=== PATIENT | female | born 1965 | race Caucasian/White ===

== ENCOUNTER 2021-06-22 09:13 | Inpatient (IN) ==
[2021-06-22] MEDS ORDERED: ADENOSINE IV SOLN 3 MG/ML 2 ML VIAL IV ONE (09:30)
[2021-06-22] MEDS ORDERED: AMIODARONE / D5W 150 MG/100 ML BAG IV ONE ×2 (09:33→09:43)
[2021-06-22] MEDS ORDERED: AMIODARONE 360MG / 200ML D5W IV ONE (09:33)
[2021-06-22] MEDS ORDERED: AMIODARONE 150MG / 100ML D5W IV ONE ×2 (09:33→09:43)
[2021-06-22] MEDS ORDERED: 0.2 MICRON FILTER SET 1 EA IV ONE (09:33)
[2021-06-22] MEDS ORDERED: LORazepam 2 MG/4 ML VIAL ONE (09:34)
[2021-06-22] MEDS ORDERED: PROPOFOL IV EMULSION 10 MG/ML 20 ML VIAL IV ONE ×2 (09:46→10:17)
[2021-06-22 09:51] LABS: Basophils # (auto) 0.04 K/uL (0-0.2); Basophils % (auto) 0.8 %; Eosinophils # (auto) 0.19 K/uL (0-0.5); Eosinophils % (auto) 3.7 %; Hematocrit (blood only) 47.1 % (37-47); Hemoglobin 15.6 g/dL (12.0-16.0); Immature Granulocytes # (auto) 0.01 K/uL (0.00-0.02); Immature Granulocytes % (auto) 0.2 %; Lymphocytes # (auto) 1.16 K/uL (1.2-3.4); Lymphocytes % (auto) 22.5 %; Mean Corpuscular Hemoglobin 32.9 pg (25-34); Mean Corpuscular Hgb Conc 33.1 g/dL (32-36); Mean Corpuscular Volume 99.4 fL (80-100); Mean Platelet Volume 10.2 fL (7.4-10.4); Monocytes # (auto) 0.49 K/uL (0.11-0.59); Monocytes % (auto) 9.5 %; Neutrophils # (auto) 3.26 K/uL (1.4-6.5); Neutrophils % (auto) 63.3 %; Platelet Count 210 K/uL (130-400); RDW Coefficient of Variation 13.3 % (11.5-14.5); RDW Standard Deviation 48.1 fL (36.4-46.3); Red Blood Count 4.74 M/uL (4.2-5.4); White Blood Count 5.15 K/uL (4.8-10.8)
[2021-06-22 10:04] LABS: iSTAT Creatinine 0.9 mg/dl (0.6-1.3); iSTAT Hemoglobin 15.3 g/dl (12.0-16.0); iSTAT Ionized Calcium 1.13 mmol/l (1.12-1.32); iSTAT Potassium 4.2 mmol/L (3.3-5.0)
[2021-06-22 10:04] LABS: Partial Thromboplastin Time 27.3 Seconds (21.0-31.0); Prothrombin Time 10.1 Seconds (9.0-12.0)
[2021-06-22 10:10] LABS: BUN Creatinine Ratio 14.5 (10-20); Calcium 8.7 mg/dl (8.5-10.1); Creatinine Clr Calc Pharmacy 61.8 ml/min; Est GFR (Non-African American) 53.5 ml/min; Magnesium 2.1 mg/dl (1.8-2.4); Potassium 3.6 mmol/L (3.5-5.1)
[2021-06-22 10:15] LABS: Troponin I 0.049 ng/ml (0-0.045)
[2021-06-22] MEDS ORDERED: AMIODARONE / D5W 360 MG/200 ML BAG IV SCH ×2 (10:30→16:30)
--- NOTE | 2021-06-22 10:31 | Emergency Department Note ---
History of Present Illness General Chief complaint: Tachycardia Stated complaint: TACHYCARDIA, SOB Time Seen by Provider: 06/22/21 09:36 Home Medications Medication Instructions Recorded Confirmed Type acetaminophen 500 mg tablet 1,000 mg PO Q6H PRN 09/05/18 06/22/21 History (Tylenol Extra Strength) Allergies Allergy/AdvReac Type Severity Reaction Status Date / Time latex Allergy Unknown RASH Verified 06/22/21 11:04 morphine Allergy Unknown Chest Verified 06/22/21 11:04 tightness and pressure. azithromycin AdvReac stomach Verified 06/22/21 11:04 pain metoprolol AdvReac Verified 06/22/21 11:04 Past Med/Surg History Medical History Abdominal distention Anemia HX Anxiety CHF (congestive heart failure) GERD (gastroesophageal reflux disease) HX History of palpitations NO MEDS Kidney stones Nausea and vomiting after administration of anesthetic agent FATIGUE FOR DAYS AFTERWARDS Prediabetes NO MEDS DIET MANAGED Surgical History Hx of thumb surgery LEFT TENDON SURG Family History Family/Other Family history of diabetes mellitus Grandmother Family history of diabetes mellitus Father Family hx of colon cancer Social History Smoking Status: Former smoker Second Hand Exposure: No; Hx Alcohol Use: No Hx Substance Use: No Preferred Language: Nicaraguan Communication Ability: Effective 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 Hand Required: No Beliefs That Will Affect Care: None Current Living Situation: Spouse Feels Safe at Home: Yes Assistive Devices: Denture - Upper and Denture - Lower Physical Exam Vital Signs Vital Signs - 24 hr 06/22/21 09:19 06/22/21 09:32 06/22/21 09:35 Temperature 36.7 C Temperature Source Temporal Artery Scan Pulse Rate 148 H 147 H 147 H Pulse Rate from SpO2 Sensor 148 H 147 H Pulse Rhythm Respiratory Rate 20 27 H 18 Blood Pressure 146/97 H 182/122 H 149/118 H Blood Pressure Mean 113 142 128 Pulse Oximetry 93 99 99 Oxygen Delivery Method Room Air Oxymask Oxymask Oxygen Flow Rate 4 4 Sepsis Recent Fever Within 48 Hours No Sepsis New/Unexplained Change in Mental Status N/A Sepsis Action Taken by Nursing No Action Required End-Tidal CO2 06/22/21 09:40 06/22/21 09:45 06/22/21 09:50 Temperature Temperature Source Pulse Rate 144 H 140 H 139 H Pulse Rate from SpO2 Sensor 144 H 133 H 139 H Pulse Rhythm Respiratory Rate 20 22 Blood Pressure 135/97 125/92 119/86 Blood Pressure Mean 109 103 97 Pulse Oximetry 96 93 93 Oxygen Delivery Method Oxymask Nasal Cannula Nasal Cannula Oxygen Flow Rate 4 2 2 Sepsis Recent Fever Within 48 Hours Sepsis New/Unexplained Change in Mental Status Sepsis Action Taken by Nursing End-Tidal CO2 35 06/22/21 09:54 06/22/21 09:55 06/22/21 10:00 Temperature Temperature Source Pulse Rate 133 H 133 H Pulse Rate from SpO2 Sensor 133 H 133 H Pulse Rhythm Respiratory Rate Blood Pressure 113/82 107/86 Blood Pressure Mean 92 93 Pulse Oximetry 93 92 92 Oxygen Delivery Method Nasal Cannula Nasal Cannula Nasal Cannula Oxygen Flow Rate 2 2 2 Sepsis Recent Fever Within 48 Hours Sepsis New/Unexplained Change in Mental Status Sepsis Action Taken by Nursing End-Tidal CO2 32 34 06/22/21 10:05 06/22/21 10:10 06/22/21 10:15 Temperature Temperature Source Pulse Rate 134 H 71 70 Pulse Rate from SpO2 Sensor 135 H 71 69 Pulse Rhythm Respiratory Rate Blood Pressure 126/91 100/76 118/73 Blood Pressure Mean 102 84 88 Pulse Oximetry 91 93 96 Oxygen Delivery Method Nasal Cannula Nasal Cannula Non-rebreather Oxygen Flow Rate 6 6 15 Sepsis Recent Fever Within 48 Hours Sepsis New/Unexplained Change in Mental Status Sepsis Action Taken by Nursing End-Tidal CO2 24 16 20 06/22/21 10:20 06/22/21 10:25 06/22/21 10:30 Temperature Temperature Source Pulse Rate 67 69 68 Pulse Rate from SpO2 Sensor 67 71 68 Pulse Rhythm Respiratory Rate Blood Pressure 81/64 L 103/64 120/70 Blood Pressure Mean 69 77 86 Pulse Oximetry 95 95 95 Oxygen Delivery Method Nasal Cannula Nasal Cannula Nasal Cannula Oxygen Flow Rate 4 4 4 Sepsis Recent Fever Within 48 Hours Sepsis New/Unexplained Change in Mental Status Sepsis Action Taken by Nursing End-Tidal CO2 33 19 31 06/22/21 10:35 06/22/21 10:39 06/22/21 10:41 Temperature Temperature Source Pulse Rate 67 68 68 Pulse Rate from SpO2 Sensor 67 68 Pulse Rhythm Regular Respiratory Rate 16 20 18 Blood Pressure 114/70 98/70 L Blood Pressure Mean 84 79 Pulse Oximetry 95 95 96 Oxygen Delivery Method Nasal Cannula Nasal Cannula Nasal Cannula Oxygen Flow Rate 2 4 2 Sepsis Recent Fever Within 48 Hours Sepsis New/Unexplained Change in Mental Status Sepsis Action Taken by Nursing End-Tidal CO2 33 32 06/22/21 10:45 06/22/21 10:50 06/22/21 10:55 Temperature Temperature Source Pulse Rate 70 67 67 Pulse Rate from SpO2 Sensor 67 66 Pulse Rhythm Respiratory Rate 20 18 18 Blood Pressure 111/77 116/80 114/67 Blood Pressure Mean 88 92 82 Pulse Oximetry 96 95 96 Oxygen Delivery Method Nasal Cannula Nasal Cannula Nasal Cannula Oxygen Flow Rate 2 2 2 Sepsis Recent Fever Within 48 Hours Sepsis New/Unexplained Change in Mental Status Sepsis Action Taken by Nursing End-Tidal CO2 19 06/22/21 11:00 06/22/21 11:15 06/22/21 11:30 Temperature Temperature Source Pulse Rate 68 66 63 Pulse Rate from SpO2 Sensor 68 66 64 Pulse Rhythm Respiratory Rate 18 18 Blood Pressure 122/69 114/70 125/71 Blood Pressure Mean 86 84 89 Pulse Oximetry 96 94 95 Oxygen Delivery Method Nasal Cannula Oxygen Flow Rate 2 4 4 Sepsis Recent Fever Within 48 Hours Sepsis New/Unexplained Change in Mental Status Sepsis Action Taken by Nursing End-Tidal CO2 06/22/21 11:45 06/22/21 12:00 06/22/21 12:15 Temperature Temperature Source Pulse Rate 65 65 66 Pulse Rate from SpO2 Sensor 65 65 66 Pulse Rhythm Respiratory Rate Blood Pressure 119/75 120/73 122/81 Blood Pressure Mean 89 88 94 Pulse Oximetry 96 96 96 Oxygen Delivery Method Oxygen Flow Rate 4 4 4 Sepsis Recent Fever Within 48 Hours Sepsis New/Unexplained Change in Mental Status Sepsis Action Taken by Nursing End-Tidal CO2 06/22/21 12:30 Temperature Temperature Source Pulse Rate 61 Pulse Rate from SpO2 Sensor 61 Pulse Rhythm Respiratory Rate Blood Pressure 115/76 Blood Pressure Mean 89 Pulse Oximetry 96 Oxygen Delivery Method Oxygen Flow Rate 4 Sepsis Recent Fever Within 48 Hours Sepsis New/Unexplained Change in Mental Status Sepsis Action Taken by Nursing End-Tidal CO2 Course Course 1030: szy amio ndsrip Administered Medications Amiodarone HCl/Dextrose (Nexterone / D5w) 360 mg in 200 mls @ 33.333 mls/hr IV .Q6H KAILEE Stop: 06/22/21 16:29 Last Admin: 06/22/21 10:37 Dose: 1 mg/min, 33.3 mls/hr Documented by: [id number] Cosigned by: [id number] Discontinued Medications Adenosine (Adenosine Iv Soln 3 Mg/Ml 2 Ml Vial) Confirm Administered Dose 6 mg IV .STK-MED ONE Stop: 06/22/21 09:31 Last Admin: 06/22/21 10:49 Dose: Not Given Documented by: [id number] Amiodarone HCl/Dextrose (Amiodarone 360mg / 200ml D5w) Confirm Administered Dose 360 mg IV .STK-MED ONE Stop: 06/22/21 09:34 Last Admin: 06/22/21 10:56 Dose: Not Given Documented by: [id number] Amiodarone HCl/Dextrose (Amiodarone 150mg / 100ml D5w) Confirm Administered Dose 150 mg IV .STK-MED ONE Stop: 06/22/21 09:34 Last Admin: 06/22/21 09:38 Dose: 150 mg Documented by: [id number] Cosigned by: [id number] Amiodarone HCl/Dextrose (Amiodarone 150mg / 100ml D5w) Confirm Administered Dose 150 mg IV .STK-MED ONE Stop: 06/22/21 09:44 Last Admin: 06/22/21 09:50 Dose: 150 mg Documented by: [id number] Cosigned by: [id number] Amiodarone HCl/Dextrose (Nexterone / D5w) 150 mg in 100 mls @ 600 mls/hr IV ONE ONE Stop: 06/22/21 09:42 Last Admin: 06/22/21 10:56 Dose: Not Given Documented by: [id number] Amiodarone HCl/Dextrose (Nexterone / D5w) 150 mg in 100 mls @ 600 mls/hr IV ONE ONE Stop: 06/22/21 09:52 Last Admin: 06/22/21 10:56 Dose: Not Given Documented by: [id number] Lorazepam (Lorazepam 2 Mg/4 Ml Vial) Confirm Administered Dose 2 mg .ROUTE .STK- MED ONE Stop: 06/22/21 09:35 Last Admin: 06/22/21 09:39 Dose: 0.5 mg Documented by: [id number] Propofol (Propofol Iv Emulsion 10 Mg/Ml 20 Ml Vial) Confirm Administered Dose 200 mg IV .STK-MED ONE Stop: 06/22/21 09:47 Last Admin: 06/22/21 10:17 Dose: 50 mg Documented by: [id number] Cosigned by: [id number] Propofol (Propofol Iv Emulsion 10 Mg/Ml 20 Ml Vial) 50 mg IV 1017 ONE Stop: 06/22/21 10:18 Last Admin: 06/22/21 10:52 Dose: Not Given Documented by: [id number] Medical Decision Making Laboratory Data Result diagrams: 06/22/21 09:36 06/22/21 09:36 Lab Results 06/22/21 06/22/21 06/22/21 Range/Units 09:36 09:36 09:36 WBC 5.15 (4.8-10.8) K/uL RBC 4.74 (4.2-5.4) M/uL Hgb 15.6 (12.0-16.0) g/dL POC Hgb (12.0-16.0) g/dl Hct 47.1 H (37-47) % POC Hct (37-47) % MCV 99.4 (80-100) fL MCH 32.9 (25-34) pg MCHC 33.1 (32-36) g/dL RDW Std Deviation 48.1 H (36.4-46.3) fL RDW Coeff of Kaden 13.3 (11.5-14.5) % Plt Count 210 (130-400) K/uL MPV 10.2 (7.4-10.4) fL Immature Gran % (Auto) 0.2 % Neut % (Auto) 63.3 % Lymph % (Auto) 22.5 % [place] % (Auto) 9.5 % Eos % (Auto) 3.7 % Baso % (Auto) 0.8 % Neut # (Auto) 3.26 (1.4-6.5) K/uL Lymph # (Auto) 1.16 L (1.2-3.4) K/uL [place] # (Auto) 0.49 (0.11-0.59) K/uL Eos # (Auto) 0.19 (0-0.5) K/uL Baso # (Auto) 0.04 (0-0.2) K/uL Immature Gran # (Auto) 0.01 (0.00-0.02) K/uL PT 10.1 (9.0-12.0) Seconds INR 1.0 (0.9-1.1) APTT 27.3 (21.0-31.0) Seconds PTT Ratio 1.0 POC Sodium (135-144) mmol/L Sodium 133 L (136-145) mmol/L POC Potassium (3.3-5.0) mmol/L Potassium 3.6 (3.5-5.1) mmol/L POC Chloride (101-112) mmol/L Chloride 100 (98-107) mmol/L Carbon Dioxide 28 (21-32) mmol/L POC Total CO2 (24-31) mmol/L Anion Gap 5.0 (3-11) POC Anion Gap (16-25) mmol/L POC BUN (7-18) mg/dl BUN 17 (7-18) mg/dl Creatinine 1.15 (0.6-1.2) mg/dl POC Creatinine (0.6-1.3) mg/dl Est Cr Clr Drug Dosing 61.8 ml/min Est GFR ( Amer) 62.0 ml/min Est GFR (Non-Af Amer) 53.5 ml/min BUN/Creatinine Ratio 14.5 (10-20) Glucose 298 H (70-99) mg/dl POC Glucose (other) (70-99) mg/dl Calcium 8.7 (8.5-10.1) mg/dl POC Ioniz Calcium Regino (1.12-1.32) mmol/l Magnesium 2.1 (1.8-2.4) mg/dl Troponin I 0.049 H* (0-0.045) ng/ml NT-Pro-B Natriuret Pep 4251 H (0-900) pg/ml Lipase 92 (73-393) U/L COVID-19 Eval Order SARS-CoV-2 (PCR) (Negative) 06/22/21 06/22/21 06/22/21 Range/Units 09:52 10:41 10:41 WBC (4.8-10.8) K/uL RBC (4.2-5.4) M/uL Hgb (12.0-16.0) g/dL POC Hgb 15.3 (12.0-16.0) g/dl Hct (37-47) % POC Hct 45 (37-47) % MCV (80-100) fL MCH (25-34) pg MCHC (32-36) g/dL RDW Std Deviation (36.4-46.3) fL RDW Coeff of Kaden (11.5-14.5) % Plt Count (130-400) K/uL MPV (7.4-10.4) fL Immature Gran % (Auto) % Neut % (Auto) % Lymph % (Auto) % [place] % (Auto) % Eos % (Auto) % Baso % (Auto) % Neut # (Auto) (1.4-6.5) K/uL Lymph # (Auto) (1.2-3.4) K/uL [place] # (Auto) (0.11-0.59) K/uL Eos # (Auto) (0-0.5) K/uL Baso # (Auto) (0-0.2) K/uL Immature Gran # (Auto) (0.00-0.02) K/uL PT (9.0-12.0) Seconds INR (0.9-1.1) APTT (21.0-31.0) Seconds PTT Ratio POC Sodium 135 (135-144) mmol/L Sodium (136-145) mmol/L POC Potassium 4.2 (3.3-5.0) mmol/L Potassium (3.5-5.1) mmol/L POC Chloride 97 L (101-112) mmol/L Chloride (98-107) mmol/L Carbon Dioxide (21-32) mmol/L POC Total CO2 26 (24-31) mmol/L Anion Gap (3-11) POC Anion Gap 17.0 (16-25) mmol/L POC BUN 22 H (7-18) mg/dl BUN (7-18) mg/dl Creatinine (0.6-1.2) mg/dl POC Creatinine 0.9 (0.6-1.3) mg/dl Est Cr Clr Drug Dosing ml/min Est GFR ( Amer) ml/min Est GFR (Non-Af Amer) ml/min BUN/Creatinine Ratio (10-20) Glucose (70-99) mg/dl POC Glucose (other) 355 H* (70-99) mg/dl Calcium (8.5-10.1) mg/dl POC Ioniz Calcium Regino 1.13 (1.12-1.32) mmol/l Magnesium (1.8-2.4) mg/dl Troponin I (0-0.045) ng/ml NT-Pro-B Natriuret Pep (0-900) pg/ml Lipase (73-393) U/L COVID-19 Eval Order Covid19 at [facility] SARS-CoV-2 (PCR) NEGATIVE (Negative) Imaging Data Radiologist's Impression: Chest X-Ray 06/22/21 09:37 XR chest 1V portable CLINICAL HISTORY: Chest Pain COMPARISON STUDY: Chest radiograph November 04, 2015. FINDINGS: There is no pneumothorax. Right lower lung interstitial thickening and apparent hazy left basilar opacity is noted. Possible small left and trace right pleural effusions are noted. Cardiomediastinal silhouette is stable. There is pulmonary vascular congestion without overt pulmonary edema. IMPRESSION: 1. Lower lung interstitial thickening and apparent hazy left basilar opacity. This could be due to overlying soft tissues. However, an infectious process would be difficult to exclude. 2. Pulmonary vascular congestion. ACT 112: Negative or not required by law. Electronically signed by: Mg Nugent M.D. 06/22/2021 10:36 AM Discharge Plan Visit Data Chief Complaint: Tachycardia Stated Complaint: TACHYCARDIA, SOB ED Provider: Eric Awad Forms Stand Alone Forms: [employer] Prescriptions Prescriptions: No Action acetaminophen [Tylenol Extra Strength] 500 mg Tablet 1,000 mg PO Q6H PRN (Reason: Pain) RF: 0 Referrals Referrals: Jesu Landon III, MD [Primary Care Provider] -
--- NOTE | 2021-06-22 10:37 | XRay Report ---
XR chest 1V portable CLINICAL HISTORY: Chest Pain COMPARISON STUDY: Chest radiograph November 04, 2015. FINDINGS: There is no pneumothorax. Right lower lung interstitial thickening and apparent hazy left b asilar opacity is noted. Possible small left and trace right pleural effusions are noted. Cardiomedia stinal silhouette is stable. There is pulmonary vascular congestion without overt pulmonary edema. IMPRESSION: 1. Lower lung interstitial thickening and apparent hazy left basilar opacity. This could be due to ov erlying soft tissues. However, an infectious process would be difficult to exclude. 2. Pulmonary vascular congestion. ACT 112: Negative or not required by law. Electronically signed by: Mg Nugent M.D. 06/22/2021 10:36 AM
--- NOTE | 2021-06-22 11:54 | History & Physical Report ---
Date of Service June 22, 2021 Assessment & Plan (1) Ventricular tachycardia: Plan: Patient presented with stable of ventricular tachycardia, resistant to chemical cardioversion. Required DC CV by ER physician, now stable Will admit to PCU Continue amiodarone drip as ordered Check 2D echo Trend troponins IV hydration Consult cardiology, question if candidate for implantable defibrillator (2) CHF (congestive heart failure): Plan: As per documentation, I do not see any further characterization of this Patient is not on any diuretics or other cardiac meds 2D echo as noted above (3) Hyperglycemia: Plan: Patient has a history of prediabetes, will check hemoglobin A1c (4) GERD (gastroesophageal reflux disease): Plan: Again, no medications listed. Continue to monitor History of Present Illness Chief Complaint: Tachycardia Primary Care Provider: Jesu Landon MD This is a 55-year-old female with past medical history of allergic rhinitis, CHF, GERD, and previous pneumonia with VDRF that presents today complaining of tachycardia. Patient is accompanied by her [id number], both are good historians. Patient tells me that she works nights at [employer]. 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 She took her blood pressure with her cuff at home and found that her rate was being measured in the 140s. The patient did not think much of this as she is having no chest pain or palpitations. She went to sleep but when she woke up she once again measured her blood pressure and heart rate and found that the rate was again in the 140s. Patient continued along her day yesterday but woke up this morning with similar rate. She did feel somewhat tired with a lack of energy but is specifically denied palpitations, chest pain, shortness of breath, dyspnea on exertion, edema, or any other symptoms. Today she started to feel little dizzy and lightheaded which is what prompted her to come to the emergency room. In the ER, she was found to be in V. tach. She was administered 2 doses of amiodarone emergently without results. The ER physician performed a DC cardioversion and the patient is now in a normal sinus rhythm. At the time my evaluation, the patient was feeling well with no issues. She was requiring 4 L nasal cannula but her heart rate and blood pressure were stable and she remained in normal sinus rhythm. She was placed on an amiodarone drip. At this time the patient is being mated to the PCU for further cardiac evaluation. Allergies Allergy/AdvReac Type Severity Reaction Status Date / Time latex Allergy Unknown RASH Verified 06/22/21 11:04 morphine Allergy Unknown Chest Verified 06/22/21 11:04 tightness and pressure. azithromycin AdvReac stomach Verified 06/22/21 11:04 pain metoprolol AdvReac Verified 06/22/21 11:04 Home Medications Medication Instructions Recorded Confirmed Type acetaminophen 500 mg tablet 1,000 mg PO Q6H PRN 09/05/18 06/22/21 History (Tylenol Extra Strength) Past Med/Surg History Medical History Abdominal distention Anemia HX Anxiety CHF (congestive heart failure) GERD (gastroesophageal reflux disease) HX History of palpitations NO MEDS Kidney stones Nausea and vomiting after administration of anesthetic agent FATIGUE FOR DAYS AFTERWARDS Prediabetes NO MEDS DIET MANAGED Surgical History Hx of thumb surgery LEFT TENDON SURG Family History Family/Other Family history of diabetes mellitus Grandmother Family history of diabetes mellitus Father Family hx of colon cancer Social History Smoking Status: Former smoker Second Hand Exposure: No; Hx Alcohol Use: No Hx Substance Use: No Preferred Language: [place] Islander Communication Ability: Effective Can Tender Required: No Beliefs That Will Affect Care: None Current Living Situation: Spouse Feels Safe at Home: Yes Assistive Devices: Denture - Upper and Denture - Lower Review of Systems Constitutional: no fever, no chills, no weakness, no weight loss and no weight gain Eyes: as per Subjective / HPI Respiratory: no cough, no chest congestion, no dyspnea and no dyspnea on exertion Cardiovascular: + lightheadedness; no chest pain, no orthopnea, no palpitations and no edema Gastrointestinal: no abdominal pain, no nausea, no vomiting, no constipation and no diarrhea/loose stools Genitourinary: no dysuria, no difficulty urinating, no urinary frequency, no urinary hesitancy, no urinary urgency and no flank pain Musculoskeletal: no back pain, no neck pain, no joint pain, no stiffness and no myalgia Integumentary: no rash Neurologic: no gait abnormality, no unsteadiness, no falls and no generalized weakness Physical Exam Constitutional: cooperative; no acute distress Neck: trachea midline, no thyromegaly Respiratory: normal respiratory effort Auscultation: lungs clear to auscultation bilaterally; no crackles, no rales, no rhonchi and no wheezes Cardiovascular: Rate/Rhythm: regular rate and regular rhythm Heart Sounds: normal S1 and normal S2 Gastrointestinal (Abdomen): Inspection/Auscultation: abdomen normal to inspection Percussion/Palpation: abdomen soft; abdomen nontender, no guarding, abdomen not rigid and no hepatosplenomegaly Skin: no rashes, warm and dry Results & Data Results & Data ([facility]) Vital Signs (Past 12 Hours) Vital Signs Temp Pulse Resp BP Pulse Ox 06/22/21 11:15 66 18 114/70 94 06/22/21 11:00 68 18 122/69 96 06/22/21 10:55 67 18 114/67 96 06/22/21 10:50 67 18 116/80 95 06/22/21 10:45 70 20 111/77 96 06/22/21 10:41 68 18 98/70 L 96 06/22/21 10:39 68 20 95 06/22/21 10:35 67 16 114/70 95 06/22/21 10:30 68 120/70 95 06/22/21 10:25 69 103/64 95 06/22/21 10:20 67 81/64 L 95 06/22/21 10:15 70 118/73 96 06/22/21 10:10 71 100/76 93 06/22/21 10:05 134 H 126/91 91 06/22/21 10:00 133 H 107/86 92 06/22/21 09:55 133 H 113/82 92 06/22/21 09:54 93 06/22/21 09:50 139 H 119/86 93 06/22/21 09:45 140 H 22 125/92 93 06/22/21 09:40 144 H 20 135/97 96 06/22/21 09:35 147 H 18 149/118 H 99 06/22/21 09:32 147 H 27 H 182/122 H 99 06/22/21 09:19 36.7 C 148 H 20 146/97 H 93 Laboratory Results Laboratory Results WBC 5.15 K/uL (4.8-10.8) 06/22/21 09:36 RBC 4.74 M/uL (4.2-5.4) 06/22/21 09:36 Hgb 15.6 g/dL (12.0-16.0) 06/22/21 09:36 POC Hgb 15.3 g/dl (12.0-16.0) 06/22/21 09:52 Hct 47.1 % (37-47) H 06/22/21 09:36 POC Hct 45 % (37-47) 06/22/21 09:52 MCV 99.4 fL (80-100) 06/22/21 09:36 MCH 32.9 pg (25-34) 06/22/21 09:36 MCHC 33.1 g/dL (32-36) 06/22/21 09:36 RDW Std Deviation 48.1 fL (36.4-46.3) H 06/22/21 09:36 RDW Coeff of Kaden 13.3 % (11.5-14.5) 06/22/21 09:36 Plt Count 210 K/uL (130-400) 06/22/21 09:36 MPV 10.2 fL (7.4-10.4) 06/22/21 09:36 Immature Gran % (Auto) 0.2 % 06/22/21 09:36 Neut % (Auto) 63.3 % 06/22/21 09:36 Lymph % (Auto) 22.5 % 06/22/21 09:36 [place] % (Auto) 9.5 % 06/22/21 09:36 Eos % (Auto) 3.7 % 06/22/21 09:36 Baso % (Auto) 0.8 % 06/22/21 09:36 Neut # (Auto) 3.26 K/uL (1.4-6.5) 06/22/21 09:36 Lymph # (Auto) 1.16 K/uL (1.2-3.4) L 06/22/21 09:36 [place] # (Auto) 0.49 K/uL (0.11-0.59) 06/22/21 09:36 Eos # (Auto) 0.19 K/uL (0-0.5) 06/22/21 09:36 Baso # (Auto) 0.04 K/uL (0-0.2) 06/22/21 09:36 Immature Gran # (Auto) 0.01 K/uL (0.00-0.02) 06/22/21 09:36 PT 10.1 Seconds (9.0-12.0) 06/22/21 09:36 INR 1.0 (0.9-1.1) 06/22/21 09:36 APTT 27.3 Seconds (21.0-31.0) 06/22/21 09:36 PTT Ratio 1.0 06/22/21 09:36 POC Sodium 135 mmol/L (135-144) 06/22/21 09:52 Sodium 133 mmol/L (136-145) L 06/22/21 09:36 POC Potassium 4.2 mmol/L (3.3-5.0) 06/22/21 09:52 Potassium 3.6 mmol/L (3.5-5.1) 06/22/21 09:36 POC Chloride 97 mmol/L (101-112) L 06/22/21 09:52 Chloride 100 mmol/L (98-107) 06/22/21 09:36 Carbon Dioxide 28 mmol/L (21-32) 06/22/21 09:36 POC Total CO2 26 mmol/L (24-31) 06/22/21 09:52 Anion Gap 5.0 (3-11) 06/22/21 09:36 POC Anion Gap 17.0 mmol/L (16-25) 06/22/21 09:52 POC BUN 22 mg/dl (7-18) H 06/22/21 09:52 BUN 17 mg/dl (7-18) 06/22/21 09:36 Creatinine 1.15 mg/dl (0.6-1.2) 06/22/21 09:36 POC Creatinine 0.9 mg/dl (0.6-1.3) 06/22/21 09:52 Est Cr Clr Drug Dosing 61.8 ml/min 06/22/21 09:36 Est GFR ( Amer) 62.0 ml/min 06/22/21 09:36 Est GFR (Non-Af Amer) 53.5 ml/min 06/22/21 09:36 BUN/Creatinine Ratio 14.5 (10-20) 06/22/21 09:36 Glucose 298 mg/dl (70-99) H 06/22/21 09:36 POC Glucose (other) 355 mg/dl (70-99) H* 06/22/21 09:52 Calcium 8.7 mg/dl (8.5-10.1) 06/22/21 09:36 POC Ioniz Calcium Regino 1.13 mmol/l (1.12-1.32) 06/22/21 09:52 Magnesium 2.1 mg/dl (1.8-2.4) 06/22/21 09:36 Troponin I 0.049 ng/ml (0-0.045) H* 06/22/21 09:36 NT-Pro-B Natriuret Pep 4251 pg/ml (0-900) H 06/22/21 09:36 Lipase 92 U/L (73-393) 06/22/21 09:36 COVID-19 Eval Order Covid19 at [facility] 06/22/21 10:41 Impressions Chest X-Ray 06/22/21 09:37 XR chest 1V portable CLINICAL HISTORY: Chest Pain COMPARISON STUDY: Chest radiograph November 04, 2015. FINDINGS: There is no pneumothorax. Right lower lung interstitial thickening and apparent hazy left basilar opacity is noted. Possible small left and trace right pleural effusions are noted. Cardiomediastinal silhouette is stable. There is pulmonary vascular congestion without overt pulmonary edema. IMPRESSION: 1. Lower lung interstitial thickening and apparent hazy left basilar opacity. This could be due to overlying soft tissues. However, an infectious process would be difficult to exclude. 2. Pulmonary vascular congestion. ACT 112: Negative or not required by law. Electronically signed by: Mg Nugent M.D. 06/22/2021 10:36 AM PG Care Time/CCT Total # of Minutes Spent Total Time Spent with Patient: Total time spent is greater than 50% in coordination of care (as documented) at patient's floor/unit and/or counseling patient: Coding Level of Care Code 33879 Initial Inpt Care Lvl 3 Diagnoses Ventricular tachycardia I47.2 CHF (congestive heart failure) I50.9 Hyperglycemia R73.9 GERD (gastroesophageal reflux disease) K21.9
[2021-06-22] MEDS ORDERED: PHARMACY GLYCEMIC MGMT CONSULT STA (12:08)
--- NOTE | 2021-06-22 13:34 | Emergency Department Note ---
History of Present Illness General Chief Complaint: Tachycardia Stated Complaint: TACHYCARDIA, SOB Time Seen by Provider: 06/22/21 09:36 History of Present Illness Provider Complaint: + rapid heart beat and + palpitations Onset (ago): 2 day(s) Duration: + Constant Current Pain Intensity: 0 Context: + occurred during rest Arrhythmia history: no on anti-coagulants, no history of ablation or no history of electrical cardioversion Associated symptoms: no chest pain, no shortness of breath, no syncope, no near- syncope, no nausea, no anxiety, no diaphoresis, no cough, no paresthesias or no muscle cramps HPI narrative: Patient denies any drugs or alcohol. No cocaine. Home Medications Medication Instructions Recorded Confirmed Type acetaminophen 500 mg tablet 1,000 mg PO Q6H PRN 09/05/18 06/22/21 History (Tylenol Extra Strength) Allergies Allergy/AdvReac Type Severity Reaction Status Date / Time latex Allergy Unknown RASH Verified 06/22/21 11:04 morphine Allergy Unknown Chest Verified 06/22/21 11:04 tightness and pressure. azithromycin AdvReac stomach Verified 06/22/21 11:04 pain metoprolol AdvReac Verified 06/22/21 11:04 Past Med/Surg History Medical History Abdominal distention Anemia HX Anxiety CHF (congestive heart failure) GERD (gastroesophageal reflux disease) HX History of palpitations NO MEDS Kidney stones Nausea and vomiting after administration of anesthetic agent FATIGUE FOR DAYS AFTERWARDS Prediabetes NO MEDS DIET MANAGED Surgical History Hx of thumb surgery LEFT TENDON SURG Family History Family/Other Family history of diabetes mellitus Grandmother Family history of diabetes mellitus Father Family hx of colon cancer Social History Smoking Status: Former smoker Second Hand Exposure: No; Hx Alcohol Use: No Hx Substance Use: No Preferred Language: Korean Communication Ability: Effective 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: No Beliefs That Will Affect Care: None Current Living Situation: Spouse Feels Safe at Home: Yes Assistive Devices: Denture - Upper and Denture - Lower Review of Systems A total of 10 systems reviewed and were otherwise negative Physical Exam Vital Signs: Vital Signs - 24 hr 06/22/21 09:19 06/22/21 09:32 06/22/21 09:35 Temperature 36.7 C Temperature Source Temporal Artery Sc an Pulse Rate 148 H 147 H 147 H Pulse Rate from Sp O2 Sensor 148 H 147 H Pulse Rhythm Respiratory Rate 20 27 H 18 Blood Pressure 146/97 H 182/122 H 149/118 H Blood Pressure Angela n 113 142 128 Pulse Oximetry 93 99 99 Oxygen Delivery Me thod Room Air Oxymask Oxymask Oxygen Flow Rate 4 4 Sepsis Recent Feve r Within 48 Hours No Sepsis New/Unexpla ined Change in Men hannah Status N/A Sepsis Action Take n by Nursing No Action Required End-Tidal CO2 06/22/21 09:40 06/22/21 09:45 06/22/21 09:50 Temperature Temperature Source Pulse Rate 144 H 140 H 139 H Pulse Rate from Sp O2 Sensor 144 H 133 H 139 H Pulse Rhythm Respiratory Rate 20 22 Blood Pressure 135/97 125/92 119/86 Blood Pressure Angela n 109 103 97 Pulse Oximetry 96 93 93 Oxygen Delivery Me thod Oxymask Nasal Cannula Nasal Cannula Oxygen Flow Rate 4 2 2 Sepsis Recent Feve r Within 48 Hours Sepsis New/Unexpla ined Change in Men hannah Status Sepsis Action Take n by Nursing End-Tidal CO2 35 06/22/21 09:54 06/22/21 09:55 06/22/21 10:00 Temperature Temperature Source Pulse Rate 133 H 133 H Pulse Rate from Sp O2 Sensor 133 H 133 H Pulse Rhythm Respiratory Rate Blood Pressure 113/82 107/86 Blood Pressure Angela n 92 93 Pulse Oximetry 93 92 92 Oxygen Delivery Me thod Nasal Cannula Nasal Cannula Nasal Cannula Oxygen Flow Rate 2 2 2 Sepsis Recent Feve r Within 48 Hours Sepsis New/Unexpla ined Change in Men hannah Status Sepsis Action Take n by Nursing End-Tidal CO2 32 34 06/22/21 10:05 06/22/21 10:10 06/22/21 10:15 Temperature Temperature Source Pulse Rate 134 H 71 70 Pulse Rate from Sp O2 Sensor 135 H 71 69 Pulse Rhythm Respiratory Rate Blood Pressure 126/91 100/76 118/73 Blood Pressure Angela n 102 84 88 Pulse Oximetry 91 93 96 Oxygen Delivery Me thod Nasal Cannula Nasal Cannula Non-rebreather Oxygen Flow Rate 6 6 15 Sepsis Recent Feve r Within 48 Hours Sepsis New/Unexpla ined Change in Men hannah Status Sepsis Action Take n by Nursing End-Tidal CO2 24 16 20 06/22/21 10:20 06/22/21 10:25 06/22/21 10:30 Temperature Temperature Source Pulse Rate 67 69 68 Pulse Rate from Sp O2 Sensor 67 71 68 Pulse Rhythm Respiratory Rate Blood Pressure 81/64 L 103/64 120/70 Blood Pressure Angela n 69 77 86 Pulse Oximetry 95 95 95 Oxygen Delivery Me thod Nasal Cannula Nasal Cannula Nasal Cannula Oxygen Flow Rate 4 4 4 Sepsis Recent Feve r Within 48 Hours Sepsis New/Unexpla ined Change in Men hannah Status Sepsis Action Take n by Nursing End-Tidal CO2 33 19 31 06/22/21 10:35 06/22/21 10:39 06/22/21 10:41 Temperature Temperature Source Pulse Rate 67 68 68 Pulse Rate from Sp O2 Sensor 67 68 Pulse Rhythm Regular Respiratory Rate 16 20 18 Blood Pressure 114/70 98/70 L Blood Pressure Angela n 84 79 Pulse Oximetry 95 95 96 Oxygen Delivery Me thod Nasal Cannula Nasal Cannula Nasal Cannula Oxygen Flow Rate 2 4 2 Sepsis Recent Feve r Within 48 Hours Sepsis New/Unexpla ined Change in Men hannah Status Sepsis Action Take n by Nursing End-Tidal CO2 33 32 06/22/21 10:45 06/22/21 10:50 06/22/21 10:55 Temperature Temperature Source Pulse Rate 70 67 67 Pulse Rate from Sp O2 Sensor 67 66 Pulse Rhythm Respiratory Rate 20 18 18 Blood Pressure 111/77 116/80 114/67 Blood Pressure Angela n 88 92 82 Pulse Oximetry 96 95 96 Oxygen Delivery Me thod Nasal Cannula Nasal Cannula Nasal Cannula Oxygen Flow Rate 2 2 2 Sepsis Recent Feve r Within 48 Hours Sepsis New/Unexpla ined Change in Men hannah Status Sepsis Action Take n by Nursing End-Tidal CO2 19 06/22/21 11:00 06/22/21 11:15 06/22/21 11:30 Temperature Temperature Source Pulse Rate 68 66 63 Pulse Rate from Sp O2 Sensor 68 66 64 Pulse Rhythm Respiratory Rate 18 18 Blood Pressure 122/69 114/70 125/71 Blood Pressure Angela n 86 84 89 Pulse Oximetry 96 94 95 Oxygen Delivery Me thod Nasal Cannula Oxygen Flow Rate 2 4 4 Sepsis Recent Feve r Within 48 Hours Sepsis New/Unexpla ined Change in Men hannah Status Sepsis Action Take n by Nursing End-Tidal CO2 06/22/21 11:45 06/22/21 12:00 06/22/21 12:15 Temperature Temperature Source Pulse Rate 65 65 66 Pulse Rate from Sp O2 Sensor 65 65 66 Pulse Rhythm Respiratory Rate Blood Pressure 119/75 120/73 122/81 Blood Pressure Angela n 89 88 94 Pulse Oximetry 96 96 96 Oxygen Delivery Me thod Oxygen Flow Rate 4 4 4 Sepsis Recent Feve r Within 48 Hours Sepsis New/Unexpla ined Change in Men hannah Status Sepsis Action Take n by Nursing End-Tidal CO2 06/22/21 12:30 Temperature Temperature Source Pulse Rate 61 Pulse Rate from Sp O2 Sensor 61 Pulse Rhythm Respiratory Rate Blood Pressure 115/76 Blood Pressure Angela n 89 Pulse Oximetry 96 Oxygen Delivery Me thod Oxygen Flow Rate 4 Sepsis Recent Feve r Within 48 Hours Sepsis New/Unexpla ined Change in Men hannah Status Sepsis Action Take n by Nursing End-Tidal CO2 Physical Exam: Physical Exam HENT: Exam performed. -Head: Normocephalic and atraumatic. -Right Ear: External ear normal. No mastoid tenderness. -Left Ear: External ear normal. No mastoid tenderness. -Mouth/Throat: The oropharynx is clear and moist. No trismus in the jaw. No dental abscesses or uvula swelling. No oropharyngeal exudate or tonsillar abscesses. EYES: Conjunctivae and EOM are normal. Pupils are equal, round, and reactive to light. Right eye exhibits no discharge. Left eye exhibits no discharge. No scleral icterus. NECK: Normal range of motion. Neck supple. No JVD present. No spinous process tenderness present. No carotid bruit present. No rigidity. No tracheal deviation and normal range of motion present. No Brudzinski's sign and no Kernig's sign noted. CV: Tachycardic rate, regular rhythm, normal heart sounds and intact distal pulses. There is no peripheral edema. Palpable radial pulses bue. PULM/CHEST: Effort normal and breath sounds normal. No respiratory distress. No stridor. She has no wheezes. She has no rales. -Chest Wall: She exhibits no tenderness. ABD: The abdomen is soft. Bowel sounds are normal. She has no distension. No mass is present. There is no tenderness. There is no rebound, no guarding, no Leslie's sign and no tenderness at McBurney's point. Rovsig negative MUSC/SKEL: Normal range of motion. There is no peripheral edema, tenderness or deformity. LYMPH: No cervical adenopathy. NEURO: She is alert and oriented to person, place, and time. She has normal strength. No cranial nerve deficit or sensory deficit. Coordination and gait normal. GCS eye subscore is 4. GCS verbal subscore is 5. GCS motor subscore is 6. Cerebellar tests wnl. SKIN: Skin is warm and dry. She is not diaphoretic. Procedures Free Text Procedures Cardioversion Indication: V tach refractory to medications Written consent was obtained after the risks and benefits were explained, including but not limited to pain, thermal burn, allergic reaction, aspiration, airway obstruction, laryngospasm, infection, hypotension, and cardiorespiratory arrest. At this time, the risks of the procedure are less than the risks of NOT performing the procedure. A time out was taken and the correct patient and procedure identified. The patient was on 100% via NRB and end tidal CO2 monitoring prior to the procedure. Suction, airway equipment, medications, respiratory equipment, ACLS cart, and appropriate personnel were prepared prior to the initiation of the procedure. Sedation was achieved utilizing Propofol 50 mg. The biphasic defibrillator was set to 100 joules of energy and synched. After confirmation of sedation and "all clear" safety check the synchronized shock was delivered. This resulted in successful conversion of the dysrhythmia back into sinus rhythm. See nursing notes for dosages and times. There were no complications and the patient recovered uneventfully from the procedure. Procedural Sedation Indication: cardioversion. Total time: 19 minutes. Written consent was obtained after the risks and benefits were explained to the patient and family at bedside, including, but not limited to aspiration, allergic reaction, breathing difficulties, cardiac complications, vomiting, pain, event recall, bleeding, and/or infection. Pre-sedation examination and paperwork completed. The patient was on 100% oxygen via NRB prior to the procedure. Continous end tidal CO2 monitoring, pulse oximetry, and cardiac monitoring were utilized. Suction, airway equipment, medications, respiratory equipment, and appropriate personnel were prepared prior to the initiation of the procedure. A time out was taken. Sedation was achieved utilizing 50 mg of propofol. After I observed the patient had reached the appropriate level of sedation the main procedure was performed without complication. Sedation was discontinued and the monitoring continued. The patient recovered quickly from the effects of the medication without complication or adverse event. Course Course 0934: The patient was evaluated in room B1. A complete history and physical exam was performed Cardiac monitoring: An order was placed for continuous cardiac monitoring. The monitor shows a rate of 140 with ventricular tachycardia rhythm IV access is immediately obtained. IV fluids, Ativan 0.5 mg, and amiodarone 150 mg over 10 minutes ordered for the patient's ventricular tachycardia. Patient denies any drug use. She denies any history of arrhythmias. Patient reports no chest pain or difficulty breathing. EMR reviewed. EKGs from 2014 show sinus rhythm with no arrhythmias. There is a scanned EKG from February 2021 which does show that the patient has a left bundle branch block but the patient was in a sinus rhythm. After first bolus of amiodarone 150 mg over 10 minutes was completed the patient remained in ventricular tachycardia with no significant change in her ventricula r rate. I-STAT was completed and the patient had a normal potassium and kidney function. A repeat dose of amiodarone 150 mg over 10 minutes was ordered for the patient. Unfortunately after 10 minutes, the patient was still in ventricular tachycardia with no significant improvement. Patient continued to report no chest pain or difficulty breathing. At that time was decided that we should proceed with cardioversion to have the patient be taken out of her ventricular tachycardia. Patient was cardioverted. See procedure note. Patient tolerated cardioversion well and was cardioverted back into sinus rhythm. 1030: Vital signs stable. Patient remains in a sinus rhythm. Spoke with cardio logy Dr. Whitehead. I explained to him the patient's presenting symptoms and history. I also explained to them the course up to this point including the 2 failed attempts at cardioversion with amiodarone and the successful electrocardioversion with 100 J. He does recommend amiodarone drip at this time. No heparin. [facility] Administered Medications Amiodarone HCl/Dextrose (Nexterone / D5w) 360 mg in 200 mls @ 33.333 mls/hr IV .Q6H KAILEE Stop: 06/22/21 16:29 Last Admin: 06/22/21 10:37 Dose: 1 mg/min, 33.3 mls/hr Documented by: [id number] Cosigned by: [id number] Discontinued Medications Adenosine (Adenosine Iv Soln 3 Mg/Ml 2 Ml Vial) Confirm Administered Dose 6 mg IV [email or web address] ONE Stop: 06/22/21 09:31 Last Admin: 06/22/21 10:49 Dose: Not Given Documented by: [id number] Amiodarone HCl/Dextrose (Amiodarone 360mg / 200ml D5w) Confirm Administered Dose 360 mg IV [email or web address] Stop: 06/22/21 09:34 Last Admin: 06/22/21 10:56 Dose: Not Given Documented by: [id number] Amiodarone HCl/Dextrose (Amiodarone 150mg / 100ml D5w) Confirm Administered Dose 150 mg IV [email or web address] [facility] Stop: 06/22/21 09:34 Last Admin: 06/22/21 09:38 Dose: 150 mg Documented by: [id number] Cosigned by: [id number] Amiodarone HCl/Dextrose (Amiodarone 150mg / 100ml D5w) Confirm Administered Dose 150 mg IV .[employer] ONE Stop: 06/22/21 09:44 Last Admin: 06/22/21 09:50 Dose: 150 mg Documented by: [id number] Cosigned by: [id number] Amiodarone HCl/Dextrose (Nexterone / D5w) 150 mg in 100 mls @ 600 mls/hr IV ONE ONE Stop: 06/22/21 09:42 Last Admin: 06/22/21 10:56 Dose: Not Given Documented by: [id number] Amiodarone HCl/Dextrose (Nexterone / D5w) 150 mg in 100 mls @ 600 mls/hr IV ONE ONE Stop: 06/22/21 09:52 Last Admin: 06/22/21 10:56 Dose: Not Given Documented by: [id number] Lorazepam (Lorazepam 2 Mg/4 Ml Vial) Confirm Administered Dose 2 mg .ROUTE [email or web address] ONE Stop: 06/22/21 09:35 Last Admin: 06/22/21 09:39 Dose: 0.5 mg Documented by: [id number] Propofol (Propofol Iv Emulsion 10 Mg/Ml 20 Ml Vial) Confirm Administered Dose 200 mg IV .[employer] [facility] Stop: 06/22/21 09:47 Last Admin: 06/22/21 10:17 Dose: 50 mg Documented by: [id number] Cosigned by: [id number] Propofol (Propofol Iv Emulsion 10 Mg/Ml 20 Ml Vial) 50 mg IV 1017 ONE Stop: 06/22/21 10:18 Last Admin: 06/22/21 10:52 Dose: Not Given Documented by: [id number] Medical Decision Making Laboratory Data Result diagrams: 06/22/21 09:36 06/22/21 09:36 Lab Results 06/22/21 06/22/21 06/22/21 Range/Units 09:36 09:36 09:36 WBC 5.15 (4.8-10.8) K/uL RBC 4.74 (4.2-5.4) M/uL Hgb 15.6 (12.0-16.0) g/dL POC Hgb (12.0-16.0) g/dl Hct 47.1 H (37-47) % POC Hct (37-47) % MCV 99.4 (80-100) fL MCH 32.9 (25-34) pg MCHC 33.1 (32-36) g/dL RDW Std Deviation 48.1 H (36.4-46.3) fL RDW Coeff of Kaden 13.3 (11.5-14.5) % Plt Count 210 (130-400) K/uL MPV 10.2 (7.4-10.4) fL Immature Gran % (Auto) 0.2 % Neut % (Auto) 63.3 % Lymph % (Auto) 22.5 % [place] % (Auto) 9.5 % Eos % (Auto) 3.7 % Baso % (Auto) 0.8 % Neut # (Auto) 3.26 (1.4-6.5) K/uL Lymph # (Auto) 1.16 L (1.2-3.4) K/uL [place] # (Auto) 0.49 (0.11-0.59) K/uL Eos # (Auto) 0.19 (0-0.5) K/uL Baso # (Auto) 0.04 (0-0.2) K/uL Immature Gran # (Auto) 0.01 (0.00-0.02) K/uL PT 10.1 (9.0-12.0) Seconds INR 1.0 (0.9-1.1) APTT 27.3 (21.0-31.0) Seconds PTT Ratio 1.0 POC Sodium (135-144) mmol/L Sodium 133 L (136-145) mmol/L POC Potassium (3.3-5.0) mmol/L Potassium 3.6 (3.5-5.1) mmol/L POC Chloride (101-112) mmol/L Chloride 100 (98-107) mmol/L Carbon Dioxide 28 (21-32) mmol/L POC Total CO2 (24-31) mmol/L Anion Gap 5.0 (3-11) POC Anion Gap (16-25) mmol/L POC BUN (7-18) mg/dl BUN 17 (7-18) mg/dl Creatinine 1.15 (0.6-1.2) mg/dl POC Creatinine (0.6-1.3) mg/dl Est Cr Clr Drug Dosing 61.8 ml/min Est GFR ( Amer) 62.0 ml/min Est GFR (Non-Af Amer) 53.5 ml/min BUN/Creatinine Ratio 14.5 (10-20) Glucose 298 H (70-99) mg/dl POC Glucose (other) (70-99) mg/dl Calcium 8.7 (8.5-10.1) mg/dl POC Ioniz Calcium Regino (1.12-1.32) mmol/l Magnesium 2.1 (1.8-2.4) mg/dl Troponin I 0.049 H* (0-0.045) ng/ml NT-Pro-B Natriuret Pep 4251 H (0-900) pg/ml Lipase 92 (73-393) U/L COVID-19 Eval Order SARS-CoV-2 (PCR) (Negative) 06/22/21 06/22/21 06/22/21 Range/Units 09:52 10:41 10:41 WBC (4.8-10.8) K/uL RBC (4.2-5.4) M/uL Hgb (12.0-16.0) g/dL POC Hgb 15.3 (12.0-16.0) g/dl Hct (37-47) % POC Hct 45 (37-47) % MCV (80-100) fL MCH (25-34) pg MCHC (32-36) g/dL RDW Std Deviation (36.4-46.3) fL RDW Coeff of Kaden (11.5-14.5) % Plt Count (130-400) K/uL MPV (7.4-10.4) fL Immature Gran % (Auto) % Neut % (Auto) % Lymph % (Auto) % [place] % (Auto) % Eos % (Auto) % Baso % (Auto) % Neut # (Auto) (1.4-6.5) K/uL Lymph # (Auto) (1.2-3.4) K/uL [place] # (Auto) (0.11-0.59) K/uL Eos # (Auto) (0-0.5) K/uL Baso # (Auto) (0-0.2) K/uL Immature Gran # (Auto) (0.00-0.02) K/uL PT (9.0-12.0) Seconds INR (0.9-1.1) APTT (21.0-31.0) Seconds PTT Ratio POC Sodium 135 (135-144) mmol/L Sodium (136-145) mmol/L POC Potassium 4.2 (3.3-5.0) mmol/L Potassium (3.5-5.1) mmol/L POC Chloride 97 L (101-112) mmol/L Chloride (98-107) mmol/L Carbon Dioxide (21-32) mmol/L POC Total CO2 26 (24-31) mmol/L Anion Gap (3-11) POC Anion Gap 17.0 (16-25) mmol/L POC BUN 22 H (7-18) mg/dl BUN (7-18) mg/dl Creatinine (0.6-1.2) mg/dl POC Creatinine 0.9 (0.6-1.3) mg/dl Est Cr Clr Drug Dosing ml/min Est GFR ( Amer) ml/min Est GFR (Non-Af Amer) ml/min BUN/Creatinine Ratio (10-20) Glucose (70-99) mg/dl POC Glucose (other) 355 H* (70-99) mg/dl Calcium (8.5-10.1) mg/dl POC Ioniz Calcium Regino 1.13 (1.12-1.32) mmol/l Magnesium (1.8-2.4) mg/dl Troponin I (0-0.045) ng/ml NT-Pro-B Natriuret Pep (0-900) pg/ml Lipase (73-393) U/L COVID-19 Eval Order Covid19 at [facility] SARS-CoV-2 (PCR) NEGATIVE (Negative) Imaging Data Radiologist's Impression: Chest X-Ray 06/22/21 09:37 XR chest 1V portable CLINICAL HISTORY: Chest Pain COMPARISON STUDY: Chest radiograph November 04, 2015. FINDINGS: There is no pneumothorax. Right lower lung interstitial thickening and apparent hazy left basilar opacity is noted. Possible small left and trace right pleural effusions are noted. Cardiomediastinal silhouette is stable. There is pulmonary vascular congestion without overt pulmonary edema. IMPRESSION: 1. Lower lung interstitial thickening and apparent hazy left basilar opacity. This could be due to overlying soft tissues. However, an infectious process would be difficult to exclude. 2. Pulmonary vascular congestion. ACT 112: Negative or not required by law. Electronically signed by: Mg Nugent M.D. 06/22/2021 10:36 AM ECG Data Additional Comments: EKG #1 at 0924: Ventricular tachycardia with a rate of 146. QRS 136 QTC 545. EKG #2 at 1001 status post amiodarone 150 mg bolus: Ventricular tachycardia with a rate of 132. QRS 150 QTc 595. EKG #3 at 1011 status post cardioversion with 100 J: Sinus rhythm with rate of 78. NH 178 QRS 148 QTC 517. Left bundle branch block present. Sgarbosa negative. MDM Narrative 0934: The patient was evaluated in room B1. A complete history and physical exam was performed Cardiac monitoring: An order was placed for continuous cardiac monitoring. The monitor shows a rate of 140 with ventricular tachycardia rhythm IV access is immediately obtained. IV fluids, Ativan 0.5 mg, and amiodarone 150 mg over 10 minutes ordered for the patient's ventricular tachycardia. Patient denies any drug use. She denies any history of arrhythmias. Patient reports no chest pain or difficulty breathing. EMR reviewed. EKGs from 2014 show sinus rhythm with no arrhythmias. There is a scanned EKG from February 2021 which does show that the patient has a left bundle branch block but the patient was in a sinus rhythm. After first bolus of amiodarone 150 mg over 10 minutes was completed the patient remained in ventricular tachycardia with no significant change in her ventricular rate. I-STAT was completed and the patient had a normal potassium and kidney function. A repeat dose of amiodarone 150 mg over 10 minutes was ordered for the patient. Unfortunately after 10 minutes, the patient was still in ventricular tachycardia with no significant improvement. Patient continued to report no chest pain or difficulty breathing. At that time was decided that we should proceed with cardioversion to have the patient be taken out of her ventricular tachycardia. Patient was cardioverted. See procedure note. Patient tolerated cardioversion well and was cardioverted back into sinus rhythm. 1030: Vital signs stable. Patient remains in a sinus rhythm. Spoke with cardiology Dr. Whitehead. I explained to him the patient's presenting symptoms and history. I also explained to them the course up to this point including the 2 failed attempts at cardioversion with amiodarone and the successful electrocardioversion with 100 J. He does recommend amiodarone drip at this time. No heparin. [facility] Vinson Impression & Plan V tach Critical Care Time Critical Care Time: Yes Total Critical Care Time: 55 I have personally spent greater than 55 minutes of critical care time in the direct management of this patient. This includes bedside care, interpretation of diagnostic studies, and testing, discussion with consultants, patient, and family members, and other required patient management activities. This 55 minutes is in excess of all separately billable procedures. Discharge Plan Visit Data Chief Complaint: Tachycardia Stated Complaint: TACHYCARDIA, SOB Discharge Problem: V tach Patient Disposition: Admitted As Inpatient Forms Stand Alone Forms: My [facility] Prescriptions Prescriptions: No Action acetaminophen [Tylenol Extra Strength] 500 mg Tablet 1,000 mg PO Q6H PRN (Reason: Pain) RF: 0 Referrals Referrals: Jesu Landon III, MD [Primary Care Provider] -
--- NOTE | 2021-06-22 13:35 | Emergency Department Note ---
Pre Sedation Assessment Vital Signs Temp Pulse Resp BP Pulse Ox 06/22/21 12:30 61 115/76 96 06/22/21 12:15 66 122/81 96 06/22/21 12:00 65 120/73 96 06/22/21 11:45 65 119/75 96 06/22/21 11:30 63 125/71 95 06/22/21 11:15 66 18 114/70 94 06/22/21 11:00 68 18 122/69 96 06/22/21 10:55 67 18 114/67 96 06/22/21 10:50 67 18 116/80 95 06/22/21 10:45 70 20 111/77 96 06/22/21 10:41 68 18 98/70 L 96 06/22/21 10:39 68 20 95 06/22/21 10:35 67 16 114/70 95 06/22/21 10:30 68 120/70 95 06/22/21 10:25 69 103/64 95 06/22/21 10:20 67 81/64 L 95 06/22/21 10:15 70 118/73 96 06/22/21 10:10 71 100/76 93 06/22/21 10:05 134 H 126/91 91 06/22/21 10:00 133 H 107/86 92 06/22/21 09:55 133 H 113/82 92 06/22/21 09:54 93 06/22/21 09:50 139 H 119/86 93 06/22/21 09:45 140 H 22 125/92 93 06/22/21 09:40 144 H 20 135/97 96 06/22/21 09:35 147 H 18 149/118 H 99 06/22/21 09:32 147 H 27 H 182/122 H 99 06/22/21 09:19 36.7 C 148 H 20 146/97 H 93 Cardiovascular + tachycardic Respiratory normal respiratory effort, lungs clear to auscultation Pre-Sedation Airway Assessment Smoking Status: Former smoker Oral Cavity: + Dentures Mallampati Class: IV ASA: ASA2 Notes The planned sedation has been discussed with the patient. Informed Consent was obtained. I have identified the patient, determined the appropriateness of sedation and have assessed the patient immediately prior to the procedure. All medicine(s) and interventions are by my order.
--- NOTE | 2021-06-22 13:38 | Emergency Department Note ---
Post Sedation Assessment Vital Signs Temp Pulse Resp BP Pulse Ox 06/22/21 12:30 61 115/76 96 06/22/21 12:15 66 122/81 96 06/22/21 12:00 65 120/73 96 06/22/21 11:45 65 119/75 96 06/22/21 11:30 63 125/71 95 06/22/21 11:15 66 18 114/70 94 06/22/21 11:00 68 18 122/69 96 06/22/21 10:55 67 18 114/67 96 06/22/21 10:50 67 18 116/80 95 06/22/21 10:45 70 20 111/77 96 06/22/21 10:41 68 18 98/70 L 96 06/22/21 10:39 68 20 95 06/22/21 10:35 67 16 114/70 95 06/22/21 10:30 68 120/70 95 06/22/21 10:25 69 103/64 95 06/22/21 10:20 67 81/64 L 95 06/22/21 10:15 70 118/73 96 06/22/21 10:10 71 100/76 93 06/22/21 10:05 134 H 126/91 91 06/22/21 10:00 133 H 107/86 92 06/22/21 09:55 133 H 113/82 92 06/22/21 09:54 93 06/22/21 09:50 139 H 119/86 93 06/22/21 09:45 140 H 22 125/92 93 06/22/21 09:40 144 H 20 135/97 96 06/22/21 09:35 147 H 18 149/118 H 99 06/22/21 09:32 147 H 27 H 182/122 H 99 06/22/21 09:19 36.7 C 148 H 20 146/97 H 93 Recovery Score Activity: Moves 4 extremities Post Sedation Plan On clinical assessment, the patient appears to have tolerated the sedation without complications. Patient is recovering as anticipated. Patient will continue to be monitored by nursing and may be discharged when s edation discharge criteria are met per below protocol. Upon Completions of procedure up to 15 minutes continue every 5 minute vital signs and the P.A.R. score; then discharge to a Phase I or Fast Track to Phase II per the following guidelines: * Discharge Patient to appropriate Phase II area if PAR is 8 or greater or return to pre- procedure baseline. The post - procedure orders will be as directed. * If PAR score is less than 8 or not return to pre-procedure baseline then patient will follow Phase I monitoring till PAR is reached for Phase II. The Phase I may be done in procedure room or may call to secure a Phase I area. * If naloxone or flumazenil are used for reversal, hold in Phase I for continued monitoring from when last reversal dose was given for a minimum of 60 minutes or longer pending the nurse and/or physician discretion of patient condition before discharge to Phase II. Please call the Sedation Physician to re-evaluate and complete post-note for discharge to Phase II area. Do NOT discharge from procedure sedation or Phase 1 until post- sedation evaluation note is complete by procedure /sedation MD Sedation Discharge Instructions to be given to the patient at discharge to home.
[2021-06-22] MEDS ORDERED: ONDANSETRON INJ 2 MG/ML 2 ML VIAL IV PRN (15:51)
[2021-06-22] MEDS ORDERED: DEXTROSE 50% 50 ML SYRINGE IV PRN (15:51)
[2021-06-22] MEDS ORDERED: CARBOHYDRATES FOR HYPOGLYCEMIA PO PRN (15:51)
[2021-06-22] MEDS ORDERED: GLUCAGON FOR INJ 1 MG VIAL SQ PRN (15:51)
[2021-06-22] MEDS ORDERED: GLUCOSE 10 TABS/TUBE PO PRN (15:51)
[2021-06-22] MEDS ORDERED: GLUCOSE 40% GEL 15 GM TUBE PO PRN (15:51)
[2021-06-22] MEDS ORDERED: PHARMACY GLYCEMIC MGMT CONSULT PRN (16:06)
[2021-06-22] MEDS: SODIUM CHLORIDE 0.9% 1000ML 1,000 ML IV SCH (16:18)
[2021-06-22] MEDS: INSULIN ASPART 100 UNITS/ML 3 ML PEN SC SCH ×2 (17:44→21:09)
--- NOTE | 2021-06-22 19:45 | Cardiology Consultation ---
Date of Consultation June 22, 2021 Assessment & Plan (1) Atrial tachycardia: (2) Atrial flutter: (3) Cardiomyopathy: (4) LBBB (left bundle branch block): (5) Elevated troponin: ASSESSMENT/PLAN: 1. Tachyarrhythmia concerning for atrial flutter versus atrial tachycardia: Based on ECG, there is concern that the rhythm was atrial flutter with a left bundle-branch block pattern as the morphology of the QRS did not change following cardioversion. For the possibility of atrial flutter, would recommend heparin drip given cardioversion as her rhythm was present for likely at least 48 hours. Amiodarone can be discontinued. Start carvedilol given reduced LV systolic function. She did not tolerate metoprolol in the past. Will discuss ECG tracings with electrophysiology, not urgently, as consideration for ablation may be appropriate for her atrial arrhythmia. Can also not exclude SVT. 2. Cardiomyopathy: Likely tachycardia induced. Start carvedilol. Would also consider CARA-inhibitor. Will repeat echo in the near future as would expect LV systolic function to improve with improved heart rate. She does not appear to be significantly hypervolemic on exam. Also, echo was poor quality but she continues to decline IV echo contrast. 3. Elevated troponin: Likely due to prolonged tachycardia. Troponin did not rule in for myocardial infarction. No angina. No urgent indication for cardiac catheterization and had no significant CAD in 2014. 4. Left bundle-branch block: Was present in the outpatient setting in February of 2021 based on ECG available for review. If LV systolic function worsens rather than improves in the future, could consider biventricular pacing, however she does not have an urgent need for this at this time. 5. Disposition: Cardiology will continue to follow. Highly complex medical issues for which the possibility of ablation is being considered. Thank you for allowing me to participate in the care of your patient. Please call for any other questions or concerns. Sincerely, Ramana Whitehead M.D. History of Present Illness Reason for Consultation: V-tach Requesting Physician: Davide Aquino DO Attending Physician: Davide Aquino DO History of Present Illness Mrs. Verde is a very pleasant 55-year-old female with a history significant for prediabetes. She also has a history of possible cirrhosis based on CT scan imaging on 02/22/2015. She was admitted through the emergency department for concern of ventricular tachycardia and underwent amiodarone intravenous administration without improvement of tachycardia with left bundle-branch block pattern. She then underwent cardioversion by emergency department physician. Cardiology was notified after cardioversion and amiodarone drip was initiated while in the emergency department following reported history of ventricular tachycardia. She has a history of palpitations for the past 7 years intermittently. She underwent Holter monitor in the past on 10/30/2018 which demonstrated sinus rhythm with frequent PVCs. When she feels palpitations, she sometimes checks her pulse and has noted that at times the palpitations correlate with tachycardia. When the tachycardia occurs, she notices a bubble in her left chest. She has also had palpitations in the past described as skipped beats. On 06/20/2021, she developed this bubble sensation with palpitations and noted that her heart rate was 143 bpm when checking her pulse. She admits that she had not been sleeping well and had consume large amounts of caffeine. The following day on 06/21/2021, her heart rate remained elevated. She relaxed and felt better but continued to feel fatigue. The bubble sensation had resolved. Her pulse remained elevated throughout the day. She checked her blood pressure that evening and her blood pressure was reported as 124/87 with a heart rate of 149. Her last normal pulse check was approximately 2 weeks ago and she admits that she does not check it daily. She came to the emergency department today because her symptoms persisted and sh e felt fatigued. She denies shortness of breath at rest but has been experiencing dyspnea with exertion during these elevated heart rates. She denies orthopnea, chest pain, syncope, near-syncope worsening edema, or bleeding such as melena, hematochezia, or hematuria. At baseline she does have lower extremity edema which is worse on the left. She has had issues with cellulitis as well. After she underwent cardioversion in the emergency department, she has maintained sinus rhythm with a left bundle-branch block pattern. An ECG done on 03/03/2021 in the outpatient setting also demonstrated a left bundle branch block pattern while in sinus rhythm. Now that she has maintained sinus rhythm, she feels much better overall but does have some fatigue. She reports being septic requiring mechanical ventilation for pneumonia in 2014. She underwent cardiac catheterization which demonstrated no CAD but she did have elevated filling pressures and pulmonary hypertension. She states that she was diagnosed with CHF. She was transferred to [facility] and has not required diuretic since then. She reports having a syncopal event in the past following IV echo contrast administration and therefore has declined echo contrast during this hospitalization. She has had the following studies/procedures: 1. Cardiac catheterization 02/24/2015: No CAD. PCWP 24; PA 56/26 with a mean of 38; cardiac index 3.7. 2. Echo 06/22/2021: Poor quality study. Estimated EF 40-45% with global hypokinesis. Mild MR. RVSP 27. Review of systems: As above. Review of systems otherwise ne gative/unremarkable. Family history: Maternal brothers with heart disease passing away in 50s to 60s. She does not know further details. Social history: She quit smoking in 2013. No alcohol. No drugs. Lives at home with her . She has 1 son and 5 grandchildren. 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 She was unaccompanied in her hospital room. Allergies Allergy/AdvReac Type Severity Reaction Status Date / Time morphine Allergy Intermediate Chest Verified 06/22/21 15:53 tightness and pressure. latex Allergy Mild RASH Verified 06/22/21 15:53 azithromycin AdvReac Mild stomach Verified 06/22/21 15:53 pain metoprolol AdvReac Unknown Unknown Verified 06/22/21 15:53 Home Medications Medication Instructions Recorded Confirmed Type acetaminophen 500 mg tablet 1,000 mg PO Q6H PRN 09/05/18 06/22/21 History (Tylenol Extra Strength) Patient History Medical History Abdominal distention Anemia HX Anxiety CHF (congestive heart failure) GERD (gastroesophageal reflux disease) HX History of palpitations NO MEDS Kidney stones Nausea and vomiting after administration of anesthetic agent FATIGUE FOR DAYS AFTERWARDS Prediabetes NO MEDS DIET MANAGED Surgical History Hx of thumb surgery LEFT TENDON SURG Family History Family/Other Family history of diabetes mellitus Grandmother Family history of diabetes mellitus Father Family hx of colon cancer Social History Smoking Status: Former smoker Second Hand Exposure: No; Hx Alcohol Use: No Hx Substance Use: No Preferred Language: Maori Communication Ability: Effective Edge Trimmer Required: No Beliefs That Will Affect Care: None Current Living Situation: Spouse Other Information That Helps Us Care for You: No Feels Safe at Home: Yes Safety Concerns: Feels Safe At This Time Assistive Devices: Oxygen - Continuous Physical Exam Physical Exam: Gen.: No acute distress. Alert and oriented. HEENT: Anicteric sclera. Neck: Thick neck. No bruits. Normal carotid upstrokes bilaterally. Cardiac: PMI was nonpalpable. No ventricular heave. Regular. Normal S1-S2. No murmurs, rubs, or gallops. Pulmonary: Initial bibasilar crackles that cleared with coughing. Abdomen: Soft, nontender, nondistended, with normoactive bowel sounds. No bruits noted. Extremities: 2+ radial pulses bilaterally. 2+ posterior tibialis pulses bilaterally. Trace right lower extremity edema. 1+ left lower extremity edema with chronic venous stasis changes. No cyanosis. Psychiatric: Affect appears appropriate. Results & Data ([facility]) Vital Signs (Past 12 Hours) Vital Signs Temp Pulse Pulse Resp BP BP Pulse Ox 06/22/21 15:55 36.3 C L 66 18 152/80 H 94 06/22/21 15:51 36.3 C L 66 18 152/80 H 94 06/22/21 15:40 65 06/22/21 14:30 58 L 115/80 95 06/22/21 14:00 58 L 101/69 97 06/22/21 13:30 58 L 112/72 97 06/22/21 13:00 69 115/82 96 06/22/21 12:30 61 115/76 96 06/22/21 12:15 66 122/81 96 06/22/21 12:00 65 120/73 96 06/22/21 11:45 65 119/75 96 06/22/21 11:30 63 125/71 95 06/22/21 11:15 66 18 114/70 94 06/22/21 11:00 68 18 122/69 96 06/22/21 10:55 67 18 114/67 96 06/22/21 10:50 67 18 116/80 95 06/22/21 10:45 70 20 111/77 96 06/22/21 10:41 68 18 98/70 L 96 06/22/21 10:39 68 20 95 06/22/21 10:35 67 16 114/70 95 06/22/21 10:30 68 120/70 95 06/22/21 10:25 69 103/64 95 06/22/21 10:20 67 81/64 L 95 06/22/21 10:15 70 118/73 96 06/22/21 10:10 71 100/76 93 06/22/21 10:05 134 H 126/91 91 06/22/21 10:00 133 H 107/86 92 06/22/21 09:55 133 H 113/82 92 06/22/21 09:54 93 06/22/21 09:50 139 H 119/86 93 06/22/21 09:45 140 H 22 125/92 93 06/22/21 09:40 144 H 20 135/97 96 06/22/21 09:35 147 H 18 149/118 H 99 06/22/21 09:32 147 H 27 H 182/122 H 99 06/22/21 09:19 36.7 C 148 H 20 146/97 H 93 Pulse Ox 06/22/21 15:55 06/22/21 15:51 94 06/22/21 15:40 06/22/21 14:30 06/22/21 14:00 06/22/21 13:30 06/22/21 13:00 06/22/21 12:30 06/22/21 12:15 06/22/21 12:00 06/22/21 11:45 06/22/21 11:30 06/22/21 11:15 06/22/21 11:00 06/22/21 10:55 06/22/21 10:50 06/22/21 10:45 06/22/21 10:41 06/22/21 10:39 06/22/21 10:35 06/22/21 10:30 06/22/21 10:25 06/22/21 10:20 06/22/21 10:15 06/22/21 10:10 06/22/21 10:05 06/22/21 10:00 06/22/21 09:55 06/22/21 09:54 06/22/21 09:50 06/22/21 09:45 06/22/21 09:40 06/22/21 09:35 06/22/21 09:32 06/22/21 09:19 Laboratory Results Laboratory Results - last 24 hr 06/22/21 06/22/21 06/22/21 09:36 09:36 09:36 WBC 5.15 RBC 4.74 Hgb 15.6 POC Hgb Hct 47.1 H POC Hct MCV 99.4 MCH 32.9 MCHC 33.1 RDW Std Deviation 48.1 H RDW Coeff of Kaden 13.3 Plt Count 210 MPV 10.2 Immature Gran % (Auto) 0.2 Neut % (Auto) 63.3 Lymph % (Auto) 22.5 [place] % (Auto) 9.5 Eos % (Auto) 3.7 Baso % (Auto) 0.8 Neut # (Auto) 3.26 Lymph # (Auto) 1.16 L [place] # (Auto) 0.49 Eos # (Auto) 0.19 Baso # (Auto) 0.04 Immature Gran # (Auto) 0.01 PT 10.1 INR 1.0 APTT 27.3 PTT Ratio 1.0 POC Sodium Sodium 133 L POC Potassium Potassium 3.6 POC Chloride Chloride 100 Carbon Dioxide 28 POC Total CO2 Anion Gap 5.0 POC Anion Gap POC BUN BUN 17 Creatinine 1.15 POC Creatinine Est Cr Clr Drug Dosing 61.8 Est GFR ( Amer) 62.0 Est GFR (Non-Af Amer) 53.5 BUN/Creatinine Ratio 14.5 Glucose 298 H POC Glucose POC Glucose (other) Calcium 8.7 POC Ioniz Calcium Regino Magnesium 2.1 Troponin I 0.049 H* NT-Pro-B Natriuret Pep 4251 H Lipase 92 COVID-19 Eval Order SARS-CoV-2 (PCR) Hepatitis C Ab Screen 06/22/21 06/22/21 06/22/21 09:52 10:41 10:41 WBC RBC Hgb POC Hgb 15.3 Hct POC Hct 45 MCV MCH MCHC RDW Std Deviation RDW Coeff of Kaden Plt Count MPV Immature Gran % (Auto) Neut % (Auto) Lymph % (Auto) [place] % (Auto) Eos % (Auto) Baso % (Auto) Neut # (Auto) Lymph # (Auto) [place] # (Auto) Eos # (Auto) Baso # (Auto) Immature Gran # (Auto) PT INR APTT PTT Ratio POC Sodium 135 Sodium POC Potassium 4.2 Potassium POC Chloride 97 L Chloride Carbon Dioxide POC Total CO2 26 Anion Gap POC Anion Gap 17.0 POC BUN 22 H BUN Creatinine POC Creatinine 0.9 Est Cr Clr Drug Dosing Est GFR ( Amer) Est GFR (Non-Af Amer) BUN/Creatinine Ratio Glucose POC Glucose POC Glucose (other) 355 H* Calcium POC Ioniz Calcium Regino 1.13 Magnesium Troponin I NT-Pro-B Natriuret Pep Lipase COVID-19 Eval Order Covid19 at [facility] SARS-CoV-2 (PCR) NEGATIVE Hepatitis C Ab Screen 06/22/21 06/22/21 06/22/21 16:04 16:09 16:36 WBC RBC Hgb POC Hgb Hct POC Hct MCV MCH MCHC RDW Std Deviation RDW Coeff of Kaden Plt Count MPV Immature Gran % (Auto) Neut % (Auto) Lymph % (Auto) [place] % (Auto) Eos % (Auto) Baso % (Auto) Neut # (Auto) Lymph # (Auto) [place] # (Auto) Eos # (Auto) Baso # (Auto) Immature Gran # (Auto) PT INR APTT PTT Ratio POC Sodium Sodium POC Potassium Potassium POC Chloride Chloride Carbon Dioxide POC Total CO2 Anion Gap POC Anion Gap POC BUN BUN Creatinine POC Creatinine Est Cr Clr Drug Dosing Est GFR ( Amer) Est GFR (Non-Af Amer) BUN/Creatinine Ratio Glucose POC Glucose 207 H POC Glucose (other) Calcium POC Ioniz Calcium Regino Magnesium Troponin I 0.190 H* NT-Pro-B Natriuret Pep Lipase COVID-19 Eval Order SARS-CoV-2 (PCR) Hepatitis C Ab Screen Neg Diagnostic Findings Chest x-ray report reviewed 06/22/2021: Lower lung interstitial thickening and apparent hazy left basilar opacity. Pulmonary vascular congestion. Telemetry personally reviewed: Initially tachycardic with left bundle branch block pattern and then sinus rhythm after cardioversion. ECGs personally reviewed: ECG 06/22/2021 at 10:01 a.m.: Possible atrial flutter with 2-1 AV conduction versus atrial tachycardia. Left bundle-branch block pattern. ECG 06/22/2021 at 10:11 a.m.: Sinus rhythm with PACs. LBBB. ECG 06/22/2021 at 9:24 a.m.: Atrial flutter versus atrial tachycardia at 146 beats per minute. LBBB. CT scan report from 02/22/2015 reviewed as noted above in HPI, suggesting possible cirrhotic liver morphology. Medications Administered Current Inpatient Medications Acetaminophen (Acetaminophen 500 Mg Tab) 1,000 mg PO Q6H PRN PRN Reason: Pain Stop: 07/22/21 15:56 Carvedilol (Carvedilol 3.125 Mg Tab) 3.125 mg PO BID KAILEE Stop: 07/22/21 20:59 Dextrose (Dextrose 50% 50 Ml Syringe) 25 - 50 ml IV UD PRN; Protocol PRN Reason: Hypoglycemia Protocol Stop: 07/22/21 15:50 Enoxaparin Sodium (Enoxaparin Inj 40 Mg/0.4 Ml Syr) 40 mg SQ Q24H KAILEE Stop: 07/22/21 20:59 Glucagon (Glucagon For Inj 1 Mg Vial) 1 mg SQ UD PRN; Protocol PRN Reason: Hypoglycemia Protocol Stop: 07/22/21 15:50 Glucose (Glucose 10 Tabs/Tube) 4 - 8 tabs PO UD PRN; Protocol PRN Reason: Hypoglycemia Protocol Stop: 07/22/21 15:50 Glucose (Glucose 40% Gel 15 Gm Tube) 15 - 30 gm PO UD PRN; Protocol PRN Reason: Hypoglycemia Protocol Stop: 07/22/21 15:50 Sodium Chloride (Nss 1000ml) 1,000 mls @ 100 mls/hr IV .Q10H KAILEE Stop: 07/22/21 15:50 Last Admin: 06/22/21 16:18 Dose: 100 mls/hr Documented by: Insulin Aspart (Insulin Aspart 100 Units/Ml 3 Ml Pen) 0 units SC ACHS KAILEE; Protocol Stop: 07/22/21 16:29 Last Admin: 06/22/21 17:44 Dose: 9 units Documented by: Miscellaneous (Carbohydrates For Hypoglycemia ) 15 - 30 gm PO UD PRN PRN Reason: Hypoglycemia Protocol Stop: 07/22/21 15:50 Miscellaneous Information (Pharmacy Glycemic Mgmt Consult) 1 ea N/A UD PRN; Protocol PRN Reason: Consult Stop: 07/22/21 16:05 Ondansetron HCl (Ondansetron Inj 2 Mg/Ml 2 Ml Vial) 4 mg IV Q6H PRN PRN Reason: Nausea Stop: 07/22/21 15:50 PG Care Time/CCT Total # of Minutes Spent Total Time Spent with Patient: Total time spent is greater than 50% in coordination of care (as documented) at patient's floor/unit and/or counseling patient: Coding Level of Care Code 17066 Inpt Consult Level 5 Diagnoses Atrial tachycardia I47.1 Cardiomyopathy I42.9 LBBB (left bundle branch block) I44.7 Elevated troponin R77.8 Atrial flutter I48.92
[2021-06-22] MEDS ORDERED: INSULIN GLARGINE SOLOSTAR 100 UNITS/ML 3 ML PEN SC SCH (21:00)
[2021-06-22] MEDS ORDERED: ENOXAPARIN INJ 40 MG/0.4 ML SYR SQ SCH (21:00)
[2021-06-22] MEDS: carvediloL 3.125 MG TAB PO SCH (21:08)
--- NOTE | 2021-06-22 22:46 | XCELERA ---
[id number]
[2021-06-22] MEDS ORDERED: Heparin IV Adult Wt-Based Standard WITH Bolus Protocol IV PRN (23:02)
[2021-06-22] MEDS ORDERED: HEPARIN SOD (PORCINE) 1000 UNIT/ML IV ONE (23:15)
[2021-06-22] MEDS: HEPARIN SODIUM/DEXTROSE 25,000 UNITS/500 ML BAG IV SCH (23:45)
[2021-06-23] MEDS ORDERED: INSULIN ASPART 100 UNITS/ML 3 ML PEN SC SCH (02:00)
[2021-06-23] MEDS: SODIUM CHLORIDE 0.9% 1000ML 1,000 ML IV SCH (02:25)
[2021-06-23 04:22] LABS: Basophils # (auto) 0.04 K/uL (0-0.2); Basophils % (auto) 0.6 %; Eosinophils # (auto) 0.21 K/uL (0-0.5); Eosinophils % (auto) 3.3 %; Hemoglobin 13.4 g/dL (12.0-16.0); Immature Granulocytes # (auto) 0.01 K/uL (0.00-0.02); Immature Granulocytes % (auto) 0.2 %; Lymphocytes # (auto) 0.82 K/uL (1.2-3.4); Lymphocytes % (auto) 13.1 %; Mean Corpuscular Hemoglobin 32.7 pg (25-34); Mean Corpuscular Hgb Conc 32.7 g/dL (32-36); Monocytes # (auto) 0.55 K/uL (0.11-0.59); Monocytes % (auto) 8.8 %; Neutrophils # (auto) 4.64 K/uL (1.4-6.5); Platelet Count 173 K/uL (130-400); RDW Coefficient of Variation 13.7 % (11.5-14.5); RDW Standard Deviation 49.8 fL (36.4-46.3); White Blood Count 6.27 K/uL (4.8-10.8)
[2021-06-23 05:04] LABS: Creatinine Clr Calc Pharmacy 79.9 ml/min; Est GFR (African American) 84.6 ml/min; Magnesium 2.2 mg/dl (1.8-2.4); Potassium 4.3 mmol/L (3.5-5.1)
[2021-06-23 06:31] LABS: Partial Thromboplastin Ratio 2.1
[2021-06-23 06:39] LABS: Partial Thromboplastin Time 54.2 Seconds (21.0-31.0)
[2021-06-23 07:17] LABS: Estimated Average Glucose 212 mg/dl
[2021-06-23] MEDS: carvediloL 3.125 MG TAB PO SCH ×2 (09:05→20:41)
[2021-06-23] MEDS: INSULIN GLARGINE SOLOSTAR 100 UNITS/ML 3 ML PEN SC SCH (09:05)
[2021-06-23] MEDS: INSULIN ASPART 100 UNITS/ML 3 ML PEN SC SCH ×4 (09:06→21:11)
--- NOTE | 2021-06-23 09:49 | Pharmacy Report ---
Pharmacy Glycemic Short Note 2 - Date of Service June 23, 2021 - Glycemic Short BSG Results (Last 24 hours): 06/22/21 06/22/21 06/22/21 09:36 09:52 16:36 Glucose 298 H POC Glucose 207 H POC Glucose (other) 355 H* 06/22/21 06/23/21 06/23/21 21:05 02:26 04:08 Glucose 159 H POC Glucose 189 H 147 H POC Glucose (other) 06/23/21 07:11 Glucose POC Glucose 145 H POC Glucose (other) OUTPATIENT ANTIDIABETIC REGIMEN: * N/A * A1c = 9% on 06/23/21 ASSESSMENT: * 55yo T2DM female - new diagnosis of diabetes per A1c >6.5%. Per H&P pt with known history of "pre-diabetes" * Significant hyperglycemia on admission - resolved with addition of basal insulin + Novolog scale * Will continue weight based insulin dosing and titrate based on BSG trends. Will try to keep basal insulin once daily in case this is chosen to continue at SD * Goal BSGs 110-140 mg/d; based on age/co-morbidities and A1c target goal PLAN FOR INPATIENT GLYCEMIC CONTROL: * Hold outpatient oral diabetes medications * Basal insulin * Lantus 25 units SQ daily in AM * Will add a small PRN dose of Lantus this evening if BSG > 180 * Bolus insulin * NovoLog per scale ACHS or Q6hrs while NPO * Goal Range: Low 110 mg/dL - High 140 mg/dL * Correction Factor: 25 mg/dL/unit * Nutritional / Prandial insulin per carb ratio of 1 unit per 8 grams CHO consumed PLAN FOR DISCHARGE: * A1c = 9 % on 06/23/21 * Goal A1c = <7 % based on age and comorbidities * A reasonable A1C goal for many non- adults is A1c less than 7% * A1c is between 8% and 10% --> consider dual combination therapy * Metformin + additional agent listed below. (B12 supplementation may be necessary with nursing home metformin) * Metformin should be started at the time type 2 diabetes is diagnosed unless there are contraindications. Metformin is effective and safe, is inexpensive, and may reduce risk of cardiovascular events and . * Recommend starting: Metformin XR 500mg PO daily with evening meal. Typically the XR formulation of metformin is better tolerated than the immediate release formulation. Continue to titrate metformin dosing upwards as recommended. Dosage increases should be made in increments of 500 mg weekly, up to 2,000 mg/day PO, given in divided doses. Doses above 2000 mg/day may be better tolerated if divided and given 3 times per day with meals. 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 * FDA has revised the label for metformin to reflect its safety in patients with eGFR 30 mL/min or above * Additional agent: recommend an agent to help minimize weight gain or promote weight loss: * GLP-1 receptor agonist: Decreases major adverse cardiovascular events, high efficacy, low hypo risk, weight loss, significant GI side effects (titrate low and slow) and risk of thyroid tumors, high cost VS * SGLT2 inhibitor: Decreases major adverse cardiovascular events, intermediate efficacy, low hypo risk, weight loss, /dehydration and risk of amputation (canagliflozin) side effects, high cost * Support Patient Self-Management * Healthy Lifestyle (diet, exercise, and smoking cessation) * Disease self-management (SMBG) * Prevention of complications (BP, Lipid goals, Immunizations) * Consider outpatient Diabetes Self-Management Education & Support
--- NOTE | 2021-06-23 15:04 | Cardiology Progress Note ---
Date of Service June 23, 2021 Assessment & Plan (1) Atrial flutter: (2) Cardiomyopathy: (3) LBBB (left bundle branch block): (4) Elevated troponin: (5) Paroxysmal ventricular tachycardia: Plan: ASSESSMENT/PLAN: 1. Atrial flutter: Presenting ECG likely represents atrial flutter. Given significant symptoms in intermittent symptoms in the past, recommend evaluation by electrophysiology. Consider EP study and ablation if agreeable by electrophysiology. Continue anticoagulation for stroke risk reduction for at least 4 weeks without interruption following cardioversion. Discussed with Dr. Brizuela of electrophysiology and he is agreeable to see her in consultation, which can be done as an outpatient if discharged soon. 2. Cardiomyopathy: Likely tachycardia induced. Carvedilol has been initiated. Will initiate low-dose CARA-inhibitor. Can repeat echo as an outpatient. Has shortness of breath and with lower extremity edema and recent prolonged atrial flutter with tachycardia, may be a bit hypervolemic. Agree with diuretic. Monitor I&Os. Echo was poor quality but she has declined IV echo contrast. 3. Elevated troponin: Likely due to prolonged tachycardia. Troponin did not rule in for myocardial infarction. No angina. No urgent indication for cardiac catheterization and had no significant CAD in 2014. 4. Left bundle-branch block: Was present in the outpatient setting in February of 2021 based on ECG available for review. If LV systolic function worsens rather than improves in the future, could consider biventricular pacing, however she does not have an urgent need for this at this time. 5. Paroxysmal ventricular tachycardia: Nonsustained 6 beat episode. Continue beta-ras. 6. Disposition: Follow-up with Dr. Brizuela as an outpatient for electrophysiology consultation. Plan of care discussed with Dr. Macias of the primary hospitalist service. Admission and Anticipated Discharge Date Admission Date: June 22, 2021 Subjective Patient was seen earlier this afternoon. Still has mild dyspnea with exertion as well as fatigue, but overall improved. No further palpitations or bubble sensation. She denies chest pain, syncope, near-syncope. Her presented to the bedside. Review of systems: As above. Physical Exam Physical Exam: Gen.: No acute distress. Alert and oriented. HEENT: Anicteric sclera. Neck: Thick neck. Cardiac: Regular. Normal S1-S2. No murmurs, rubs, or gallops. Pulmonary: Initial bibasilar crackles that cleared with coughing. Abdomen: Soft, nontender, nondistended, with normoactive bowel sounds. No bruits noted. Extremities: 2+ radial pulses bilaterally. 2+ posterior tibialis pulses bilaterally. 1+ bilateral lower extremity edema. No cyanosis. Psychiatric: Affect appears appropriate. Results & Data ([facility]) Vital Signs (Past 12 Hours) Vital Signs Temp Pulse Pulse Resp BP Pulse Ox 06/23/21 11:18 36.6 C 70 19 131/75 93 06/23/21 10:12 70 06/23/21 07:02 36.8 C 65 20 117/78 97 06/23/21 06:18 65 06/23/21 04:12 36.7 C 63 18 117/72 94 Intake & Output 06/21/21 06/22/21 06/23/21 06/24/21 06:59 06:59 06:59 06:59 Intake Total 1935.446 / 6340.285 9525.917 / 2102.917 Balance 1935.446 / 9276.207 4266.917 / 2102.917 Weight 225 lb 8.526 oz Laboratory Results Laboratory Results - last 24 hr 06/22/21 06/22/21 06/22/21 16:04 16:09 16:36 WBC RBC Hgb Hct MCV MCH MCHC RDW Std Deviation RDW Coeff of Kaden Plt Count MPV Immature Gran % (Auto) Neut % (Auto) Lymph % (Auto) Amador % (Auto) Eos % (Auto) Baso % (Auto) Neut # (Auto) Lymph # (Auto) Amador # (Auto) Eos # (Auto) Baso # (Auto) Immature Gran # (Auto) APTT PTT Ratio Sodium Potassium Chloride Carbon Dioxide Anion Gap BUN Creatinine Est Cr Clr Drug Dosing Est GFR ( Amer) Est GFR (Non-Af Amer) BUN/Creatinine Ratio Glucose POC Glucose 207 H Estimat Average Glucose Hemoglobin A1c Calcium Magnesium Troponin I 0.190 H* Triglycerides Cholesterol LDL Cholesterol, Calc VLDL Cholesterol, Calc HDL Cholesterol Cholesterol/HDL Ratio Hepatitis C Ab Screen Neg 06/22/21 06/22/21 06/23/21 21:05 21:40 02:26 WBC RBC Hgb Hct MCV MCH MCHC RDW Std Deviation RDW Coeff of Kaden Plt Count MPV Immature Gran % (Auto) Neut % (Auto) Lymph % (Auto) Amador % (Auto) Eos % (Auto) Baso % (Auto) Neut # (Auto) Lymph # (Auto) [place]ador # (Auto) Eos # (Auto) Baso # (Auto) Immature Gran # (Auto) APTT PTT Ratio Sodium Potassium Chloride Carbon Dioxide Anion Gap BUN Creatinine Est Cr Clr Drug Dosing Est GFR ( Amer) Est GFR (Non-Af Amer) BUN/Creatinine Ratio Glucose POC Glucose 189 H 147 H Estimat Average Glucose Hemoglobin A1c Calcium Magnesium Troponin I 0.203 H* Triglycerides Cholesterol LDL Cholesterol, Calc VLDL Cholesterol, Calc HDL Cholesterol Cholesterol/HDL Ratio Hepatitis C Ab Screen 06/23/21 06/23/21 06/23/21 04:08 04:08 04:08 WBC 6.27 RBC 4.10 L Hgb 13.4 Hct 41.0 MCV 100.0 MCH 32.7 MCHC 32.7 RDW Std Deviation 49.8 H RDW Coeff of Kaden 13.7 Plt Count 173 MPV 10.0 Immature Gran % (Auto) 0.2 Neut % (Auto) 74.0 Lymph % (Auto) 13.1 Amador % (Auto) 8.8 Eos % (Auto) 3.3 Baso % (Auto) 0.6 Neut # (Auto) 4.64 Lymph # (Auto) 0.82 L Amador # (Auto) 0.55 Eos # (Auto) 0.21 Baso # (Auto) 0.04 Immature Gran # (Auto) 0.01 APTT PTT Ratio Sodium 135 L Potassium 4.3 D Chloride 105 Carbon Dioxide 27 Anion Gap 2.0 L BUN 14 Creatinine 0.89 Est Cr Clr Drug Dosing 79.9 Est GFR ( Amer) 84.6 Est GFR (Non-Af Amer) 73.0 BUN/Creatinine Ratio 16.0 Glucose 159 H POC Glucose Estimat Average Glucose Hemoglobin A1c Calcium 8.0 L Magnesium 2.2 Troponin I 0.174 H* Triglycerides 110 Cholesterol 167 LDL Cholesterol, Calc 111 VLDL Cholesterol, Calc 22 HDL Cholesterol 34 Cholesterol/HDL Ratio 5 Hepatitis C Ab Screen 06/23/21 06/23/21 06/23/21 04:08 05:50 07:11 WBC RBC Hgb Hct MCV MCH MCHC RDW Std Deviation RDW Coeff of Kaden Plt Count MPV Immature Gran % (Auto) Neut % (Auto) Lymph % (Auto) Amador % (Auto) Eos % (Auto) Baso % (Auto) Neut # (Auto) Lymph # (Auto) Amador # (Auto) Eos # (Auto) Baso # (Auto) Immature Gran # (Auto) APTT 54.2 H* PTT Ratio 2.1 Sodium Potassium Chloride Carbon Dioxide Anion Gap BUN Creatinine Est Cr Clr Drug Dosing Est GFR ( Amer) Est GFR (Non-Af Amer) BUN/Creatinine Ratio Glucose POC Glucose 145 H Estimat Average Glucose 212 Hemoglobin A1c 9.0 H Calcium Magnesium Troponin I Triglycerides Cholesterol LDL Cholesterol, Calc VLDL Cholesterol, Calc HDL Cholesterol Cholesterol/HDL Ratio Hepatitis C Ab Screen 06/23/21 11:17 WBC RBC Hgb Hct MCV MCH MCHC RDW Std Deviation RDW Coeff of Kaden Plt Count MPV Immature Gran % (Auto) Neut % (Auto) Lymph % (Auto) Amador % (Auto) Eos % (Auto) Baso % (Auto) Neut # (Auto) Lymph # (Auto) Amador # (Auto) Eos # (Auto) Baso # (Auto) Immature Gran # (Auto) APTT PTT Ratio Sodium Potassium Chloride Carbon Dioxide Anion Gap BUN Creatinine Est Cr Clr Drug Dosing Est GFR ( Amer) Est GFR (Non-Af Amer) BUN/Creatinine Ratio Glucose POC Glucose 184 H Estimat Average Glucose Hemoglobin A1c Calcium Magnesium Troponin I Triglycerides Cholesterol LDL Cholesterol, Calc VLDL Cholesterol, Calc HDL Cholesterol Cholesterol/HDL Ratio Hepatitis C Ab Screen Diagnostic Findings Telemetry personally reviewed: 6 beat run of ventricular tachycardia at 3:00 a.m. on 06/23/2021. Otherwise, sinus rhythm. Medications Administered Current Inpatient Medications Acetaminophen (Acetaminophen 500 Mg Tab) 1,000 mg PO Q6H PRN PRN Reason: Pain Stop: 07/22/21 15:56 Carvedilol (Carvedilol 3.125 Mg Tab) 3.125 mg PO BID KAILEE Stop: 07/22/21 20:59 Last Admin: 06/23/21 09:05 Dose: 3.125 mg Documented by: Dextrose (Dextrose 50% 50 Ml Syringe) 25 - 50 ml IV UD PRN; Protocol PRN Reason: Hypoglycemia Protocol Stop: 07/22/21 15:50 Enoxaparin Sodium (Enoxaparin Inj 40 Mg/0.4 Ml Syr) 40 mg SQ Q24H KAILEE Stop: 07/22/21 20:59 Last Admin: 06/22/21 21:08 Dose: 40 mg Documented by: Glucagon (Glucagon For Inj 1 Mg Vial) 1 mg SQ UD PRN; Protocol PRN Reason: Hypoglycemia Protocol Stop: 07/22/21 15:50 Glucose (Glucose 10 Tabs/Tube) 4 - 8 tabs PO UD PRN; Protocol PRN Reason: Hypoglycemia Protocol Stop: 07/22/21 15:50 Glucose (Glucose 40% Gel 15 Gm Tube) 15 - 30 gm PO UD PRN; Protocol PRN Reason: Hypoglycemia Protocol Stop: 07/22/21 15:50 Heparin Sodium/Dextrose (Heparin Sodium/Dextrose) 25,000 units in 500 mls @ 25 mls/hr IV .Q20H KAILEE; Protocol Stop: 07/22/21 23:14 Last Titration: 06/23/21 06:47 Dose: 1,250 units/hr, 25 mls/hr Documented by: Insulin Aspart (Insulin Aspart 100 Units/Ml 3 Ml Pen) 0 units SC ACHS KAILEE; Protocol Stop: 07/22/21 16:29 Last Admin: 06/23/21 12:22 Dose: 7 units Documented by: Insulin Glargine (Insulin Glargine Solostar 100 Units/Ml 3 Ml Pen) 25 units SC DAILY KIALEE Stop: 07/23/21 08:59 Last Admin: 06/23/21 09:05 Dose: 25 units Documented by: Insulin Glargine (Insulin Glargine Solostar 100 Units/Ml 3 Ml Pen) 0 units SC HS KAILEE; Protocol Stop: 07/23/21 20:59 Miscellaneous (Carbohydrates For Hypoglycemia ) 15 - 30 gm PO UD PRN PRN Reason: Hypoglycemia Protocol Stop: 07/22/21 15:50 Miscellaneous Information (Pharmacy Glycemic Mgmt Consult) 1 ea N/A UD PRN; Protocol PRN Reason: Consult Stop: 07/22/21 16:05 Ondansetron HCl (Ondansetron Inj 2 Mg/Ml 2 Ml Vial) 4 mg IV Q6H PRN PRN Reason: Nausea Stop: 07/22/21 15:50 PG Care Time/CCT Total # of Minutes Spent Total Time Spent with Patient: Total time spent is greater than 50% in coordination of care (as documented) at patient's floor/unit and/or counseling patient: Coding Level of Care Code 21125 Subseq Hosp Care Lvl 3 Diagnoses Atrial flutter I48.92 Cardiomyopathy I42.9 LBBB (left bundle branch block) I44.7 Elevated troponin R77.8 Paroxysmal ventricular tachycardia I47.2
[2021-06-23] MEDS ORDERED: FUROSEMIDE 20 MG in SYRINGE 0 ML IV ONE (17:45)
--- NOTE | 2021-06-23 17:47 | Hospitalist Progress Note ---
Date of Service June 23, 2021 Assessment & Plan (1) Abnormal cardiac conduction: Plan: Initially thought to be ventricular tachycardia, but instead it is atrial flutter with aberrancy. - Cardiology following -> Agree with transition to apixaban. - Continue carvedilol - Monitor on telemetry (2) CHF (congestive heart failure): Plan: As per documentation. Patient is not on any diuretics or other cardiac meds at baseline. Echo on 06/22 showed EF 40 - 45% with global hypokinesis. Thought to be tachycardia-induced. - BNP elevated on 06/23 - Lasix 20 mg IV x 1 given - Monitor response. (3) Hyperglycemia: Plan: A1c of 9.0% meaning she has diabetes. - Glycemic pharmacy consulted - Will get chemical educator to see her - Likely discharge on oral and/or insulin (4) GERD (gastroesophageal reflux disease): Plan: Again, no medications listed. - Continue to monitor Admission and Anticipated Discharge Date Admission Date: June 22, 2021 Subjective Feeling shortness of breath today. Especially with walking. Reports no fevers/chills, chest pain, abdominal pain, nausea, or vomiting. Physical Exam Constitutional: WD/WN, vitals as above Eyes: EOM intact bilaterally; no conjunctival abnormality ENMT: external ear and nose normal, oropharynx normal Neck: trachea midline, no thyromegaly normal visual inspection Respiratory: normal respiratory effort, lungs clear to auscultation no respiratory distress Cardiovascular: RRR, no murmur, no edema Gastrointestinal (Abdomen): Inspection/Auscultation: abdomen normal to inspection; abdomen not distended Musculoskeletal: no cyanosis or clubbing, extremities motor strength 5/5 Skin: no rashes, warm and dry Neurologic: moves all extremities and awake Psychiatric: Orientation: alert, oriented to person and cooperative Results & Data Results & Data ([place]) Vital Signs (Past 12 Hours) Vital Signs Temp Pulse Pulse Resp BP Pulse Ox 06/23/21 16:00 69 06/23/21 15:20 36.9 C 71 20 125/74 91 06/23/21 11:18 36.6 C 70 19 131/75 93 06/23/21 10:12 70 06/23/21 07:02 36.8 C 65 20 117/78 97 06/23/21 06:18 65 PG Care Time/CCT Total # of Minutes Spent Total Time Spent with Patient: Total time spent is greater than 50% in coordination of care (as documented) at patient's floor/unit and/or counseling p atient: Coding Level of Care Code 96452 Subseq Hosp Care Lvl 3 Diagnoses CHF (congestive heart failure) I50.9 Hyperglycemia R73.9 GERD (gastroesophageal reflux disease) K21.9 Abnormal cardiac conduction I45.9
--- NOTE | 2021-06-23 18:54 | XRay Report ---
XR chest 2V PA/lateral CLINICAL HISTORY: Shortness of breath; hypoxemia COMPARISON STUDY: Chest radiograph June 22, 2021. FINDINGS: There is no pneumothorax. There are small bilateral pleural effusions which have developed since prior exam. Lower lung opacities have increased. Interstitial thickening has progressed. Cardio megaly is noted. IMPRESSION: 1. Interval development of interstitial thickening consistent with pulmonary edema. 2. Small bilateral pleural effusions with associated bibasilar opacities which could reflect superimp osed consolidation or atelectasis. ACT 112: Negative or not required by law. Electronically signed by: Mg Nugent M.D. 06/23/2021 6:53 PM
[2021-06-23] MEDS: APIXABAN 5 MG TABLET PO SCH (20:42)
[2021-06-23] MEDS ORDERED: [UNRECOGNIZED DRUG - REMARK] ONE (21:00)
[2021-06-23] MEDS ORDERED: INSULIN GLARGINE SOLOSTAR 100 UNITS/ML 3 ML PEN SC SCH (21:00)
[2021-06-23] MEDS: HEPARIN SODIUM/DEXTROSE 25,000 UNITS/500 ML BAG IV SCH (21:07)
[2021-06-24 07:20] LABS: Hematocrit (blood only) 40.7 % (37-47); Mean Corpuscular Hgb Conc 31.9 g/dL (32-36); Mean Corpuscular Volume 100.2 fL (80-100); Mean Platelet Volume 9.5 fL (7.4-10.4); Platelet Count 165 K/uL (130-400); RDW Coefficient of Variation 13.5 % (11.5-14.5); RDW Standard Deviation 49.4 fL (36.4-46.3); Red Blood Count 4.06 M/uL (4.2-5.4); White Blood Count 4.49 K/uL (4.8-10.8)
[2021-06-24 07:48] LABS: BUN Creatinine Ratio 13.9 (10-20); Calcium 8.3 mg/dl (8.5-10.1); Creatinine Clr Calc Pharmacy 67.8 ml/min; Est GFR (African American) 69.2 ml/min; Est GFR (Non-African American) 59.7 ml/min; Magnesium 2.5 mg/dl (1.8-2.4); Potassium 4.2 mmol/L (3.5-5.1)
[2021-06-24] MEDS: carvediloL 3.125 MG TAB PO SCH ×2 (08:32→21:10)
[2021-06-24] MEDS: ACETAMINOPHEN 500 MG TAB PO PRN ×2 (08:32→17:40)
[2021-06-24] MEDS: APIXABAN 5 MG TABLET PO SCH ×2 (08:32→21:10)
[2021-06-24] MEDS: INSULIN ASPART 100 UNITS/ML 3 ML PEN SC SCH ×4 (09:16→21:11)
[2021-06-24] MEDS: INSULIN GLARGINE SOLOSTAR 100 UNITS/ML 3 ML PEN SC SCH (09:17)
[2021-06-24] MEDS ORDERED: FUROSEMIDE 20 MG in SYRINGE 0 ML IV ONE (10:30)
--- NOTE | 2021-06-24 16:24 | Hospitalist Progress Note ---
Date of Service June 24, 2021 Assessment & Plan (1) Abnormal cardiac conduction: Plan: Initially thought to be ventricular tachycardia, but instead it is atrial flutter with aberrancy. - Cardiology following -> Agree with transition to apixaban. - Continue carvedilol - Monitor on telemetry (2) CHF (congestive heart failure): Plan: As per documentation. Patient is not on any diuretics or other cardiac meds at baseline. Echo on 06/22 showed EF 40 - 45% with global hypokinesis. Thought to be tachycardia-induced. Acute systolic CHF. - BNP elevated on 06/23 - Lasix 20 mg IV x 1 given 06/24. - Monitor response. (3) Hyperglycemia: Plan: A1c of 9.0% meaning she has diabetes. - Glycemic pharmacy consulted - Will get tile burner to see her - Consult put in on 06/23. - Likely discharge on oral agent and/or insulin (4) GERD (gastroesophageal reflux disease): Plan: Again, no medications listed. - Continue to monitor Admission and Anticipated Discharge Date Admission Date: June 22, 2021 Subjective Breathing better today. No other major issues. Reports no fevers/chills, chest pain, abdominal pain, nausea, or vomiting. Physical Exam Constitutional: WD/WN, vitals as above Eyes: EOM intact bilaterally; no conjunctival abnormality ENMT: external ear and nose normal, oropharynx normal Neck: trachea midline, no thyromegaly normal visual inspection Respiratory: normal respiratory effort, lungs clear to auscultation no respiratory distress Cardiovascular: RRR, no murmur, no edema Gastrointestinal (Abdomen): Inspection/Auscultation: abdomen normal to inspection; abdomen not distended Musculoskeletal: no cyanosis or clubbing, extremities motor strength 5/5 Skin: no rashes, warm and dry Neurologic: moves all extremities and awake Psychiatric: Orientation: alert, oriented to person and cooperative Results & Data Results & Data ([facility]) Vital Signs (Past 12 Hours) Vital Signs Temp Pulse Pulse Pulse Pulse Pulse Pulse 06/24/21 16:01 36.8 C 62 06/24/21 15:23 60 06/24/21 12:18 82 76 72 82 06/24/21 11:41 36.6 C 61 06/24/21 10:17 67 06/24/21 08:13 36.8 C 73 06/24/21 04:28 36.7 C 121 H Pulse Resp Resp Resp Resp Resp Resp 06/24/21 16:01 18 06/24/21 15:23 06/24/21 12:18 63 19 20 20 20 18 06/24/21 11:41 18 06/24/21 10:17 06/24/21 08:13 18 06/24/21 04:28 20 BP BP Pulse Ox Pulse Ox Pulse Ox Pulse Ox Pulse Ox 06/24/21 16:01 115/64 90 06/24/21 15:23 06/24/21 12:18 86 L 93 83 L 91 06/24/21 11:41 102/53 L 95 06/24/21 10:17 06/24/21 08:13 162/74 H 94 06/24/21 04:28 121/66 94 Pulse Ox 06/24/21 16:01 06/24/21 15:23 06/24/21 12:18 90 06/24/21 11:41 06/24/21 10:17 06/24/21 08:13 06/24/21 04:28 PG Care Time/CCT Total # of Minutes Spent Total Time Spent with Patient: Total time spent is greater than 50% in coordination of care (as documented) at patient's floor/unit and/or counseling patient: Coding Level of Care Code 48902 Subseq Hosp Care Lvl 2 Diagnoses Abnormal cardiac conduction I45.9 CHF (congestive heart failure) I50.9 Hyperglycemia R73.9 GERD (gastroesophageal reflux disease) K21.9
--- NOTE | 2021-06-24 17:55 | Cardiology Progress Note ---
Date of Service June 24, 2021 Assessment & Plan (1) Atrial flutter: (2) Cardiomyopathy: (3) LBBB (left bundle branch block): (4) Elevated troponin: (5) Paroxysmal ventricular tachycardia: Plan: ASSESSMENT/PLAN: 1. Atrial flutter: Presenting ECG likely represents atrial flutter. Given significant symptoms in intermittent symptoms in the past, recommend evaluation by electrophysiology. Consider EP study and ablation if agreeable by electrophysiology. She has requested to be evaluated by electrophysiology at [facility] with Dr. Chen. Continue anticoagulation for stroke risk reduction for at least 4 weeks without interruption following cardioversion. Continue beta- ras. 2. Cardiomyopathy: Likely tachycardia induced. Carvedilol has been initiated. Will initiate low-dose CARA-inhibitor. Can repeat echo as an outpatient. Exam difficult to estimate volume status but she no longer has shortness of breath and has had less urine output per her viewpoint with today's diuretic. Monitor I&Os. Echo was poor quality but she has declined IV echo contrast. 3. Elevated troponin: Likely due to prolonged tachycardia. Troponin did not rule in for myocardial infarction. No angina. No urgent indication for cardiac catheterization and had no significant CAD in 2014. 4. Left bundle-branch block: Was present in the outpatient setting in February of 2021 based on ECG available for review. If LV systolic function worsens rather than improves in the future, could consider biventricular pacing, however she does not have an urgent need for this at this time. 5. Paroxysmal ventricular tachycardia: Nonsustained 6 beat episode during this hospitalization but no recurrence noted. Continue beta-ras. 6. Disposition: Today she stated that she would like to follow-up with [facility] electrophysiology, Dr. Chen, as there is a comfort level with him given that he has treated several family members. This was discussed with Dr. Macias of the primary hospitalist service. She would like to have repeat echo done through Dr. Chen's care as well. Plan of care (and her left kidney concern) discussed with Dr. Macias of the primary hospitalist service. Cardiology will sign off at this time as she plans to be discharged in the morning. Please call with any other questions or concerns. Admission and Anticipated Discharge Date Admission Date: June 22, 2021 Subjective She denies shortness of breath. She denies chest pain, syncope, near-syncope, palpitations, or worsening bleeding. Her 2 major concerns during our visit today was that she is experiencing some discomfort from her left kidney and that she would like to follow-up with electrophysiology through [facility]. She has had several family members undergo treatment by Dr. Meza, specifically ablations. Her was present at the bedside. Review of systems: As above. Physical Exam Physical Exam: Gen.: No acute distress. Alert and oriented. HEENT: Anicteric sclera. Neck: Thick neck. Cardiac: Regular. Normal S1-S2. No murmurs, rubs, or gallops. Pulmonary: Faint crackles at the left base but otherwise clear to auscultation bilaterally. Abdomen: Soft, nontender, nondistended, with normoactive bowel sounds. No bruits noted. Extremities: 2+ radial pulses bilaterally. 2+ posterior tibialis pulses bilaterally. Trace bilateral lower extremity edema. No cyanosis. Psychiatric: Affect appears appropriate. Results & Data ([facility]) Vital Signs (Past 12 Hours) Vital Signs Temp Pulse Pulse Pulse Pulse Pulse Pulse 06/24/21 16:01 36.8 C 62 06/24/21 15:23 60 06/24/21 12:18 82 76 72 82 06/24/21 11:41 36.6 C 61 06/24/21 10:17 67 06/24/21 08:13 36.8 C 73 Pulse Resp Resp Resp Resp Resp Resp 06/24/21 16:01 18 06/24/21 15:23 06/24/21 12:18 63 19 20 20 20 18 06/24/21 11:41 18 06/24/21 10:17 06/24/21 08:13 18 BP BP Pulse Ox Pulse Ox Pulse Ox Pulse Ox Pulse Ox 06/24/21 16:01 115/64 90 06/24/21 15:23 06/24/21 12:18 86 L 93 83 L 91 06/24/21 11:41 102/53 L 95 06/24/21 10:17 06/24/21 08:13 162/74 H 94 Pulse Ox 06/24/21 16:01 06/24/21 15:23 06/24/21 12:18 90 06/24/21 11:41 06/24/21 10:17 06/24/21 08:13 Intake & Output 06/22/21 06/23/21 06/24/21 06/25/21 06:59 06:59 06:59 06:59 Intake Total 1935.446 / 0230.013 4826.834 / 2270.834 1062 / 1062 Output Total 1050 / 1050 Balance 1935.446 / 7875.187 0549.834 / 2270.834 Weight 225 lb 8.526 oz 223 lb 15.834 oz Laboratory Results Laboratory Results - last 24 hr 06/23/21 06/24/21 06/24/21 20:46 06:49 06:49 WBC 4.49 L RBC 4.06 L Hgb 13.0 Hct 40.7 MCV 100.2 H MCH 32.0 MCHC 31.9 L RDW Std Deviation 49.4 H RDW Coeff of Kaden 13.5 Plt Count 165 MPV 9.5 Sodium 135 L Potassium 4.2 Chloride 103 Carbon Dioxide 30 Anion Gap 2.0 L BUN 15 Creatinine 1.05 Est Cr Clr Drug Dosing 67.8 Est GFR ( Amer) 69.2 Est GFR (Non-Af Amer) 59.7 BUN/Creatinine Ratio 13.9 Glucose 110 H POC Glucose 133 H Calcium 8.3 L Magnesium 2.5 H 06/24/21 06/24/21 06/24/21 07:45 11:32 16:29 WBC RBC Hgb Hct MCV MCH MCHC RDW Std Deviation RDW Coeff of Kaden Plt Count MPV Sodium Potassium Chloride Carbon Dioxide Anion Gap BUN Creatinine Est Cr Clr Drug Dosing Est GFR ( Amer) Est GFR (Non-Af Amer) BUN/Creatinine Ratio Glucose POC Glucose 111 H 146 H 132 H Calcium Magnesium Diagnostic Findings Telemetry personally reviewed: Sinus rhythm. No arrhythmia. ECG personally reviewed 06/24/2021 at 5:14 a.m.: Sinus rhythm with sinus arrhythmia 65 beats per minute. LBBB. Medications Administered Current Inpatient Medications Acetaminophen (Acetaminophen 500 Mg Tab) 1,000 mg PO Q6H PRN PRN Reason: Pain Stop: 07/22/21 15:56 Last Admin: 06/24/21 17:40 Dose: 1,000 mg Documented by: Apixaban (Apixaban 5 Mg Tablet) 5 mg PO BID KAILEE Stop: 07/23/21 20:59 Last Admin: 06/24/21 08:32 Dose: 5 mg Documented by: Carvedilol (Carvedilol 3.125 Mg Tab) 3.125 mg PO BID [facility] Stop: 07/22/21 20:59 Last Admin: 06/24/21 08:32 Dose: 3.125 mg Documented by: Dextrose (Dextrose 50% 50 Ml Syringe) 25 - 50 ml IV UD PRN; Protocol PRN Reason: Hypoglycemia Protocol Stop: 07/22/21 15:50 Glucagon (Glucagon For Inj 1 Mg Vial) 1 mg SQ UD PRN; Protocol PRN Reason: Hypoglycemia Protocol Stop: 07/22/21 15:50 Glucose (Glucose 10 Tabs/Tube) 4 - 8 tabs PO UD PRN; Protocol PRN Reason: Hypoglycemia Protocol Stop: 07/22/21 15:50 Glucose (Glucose 40% Gel 15 Gm Tube) 15 - 30 gm PO UD PRN; Protocol PRN Reason: Hypoglycemia Protocol Stop: 07/22/21 15:50 Insulin Aspart (Insulin Aspart 100 Units/Ml 3 Ml Pen) 0 units SC ACHS KAILEE; Protocol Stop: 07/22/21 16:29 Last Admin: 06/24/21 12:47 Dose: 12 units Documented by: Insulin Glargine (Insulin Glargine Solostar 100 Units/Ml 3 Ml Pen) 25 units SC DAILY KAILEE Stop: 07/23/21 08:59 Last Admin: 06/24/21 09:17 Dose: 25 units Documented by: Miscellaneous (Carbohydrates For Hypoglycemia ) 15 - 30 gm PO UD PRN PRN Reason: Hypoglycemia Protocol Stop: 07/22/21 15:50 Miscellaneous Information (Pharmacy Glycemic Mgmt Consult) 1 ea N/A UD PRN; Protocol PRN Reason: Consult Stop: 07/22/21 16:05 Ondansetron HCl (Ondansetron Inj 2 Mg/Ml 2 Ml Vial) 4 mg IV Q6H PRN PRN Reason: Nausea Stop: 07/22/21 15:50 PG Care Time/CCT Total # of Minutes Spent Total Time Spent with Patient: Total time spent is greater than 50% in coordination of care (as documented) at patient's floor/unit and/or counseling p atient: Coding Level of Care Code 87181 Subseq Hosp Care Lvl 3 Diagnoses Atrial flutter I48.92 Cardiomyopathy I42.9 LBBB (left bundle branch block) I44.7 Elevated troponin R77.8 Paroxysmal ventricular tachycardia I47.2
--- NOTE | 2021-06-25 05:24 | Electrocardiogram Report ---
Test Reason : Blood Pressure : / mmHG Vent. Rate : 146 BPM Atrial Rate : 153 BPM P-R Int : 000 ms QRS Dur : 136 ms QT Int : 350 ms P-R-T Axes : 000 -42 131 degrees QTc Int : 545 ms Probable Atrial flutter with 2 to 1 block Left axis deviation Left bundle branch block Abnormal ECG When compared with ECG of 04-NOV-2015 01:06, Probable Atrial flutter has replaced Sinus rhythm Vent. rate has increased BY 74 BPM Premature ventricular complexes are no longer Present Confirmed by Raffi Whitehead ([id number]) on 06/25/2021 5:24:18 AM Referred By: REFERRED SELF Confirmed By:Raffi Whitehead
--- NOTE | 2021-06-25 05:26 | Electrocardiogram Report ---
Test Reason : Blood Pressure : / mmHG Vent. Rate : 132 BPM Atrial Rate : 032 BPM P-R Int : 000 ms QRS Dur : 150 ms QT Int : 402 ms P-R-T Axes : 000 -31 115 degrees QTc Int : 595 ms Poor data quality, interpretation may be adversely affected Probable Atrial flutter with 2 to 1 block Left axis deviation Left bundle branch block Abnormal ECG When compared with ECG of 22-Jun-2021 09:24, No significant change Confirmed by Raffi Whitehead ([id number]) on 06/25/2021 5:25:32 AM Referred By: REFERRED SELF Confirmed By:Raffi Whitehead
--- NOTE | 2021-06-25 05:26 | Electrocardiogram Report ---
Test Reason : Blood Pressure : / mmHG Vent. Rate : 078 BPM Atrial Rate : 078 BPM P-R Int : 178 ms QRS Dur : 148 ms QT Int : 454 ms P-R-T Axes : 092 -35 107 degrees QTc Int : 517 ms Poor data quality, interpretation may be adversely affected Sinus rhythm with Premature supraventricular complexes Left axis deviation Left bundle branch block Abnormal ECG When compared with ECG of 22-JUN-2021 10:01, Sinus rhythm has replaced Atrial flutter Vent. rate has decreased BY 54 BPM Confirmed by Raffi Whitehead ([id number]) on 06/25/2021 5:26:20 AM Referred By: SELF Confirmed By:Raffi Whitehead
[2021-06-25 06:06] LABS: Hematocrit (blood only) 39.5 % (37-47); Hemoglobin 12.7 g/dL (12.0-16.0); Mean Corpuscular Hemoglobin 32.2 pg (25-34); Mean Corpuscular Hgb Conc 32.2 g/dL (32-36); Mean Corpuscular Volume 100.3 fL (80-100); Mean Platelet Volume 9.8 fL (7.4-10.4); Platelet Count 167 K/uL (130-400); RDW Coefficient of Variation 13.4 % (11.5-14.5); RDW Standard Deviation 49.1 fL (36.4-46.3); Red Blood Count 3.94 M/uL (4.2-5.4); White Blood Count 3.24 K/uL (4.8-10.8)
[2021-06-25 06:40] LABS: BUN Creatinine Ratio 19.8 (10-20); Calcium 8.4 mg/dl (8.5-10.1); Creatinine Clr Calc Pharmacy 81.5 ml/min; Est GFR (African American) 86.9 ml/min; Magnesium 2.7 mg/dl (1.8-2.4); Potassium 4.1 mmol/L (3.5-5.1)
[2021-06-25] MEDS: carvediloL 3.125 MG TAB PO SCH (08:46)
[2021-06-25] MEDS: APIXABAN 5 MG TABLET PO SCH (08:46)
[2021-06-25] MEDS: INSULIN ASPART 100 UNITS/ML 3 ML PEN SC SCH ×2 (08:46→13:33)
[2021-06-25] MEDS: INSULIN GLARGINE SOLOSTAR 100 UNITS/ML 3 ML PEN SC SCH (08:47)
[2021-06-25] MEDS ORDERED: lisinopril 2.5 MG TAB PO SCH (09:00)
[2021-06-25] MEDS ORDERED: FUROSEMIDE 40 MG in SYRINGE 0 ML IV ONE (09:15)
--- NOTE | 2021-06-25 09:42 | Pharmacy Report ---
Pharmacy Glycemic Short Note 2 - Date of Service June 25, 2021 - Glycemic Short BSG Results (Last 24 hours): 06/24/21 06/24/21 06/24/21 11:32 16:29 20:47 Glucose POC Glucose 146 H 132 H 157 H 06/25/21 06/25/21 05:40 07:48 Glucose 112 H POC Glucose 123 H OUTPATIENT ANTIDIABETIC REGIMEN: * N/A * A1c = 9% on 06/23/21 ASSESSMENT: 06/25: * Patient received 51 units of insulin yesterday with adequate glycemic control * 25 units basal + 26 units bolus * BSGs ranged from 110 - 157 mg/dL * Fasting BSG of 123 mg/dL is at goal. Continue current dose of Lantus * Post prandial BSGs are appropriate. No changes to Novolog. Background: * 55yo T2DM female - new diagnosis of diabetes per A1c >6.5%. Per H&P pt with known history of "pre-diabetes" * Significant hyperglycemia on admission - resolved with addition of basal insulin + Novolog scale * Will continue weight based insulin dosing and titrate based on BSG trends. Will try to keep basal insulin once daily in case this is chosen to continue at DC * Goal BSGs 110-140 mg/d; based on age/co-morbidities and A1c target goal PLAN FOR INPATIENT GLYCEMIC CONTROL: * Hold outpatient oral diabetes medications * Basal insulin * Lantus 25 units SQ daily in AM * Bolus insulin * NovoLog per scale ACHS or Q6hrs while NPO * Goal Range: Low 110 mg/dL - High 140 mg/dL * Correction Factor: 25 mg/dL/unit * Nutritional / Prandial insulin per carb ratio of 1 unit per 6 grams CHO consumed PLAN FOR DISCHARGE: * A1c = 9 % on 06/23/21 * Goal A1c = <7 % based on age and comorbidities * A1c is between 8% and 10% --> consider dual combination therapy * Metformin + additional agent listed below. (B12 supplementation may be necessary with [facility] metformin) * Metformin should be started at the time type 2 diabetes is diagnosed unless there are contraindications. Metformin is effective and safe, is inexpensive, and may reduce risk of cardiovascular events and . * Recommend starting: Metformin XR 500mg PO daily with evening meal. Typically the XR formulation of metformin is better tolerated than the immediate release formulation. Continue to titrate metformin dosing upwards as recommended. Dosage increases should be made in increments of 500 mg weekly, up to 2,000 mg/day PO, given in divided doses. Doses above 2000 mg/day may be better tolerated if divided and given 3 times per day with meals. Max: 2,550 mg/day PO, in divided doses * B12 supplementation may be necessary with manager terminal metformin use * FDA has revised the label for metformin to reflect its safety in patients with eGFR 30 mL/min or above * Additional agent: recommend an agent to help minimize weight gain or promote weight loss: * GLP-1 receptor agonist: Decreases major adverse cardiovascular events, high efficacy, low hypo risk, weight loss, significant GI side effects (titrate low and slow) and risk of thyroid tumors, high cost VS * SGLT2 inhibitor: Decreases major adverse cardiovascular events, intermediate efficacy, low hypo risk, weight loss, /dehydration and risk of amputation (canagliflozin) side effects, high cost * Support Patient Self-Management * Healthy Lifestyle (diet, exercise, and smoking cessation) * Disease self-management (SMBG) * Prevention of complications (BP, Lipid goals, Immunizations) * Consider outpatient Diabetes Self-Management Education & Support
--- NOTE | 2021-06-25 16:22 | Discharge Summary ---
Date of Service June 25, 2021 Admission HPI Per Admitting Provider This is a 55-year-old female with past medical history of allergic rhinitis, CHF, GERD, and previous pneumonia with VDRF that presents today complaining of tachycardia. Patient is accompanied by her [id number], both are good historians. Patient tells me that she works nights at [employer]. She returned home Tuesday morning after a awake overnight counselor on Tuesday and found that she had a rapid heart rate. She took her blood pressure with her cuff at home and found that her rate was being measured in the 140s. The patient did not think much of this as she is having no chest pain or palpitations. She went to sleep but when she woke up she once again measured her blood pressure and heart rate and found that the rate was again in the 140s. Patient continued along her day yesterday but woke up this morning with similar rate. She did feel somewhat tired with a lack of energy but is specifically denied palpitations, chest pain, shortness of breath, dyspnea on exertion, edema, or any other symptoms. Today she started to feel little dizzy and lightheaded which is what prompted her to come to the emergency room. In the ER, she was found to be in V. tach. She was administered 2 doses of amiodarone emergently without results. The ER physician performed a DC cardioversion and the patient is now in a normal sinus rhythm. At the time my evaluation, the patient was feeling well with no issues. She was requiring 4 L nasal cannula but her heart rate and blood pressure were stable and she remained in normal sinus rhythm. She was placed on an amiodarone drip. At this time the patient is being mated to the PCU for further cardiac evaluation. Principal Diagnosis Atrial flutter with LBBB Acute systolic CHF Newly diagnosed diabetes Discharge Exam Constitutional WD/WN, vitals as above Eyes EOM intact bilaterally; no conjunctival abnormality ENMT external ear and nose normal, oropharynx normal Neck trachea midline, no thyromegaly normal visual inspection Respiratory normal respiratory effort, lungs clear to auscultation no respiratory distress Cardiovascular RRR, no murmur, no edema Gastrointestinal (Abdomen) Inspection/Auscultation: abdomen normal to inspection; abdomen not distended Musculoskeletal no cyanosis or clubbing, extremities motor strength 5/5 Skin no rashes, warm and dry Neurologic moves all extremities and awake Psychiatric Orientation: alert, oriented to person and cooperative Discharge Data Allergies Allergy/AdvReac Type Severity Reaction Status Date / Time morphine Allergy Intermediate Chest Verified 06/22/21 15:53 tightness and pressure. latex Allergy Mild RASH Verified 06/22/21 15:53 azithromycin AdvReac Mild stomach Verified 06/22/21 15:53 pain metoprolol AdvReac Unknown Unknown Verified 06/22/21 15:53 Consultations 06/22/21 10:18 ED Decision to Admit Stat 06/22/21 15:51 Consult Cardiology Routine Hospital Course (1) Abnormal cardiac conduction: Initially thought to be ventricular tachycardia, but instead it is atrial flutter with aberrancy. She was actually cardioverted in the ED with no recurrence. - Cardiology following -> Agree with transition to apixaban. - Continue carvedilol - Monitor on telemetry - Discharged on carvedilol and Eliquis. Coupon for Eliquis given. - She will follow up with [facility] cardiology as she knows a food checker there from family members' care. Referral put on discharge paperwork. (2) CHF (congestive heart failure): As per documentation. Patient is not on any diuretics or other cardiac meds at baseline. Echo on 06/22 showed EF 40 - 45% with global hypokinesis. Thought to be tachycardia-induced. Acute systolic CHF. - BNP elevated on 06/23 - Lasix 20 mg IV x 1 given 06/24. Final dose of Lasix 40 mg IV x 1 given on 06/25 with good response. - Discharged on Lasix 40 mg PO daily PRN for weight gain or swelling. - Also discharged on goal-directed care with beta-ras and ACEi. => Discharged on 2L NC. She felt quite well without it, so may be able to wean eventually as heart hopefully improves back to baseline function. (3) Hyperglycemia: A1c of 9.0% meaning she has diabetes. - Glycemic pharmacy consulted - Will get clinical staff educator to see her - Consult put in on 06/23, but not available while inpatient. - Discharged on metformin. She felt that much of this was diet-related as prior A1cs were ~6.5 - 7.0%. She was amenable to oral medication though. (4) GERD (gastroesophageal reflux disease): Again, no medications listed. - Continue to monitor Total Time Total Time Spent Total Time Spent (In Minutes): 35 Discharge Plan Discharge Items Patient Disposition: Home - Home Health Services Reason For Visit: STABLE VT, S/P DCCV Discharge Diagnosis: Atrial flutter with left bundle branch block Mild systolic CHF Newly diagnosed diabetes Activity: Per Instructions section Activity Comment: Gradually increase as tolerated Non-emergency contact: Primary Care Provider and Fire Prevention Inspector Call non-emergency contact if: your symptoms worsen and your temperature is above 101 Follow-up/Referrals: Jesu Landon III, MD [Primary Care Provider] - Roberto Palomo DO [Physician] - (Please see Dr. Roberto Palomo or Luba Lacy in [place] to discuss heart health and get referral to Dr. Theron Chen in [place].) Diet: Carb Consistent or DM2, Heart Healthy and Low Sodium (2gm) Addtl Attending Provider Instructions: You were admitted with a rapid heart rate that we believe was atrial flutter. Your heart was shocked out of this rhythm, and it has not gone back in it. This is great! Unfortunately, your heart was not squeezing as strongly due to this heart rhythm. We would like you to follow up with the [facility] heart doctors to discuss ablation and getting this permanently fixed. Please see Dr. Roberto Palomo or Luba Lacy in [place] to discuss heart health and get referral to Dr. Theron Chen in [place]. We also unfortunately found that your blood sugars have been rising, and you officially have diabetes. After discussion, we'll start you on a medication meant to help regulate your blood sugars. You can also work on your diet as we discussed and see your PCP in a few weeks to see how your sugars are doing. I have sent a prescription for diabetic supplies to your pharmacy to help you keep tabs on your sugars. We are sending you out with "as needed" or "PRN" Lasix. Take it for swelling of the legs or ankles OR weight gain of 2 - 3 lbs over baseline weight. Weigh yourself tonight after you get home to check your baseline weight on your personal, home scale. Then keep track of that weight on a piece of paper hung on the wall by the scale. Finally, due to the heart issues, for now, you need to wear oxygen to help you breath comfortably. Hopefully this isn't a permanent thing, but for now, it is the best thing to keep your lungs healthy. Pending Studies at Discharge: No Stand-Alone Forms: My [facility], Smoking Cessation Medications and DC Order Prescriptions: New carvedilol 3.125 mg Tablet 3.125 mg PO BID Qty: 60 RF: 0 Eliquis 5 mg Tablet 5 mg PO BID Qty: 60 RF: 0 lisinopril 5 mg tablet 5 mg PO HS Qty: 30 RF: 0 metformin 500 mg tablet extended release 24 hr 500 mg PO BID Qty: 120 RF: 0 furosemide 40 mg tablet 40 mg PO DAILY PRN (Reason: weight gain) Qty: 30 RF: 0 (DME) diabetic supplies, miscellan. Misc See Rx Instructions .Route Qty: 1 RF: 0 Continued acetaminophen [Tylenol Extra Strength] 500 mg Tablet 1,000 mg PO Q6H PRN (Reason: Pain) RF: 0 Discharge Orders: Discharge Order (Routine); Ordered 06/25/21 Ordered By: Bran Valdovinos/Other Patient Handouts: Understanding Supraventricular ..., Treatment for Supraventricular ... Admission Data Admit Date/Time: 06/22/21 12:03 Attending Provider: Bran Macias Admit Provider: Davide Aquino Primary Care Provider: Jesu Landon III Other Providers: Raffi Whitehead ; Bran Macias Other Interventions: Discharge Summary Assessment (RN) Last Done: 06/25/21 14:08 Coding Level of Care Code D/C DAY MANAGEMENT >30 MINS Diagnoses Abnormal cardiac conduction I45.9 CHF (congestive heart failure) I50.9 Hyperglycemia R73.9 GERD (gastroesophageal reflux disease) K21.9
--- NOTE | 2021-06-26 05:52 | Electrocardiogram Report ---
Test Reason : Blood Pressure : / mmHG Vent. Rate : 068 BPM Atrial Rate : 068 BPM P-R Int : 172 ms QRS Dur : 148 ms QT Int : 464 ms P-R-T Axes : 073 -22 113 degrees QTc Int : 493 ms Normal sinus rhythm Left bundle branch block Abnormal ECG When compared with ECG of 22-JUN-2021 10:11, Premature supraventricular complexes are no longer Present Confirmed by Raffi Whitehead ([id number]) on 06/26/2021 5:51:55 AM Referred By: REFERRED SELF Confirmed By:Raffi Whitehead
--- NOTE | 2021-06-26 06:39 | Electrocardiogram Report ---
Test Reason : Blood Pressure : / mmHG Vent. Rate : 065 BPM Atrial Rate : 065 BPM P-R Int : 192 ms QRS Dur : 148 ms QT Int : 458 ms P-R-T Axes : -17 -13 151 degrees QTc Int : 476 ms Normal sinus rhythm with sinus arrhythmia Left bundle branch block Abnormal ECG When compared with ECG of 23-JUN-2021 10:21, No significant change was found Confirmed by Raffi Whitehead ([id number]) on 06/26/2021 6:39:00 AM Referred By: REFERRED SELF Confirmed By:Raffi Whitehead
== END 2021-06-25 15:26 | disposition home or self-care (01) | DRG 308 ==
LOC: ED 09:13 → 2S 12:03 → SUATTDRO 12:03 → 2S 14:59

== ENCOUNTER 2022-04-21 14:25 | Observation (INO) ==
[2022-04-21] MEDS ORDERED: SODIUM CHLORIDE 0.9% 1000ML 1,000 ML IV STA (14:36)
[2022-04-21] MEDS ORDERED: CEFEPIME 2,000 MG/20 ML VIAL IV STA (14:39)
[2022-04-21] MEDS ORDERED: APIXABAN 5 MG TABLET PO STA (14:55)
[2022-04-21] MEDS ORDERED: carvediloL 6.25 MG TAB PO STA (14:55)
[2022-04-21] MEDS ORDERED: LOSARTAN POTASSIUM 25 MG TAB PO STA (14:55)
[2022-04-21 15:57] LABS: Hematocrit (blood only) 35.8 % (37-47); Hemoglobin 11.7 g/dL (12.0-16.0); Mean Corpuscular Hemoglobin 32.2 pg (25-34); Mean Corpuscular Hgb Conc 32.7 g/dL (32-36); Mean Corpuscular Volume 98.6 fL (80-100); Mean Platelet Volume 9.6 fL (7.4-10.4); Platelet Count 169 K/uL (130-400); RDW Coefficient of Variation 13.2 % (11.5-14.5); RDW Standard Deviation 47.5 fL (36.4-46.3); Red Blood Count 3.63 M/uL (4.2-5.4); White Blood Count 9.22 K/uL (4.8-10.8)
--- NOTE | 2022-04-21 16:11 | Emergency Department Note ---
Impression & Plan Bacteremia ED Provider Note INFORMANT: Patient ED PROVIDER(S): Feliciano Quarles MD CHIEF COMPLAINT: Positive blood culture PLAN: Disposition: Admitted Condition: Good Outpatient prescription management: none Referral: None MEDICAL DECISION MAKING: Patient presented to the emergency department because of positive blood culture. Patient had a urinary source identified last night. Already received IV Rocephin. Discussed with pharmacist recommended IV cefepime as speciation is not complete. CBC and chemistry panel were unremarkable. New blood cultures were performed. Lactate negative. Consultation placed with the [facility] admitting hospitalist service. Patient was evaluated in the ER admitted for further management. Triage Nursing notes reviewed and agree them. Vital Signs: reviewed and remarkable for no significant abnormalities Differential diagnosis: bacteremia, UTI, pneumonia, sepsis, as well as other pathologies. Diagnostics interpreted by me: ECG: none Cardiac Monitoring: Cardiac monitoring ordered by me: The patient was placed on continuous cardiac monitoring and observed. It revealed a normal sinus rhythm at 73 beats per minute without ectopy or evidence of dysrhythmia. Imaging studies: Deferred HPI: The patient is a 56 year old female who presents to the Emergency Room with complaints of positive blood cultures. Patient was seen in the ER last night because of abdominal pain. Work-up did raise concern for possible early pyelonephritis. Patient did note urinary frequency. She was given a dose of Rocephin and sent home. Cultures resulted with a gram-negative bacilli from the blood. She was called back to the ER for further evaluation and management. Current pain is rated as 5/10 in the left flank. Pt denies LOC, headache, fevers, chills, diaphoresis, visual changes, neck pain, chest pain, breathing difficulties, nausea, vomiting, melena, hematochezia, numbness, weakness, lymphadenopathy, rash, or other complaints. ROS: See above HPI for pertinent positives & negatives. A total of 10 systems reviewed and were otherwise negative. PAST MEDICAL HISTORY:See Below , kidney stone PAST SURGICAL HISTORY:See Below, FAMILY HISTORY:See Below SOCIAL HISTORY:See Below, former smoker HOME MEDICATIONS:See Below ALLERGIES:See Below VITALS:See Below PHYSICAL EXAMINATION: GENERAL: Awake, alert, well-appearing, in no distress HENT: Normocephalic, atraumatic. Oropharynx unremarkable. EYES: Normal conjunctiva. Sclera non-icteric. NECK: Inspection normal. Non-tender. Supple. No nuchal rigidity. FROM. No masses. RESPIRATORY: Clear to auscultation. No wheezes. No rales. Normal respiratory e ffort. CARDIAC: Normal rate. Normal rhythm. No murmurs. No rubs. Extremities warm and well perfused. Pulses equal. No JVD. GI: Soft, non-distended. Flank suprapubic tenderness to palpation. No rebound or guarding. No masses. RECTAL: Deferred. MUSCULOSKELETAL: Atraumatic. Chest examination reveals no tenderness. The back is symmetrical on inspection without obvious abnormality. There is no CVA tenderness to palpation. No joint edema. LOWER EXTREMITIES: Calves are equal size bilaterally and non-tender. No edema. No discoloration. NEURO: Normal sensorium. No sensory or motor deficits noted. SKIN: No rash or jaundice noted. Feliciano Quarles MD Past Med/Surg History Medical History Abdominal distention Anemia HX Anxiety CHF (congestive heart failure) GERD (gastroesophageal reflux disease) HX History of palpitations NO MEDS Kidney stones Nausea and vomiting after administration of anesthetic agent FATIGUE FOR DAYS AFTERWARDS Prediabetes NO MEDS DIET MANAGED Surgical History Hx of thumb surgery LEFT TENDON SURG Family History Family/Other Family history of diabetes mellitus Grandmother Family history of diabetes mellitus Father Family hx of colon cancer Social History Smoking Status: Former smoker Tobacco Type: E-cigarettes / Vaping Second Hand Exposure: No; Hx Alcohol Use: No Hx Substance Use: No Preferred Language: Faroese Communication Ability: Effective 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 latex Allergy Intermediate RASH Verified 04/21/22 15:27 azithromycin AdvReac Intermediate stomach Verified 04/21/22 15:27 pain lisinopril AdvReac Intermediate Cough Verified 04/21/22 15:27 metoprolol AdvReac Intermediate FELT WIPED Verified 04/21/22 15:27 OUT fentaNYL Citrate SOLN AdvReac Intermediate Vomiting Uncoded 04/21/22 15:27 Home Meds Home Medications Medication Instructions Recorded Confirmed losartan 25 mg tablet 25 mg PO DAILY 10/28/21 04/21/22 Previous Rx's Medication Instructions Recorded furosemide 40 mg tablet 40 mg PO DAILY PRN #30 tab 06/25/21 Miscellaneous Pulmonary Supply #1 ea 06/26/21 blood sugar diagnostic (OneTouch #100 ea 06/26/21 Verio test strips) blood-glucose meter #1 ea 06/26/21 blood-glucose meter (OneTouch #1 ea 06/26/21 Verio Reflect Start) lancets 33 gauge (OneTouch Delica #100 ea 06/26/21 Plus Lancet) apixaban 5 mg tablet (Eliquis) 5 mg PO BID #180 tab 07/21/21 CPAP Machine #1 ea 02/16/22 CPAP Machine #1 ea 02/16/22 carvedilol 6.25 mg tablet 6.25 mg PO BID #60 tab 04/05/22 cephalexin 500 mg capsule 500 mg PO TID 10 Days #30 cap 04/21/22 ondansetron 4 mg disintegrating 4 mg PO DAILY PRN 5 Days #12 tab 04/21/22 tablet Results & Data (ED) Vital Signs Vital Signs - 24 hr 04/21/22 14:30 04/21/22 15:56 04/21/22 17:41 Temperature 36.4 C L Temperature Source Temporal Artery Scan Pulse Rate 83 Pulse Rate [Apical] 73 60 Respiratory Rate 20 16 18 Respiratory Effort / Characteristics Non-Labored Spontaneous Respiratory Depth Normal Normal Respiratory Pattern Regular Blood Pressure 148/68 H Blood Pressure Mean 94 Pulse Oximetry 92 98 95 Oxygen Delivery Method Room Air Room Air Nasal Cannula Oxygen Flow Rate 2 Sepsis Recent Fever Within 48 Hours No Sepsis New/Unexplained Change in Mental Status No Sepsis Action Taken by Nursing No Action Required Laboratory Data Result diagrams: 04/21/22 15:39 04/21/22 15:39 Lab Results 04/21/22 04/21/22 04/21/22 Range/Units 15:39 15:39 15:39 WBC 9.22 (4.8-10.8) K/uL RBC 3.63 L (4.2-5.4) M/uL Hgb 11.7 L (12.0-16.0) g/dL Hct 35.8 L (37-47) % MCV 98.6 (80-100) fL MCH 32.2 (25-34) pg MCHC 32.7 (32-36) g/dL RDW Std Deviation 47.5 H (36.4-46.3) fL RDW Coeff of Kaden 13.2 (11.5-14.5) % Plt Count 169 (130-400) K/uL MPV 9.6 (7.4-10.4) fL Immature Gran % (Auto) 0.3 % Neut % (Auto) 77.9 % Lymph % (Auto) 8.4 % [place] % (Auto) 12.0 % Eos % (Auto) 1.3 % Baso % (Auto) 0.1 % Neut # (Auto) 7.18 H (1.4-6.5) K/uL Lymph # (Auto) 0.77 L (1.2-3.4) K/uL [place] # (Auto) 1.11 H (0.11-0.59) K/uL Eos # (Auto) 0.12 (0-0.5) K/uL Baso # (Auto) 0.01 (0-0.2) K/uL Immature Gran # (Auto) 0.03 H (0.00-0.02) K/uL Sodium 133 L (136-145) mmol/L Potassium 3.7 (3.5-5.1) mmol/L Chloride 100 (98-107) mmol/L Carbon Dioxide 29 (21-32) mmol/L Anion Gap 4 (3-11) BUN 16 (6-23) mg/dl Creatinine 1.03 (0.6-1.2) mg/dl Est Cr Clr Drug Dosing 65.8 ml/min Est GFR ( Amer) 70.4 ml/min Est GFR (Non-Af Amer) 60.7 ml/min BUN/Creatinine Ratio 15.5 (10-20) Glucose 141 H (70-99(Fasting)) mg/dl Lactate 1.4 (0.4-2.0) mmol/L Calcium 9.2 (8.5-10.1) mg/dl Total Bilirubin 0.6 (0.2-1.0) mg/dl AST 15 (13-39) U/L ALT 14 (7-52) U/L Alkaline Phosphatase 73 (34-104) U/L Total Protein 7.1 (6.0-8.3) gm/dl Albumin 3.9 (3.4-5.0) gm/dl Globulin 3.2 (2.5-4.0) gm/dl Albumin/Globulin Ratio 1.2 (0.9-2) SARS-CoV-2, RNA, NAAT (NEGATIVE) 04/21/22 04/21/22 Range/Units 16:31 Unknown WBC (4.8-10.8) K/uL RBC (4.2-5.4) M/uL Hgb (12.0-16.0) g/dL Hct (37-47) % MCV (80-100) fL MCH (25-34) pg MCHC (32-36) g/dL RDW Std Deviation (36.4-46.3) fL RDW Coeff of Kaden (11.5-14.5) % Plt Count (130-400) K/uL MPV (7.4-10.4) fL Immature Gran % (Auto) % Neut % (Auto) % Lymph % (Auto) % [place] % (Auto) % Eos % (Auto) % Baso % (Auto) % Neut # (Auto) (1.4-6.5) K/uL Lymph # (Auto) (1.2-3.4) K/uL [place] # (Auto) (0.11-0.59) K/uL Eos # (Auto) (0-0.5) K/uL Baso # (Auto) (0-0.2) K/uL Immature Gran # (Auto) (0.00-0.02) K/uL Sodium (136-145) mmol/L Potassium (3.5-5.1) mmol/L Chloride (98-107) mmol/L Carbon Dioxide (21-32) mmol/L Anion Gap (3-11) BUN (6-23) mg/dl Creatinine (0.6-1.2) mg/dl Est Cr Clr Drug Dosing ml/min Est GFR ( Amer) ml/min Est GFR (Non-Af Amer) ml/min BUN/Creatinine Ratio (10-20) Glucose (70-99(Fasting)) mg/dl Lactate 0.9 (0.4-2.0) mmol/L Calcium (8.5-10.1) mg/dl Total Bilirubin (0.2-1.0) mg/dl AST (13-39) U/L ALT (7-52) U/L Alkaline Phosphatase (34-104) U/L Total Protein (6.0-8.3) gm/dl Albumin (3.4-5.0) gm/dl Globulin (2.5-4.0) gm/dl Albumin/Globulin Ratio (0.9-2) SARS-CoV-2, RNA, NAAT NEGATIVE (NEGATIVE) Administered Medications Sodium Chloride (Nss 1000ml) 1,000 mls @ 125 mls/hr IV .Q8H STA Stop: 04/21/22 22:35 Last Admin: 04/21/22 15:50 Dose: 125 mls/hr Documented by: [id number] Discontinued Medications Apixaban (Apixaban 5 Mg Tablet) 5 mg PO NOW STA Stop: 04/21/22 14:56 Last Admin: 04/21/22 15:50 Dose: 5 mg Documented by: [id number] Carvedilol (Carvedilol 6.25 Mg Tab) 6.25 mg PO NOW STA Stop: 04/21/22 14:56 Last Admin: 04/21/22 15:50 Dose: 6.25 mg Documented by: [id number] Cefepime HCl (Maxipime) 2,000 mg in 20 mls @ 5 mls/min IV NOW STA; Protocol Stop: 04/21/22 14:42 Last Admin: 04/21/22 15:50 Dose: 5 mls/min Documented by: [id number] Losartan Potassium (Losartan Potassium 25 Mg Tab) 25 mg PO NOW STA Stop: 04/21/22 14:56 Last Admin: 04/21/22 15:50 Dose: 25 mg Documented by: [id number] Discharge Plan Visit Data Chief Complaint: Referred by Doctor Stated Complaint: IV ANTIBIOTIC, CALLED BY HOSPITAL TO COME IN ED Provider: Feliciano Quarles Discharge Problem: Bacteremia Forms Stand Alone Forms: My [facility] Prescriptions Prescriptions: No Action (DME) OneTouch Verio test strips Strip See Rx Instructions .Route Qty: 100 RF: 5 (DME) blood-glucose meter [OneTouch Verio Reflect Start] Kit See Rx Instructions .Route Qty: 1 RF: 0 (DME) lancets [OneTouch Delica Plus Lancet] 33 gauge misc See Rx Instructions .Route Qty: 100 RF: 5 Eliquis 5 mg tablet 5 mg PO BID Qty: 180 RF: 3 carvedilol 6.25 mg tablet 6.25 mg PO BID Qty: 60 RF: 2 (DME) Miscellaneous Pulmonary Supply Misc See Rx Instructions .Route Qty: 1 RF: 0 (DME) blood-glucose meter Kit See Rx Instructions .Route Qty: 1 RF: 0 (DME) CPAP Machine Misc See Rx Instructions .MEDSUPPLY Qty: 1 RF: 0 (DME) CPAP Machine Misc See Rx Instructions .MEDSUPPLY Qty: 1 RF: 0 furosemide 40 mg tablet 40 mg PO DAILY PRN (Reason: weight gain) Qty: 30 RF: 0 losartan 25 mg tablet 25 mg PO DAILY RF: 0 cephalexin 500 mg capsule 500 mg PO TID 10 Days Qty: 30 RF: 0 ondansetron 4 mg tablet,disintegrating 4 mg PO DAILY PRN (Reason: nausea and vomiting) 5 Days Qty: 12 RF: 0 Referrals Referrals: Shayy Ramos PA-C [Primary Care Provider] -
[2022-04-21 16:13] LABS: Basophils # (auto) 0.01 K/uL (0-0.2); Basophils % (auto) 0.1 %; Eosinophils # (auto) 0.12 K/uL (0-0.5); Eosinophils % (auto) 1.3 %; Immature Granulocytes # (auto) 0.03 K/uL (0.00-0.02); Immature Granulocytes % (auto) 0.3 %; Lymphocytes # (auto) 0.77 K/uL (1.2-3.4); Lymphocytes % (auto) 8.4 %; Monocytes # (auto) 1.11 K/uL (0.11-0.59); Neutrophils # (auto) 7.18 K/uL (1.4-6.5); Neutrophils % (auto) 77.9 %
[2022-04-21 16:30] LABS: Albumin Globulin Ratio 1.2 (0.9-2); Albumin Level 3.9 gm/dl (3.4-5.0); BUN Creatinine Ratio 15.5 (10-20); Bilirubin,Total 0.6 mg/dl (0.2-1.0); Calcium 9.2 mg/dl (8.5-10.1); Creatinine Clr Calc Pharmacy 65.8 ml/min; Est GFR (African American) 70.4 ml/min; Est GFR (Non-African American) 60.7 ml/min; Globulin 3.2 gm/dl (2.5-4.0); Potassium 3.7 mmol/L (3.5-5.1); Total Protein 7.1 gm/dl (6.0-8.3)
--- NOTE | 2022-04-21 16:46 | History & Physical Report ---
Date of Service April 21, 2022 Assessment & Plan (1) UTI (urinary tract infection): Plan: UTI with ascending inflammation without stone presence associated with positive blood cultures - no evidence of sepsis or organ dysfunction - GNB- await cultures and sensitivities - Cefepime 2GM IV q12 hours - If decompensates or evidence of failing current therapy - ultrasound or CT sca eval for abscess - repeat blood cultures pending - lactate 1.4 (2) Positive blood cultures: Plan: As above- follow closely (3) Severe obstructive sleep apnea: Plan: CPAP 13cm H20 at home with oxygen bled in - she does endorse limited compliance as her home CPAP gives her a headache so she normally just increases her night time oxygen - CPAP here ordered (4) LBBB (left bundle branch block): Plan: Chronic not acute and without chest pain - continue carvedilol - Continue Losartan - Continue Eliquis for history of Aflutter with cardioversion (5) CHF (congestive heart failure): Plan: HFrEF (mild 40-45%) global hypokinesis from ECHO 07/11 secondary to NICM - not acute exacerbation and stable on medicatons as above (6) Diabetes: Plan: DMII- diet controlled per patient she is not currently on glycemic management meds - Continue with ACHS checks- aspart sliding scale CF 20 without carb coverage for now - Carb consistent diet (7) Hyponatremia: Plan: Mild 133- chronic - no acute needs at this time- follow History of Present Illness Primary Care Provider: Shayy Ramos PA-C 56 YOF with medical history of: PAF(Cardioversion in 06/10 on Eliquis),LBB, obesity, DIAMANTE (CPAP 13 with o2 bled in), GERD, HF, DMII. Patient called back to the EMD following discharge last PM after evaluation for Flank Pain with UTI. Blood and Urine CX positive for GNB. Patient will be observed while awaiting culture results. Will initiate Cefepime 2GM IV q12 hours. Patient states that starting Tuesday she had onset of left flank pain that then moved to her left front abdomen and down to her bladder. There was no pain with urination. She had associated nause and vomitting at that time up until this morning. She had fevers/chills and temperature this morning at home of 100.1. She has not noted any blood in her urine and her pain is currently controlled. She had CT of the abdomen and pelvis performed last night that did NOT reveal any renal stones, but noted inflammation likely representing ascending infection or passing of stone. In the EMD the patient is without evidence of SIRS/Sepsis, afebrile. She had repeat blood cultures drawn. Will add on biomarkers and lactate for trending if needed. Will observe on medical surgical floor. COVID test on admission is Allergies Allergy/AdvReac Type Severity Reaction Status Date / Time morphine Allergy Severe Chest Verified 04/21/22 15:27 tightness and pressure. latex Allergy Intermediate RASH Verified 04/21/22 15:27 azithromycin AdvReac Intermediate stomach Verified 04/21/22 15:27 pain lisinopril AdvReac Intermediate Cough Verified 04/21/22 15:27 metoprolol AdvReac Intermediate FELT WIPED Verified 04/21/22 15:27 OUT fentaNYL Citrate SOLN AdvReac Intermediate Vomiting Uncoded 04/21/22 15:27 Home Medications Medication Instructions Recorded Confirmed Type furosemide 40 mg tablet 40 mg PO DAILY PRN #30 tab 06/25/21 04/21/22 Rx Miscellaneous Pulmonary Supply #1 ea 06/26/21 04/21/22 Rx blood sugar diagnostic (OneTouch #100 ea 06/26/21 02/16/22 Rx Verio test strips) blood-glucose meter #1 ea 06/26/21 02/16/22 Rx blood-glucose meter (OneTouch #1 ea 06/26/21 02/16/22 Rx Verio Reflect Start) lancets 33 gauge (OneTouch Delica #100 ea 06/26/21 04/21/22 Rx Plus Lancet) apixaban 5 mg tablet (Eliquis) 5 mg PO BID #180 tab 07/21/21 04/21/22 Rx losartan 25 mg tablet 25 mg PO DAILY 10/28/21 04/21/22 History CPAP Machine #1 ea 02/16/22 04/21/22 Rx CPAP Machine #1 ea 02/16/22 04/21/22 Rx carvedilol 6.25 mg tablet 6.25 mg PO BID #60 tab 04/05/22 04/21/22 Rx cephalexin 500 mg capsule 500 mg PO TID 10 Days #30 cap 04/21/22 04/21/22 Rx ondansetron 4 mg disintegrating 4 mg PO DAILY PRN 5 Days #12 tab 04/21/22 04/21/22 Rx tablet Past Med/Surg History Medical History Abdominal distention Anemia HX Anxiety CHF (congestive heart failure) GERD (gastroesophageal reflux disease) HX History of palpitations NO MEDS Kidney stones Nausea and vomiting after administration of anesthetic agent FATIGUE FOR DAYS AFTERWARDS Prediabetes NO MEDS DIET MANAGED Surgical History Hx of thumb surgery LEFT TENDON SURG Family History Family/Other Family history of diabetes mellitus Grandmother Family history of diabetes mellitus Father Family hx of colon cancer Social History Smoking Status: Former smoker Tobacco Type: E-cigarettes / Vaping Second Hand Exposure: No; Hx Alcohol Use: No Hx Substance Use: No Preferred Language: Iranian Communication Ability: Effective Court Transcriber Required: No Beliefs That Will Affect Care: None marital status: Current Living Situation: Spouse How many Children do You have: 2 Feels Safe at Home: Yes Assistive Devices: Oxygen - Continuous Review of Systems Review of Systems: REVIEW OF SYSTEMS: Constitutional: (+) fever, sweats or chills Eyes: No diplopia, no worsening or blurred vision ENT: normal hearing, no trouble swallowing Respiratory: No cough, sputum, dyspnea at rest or on exertion Cardiovascular: (+) venous stasis ulcerations and lower extremity edema, No chest pain, tightness or palpitations Abdomen: (+) flank and left sided abdominal pain, nausea, vomiting, NO diarrhea or constipation Musculoskeletal: No joint pain, calf, swelling Neurologic: No weakness, numbness/tingling, or balance problems Psychiatric: No anxiety or depression Skin: No rash or itch Physical Exam Physical Exam: PHYSICAL EXAM: General: awake, alert, no apparent distress Head: Normocephalic, atraumatic ENT: PERRL, EOMI, no pharyngeal exudate, mucous membranes moist Neuro: AAO x 3, speech clear and appropriate, strength intact bilaterally 5/5, sensation intact and equal all extremities and dermatomes, no pronator drift Chest: equal rise and fall of the chest, no accessory muscle use, no heaves or thrills, Clear to auscultation, on room air, Cardiac: Regular rate and rhythm, telemetry reviewed- NSR skin warm dry, cap refill <3 seconds, peripheral pulses +2 no JVD, no murmur, (+) 2 lower extremity edema GI: NABS x 4 quadrants, soft, nontender to palpation, no rebound, guarding or tenderness : CVA tenderness to left flank and pain with deep palpation to left renal. Spontaneously voiding, no pain, Psych: Normal mood and affect Skin: chronic venous stasis ulcerations, no rash or erythema Results & Data Results & Data ([facility]) Vital Signs (Past 12 Hours) Vital Signs Temp Pulse Pulse Resp BP Pulse Ox 04/21/22 15:56 73 16 98 04/21/22 14:30 36.4 C L 83 20 148/68 H 92 Laboratory Results Abnormal lab results 04/21/22 04/21/22 Range/Units 15:39 15:39 RBC 3.63 L (4.2-5.4) M/uL Hgb 11.7 L (12.0-16.0) g/dL Hct 35.8 L (37-47) % RDW Std Deviation 47.5 H (36.4-46.3) fL Neut # (Auto) 7.18 H (1.4-6.5) K/uL Lymph # (Auto) 0.77 L (1.2-3.4) K/uL [place] # (Auto) 1.11 H (0.11-0.59) K/uL Immature Gran # (Auto) 0.03 H (0.00-0.02) K/uL Sodium 133 L (136-145) mmol/L Glucose 141 H (70-99(Fasting)) mg/dl Diagnostic Findings 04/20/[address] WITH IV CONTRAST CT DOSE: 1000.31 mGy.cm HISTORY: Acute left lower quadrant abdominal pain with distention, llq pain. TECHNIQUE: Multiaxial CT images of the abdomen and pelvis were performed following the IV administration of 94 cc of Optiray, A dose lowering technique was utilized adhering to the principles of ALARA. COMPARISON STUDY: Chest radiographs 10/27/2021, chest CT 02/25/2015. FINDINGS: Mild cardiomegaly. Subsegmental bibasilar atelectasis. No pneumatosis or pneumoperitoneum. The spleen is enlarged measuring up to 15 cm in length. Unremarkable pancreas, adrenal glands and mildly enlarged liver. There is patency of the hepatic and portal veins. Cholelithiasis without CT evidence of acute cholecystitis. No biliary ductal dilation. Unremarkable right kidney. Mild left-sided hydronephrosis with urothelial thickening and enhancement with perinephric inflammatory stranding. No renal or ureteral calculi are identified. Urinary bladder wall thickening with partial distention. Unremarkable uterus and adnexa. Atherosclerosis of the abdominal aorta. Mildly enlarged lymph nodes of the lower chest measuring up to 1.4 cm adjacent to the descending thoracic aorta. Additional enlarged periaortic, periportal, pericaval and iliac chain lymph nodes include a left iliac chain lymph node on image 334 measuring 1.5 cm. No bowel obstruction or bowel wall thickening. Mild fecal retention. Normal appendix. Diastases recti. Degenerative changes of the spine, pelvis and hips. 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 IMPRESSION: 1. Mild left-sided hydronephrosis with urothelial thickening of the renal collecting system. No obstructing calculus or lesion. Findings may represent sequela of a recently passed calculus versus ascending infection. Correlate with urinalysis. 2. No bowel obstruction or bowel wall thickening. Normal appendix. 3. Nonspecific mild adenopathy of the lower chest, abdomen and pelvis as above. Attention at follow-up recommended. 4. Cholelithiasis. 5. Splenomegaly. 6. Additional findings as above. Medications Administered Home Medications furosemide 40 mg tablet 40 mg PO DAILY PRN #30 tab 06/25/21 [Rx Confirmed 04/21/22] Miscellaneous Pulmonary Supply #1 ea 06/26/21 [Rx Confirmed 04/21/22] blood sugar diagnostic ([employer] BrainstormingTouch Verio test strips) #100 ea 06/26/21 [Rx Confirmed 02/16/22] b Sodium Chloride (Nss 1000ml) 1,000 mls @ 125 mls/hr IV .Q8H STA Stop: 04/21/22 22:35 Last Admin: 04/21/22 15:50 Dose: 125 mls/hr Documented by: [id number] Discontinued Medications Apixaban (Apixaban 5 Mg Tablet) 5 mg PO NOW STA Stop: 04/21/22 14:56 Last Admin: 04/21/22 15:50 Dose: 5 mg Documented by: [id number] Carvedilol (Carvedilol 6.25 Mg Tab) 6.25 mg PO NOW STA Stop: 04/21/22 14:56 Last Admin: 04/21/22 15:50 Dose: 6.25 mg Documented by: [id number] Cefepime HCl (Maxipime) 2,000 mg in 20 mls @ 5 mls/min IV NOW STA; Protocol Stop: 04/21/22 14:42 Last Admin: 04/21/22 15:50 Dose: 5 mls/min Documented by: [id number] Losartan Potassium (Losartan Potassium 25 Mg Tab) 25 mg PO NOW STA Stop: 04/21/22 14:56 Last Admin: 04/21/22 15:50 Dose: 25 mg Documented by: [id number] ood-glucose meter #1 ea 06/26/21 [Rx Confirmed 02/16/22] blood-glucose meter (OneTouch Verio Reflect Start) #1 ea 06/26/21 [Rx Confirmed 02/16/22] lancets 33 gauge (OneTouch Delica Plus Lancet) #100 ea 06/26/21 [Rx Confirmed 04/21/22] apixaban 5 mg tablet (Eliquis) 5 mg PO BID #180 tab 07/21/21 [Rx Confirmed 04/21/22] losartan 25 mg tablet 25 mg PO DAILY 10/28/21 [History Confirmed 04/21/22] CPAP Machine #1 ea 02/16/22 [Rx Confirmed 04/21/22] CPAP Machine #1 ea 02/16/22 [Rx Confirmed 04/21/22] carvedilol 6.25 mg tablet 6.25 mg PO BID #60 tab 04/05/22 [Rx Confirmed 04/21/22] cephalexin 500 mg capsule 500 mg PO TID 10 Days #30 cap 04/21/22 [Rx Confirmed 04/21/22] ondansetron 4 mg disintegrating tablet 4 mg PO DAILY PRN 5 Days #12 tab 04/21/22 [Rx Confirmed 04/21/22] Active Medications Sodium Chloride (Nss 1000ml) 1,000 mls @ 125 mls/hr IV .Q8H STA Stop: 04/21/22 22:35 Last Admin: 04/21/22 15:50 Dose: 125 mls/hr Documented by: [id number] Additional Comments: pending on admission Code Status & VTE Plan Code Status CODE: FULL VTE: SCDs, Elqiuis VTE Prophylaxis Plan VTE Prophylaxis will be ordered: Yes Supervising Physician Co-Signing Physician Notes I personally examined the patient and verified all tong points of history and exam, discussed case, and agree with decision making with N Elidia LOPEZ feeling better than last night vitals noted nad heent nc at mmm breathing unlabored no accessory muscles good effort skin no rashes no pallor or icterus neuro no focal deficits pyelonephritis w gram negative bacteremia -IV abx pending ID&S -otherwise as above PG Care Time/CCT Total # of Minutes Spent Total Time Spent with Patient: Total time spent is greater than 50% in coordination of care (as documented) at patient's floor/unit and/or counseling patient: Coding Level of Care Code INT OBSERVATION CARE 70M LVL 3 Diagnoses UTI (urinary tract infection) N10 Urinary tract infection type: acute pyelonephritis Positive blood cultures R78.81 Severe obstructive sleep apnea G47.33 LBBB (left bundle branch block) I44.7 CHF (congestive heart failure) I50.9 Diabetes E11.9 Hyponatremia E87.1 (1) UTI (urinary tract infection) Urinary tract infection type: acute pyelonephritis Qualified Code(s): N10 - Acute pyelonephritis
[2022-04-21] MEDS ORDERED: GLUCOSE 10 TABS/TUBE PO PRN (18:52)
[2022-04-21] MEDS ORDERED: GLUCOSE 40% GEL 15 GM TUBE PO PRN (18:52)
[2022-04-21] MEDS ORDERED: DEXTROSE 50% 50 ML SYRINGE IV PRN (18:52)
[2022-04-21] MEDS ORDERED: POLYETHYLENE (MIRALAX) 17 GM PACK PO PRN (18:52)
[2022-04-21] MEDS ORDERED: CARBOHYDRATES FOR HYPOGLYCEMIA PO PRN (18:52)
[2022-04-21] MEDS ORDERED: FUROSEMIDE 40 MG TAB PO PRN (18:52)
[2022-04-21] MEDS ORDERED: ONDANSETRON 4 MG OD TAB PO PRN (18:52)
[2022-04-21] MEDS ORDERED: GLUCAGON FOR INJ 1 MG VIAL SQ PRN (18:52)
[2022-04-21] MEDS: INSULIN ASPART PER UNIT SC SCH (23:11)
[2022-04-21] MEDS: carvediloL 6.25 MG TAB PO SCH (23:50)
[2022-04-21] MEDS: APIXABAN 5 MG TABLET PO SCH (23:50)
[2022-04-22] MEDS ORDERED: CEFEPIME 2,000 MG in SYRINGE 0 ML IV SCH (04:00)
[2022-04-22 09:03] LABS: Basophils # (auto) 0.02 K/uL (0-0.2); Basophils % (auto) 0.3 %; Eosinophils # (auto) 0.13 K/uL (0-0.5); Eosinophils % (auto) 1.9 %; Hematocrit (blood only) 34.9 % (37-47); Hemoglobin 11.2 g/dL (12.0-16.0); Immature Granulocytes # (auto) 0.01 K/uL (0.00-0.02); Immature Granulocytes % (auto) 0.1 %; Lymphocytes # (auto) 0.63 K/uL (1.2-3.4); Lymphocytes % (auto) 9.4 %; Mean Corpuscular Hgb Conc 32.1 g/dL (32-36); Mean Corpuscular Volume 102.9 fL (80-100); Mean Platelet Volume 9.5 fL (7.4-10.4); Monocytes # (auto) 0.77 K/uL (0.11-0.59); Monocytes % (auto) 11.5 %; Neutrophils # (auto) 5.16 K/uL (1.4-6.5); Neutrophils % (auto) 76.8 %; Platelet Count 146 K/uL (130-400); RDW Coefficient of Variation 13.4 % (11.5-14.5); RDW Standard Deviation 50.4 fL (36.4-46.3); Red Blood Count 3.39 M/uL (4.2-5.4); White Blood Count 6.72 K/uL (4.8-10.8)
[2022-04-22] MEDS: LOSARTAN POTASSIUM 25 MG TAB PO SCH (09:23)
[2022-04-22] MEDS: APIXABAN 5 MG TABLET PO SCH ×2 (09:23→21:33)
[2022-04-22] MEDS: carvediloL 6.25 MG TAB PO SCH ×2 (09:23→18:00)
[2022-04-22 09:24] LABS: BUN Creatinine Ratio 15.5 (10-20); Calcium 8.8 mg/dl (8.5-10.1); Creatinine Clr Calc Pharmacy 69.8 ml/min; Est GFR (African American) 75.7 ml/min; Est GFR (Non-African American) 65.3 ml/min; Magnesium 2.2 mg/dl (1.7-2.4); Potassium 4.5 mmol/L (3.5-5.1)
[2022-04-22] MEDS: INSULIN ASPART PER UNIT SC SCH ×4 (09:24→21:00)
[2022-04-22] MEDS: cefTRIAXone SODIUM 2,000 MG in DEXTROSE 5% 50 ML IV SCH (10:37)
[2022-04-22] MEDS: ACETAMINOPHEN 325 MG TAB PO PRN ×2 (11:17→23:59)
--- NOTE | 2022-04-22 14:17 | Electrocardiogram Report ---
Test Reason : Blood Pressure : / mmHG Vent. Rate : 079 BPM Atrial Rate : 079 BPM P-R Int : 166 ms QRS Dur : 150 ms QT Int : 412 ms P-R-T Axes : 074 -60 099 degrees QTc Int : 472 ms Normal sinus rhythm Left axis deviation Left bundle branch block Abnormal ECG When compared with ECG of 27-OCT-2021 22:45, Sinus rhythm has replaced Ectopic atrial rhythm Confirmed by Anibal Bhakta ([id number]) on 04/22/2022 2:17:01 PM Referred By: REFERRED SELF Confirmed By:Anibal Bhakta
[2022-04-22] MEDS ORDERED: POLYETHYLENE (MIRALAX) 17 GM PACK PO PRN (14:32)
[2022-04-22] MEDS ORDERED: FUROSEMIDE 40 MG TAB PO ONE (14:36)
--- NOTE | 2022-04-22 14:39 | Hospitalist Progress Note ---
Date of Service April 22, 2022 Assessment & Plan (1) Bacteremia: Plan: Pansensitive E. coli UTI likely the source Blood cultures growing gram-negative bacilli Repeat blood cultures showing no growth to date Initially on cefepime but given bill sensitivity of UTI, will transition to Rocephin Patient is afebrile and hemodynamically stable. No leukocytosis Reassurance given to patient that she will feel "crummy" for days to weeks. Although she is medically and hemodynamically stable, she does not feel quite ready to be discharged today. Hopeful she will feel better tomorrow (2) UTI (urinary tract infection): Plan: Pansensitive E. coli Currently on Rocephin. Plan to transition to Omnicef upon discharge (3) Severe obstructive sleep apnea: Plan: Continue CPAP (4) CHF (congestive heart failure): Plan: Currently euvolemic Takes Lasix as needed. Will give a dose today as patient slightly hypoxic with ambulation but does not appear to be in fulminant CHF Continue losartan and carvedilol as prior to hospitalization Last echocardiogram done 07/11 showing EF of 40 to 45% (5) Diabetes: Plan: Not on any medications for this. Apparently diet controlled We will continue to monitor blood sugars and correct via sliding scale (6) Atrial flutter: Plan: Continue carvedilol and Eliquis as prior to hospitalization Admission and Anticipated Discharge Date Admission Date: April 21, 2022 Subjective Patient seen on daily rounds today. Hospitalized 04/21 for UTI/bacteremia Seen in the ED on 04/20 with flank pain. Was discharged with Keflex Called to come back into the emergency department given positive blood cultures Normal white blood cell count. Afebrile. Hemodynamically stable. Flank pain resolved. Denies dysuria, hematuria, frequency. Reports she just feels "crummy". Complains of fatigue, intermittent rigors and just not feeling well. Has not had a BM for several days and reports feeling bloated but does not want to utilize MiraLAX "just yet" Review of Systems Review of Systems: All systems reviewed and are unremarkable except as noted in HPI and below Denies fevers, chills, headache, nasal congestion, sore throat, cough, chest pain, shortness of breath, palpitations, orthopnea, PND, abdominal pain, nausea, vomiting, diarrhea, dysuria, hematuria, frequency, back pain, joint pain or swelling, easy bruising or bleeding, skin lesions or rashes. Physical Exam Physical Exam: General: Resting comfortably in her hospital bed. Appears mildly ill but not toxic. NAD. HEENT: Head is AT/NC. Buccal mucosa is moist and pink Neck: No JVD. Negative hepatojugular reflex Cardiac: RRR without M/G/R Lungs: CTA without W/R/R Abdomen: Normoactive X4. Soft and nontender in all quadrants. No CVA tenderness Extremities: No peripheral clubbing cyanosis or edema Neuro: A&O X4. Cranial nerves II through XII are grossly intact. No focal neuro deficits Skin: No obvious skin lesions or rashes Psych: Appropriate affect. Pleasant and cooperative Results & Data Results & Data ([facility]) Vital Signs (Past 12 Hours) Vital Signs Temp Pulse Pulse Resp BP Pulse Ox 04/22/22 07:34 37.0 C 66 16 114/63 99 04/22/22 02:50 65 17 91 Laboratory Results 04/22/22 08:32 04/22/22 08:32 PG Care Time/CCT Total # of Minutes Spent Total Time Spent with Patient: Total time spent is greater than 50% in coordination of care (as documented) at patient's floor/unit and/or counseling patient: Coding Level of Care Code 76685 Subseq Obs Care Lvl 2 Diagnoses UTI (urinary tract infection) N10 Urinary tract infection type: acute pyelonephritis Bacteremia R78.81 Severe obstructive sleep apnea G47.33 CHF (congestive heart failure) I50.9 Diabetes E11.9 Atrial flutter I48.92 (1) UTI (urinary tract infection) Urinary tract infection type: acute pyelonephritis Qualified Code(s): N10 - Acute pyelonephritis
[2022-04-23] MEDS: INSULIN ASPART PER UNIT SC SCH ×2 (08:24→12:48)
[2022-04-23] MEDS: cefTRIAXone SODIUM 2,000 MG in DEXTROSE 5% 50 ML IV SCH (08:29)
[2022-04-23] MEDS: APIXABAN 5 MG TABLET PO SCH (08:30)
[2022-04-23] MEDS: carvediloL 6.25 MG TAB PO SCH ×2 (08:30→15:51)
[2022-04-23] MEDS: LOSARTAN POTASSIUM 25 MG TAB PO SCH (08:30)
[2022-04-23 10:10] LABS: Basophils # (auto) 0.02 K/uL (0-0.2); Basophils % (auto) 0.5 %; Eosinophils # (auto) 0.19 K/uL (0-0.5); Eosinophils % (auto) 4.6 %; Hematocrit (blood only) 34.6 % (37-47); Hemoglobin 11.5 g/dL (12.0-16.0); Immature Granulocytes # (auto) 0.01 K/uL (0.00-0.02); Immature Granulocytes % (auto) 0.2 %; Lymphocytes # (auto) 0.66 K/uL (1.2-3.4); Mean Corpuscular Hemoglobin 33.4 pg (25-34); Mean Corpuscular Hgb Conc 33.2 g/dL (32-36); Mean Corpuscular Volume 100.6 fL (80-100); Mean Platelet Volume 9.8 fL (7.4-10.4); Monocytes # (auto) 0.45 K/uL (0.11-0.59); Monocytes % (auto) 10.9 %; Neutrophils # (auto) 2.79 K/uL (1.4-6.5); Neutrophils % (auto) 67.8 %; Platelet Count 149 K/uL (130-400); RDW Coefficient of Variation 13.3 % (11.5-14.5); RDW Standard Deviation 49.1 fL (36.4-46.3); Red Blood Count 3.44 M/uL (4.2-5.4); White Blood Count 4.12 K/uL (4.8-10.8)
[2022-04-23 10:44] LABS: BUN Creatinine Ratio 19.6 (10-20); Creatinine Clr Calc Pharmacy 69.8 ml/min; Est GFR (African American) 75.7 ml/min; Est GFR (Non-African American) 65.3 ml/min; Magnesium 2.3 mg/dl (1.7-2.4); Potassium 3.8 mmol/L (3.5-5.1)
[2022-04-23] MEDS ORDERED: POLYETHYLENE (MIRALAX) 17 GM PACK PO PRN (14:00)
[2022-04-23] MEDS: ACETAMINOPHEN 325 MG TAB PO PRN (15:30)
--- NOTE | 2022-04-23 17:21 | Discharge Summary ---
Date of Service April 23, 2022 Admission HPI Per Admitting Provider 56 YOF with medical history of: PAF(Cardioversion in 06/10 on Eliquis),LBB, obesity, DIAMANTE (CPAP 13 with o2 bled in), GERD, HF, DMII. Patient called back to the EMD following discharge last PM after evaluation for Flank Pain with UTI. Blood and Urine CX positive for GNB. Patient will be observed while awaiting culture results. Will initiate Cefepime 2GM IV q12 hours. Patient states that starting Tuesday she had onset of left flank pain that then moved to her left front abdomen and down to her bladder. There was no pain with urination. She had associated nause and vomitting at that time up until this morning. She had fevers/chills and temperature this morning at home of 100.1. She has not noted any blood in her urine and her pain is currently controlled. She had CT of the abdomen and pelvis performed last night that did NOT reveal any renal stones, but noted inflammation likely representing ascending infection or passing of stone. In the EMD the patient is without evidence of SIRS/Sepsis, afebrile. She had repeat blood cultures drawn. Will add on biomarkers and lactate for trending if needed. Will observe on medical surgical floor. COVID test on admission is Principal Diagnosis 1. Urinary Tract Infection 2. Bacteremia- from UTI 3. Constipation Discharge Exam General: Resting comfortably in her hospital bed. Does not appear ill or toxic NAD. HEENT: Head is AT/NC. Buccal mucosa is moist and pink Neck: No JVD. Negative hepatojugular reflex Cardiac: RRR without M/G/R Lungs: CTA without W/R/R Abdomen: Normoactive X4. Soft and nontender in all quadrants. No CVA tenderness Extremities: No peripheral clubbing cyanosis or edema Neuro: A&O X4. Cranial nerves II through XII are grossly intact. No focal neuro deficits Skin: No obvious skin lesions or rashes Psych: Appropriate affect. Pleasant and cooperative Discharge Data Allergies Allergy/AdvReac Type Severity Reaction Status Date / Time morphine Allergy Severe Chest Verified 04/21/22 15:27 tightness and pressure. latex Allergy Intermediate RASH Verified 04/21/22 15:27 azithromycin AdvReac Intermediate stomach Verified 04/21/22 15:27 pain lisinopril AdvReac Intermediate Cough Verified 04/21/22 15:27 metoprolol AdvReac Intermediate FELT WIPED Verified 04/21/22 15:27 OUT fentaNYL Citrate SOLN AdvReac Intermediate Vomiting Uncoded 04/21/22 15:27 Consultations 04/21/22 16:38 ED Decision to Admit Stat Hospital Course (1) Bacteremia: Blood cultures with pansensitive E. coli (likely from urinary source as urine culture also growing pansensitive E. coli) On IV Rocephin Blood cultures cleared on 04/21 Patient remains afebrile and hemodynamically stable continues to complain that she feels "crummy"- Reassurance given to patient that she will feel "crummy" for days to weeks. She is medically and hemodynamically stable for discharge home. Transition Rocephin to Omnicef to complete on 04/28 for total of 7 days of antibiotic therapy (2) UTI (urinary tract infection): Pansensitive E. coli Currently on Rocephin.Transition to Omnicef upon discharge (3) Severe obstructive sleep apnea: Continue CPAP (4) CHF (congestive heart failure): Currently euvolemic Takes Lasix as needed. Continue losartan and carvedilol as prior to hospitalization Last echocardiogram done 07/11 showing EF of 40 to 45% (5) Diabetes: Not on any medications for this. Apparently diet controlled We will continue to monitor blood sugars and correct via sliding scale (6) Atrial flutter: Continue carvedilol and Eliquis as prior to hospitalization Again, biggest complaint is fatigue and "feeling crummy". Reassurance provided that she may feel fatigued ongoing for days to weeks. Despite this, she is medically and hemodynamically stable for discharge to home with continued antibiotics. She should follow-up with her PCP within 7 to 10 days. She is complaining of no BM X 3 days. Offered MiraLAX yesterday but refused. Will provide 1 dose of MiraLAX today. Can continue this at home twice daily until she has a BM Total Time Total Time Spent Total Time Spent (In Minutes): 45 minutes including time spent with patient, preparation of documentation, coordination of care, and discussion with attending provider Discharge Plan Discharge Items Patient Disposition: Home - Self-Care Reason For Visit: IV ANTIBIOTIC, CALLED BY HOSPITAL TO COME IN Discharge Diagnosis: 1. Urinary Tract Infection 2. Bacteremia- from UTI 3. Constipation Activity: Resume your previous activity Non-emergency contact: Primary Care Provider Call non-emergency contact if: you have any medication questions Follow-up/Referrals: Shayy Ramos PA-C [Primary Care Provider] - 04/29/22 3:00 pm Diet: Carb Consistent or DM2 Addtl Attending Provider Instructions: You were hospitalized due to a urinary tract infection causing bacteremia (bacteria growing in your blood). Fortunately, you are not septic from this. Your white blood cell count was normal, you did not have a fever, and your vital signs remained stable. Although you still feel "crummy", you remained hemodynamically stable and your lab values are good. You do not need to remain in the hospital for continued treatment as your antibiotics can be transitioned to oral to complete a full 7 days of treatment Start cefdinir 1 tablet by mouth twice dailynext dose due tonight (to complete last dose on 04/28) Follow-up with your PCP within 7 to 10 days A work excuse was provided. You may return to work without restrictions when feeling up to it. Return to the ED for any new or worsening symptoms Pending Studies at Discharge: Yes Studies:: final repeat blood culture (currently showing no growth to date at 36 hours) Stand-Alone Forms: My [facility] [employer], Work/School Release, Smoking Cessation Medications and DC Order Prescriptions: New cefdinir 300 mg capsule 300 mg PO BID Qty: 11 RF: 0 Continued (DME) OneTouch Verio test strips Strip See Rx Instructions .Route Qty: 100 RF: 5 (DME) blood-glucose meter [OneTouch Verio Reflect Start] Kit See Rx Instructions .Route Qty: 1 RF: 0 (DME) lancets [OneTouch Delica Plus Lancet] 33 gauge misc See Rx Instructions .Route Qty: 100 RF: 5 Eliquis 5 mg tablet 5 mg PO BID Qty: 180 RF: 3 carvedilol 6.25 mg tablet 6.25 mg PO BID Qty: 60 RF: 2 (DME) Miscellaneous Pulmonary Supply Misc See Rx Instructions .Route Qty: 1 RF: 0 (DME) blood-glucose meter Kit See Rx Instructions .Route Qty: 1 RF: 0 (DME) CPAP Machine Misc See Rx Instructions .MEDSUPPLY Qty: 1 RF: 0 (DME) CPAP Machine Misc See Rx Instructions .MEDSUPPLY Qty: 1 RF: 0 furosemide 40 mg tablet 40 mg PO DAILY PRN (Reason: weight gain) Qty: 30 RF: 0 losartan 25 mg tablet 25 mg PO DAILY RF: 0 ondansetron 4 mg tablet,disintegrating 4 mg PO DAILY PRN (Reason: nausea and vomiting) 5 Days Qty: 12 RF: 0 Discontinued cephalexin 500 mg capsule 500 mg PO TID 10 Days Qty: 30 RF: 0 Discharge Orders: Discharge Order (Routine); Ordered 04/23/22 Ordered By: Noreen Eduardo Admission Data Admit Date/Time: 04/21/22 16:16 Attending Provider: Ajith Carter Admit Provider: Randall Dunbar Primary Care Provider: Shayy Ramos Other Providers: Randall Dunbar Other Interventions: Discharge Summary Assessment (RN) Last Done: 04/23/22 15:04 Coding Level of Care Code 02333 OBS Care - Discharge Diagnoses Bacteremia R78.81 UTI (urinary tract infection) N10 Urinary tract infection type: acute pyelonephritis Severe obstructive sleep apnea G47.33 CHF (congestive heart failure) I50.9 Diabetes E11.9 Atrial flutter I48.92
== END 2022-04-23 17:06 | disposition home or self-care (01) ==
LOC: ED 14:25 → EDINP 14:25 → SUATTDRO 16:16 → 3N 18:53

== ENCOUNTER 2023-01-27 13:18 | Observation (INO) ==
--- NOTE | 2023-01-27 13:42 | XRay Report ---
XR chest 1V portable CLINICAL HISTORY: Chest pain, nonspecific. + covid TECHNIQUE: Single frontal radiograph of the chest was obtained. Comparison: Comparison is made to chest radiograph 10/27/2021 FINDINGS: No lines and tubes are seen. Cardiomegaly is noted. Bilateral lower lung predominant airspace opaciti es are seen. A left pleural effusion cannot be excluded. IMPRESSION: Bilateral lower lung predominant airspace opacities which may represent atelectasis, pneumonia, and/o r aspiration. Left pleural effusion cannot be excluded. ACT 112: Negative or not required by law. Electronically signed by: George Ruiz M.D. 01/27/2023 1:40 PM
[2023-01-27] MEDS ORDERED: HYDROmorphone INJ 0.5 MG/0.5 ML SYR IV STA (13:52)
--- NOTE | 2023-01-27 14:38 | Electrocardiogram Report ---
Test Reason : Blood Pressure : / mmHG Vent. Rate : 079 BPM Atrial Rate : 079 BPM P-R Int : 198 ms QRS Dur : 140 ms QT Int : 376 ms P-R-T Axes : 081 -55 102 degrees QTc Int : 431 ms Normal sinus rhythm Left axis deviation Left bundle branch block Abnormal ECG When compared with ECG of 22-APR-2022 04:31, No significant change was found Confirmed by Anibal Bhakta ([id number]) on 01/27/2023 2:38:05 PM Referred By: Confirmed By:Anibal Bhakta
[2023-01-27 15:06] LABS: Hematocrit (blood only) 30.3 % (37.0-47.0); Hemoglobin 10.1 g/dl (12.0-16.0); Mean Corpuscular Hemoglobin 31.6 pg (25.0-34.0); Mean Corpuscular Hgb Conc 33.3 g/dL (32.0-36.0); Mean Corpuscular Volume 94.7 fL (80.0-100.0); Mean Platelet Volume 9.3 fL (9.4-12.4); Platelet Count 215 K/uL (130-400); RDW Coefficient of Variation 13.9 % (11.5-14.5); RDW Standard Deviation 47.7 fL (36.4-46.3); White Blood Count 4.08 K/ul (4.8-10.8)
[2023-01-27 15:18] LABS: Albumin Globulin Ratio 0.8 (0.9-2); Albumin Level 3.7 gm/dl (3.4-5.0); BUN Creatinine Ratio 18.9 (10-20); Bilirubin,Total 0.5 mg/dl (0.2-1.0); Calcium 9.2 mg/dl (8.5-10.1); Creatinine Clr Calc Pharmacy 75.6 ml/min; Est GFR (African American) 82.3 ml/min; Globulin 4.4 gm/dl (2.5-4.0); Potassium 5.2 mmol/L (3.5-5.1); Total Protein 8.1 gm/dl (6.0-8.3)
[2023-01-27 15:22] LABS: Troponin I High Sensitivity 5.4 pg/ml (0-14)
[2023-01-27 15:55] LABS: ANC (manual) 1.43 K/uL (1.4-6.5); Basophils # (manual) 0.08 K/uL (0-0.2); Basophils % (manual) 2 %; Eosinophils % (manual) 5 %; Large Granular Lymph # (manua 0.78 K/uL; Large Granular Lymph % (manual) 19 %; Lymphocytes # (manual) 1.22 K/uL (1.2-3.4); Lymphocytes % (manual) 30 %; Monocytes # (manual) 0.37 K/uL (0.11-0.59); Monocytes % (manual) 9 %; Neutrophils # (manual) 1.43 K/uL (1.40-6.50); Neutrophils % (manual) 35 %
[2023-01-27] MEDS ORDERED: OPTIRAY 320 500ml IV ONE (15:57)
--- NOTE | 2023-01-27 16:07 | Emergency Department Note ---
Impression & Plan Shortness of breath, LBBB (left bundle branch block), Retrosternal chest pain, Epigastric abdominal pain ED Provider Note INFORMANT: Patient ED PROVIDER(S): Feliciano Quarles MD CHIEF COMPLAINT: Chest pain PLAN: Disposition: Admitted Condition: Good Outpatient prescription management: none Referral: None MEDICAL DECISION MAKING: Patient presented because of chest pain. She also had shortness of breath which has been a progressive problem since her COVID-19 diagnosis. She has noted over the last week it has increased and she has significant shortness of breath with even going up the steps. The last few days have been very difficult. She also has been getting weaker after diagnosis of COVID-19. Patient did note relief of her chest discomfort with nitro in the ambulance. Patient was given a dose of IV Dilaudid for the epigastric pain. CT imaging of the chest and abdomen was ordered. There was some delay getting the patient to CT imaging secondary to lab problems resulting in creatinine. Patient's ECG showed a pre-existing left bundle branch block. No obvious ischemia. Chest x-ray showed some bibasilar infiltrates. Labs showed a mildly low white blood cell count and mild anemia. Her chemistry panel revealed a slight elevation of her potassium. LFTs and lipase were negative. Troponin negative x1. BNP pending. Nitropaste applied. CT imaging of the chest reveals lymphadenopathy. No pulmonary emboli noted. No significant infiltrative change noted. Cardiomegaly seen and radiology suggested pulmonary hypertension. The patient was informed. CT imaging of the abdomen pelvis reveals no acute intra-abdominal process. Lymphadenopathy noted. Given the patient's shortness of breath recent, progressive decline, and now chest pain further management in the hospital was felt to be appropriate. Consultation was made with the [facility] hospitalist service. Patient was evaluated for further management. After review of the information above and other included data, I feel the patient requires further management in the hospital. Triage Nursing notes reviewed and agree them. Vital Signs: reviewed and remarkable for hypertension Prior /Outside records reviewed: EMS run sheet reviewed. Differential diagnosis: Pulmonary embolism, reactive airway disease, pneumonia, pneumothorax, COPD, CHF, infections, cardiac ischemia, musculoskeletal, gastrointestinal, as well as other pathologies. Diagnostics, as interpreted by me: ECG: Twelve-lead ECG reveals normal sinus rhythm 79 bpm. Left axis deviation. Left bundle branch block. Cardiac Monitoring: Cardiac monitoring ordered by me: The patient was placed on continuous cardiac monitoring and observed. It revealed a normal sinus rhythm at 73 beats per minute without ectopy or evidence of dysrhythmia. Medical decision rules: none Imaging studies: Chest x-ray revealed bibasilar infiltrates. HPI: The patient is a 57 year old female who presents to the Emergency Room with complaints of chest pain. This started about 2 hours ago and is retrosternal. The patient also notes the following associated symptoms, shortness of breath for about the last 6 weeks since dealing with COVID-19, increased weakness. The patient has found no relieving factors. Current pain is rated as 8/10. Pt denies LOC, headache, fevers, chills, diaphoresis, visual changes, neck pain, nausea, vomiting, abdominal pain, back pain, melena, hematochezia, urinary symptoms, numbness, lymphadenopathy, rash, or other complaints. PAST MEDICAL HISTORY: See Below, COVID-19, diabetes PAST SURGICAL HISTORY: See Below, SOCIAL HISTORY: See Below, former smoker HOME MEDICATIONS: See Below ALLERGIES: See Below VITALS: See Below PHYSICAL EXAMINATION: GENERAL: Awake, alert, uncomfortable-appearing, in no distress HENT: Normocephalic, atraumatic. Oropharynx unremarkable. EYES: Normal conjunctiva. Sclera non-icteric. NECK: Inspection normal. Non-tender. Supple. No nuchal rigidity. FROM. No masses. RESPIRATORY: Clear to auscultation. No wheezes. No rales. Normal respiratory effort. CARDIAC: Normal rate. Normal rhythm. No murmurs. No rubs. Extremities warm and well perfused. Pulses equal. No JVD. GI: Soft, non-distended. Epigastric tenderness to palpation. No rebound or guarding. No masses. RECTAL: Deferred. MUSCULOSKELETAL: Atraumatic. Chest examination reveals no tenderness. The back is symmetrical on inspection without obvious abnormality. There is no CVA tenderness to palpation. No joint edema. LOWER EXTREMITIES: Calves are equal size bilaterally and non-tender. 1+ edema. No chronic venous discoloration. NEURO: Normal sensorium. No sensory or motor deficits noted. SKIN: No rash or jaundice noted. Past Med/Surg History Medical History (Updated 01/27/23 @ 16:07 by Feliciano Quarles MD) Abdominal distention Anemia HX Anxiety Bacteremia GERD (gastroesophageal reflux disease) HX History of palpitations NO MEDS Kidney stones Nausea and vomiting after administration of anesthetic agent FATIGUE FOR DAYS AFTERWARDS Prediabetes NO MEDS DIET MANAGED Surgical History Hx of thumb surgery LEFT TENDON SURG Family History Family/Other Family history of diabetes mellitus Grandmother Family history of diabetes mellitus Father Family hx of colon cancer Social History Smoking Status: Former smoker Tobacco Type: E-cigarettes / Vaping Second Hand Exposure: No; Hx Alcohol Use: No Hx Substance Use: No Preferred Language: Turkmen Communication Ability: Effective 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 latex Allergy Intermediate RASH Verified 01/27/23 16:46 azithromycin AdvReac Intermediate stomach Verified 01/27/23 16:46 pain lisinopril AdvReac Intermediate Cough Verified 01/27/23 16:46 metoprolol AdvReac Intermediate FELT WIPED Verified 01/27/23 16:46 OUT fentaNYL Citrate SOLN AdvReac Intermediate Vomiting Uncoded 01/27/23 16:46 Home Meds Home Medications Medication Instructions Recorded Confirmed losartan 25 mg tablet 25 mg PO DAILY 10/28/21 01/27/23 Previous Rx's Medication Instructions Recorded furosemide 40 mg tablet 40 mg PO DAILY PRN weight gain #30 06/25/21 tabs Miscellaneous Pulmonary Supply #1 ea 06/26/21 blood sugar diagnostic (OneTouch #100 ea 06/26/21 Verio test strips) blood-glucose meter #1 ea 06/26/21 blood-glucose meter (OneTouch #1 ea 06/26/21 Verio Reflect Start kit) lancets 33 gauge (OneTouch Delica #100 ea 06/26/21 Plus Lancet) CPAP Machine #1 ea 02/16/22 CPAP Machine #1 ea 02/16/22 carvedilol 6.25 mg tablet 6.25 mg PO BID #60 tabs 12/10/22 Results & Data (ED) Vital Signs Vital Signs - 24 hr 01/27/23 13:15 01/27/23 13:41 01/27/23 13:26 Temperature 36.4 C L Temperature Source Temporal Artery Scan Pulse Rate 120 H 67 124 H Pulse Rate from SpO2 Sensor 76 Pulse Rhythm Regular Respiratory Rate 22 22 Respiratory Effort / Characteristics Non-Labored Spontaneous Blood Pressure 173/74 H Blood Pressure Mean 107 Pulse Oximetry 94 95 Oxygen Delivery Method Room Air Sepsis Recent Fever Within 48 Hours No Sepsis New/Unexplained Change in Mental Status No Sepsis Action Taken by Nursing No Action Required 01/27/23 13:30 01/27/23 14:00 01/27/23 14:30 Temperature Temperature Source Pulse Rate 149 H 84 69 Pulse Rate from SpO2 Sensor 74 78 69 Pulse Rhythm Respiratory Rate 21 29 H 17 Respiratory Effort / Characteristics Blood Pressure Blood Pressure Mean Pulse Oximetry 94 94 98 Oxygen Delivery Method Sepsis Recent Fever Within 48 Hours Sepsis New/Unexplained Change in Mental Status Sepsis Action Taken by Nursing 01/27/23 15:00 01/27/23 15:30 01/27/23 16:05 Temperature Temperature Source Pulse Rate 103 H 73 Pulse Rate from SpO2 Sensor 72 73 Pulse Rhythm Respiratory Rate 18 19 14 Respiratory Effort / Characteristics Blood Pressure Blood Pressure Mean Pulse Oximetry 98 98 Oxygen Delivery Method Sepsis Recent Fever Within 48 Hours Sepsis New/Unexplained Change in Mental Status Sepsis Action Taken by Nursing 01/27/23 16:09 01/27/23 16:09 01/27/23 16:30 Temperature Temperature Source Pulse Rate 78 75 Pulse Rate from SpO2 Sensor 78 75 Pulse Rhythm Respiratory Rate 27 H 25 H Respiratory Effort / Characteristics Blood Pressure 160/79 H Blood Pressure Mean 106 Pulse Oximetry 100 97 Oxygen Delivery Method Sepsis Recent Fever Within 48 Hours Sepsis New/Unexplained Change in Mental Status Sepsis Action Taken by Nursing Laboratory Data 01/27/23 14:12 01/27/23 14:12 Lab Results 01/27/23 01/27/23 01/27/23 Range/Units 13:28 14:12 14:12 WBC 4.08 L (4.8-10.8) K/ul RBC 3.20 L (4.20-5.40) M/uL Hgb 10.1 L (12.0-16.0) g/dl Hct 30.3 L (37.0-47.0) % MCV 94.7 (80.0-100.0) fL MCH 31.6 (25.0-34.0) pg MCHC 33.3 (32.0-36.0) g/dL RDW Std Deviation 47.7 H (36.4-46.3) fL RDW Coeff of Kaden 13.9 (11.5-14.5) % Plt Count 215 (130-400) K/uL MPV 9.3 L (9.4-12.4) fL Neutrophils % (Manual) 35 % Lymphocytes % (Manual) 30 % Monocytes % (Manual) 9 % Eosinophils % (Manual) 5 % Basophils % (Manual) 2 % Neutrophils # (Manual) 1.43 (1.40-6.50) K/uL Total Absolute Neuts 1.43 (1.4-6.5) K/uL Lymphocytes # (Manual) 1.22 (1.2-3.4) K/uL Total Abs Lymphocytes 2.00 (1.2-3.4) K/uL Monocytes # (Manual) 0.37 (0.11-0.59) K/uL Eosinophils # (Manual) 0.20 (0-0.50) K/uL Basophils # (Manual) 0.08 (0-0.2) K/uL Large Granular Lymphs 19 % # Lrg Granular Lymphs 0.78 K/uL Sodium 130 L (136-145) mmol/L Potassium 5.2 H (3.5-5.1) mmol/L Chloride 97 L (98-107) mmol/L Carbon Dioxide 30 (21-32) mmol/L Anion Gap 3 (3-11) BUN 17 (6-23) mg/dl Creatinine 0.90 (0.6-1.2) mg/dl Est Cr Clr Drug Dosing 75.6 ml/min Est GFR ( Amer) 82.3 ml/min Est GFR (Non-Af Amer) 71.0 ml/min BUN/Creatinine Ratio 18.9 (10-20) Glucose 106 H (70-99(Fasting)) mg/dl Calcium 9.2 (8.5-10.1) mg/dl Total Bilirubin 0.5 (0.2-1.0) mg/dl AST 29 (13-39) U/L ALT 40 (7-52) U/L Alkaline Phosphatase 102 (34-104) U/L Troponin I High Sens 5.4 (0-14) pg/ml Total Protein 8.1 (6.0-8.3) gm/dl Albumin 3.7 (3.4-5.0) gm/dl Globulin 4.4 H (2.5-4.0) gm/dl Albumin/Globulin Ratio 0.8 L (0.9-2) Lipase 26 (11-82) U/L SARS-CoV-2 (PCR) NEGATIVE (Negative) Administered Medications Discontinued Medications Hydromorphone HCl (Hydromorphone Inj 0.5 Mg/0.5 Ml Syr) 0.25 mg IV NOW STA Stop: 01/27/23 13:53 Last Admin: 01/27/23 13:59 Dose: 0.25 mg Documented By: LEONIDAS Ioversol (Optiray 320 500ml) 110 ml IV ONCE ONE Stop: 01/27/23 15:58 Last Admin: 01/27/23 15:57 Dose: 110 ml Documented By: DANISH Nitroglycerin (Nitroglycerin 2% Ointment 30gm Tube) 0.5 inch EXT NOW STA Stop: 01/27/23 16:35 Last Admin: 01/27/23 16:47 Dose: 0.5 inch Documented By: [id number] Imaging Data Radiologist's Impression: Chest X-Ray 01/27/23 13:19 XR chest 1V portable CLINICAL HISTORY: Chest pain, nonspecific. + covid TECHNIQUE: Single frontal radiograph of the chest was obtained. Comparison: Comparison is made to chest radiograph 10/27/2021 FINDINGS: No lines and tubes are seen. Cardiomegaly is noted. Bilateral lower lung predominant airspace opacities are seen. A left pleural effusion cannot be excluded. IMPRESSION: Bilateral lower lung predominant airspace opacities which may represent atelectasis, pneumonia, and/or aspiration. Left pleural effusion cannot be e xcluded. ACT 112: Negative or not required by law. Electronically signed by: George Ruiz M.D. 01/27/2023 1:40 PM Chest CTA 01/27/23 13:20 CT angio chest PE protocol CT DOSE: 1967.38 mGy.cm HISTORY: 57 years-old Female with Chest Pain, eval for PE, +covid. Acute chest pain TECHNIQUE: Multiple CTA images of the chest were obtained after the intravenous administration of 110 ml Optiray. Coronal and sagittal MIPS were obtained from the axial data set and were submitted for review. All measurements were obtained according to NASCET criteria. A dose lowering technique was utilized adhering to the principles of ALARA. COMPARISON: CT abdomen and pelvis of same day, chest CT 02/25/2015 FINDINGS: CTA: Moderate cardiomegaly. No pericardial effusion. No thoracic aortic aneurysm or dissection. Mild dilation of the main pulmonary artery measuring up to 3.2 cm. Respiratory motion artifact limits evaluation of the basilar segmental and subsegmental branches. No pulmonary emboli are identified. CT CHEST: Unremarkable thyroid. Mediastinal and hilar lymphadenopathy. Index prevascular lymph node measures 2.9 x 1.4 cm on image 211. Subcentimeter axillary chain lymph nodes. Pathologically enlarged lymph nodes of the upper abdomen included periportal lymph nodes measuring up to 1.4 cm. Gastrohepatic, paraesophageal and celiac trunk lymph nodes are also present in addition to splenomegaly measuring up to 15.4 cm. Enlarged lymph nodes are also present on the study from 2014. No pneumothorax, pleural effusion, airspace consolidation or pulmonary edema. Mild subsegmental bibasilar predominant atelectasis. Central airways are patent. Unremarkable soft tissues. No acute fracture. Upper thoracic levoscoliosis. IMPRESSION: 1. No pulmonary identified. 2. Cardiomegaly with suggested pulmonary arterial hypertension. 3. Pathologically enlarged mediastinal, hilar and upper abdominal lymphadenopathy is again noted in conjunction with splenomegaly. Correlate clinically to exclude a lymphoproliferative disorder. ACT 112: Negative or not required by law. The above report was generated using voice recognition software. It may contain grammatical, syntax or spelling errors. Electronically signed by: Immanuel Crum M.D. 01/27/2023 4:14 PM Abdomen/Pelvis CT 01/27/23 14:16 CT abd pelvis IV con only CLINICAL HISTORY: upper abd pain, recent covid TECHNIQUE: Helical axial images of the abdomen and pelvis were obtained and displayed. Automated dose lowering techniques and/or adjustment according to patient size were utilized for this exam. This exam was performed with intravenous contrast. COMPARISON: Comparison is made to CT abdomen pelvis 04/20/2022 FINDINGS: Lower chest: For findings above the diaphragm, please see CT chest performed same day. Liver: Unremarkable. No focal lesions are seen. Gallbladder and biliary tree: Cholelithiasis is seen without evidence of cholecystitis. No intra- or extrahepatic biliary ductal dilation. Pancreas: Unremarkable, no focal lesions. Spleen: Splenomegaly is noted, the spleen measures 14.6 mm. Adrenals: Unremarkable. Kidneys and ureters: Unremarkable. Bladder: Unremarkable. Reproductive organs: Unremarkable. Bowel: Diverticulosis is seen without evidence of diverticulitis. The appendix is normal. Lymph nodes Retroperitoneal: Multiple retroperitoneal lymph nodes are seen measuring up to 30 mm in short axis. A aníbal hepatis nodes measure up to 15 mm in short axis. Pelvic: Unremarkable. Mesenteric: Subcentimeter lymph nodes are noted. Peritoneum: Normal. Vessels: Atherosclerotic calcifications are seen. Abdominal wall: Unremarkable. Bones: Degenerative changes in the visualized spine. IMPRESSION: 1. No acute abnormalities are seen. There are enlarged lymph nodes which may be reactive and related to recent Covid infection. 2. Cholelithiasis without cholecystitis. 3. Splenomegaly. ACT 112: Negative or not required by law. Electronically signed by: George Ruzi M.D. 01/27/2023 4:17 PM Discharge Plan Visit Data Chief Complaint: Chest Pain Stated Complaint: SOB, CHEST PAIN, COVID + ED Provider: Feliciano Quarles Discharge Problem: Shortness of breath, LBBB (left bundle branch block), Retrosternal chest pain, Epigastric abdominal pain Forms Stand Alone Forms: [email or web address] [facility] [email or web address] Prescriptions Prescriptions: No Action (DME) OneTouch Verio test strips Strip See Rx Instructions .Route Qty: 100 5RF Rx Instructions: Use to check sugar 3 times a day. Lifetime need. (DME) blood-glucose meter [OneTouch Verio Reflect Start] Kit See Rx Instructions .Route Qty: 1 0RF Rx Instructions: As directed (DME) lancets [OneTouch Delica Plus Lancet] 33 gauge misc See Rx Instructions .Route Qty: 100 5RF Rx Instructions: Use to test sugar three times daily carvedilol 6.25 mg tablet 6.25 mg PO BID Qty: 60 11RF Rx Instructions: must administer with a meal/food (DME) Miscellaneous Pulmonary Supply Misc See Rx Instructions .Route Qty: 1 0RF Rx Instructions: Pulse oximeter. Use to check oxygen 3 times daily or as directed. Lifetime need. (DME) blood-glucose meter Kit See Rx Instructions .Route Qty: 1 0RF Rx Instructions: Check sugars twice daily or as directed. (DME) CPAP Machine Misc See Rx Instructions .MEDSUPPLY Qty: 1 0RF Rx Instructions: CPAP 13 cm water pressure C flex setting #2 with oxygen 1 liter/min. and heated humidificatin, tubing, and supplies. CU[place]HT[place]: 99+ years. (DME) CPAP Machine Misc See Rx Instructions .MEDSUPPLY Qty: 1 0RF Rx Instructions: CPAP 13 cm water pressure C flex setting #2 with Oxygen 1 liter/min and heated humidification, tubing, and supplies. [place]: 99+ years. furosemide 40 mg tablet 40 mg PO DAILY PRN (Reason: weight gain) Qty: 30 0RF Rx Instructions: Take for swelling of the legs or ankles OR weight gain of 2 - 3 lbs over baseline weight. losartan 25 mg tablet 25 mg PO DAILY Referrals Referrals: Shayy Ramos PA-C [Primary Care Provider] -
--- NOTE | 2023-01-27 16:17 | CT Scan Report ---
CT angio chest PE protocol CT DOSE: 1967.38 mGy.cm HISTORY: 57 years-old Female with Chest Pain, eval for PE, +covid. Acute chest pain TECHNIQUE: Multiple CTA images of the chest were obtained after the intravenous administration of 110 ml Optiray. Coronal and sagittal MIPS were obtained from the axial data set and were submitted for review. All measurements were obtained according to NASCET criteria. A dose lowering technique was u tilized adhering to the principles of ALARA. COMPARISON: CT abdomen and pelvis of same day, chest CT 02/25/2015 FINDINGS: CTA: Moderate cardiomegaly. No pericardial effusion. No thoracic aortic aneurysm or dissection. Mild dilat ion of the main pulmonary artery measuring up to 3.2 cm. Respiratory motion artifact limits evaluatio n of the basilar segmental and subsegmental branches. No pulmonary emboli are identified. CT CHEST: Unremarkable thyroid. Mediastinal and hilar lymphadenopathy. Index prevascular lymph node measures 2. 9 x 1.4 cm on image 211. Subcentimeter axillary chain lymph nodes. Pathologically enlarged lymph node s of the upper abdomen included periportal lymph nodes measuring up to 1.4 cm. Gastrohepatic, paraeso phageal and celiac trunk lymph nodes are also present in addition to splenomegaly measuring up to 15. 4 cm. Enlarged lymph nodes are also present on the study from 2014. No pneumothorax, pleural effusion, airspace consolidation or pulmonary edema. Mild subsegmental bibas ilar predominant atelectasis. Central airways are patent. Unremarkable soft tissues. No acute fractur e. Upper thoracic levoscoliosis. IMPRESSION: 1. No pulmonary identified. 2. Cardiomegaly with suggested pulmonary arterial hypertension. 3. Pathologically enlarged mediastinal, hilar and upper abdominal lymphadenopathy is again noted in c onjunction with splenomegaly. Correlate clinically to exclude a lymphoproliferative disorder. ACT 112: Negative or not required by law. The above report was generated using voice recognition software. It may contain grammatical, syntax o r spelling errors. Electronically signed by: Immanuel Crum M.D. 01/27/2023 4:14 PM
--- NOTE | 2023-01-27 16:18 | CT Scan Report ---
CT abd pelvis IV con only CLINICAL HISTORY: upper abd pain, recent covid TECHNIQUE: Helical axial images of the abdomen and pelvis were obtained and displayed. Automated dose lowering techniques and/or adjustment according to patient size were utilized for this exam. This e xam was performed with intravenous contrast. COMPARISON: Comparison is made to CT abdomen pelvis 04/20/2022 FINDINGS: Lower chest: For findings above the diaphragm, please see CT chest performed same day. Liver: Unremarkable. No focal lesions are seen. Gallbladder and biliary tree: Cholelithiasis is seen without evidence of cholecystitis. No intra- or extrahepatic biliary ductal dilation. Pancreas: Unremarkable, no focal lesions. Spleen: Splenomegaly is noted, the spleen measures 14.6 mm. Adrenals: Unremarkable. Kidneys and ureters: Unremarkable. Bladder: Unremarkable. Reproductive organs: Unremarkable. Bowel: Diverticulosis is seen without evidence of diverticulitis. The appendix is normal. Lymph nodes Retroperitoneal: Multiple retroperitoneal lymph nodes are seen measuring up to 30 mm in short axis. A aníbal hepatis nodes measure up to 15 mm in short axis. Pelvic: Unremarkable. Mesenteric: Subcentimeter lymph nodes are noted. Peritoneum: Normal. Vessels: Atherosclerotic calcifications are seen. Abdominal wall: Unremarkable. Bones: Degenerative changes in the visualized spine. IMPRESSION: 1. No acute abnormalities are seen. There are enlarged lymph nodes which may be reactive and related to recent Covid infection. 2. Cholelithiasis without cholecystitis. 3. Splenomegaly. ACT 112: Negative or not required by law. Electronically signed by: George Ruiz M.D. 01/27/2023 4:17 PM
[2023-01-27] MEDS ORDERED: NITROGLYCERIN 2% OINTMENT 30GM TUBE EXT STA (16:34)
--- NOTE | 2023-01-27 18:17 | History & Physical Report ---
Date of Service January 27, 2023 Assessment & Plan (1) Shortness of breath: (2) Retrosternal chest pain: (3) Epigastric abdominal pain: (4) Congestive heart failure: (5) Exposure to COVID-19 virus: (6) GERD (gastroesophageal reflux disease): (7) Atrial flutter: (8) Severe obstructive sleep apnea: (9) Hyponatremia: (10) LBBB (left bundle branch block): (11) Physical deconditioning: Janet Peoples is a 57F with history of cholelithiasis, phlegmasia cerulea dolens (bi lateral), DM, CHF, PVCs, GERD, LBBB, atrial flutter, and DIAMANTE who presented for evaluation of worsening chest pain and fatigue. Chest Pain - Patient describes as band-like sensation around chest, starting from epigastrium and localizing to inferior-substernal - EKG w/ LBBB, negative for acute ischemia - Negative troponin (x1), BNP 103 H - Admit for Obs to Med/Tele - Echo ordered (possible worsening of pulmonary HTN on CT) Shortness of Breath - Patient endorses worsening dyspnea and fatigue since covid - O2 saturation stable on NC, tachypneic - Evidence of pulmonary hypertension and mediastinal/hilar ABRAN - Suspect association with recent COVID infection - Incentive spirometry ordered Retroperitoneal Lymphademopathy w/ Splenomegaly - Possibly associated with recent COVID-19 infection - Evidenced on CT scan - Hematology consulted Hyponatremia - Patient euvolemic to hypovolemic on exam, no LE edema or JVD, evidence of dry/cracked lips - Suspect hypovolemia a/w dehydration - Ordered NSS 2L @ 100 mls/hr - Continue to follow volume status Hyperkalemia - Acute, stable - No evidence of EKG changes - Continue to monitor DM - Diet controlled at home? - No active home medications - 2020 A1c 9.0, repeat ordered in AM - SSI ordered Atrial Flutter - Continue home Carvedilol CHF - Continue home Carvedilol and Losartan HTN - Continue home Losartan DIAMANTE - Not using CPAP at home - Using 2L O2 at night - CPAP ordered Deconditioning - PT/OT eval FEN: Carb Consistent DM2 Code status: Full Code DVT ppx: Omayra Isolation: None Dispo:Med/Tele History of Present Illness Chief Complaint: Chest Pain Primary Care Provider: Shayy Ramos PA-C Richelle is a 57F with history of cholelithiasis, phlegmasia cerulea dolens (bilateral), DM, CHF, PVCs, GERD, LBBB, atrial flutter, and DIAMANTE who presented for evaluation of worsening chest pain and fatigue. Patient notes that she has been staying with her sister since early December while her house is renovated, she contracted COVID from her sister and has felt ill since. She notes that she has had progressive fatigue and decreased ambulation since having COVID. She states that she has been so fatigued she cannot even walk to the bathroom without significant dyspnea. At baseline, she uses 2L of O2 at night, she is Rx a CPAP for DIAMANTE but does not use it. Patient notes that over the last week she has been experiencing fevers, chills, and episodes of chest tightness. She has had minimal to no appetite and can only consume a few bites of food prior to feeling full and having epigastric discomfort. She notes that she has been moving her bowels and urinating regularly. She has been able to drink at least 40 ounces of water per day. She has been managing her symptoms with Tylenol at home and did not receive any COVID specific medications. She notes that her COVID symptoms primarily felt like a bad head cold, but once this resolved she experienced worsening fatigue and deconditioning. Patient is most concerned about her worsening difficulty breathing, but notes that it was the chest tightness/substernal pain that prompted her ER visit today. She has not experienced any emesis. She denies headaches but endorses lightheadedness. She denies any lower extremity edema (she has LE edema at baseline, but has not required Lasix since October). She notes that she follows with Cardiology (Dr. Palomo) outpatient for her A Flutter and CHF. She is not actively on anticoagulation for A Flutter d/t the cost of the medication. She is also not medically managed for her DM, last A1c was 9 in 2020. Patient notes that she experienced reflux when she was younger, but has not medically managed it in years. EMS: Nitro in the ambulance ED: Hydromorphone 0.25, Nitroglycerin 0.5 Allergies Allergy/AdvReac Type Severity Reaction Status Date / Time morphine Allergy Severe Chest Verified 01/27/23 16:46 tightness and pressure. latex Allergy Intermediate RASH Verified 01/27/23 16:46 azithromycin AdvReac Intermediate stomach Verified 01/27/23 16:46 pain lisinopril AdvReac Intermediate Cough Verified 01/27/23 16:46 metoprolol AdvReac Intermediate FELT WIPED Verified 01/27/23 16:46 OUT fentaNYL Citrate SOLN AdvReac Intermediate Vomiting Uncoded 01/27/23 16:46 Home Medications Medication Instructions Recorded Confirmed Type furosemide 40 mg tablet 40 mg PO DAILY PRN weight gain #30 06/25/21 01/27/23 Rx tabs Miscellaneous Pulmonary Supply #1 ea 06/26/21 04/29/22 Rx blood sugar diagnostic (OneTouch #100 ea 06/26/21 04/29/22 Rx Verio test strips) blood-glucose meter #1 ea 06/26/21 04/29/22 Rx blood-glucose meter (OneTouch #1 ea 06/26/21 04/29/22 Rx Verio Reflect Start kit) lancets 33 gauge (OneTouch Delica #100 ea 06/26/21 04/29/22 Rx Plus Lancet) losartan 25 mg tablet 25 mg PO DAILY 10/28/21 01/27/23 History CPAP Machine #1 ea 02/16/22 04/29/22 Rx CPAP Machine #1 ea 02/16/22 04/29/22 Rx carvedilol 6.25 mg tablet 6.25 mg PO BID #60 tabs 12/10/22 01/27/23 Rx Past Med/Surg History Medical History Abdominal distention Anemia HX Anxiety Bacteremia GERD (gastroesophageal reflux disease) HX History of palpitations NO MEDS Kidney stones Nausea and vomiting after administration of anesthetic agent FATIGUE FOR DAYS AFTERWARDS Prediabetes NO MEDS DIET MANAGED Surgical History Hx of thumb surgery LEFT TENDON SURG Family History Family/Other Family history of diabetes mellitus Grandmother Family history of diabetes mellitus Father Family hx of colon cancer Social History (Updated 01/27/23 @ 21:47 by Yoli Smith RN) Smoking Status: Former smoker Tobacco Type: Cigarettes and E-cigarettes / Vaping Second Hand Exposure: No; Do You Dip or Chew Tobacco: No; Tobacco Cessation Education Requested by Patient: No Hx Alcohol Use: No Hx Substance Use: No Preferred Language: Brazilian Communication Ability: Effective Visual Impairment: No Limitations Hearing Ability: Normal 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 Beliefs That Will Affect Care: None marital status: Current Living Situation: Spouse Current Living Situation Comment: spouse How many Children do You have: 2 Other Information That Helps Us Care for You: No Feels Safe at Home: Yes Safety Concerns: Feels Safe At This Time Assistive Devices: Denture - Upper, Denture - Lower and Oxygen - at Night Review of Systems Review of Systems: As per HPI Physical Exam Physical Exam: Gen: NAD, alert, interactive HEENT: Supple, no LAD, no thyromegaly, no JVD Resp:Non-labored, no wheezing/rhonchi/rales, CTAB CV:RRR, normal S1/S2, no M/R/G Abd: Soft, non-distended, inferior sternal and epigastric TTP, normoactive bowels, no masses Extr: 2+ dp bilaterally, 1+ non-pitting edema Skin: No rashes lesions or erythema Results & Data Results & Data ([facility]) Vital Signs (Past 12 Hours) Vital Signs Temp Pulse Resp BP Pulse Ox O2 Del Method 01/27/23 16:30 75 25 H 97 01/27/23 16:09 160/79 H 01/27/23 16:09 78 27 H 100 01/27/23 16:05 14 01/27/23 15:30 73 19 98 01/27/23 15:00 103 H 18 98 01/27/23 14:30 69 17 98 01/27/23 14:00 84 29 H 94 01/27/23 13:30 149 H 21 94 01/27/23 13:26 124 H 22 95 01/27/23 13:41 67 01/27/23 13:15 36.4 C L 120 H 22 173/74 H 94 Room Air Diagnostic Findings Chest X-Ray 01/27/23 13:19 XR chest 1V portable CLINICAL HISTORY: Chest pain, nonspecific. + covid TECHNIQUE: Single frontal radiograph of the chest was obtained. Comparison: Comparison is made to chest radiograph 10/27/2021 FINDINGS: No lines and tubes are seen. Cardiomegaly is noted. Bilateral lower lung predominant airspace opacities are seen. A left pleural effusion cannot be excluded. IMPRESSION: Bilateral lower lung predominant airspace opacities which may represent atelectasis, pneumonia, and/or aspiration. Left pleural effusion cannot be excluded. ACT 112: Negative or not required by law. Electronically signed by: George Ruiz M.D. 01/27/2023 1:40 PM Chest CTA 01/27/23 13:20 CT angio chest PE protocol CT DOSE: 1967.38 mGy.cm HISTORY: 57 years-old Female with Chest Pain, eval for PE, +covid. Acute chest pain TECHNIQUE: Multiple CTA images of the chest were obtained after the intravenous administration of 110 ml Optiray. Coronal and sagittal MIPS were obtained from the axial data set and were submitted for review. All measurements were obtained according to NASCET criteria. A dose lowering technique was utilized adhering to the principles of ALARA. COMPARISON: CT abdomen and pelvis of same day, chest CT 02/25/2015 FINDINGS: CTA: Moderate cardiomegaly. No pericardial effusion. No thoracic aortic aneurysm or dissection. Mild dilation of the main pulmonary artery measuring up to 3.2 cm. Respiratory motion artifact limits evaluation of the basilar segmental and subsegmental branches. No pulmonary emboli are identified. CT CHEST: Unremarkable thyroid. Mediastinal and hilar lymphadenopathy. Index prevascular lymph node measures 2.9 x 1.4 cm on image 211. Subcentimeter axillary chain lymph nodes. Pathologically enlarged lymph nodes of the upper abdomen included periportal lymph nodes measuring up to 1.4 cm. Gastrohepatic, paraesophageal and celiac trunk lymph nodes are also present in addition to splenomegaly measuring up to 15.4 cm. Enlarged lymph nodes are also present on the study from 2014. No pneumothorax, pleural effusion, airspace consolidation or pulmonary edema. Mild subsegmental bibasilar predominant atelectasis. Central airways are patent. Unremarkable soft tissues. No acute fracture. Upper thoracic levoscoliosis. IMPRESSION: 1. No pulmonary identified. 2. Cardiomegaly with suggested pulmonary arterial hypertension. 3. Pathologically enlarged mediastinal, hilar and upper abdominal lymphadenopathy is again noted in conjunction with splenomegaly. Correlate clinically to exclude a lymphoproliferative disorder. ACT 112: Negative or not required by law. The above report was generated using voice recognition software. It may contain grammatical, syntax or spelling errors. Electronically signed by: Immanuel Crum M.D. 01/27/2023 4:14 PM Abdomen/Pelvis CT 01/27/23 14:16 CT abd pelvis IV con only CLINICAL HISTORY: upper abd pain, recent covid TECHNIQUE: Helical axial images of the abdomen and pelvis were obtained and displayed. Automated dose lowering techniques and/or adjustment according to patient size were utilized for this exam. This exam was performed with int ravenous contrast. COMPARISON: Comparison is made to CT abdomen pelvis 04/20/2022 FINDINGS: Lower chest: For findings above the diaphragm, please see CT chest performed same day. Liver: Unremarkable. No focal lesions are seen. Gallbladder and biliary tree: Cholelithiasis is seen without evidence of cholecystitis. No intra- or extrahepatic biliary ductal dilation. Pancreas: Unremarkable, no focal lesions. Spleen: Splenomegaly is noted, the spleen measures 14.6 mm. Adrenals: Unremarkable. Kidneys and ureters: Unremarkable. Bladder: Unremarkable. Reproductive organs: Unremarkable. Bowel: Diverticulosis is seen without evidence of diverticulitis. The appendix is normal. Lymph nodes Retroperitoneal: Multiple retroperitoneal lymph nodes are seen measuring up to 30 mm in short axis. A aníbal hepatis nodes measure up to 15 mm in short axis. Pelvic: Unremarkable. Mesenteric: Subcentimeter lymph nodes are noted. Peritoneum: Normal. Vessels: Atherosclerotic calcifications are seen. Abdominal wall: Unremarkable. Bones: Degenerative changes in the visualized spine. IMPRESSION: 1. No acute abnormalities are seen. There are enlarged lymph nodes which may be reactive and related to recent Covid infection. 2. Cholelithiasis without cholecystitis. 3. Splenomegaly. ACT 112: Negative or not required by law. Electronically signed by: George Riuz M.D. 01/27/2023 4:17 PM Supervising Physician Co-Signing Physician Notes I personally saw and examined the patient. I verified all tong points and agree with resident physician Dr Joaquim Michele, with the following exceptions and/or additions: 57 year old female with progressive worsening fatigue since shen COVID-19 6 weeks ago. Having constellation of symptoms including shortness of breath, epigastric pain but mainly just very fatigued and symptoms getting slowly progressively worse. O/E HS RRR, no murmurs, Chest CTAB, Abdo epigastric tenderness without guarding or rebound, no pronator drift, mildly reduced left UE co-ordination, no tremors, no sensory or motor deficit of all 4 extremities. CN 2-> 12 intact. A/P Generalized fatigue and weakness - suspect chronic fatigue syndrome or long- COVID causing her symptoms but this is the diagnosis of exclusion. Low suspicion of myasthenia gravis on exam but given her profound weakness and worse at the end of the day will send off antibodies for this with AM labs. CRP/ESR to assess general inflammatory state. TSH to assess for hypothyroidism. Agree with TTE to assess for cardiomyopathy. Low suspicion her possible lymphoproliferative disorder with significant lymphadenopathy contributing given relatively unremarkable CBC however this has never been evaluated therefore will consult oncology for next steps regarding this. Sleep apnea likely contributing but patient does not wish to try CPAP at this time given prior intolerance. Lack of appetite may be somewhat explained by gastritis with epigastric pain on exam but could consider mirtazapine if not improving with PPI and H2 ras. Possible T2DM not controlled as previous HbA1C. Of note cardiology note in November 2021 mentioned profound fatigue, shortness of breath and lack of mental clarity - suspected due to sleep apnea at that time but also noted to be potentially worsened by carvedilol as she felt on profound worse symptoms while on metoprolol. Likely significant deconditioning - PT/OT Paroxysmal atrial flutter - currently in NSR. Reportedly she was taking Eliquis until she lost her job and could no longer afford this. Resident Activity Tracking Resident Involvement: Resident Care Provided Care Provided: Adult Hospital Medicine
[2023-01-27] MEDS ORDERED: CARBOHYDRATES FOR HYPOGLYCEMIA PO PRN (19:16)
[2023-01-27] MEDS ORDERED: GLUCOSE 40% GEL 15 GM TUBE PO PRN (19:16)
[2023-01-27] MEDS ORDERED: GLUCAGON FOR INJ 1 MG VIAL SQ PRN (19:16)
[2023-01-27] MEDS ORDERED: GLUCOSE 10 TAB/TUBE PO PRN (19:16)
[2023-01-27] MEDS ORDERED: DEXTROSE 50% 50 ML SYRINGE IV PRN (19:16)
[2023-01-27] MEDS ORDERED: FAMOTIDINE 20 MG TAB PO STA (19:24)
[2023-01-27] MEDS ORDERED: ACETAMINOPHEN 325 MG TAB PO PRN (21:32)
[2023-01-27 21:45] LABS: Magnesium 2.4 mg/dl (1.7-2.4)
[2023-01-27] MEDS: INSULIN ASPART PER UNIT SC SCH (21:45)
[2023-01-27] MEDS: SODIUM CHLORIDE 0.9% 1000ML 1,000 ML IV SCH (21:46)
[2023-01-27 21:50] LABS: Phosphorus 2.6 mg/dl (2.5-4.9)
[2023-01-27] MEDS: ENOXAPARIN INJ 40 MG/0.4 ML SYR SQ SCH (22:06)
[2023-01-27] MEDS: FAMOTIDINE 20 MG TAB PO SCH (22:06)
[2023-01-27] MEDS: carvediloL 6.25 MG TAB PO SCH (22:06)
--- NOTE | 2023-01-28 00:04 | Billing Data ---
Date of Service January 27, 2023 Coding Level of Care Code 04284 INT INP/OBS CARE
[2023-01-28] MEDS ORDERED: HYDROmorphone INJ 0.5 MG/0.5 ML SYR IV STA (00:59)
[2023-01-28] MEDS ORDERED: ONDANSETRON INJ 2 MG/ML 2 ML VIAL IV PRN (01:12)
[2023-01-28 06:06] LABS: Appearance Urine Clear (Clear); Bacteria Urine Automated Negative (Negative); Bilirubin Urine Negative (Negative); Blood Urine Negative (Negative); Cast Urine Automated 0 /lpf (0-5); Color Urine Yellow; Epithelial Cell Urine Auto >30 /lpf (0-5); Glucose Urine UA Negative (Negative); Ketones Urine Negative (Negative); Leukocyte Esterase Urine Negative (Negative); Nitrite Urine Negative (Negative); Protein Urine Trace (Negative); RBC Urine Automated 0-4 /hpf (0-4); Specific Gravity Urine 1.016 (1.000-1.030); Urobilinogen Urine Negative (Negative)
[2023-01-28] MEDS: SODIUM CHLORIDE 0.9% 1000ML 1,000 ML IV SCH (06:19)
[2023-01-28 07:34] LABS: Hematocrit (blood only) 27.9 % (37.0-47.0); Hemoglobin 9.1 g/dl (12.0-16.0); Mean Corpuscular Hemoglobin 31.4 pg (25.0-34.0); Mean Corpuscular Hgb Conc 32.6 g/dL (32.0-36.0); Mean Corpuscular Volume 96.2 fL (80.0-100.0); Mean Platelet Volume 9.2 fL (9.4-12.4); Platelet Count 203 K/uL (130-400); RDW Coefficient of Variation 14.2 % (11.5-14.5); RDW Standard Deviation 49.8 fL (36.4-46.3); White Blood Count 3.26 K/ul (4.8-10.8)
[2023-01-28 07:38] LABS: Albumin Globulin Ratio 0.9 (0.9-2); Albumin Level 3.4 gm/dl (3.4-5.0); BUN Creatinine Ratio 15.7 (10-20); Bilirubin,Total 0.5 mg/dl (0.2-1.0); C Reactive Protein 5.12 mg/dl (0-0.5); Calcium 8.4 mg/dl (8.5-10.1); Creatinine Clr Calc Pharmacy 74.2 ml/min; Est GFR (African American) 83.4 ml/min; Est GFR (Non-African American) 71.9 ml/min; Potassium 4.6 mmol/L (3.5-5.1); Total Protein 7.4 gm/dl (6.0-8.3)
[2023-01-28] MEDS ORDERED: PERFLUTREN LIPID MICROSPHERE (DEFINITY) IV ONE (07:45)
[2023-01-28 07:48] LABS: Cortisol AM 12.8 mcg/dl (6.2-22.6)
[2023-01-28 07:53] LABS: Reticulocyte % 2.3 % (0.5-2.0); Reticulocytes # 0.07 10^6/uL (0.02-0.10)
[2023-01-28 08:11] LABS: Immunoglobulin A 408.4 mg/dl (70-400); Immunoglobulin G 1525.5 mg/dl (635-1741); Immunoglobulin M 228.7 mg/dl (45-281)
[2023-01-28 08:17] LABS: Iron < 10 mcg/dl (35-150); Unsaturated Iron Binding Cap 217 mcg/dl (155-355)
[2023-01-28] MEDS: FAMOTIDINE 20 MG TAB PO SCH ×2 (08:24→20:07)
[2023-01-28] MEDS: carvediloL 6.25 MG TAB PO SCH ×2 (08:24→20:05)
[2023-01-28] MEDS: INSULIN ASPART PER UNIT SC SCH ×4 (08:25→20:15)
[2023-01-28 08:49] LABS: Ferritin 652.6 ng/ml (8-388)
[2023-01-28] MEDS ORDERED: LOSARTAN POTASSIUM 25 MG TAB PO SCH (09:00)
[2023-01-28] MEDS ORDERED: PANTOprazole 40 MG TAB PO SCH (09:00)
[2023-01-28] MEDS ORDERED: IRON SUCROSE 300 MG in SODIUM CHLORIDE 0.9% 250 ML IV STA (09:39)
[2023-01-28 10:29] LABS: Estimated Average Glucose 154 mg/dl
--- NOTE | 2023-01-28 11:37 | Hospitalist Progress Note ---
Date of Service January 28, 2023 Assessment & Plan (1) Shortness of breath: Plan: Present on admission. Now resolved. No evidence of PE on chest CTA. 99% saturation on 2 L oxygen. Will discontinue oxygen (2) Retrosternal chest pain: Plan: Palpable upper sternal chest discomfort consistent with costochondritis. Negative troponins. No new EKG findings. She has chronic conduction delay. No evidence of acute coronary syndrome (3) Epigastric abdominal pain: Plan: Suspected acute gastritis. We will treat accordingly. Clear liquids for now. Carafate and Protonix ordered. Will consult gastroenterology if GI symptoms persist (4) Congestive heart failure: Plan: Chronic diastolic CHF per history. No acute exacerbation at this time. Will monitor intake and output. (5) Exposure to COVID-19 virus: Plan: No overt COVID pneumonia at this time (6) GERD (gastroesophageal reflux disease): Plan: Protonix and Carafate therapy ordered (7) Atrial flutter: Plan: By history. Currently in normal sinus rhythm. Telemetry (8) Severe obstructive sleep apnea: Plan: CPAP at at bedtime if needed (9) Hyponatremia: Plan: Present on admission. Mild. Asymptomatic. We will follow (10) LBBB (left bundle branch block): Plan: She appears to actually have left bundle branch block and right bundle branch block without first-degree AV block. Troponins are normal and not trending. She states multiple family members have required pacemaker insertion. This pr obably should be followed as an outpatient (11) Physical deconditioning: Plan: Producing obesity. Weight loss recommended (12) Iron deficiency: Plan: Parenteral iron replacement while hospitalized. Oral iron sulfate at discharge going forward. Check fecal occult blood. No prior history of peptic ulcer disease but this needs to be considered. She denies melena or hematochezia Plan Hopefully home tomorrow, January 29. We will treat suspected costochondritis and gastritis while hospitalized. Iron deficiency noted. She is on parenteral iron replacement. She probably should have oral iron replacement going forward at the time of discharge. Admission and Anticipated Discharge Date Admission Date: January 27, 2023 Subjective Alert and oriented. No acute distress. Her chest discomfort is palpable and appears to be due to costochondritis. Troponins are negative and not trending. EKG reveals normal sinus rhythm with combined left bundle branch block and right bundle branch block with associated QRS and ST segment changes. She does not have acute coronary syndrome. She is iron deficient. She also has symptoms of what appears to be acute gastritis. She will be treated with Carafate and Protonix. Clear liquids for now. Enlarged lymph node seen on abdomen CT will need to be followed up as an outpatient. She probably should be on oral iron replacement by mouth at discharge. We will consult gastroenterology if GI symptoms persist. She denies melena or hematochezia. No vomiting Review of Systems Review of Systems: Constitutional-no fever or chills ENT-no blurred vision, no double vision, no epistaxis, no sore throat Respiratory-no cough, no wheezing, no shortness of breath Cardiac-no palpitations, no syncope. Palpable chest discomfort upper sternal area consistent with costochondritis GI-epigastric discomfort with nausea. No hematemesis, melena, hematochezia. -no urinary retention, no urinary incontinence, no dysuria, no hematuria Musculoskeletal-no joint pain, no muscle tenderness Skin-no bruising, no rashes, no pruritus Neuro-no isolated weakness, no paresthesia, no weakness Psych-no depression, no anxiety Physical Exam Physical Exam: General-alert and oriented x3, no fevers, no chills HEENT-head atraumatic and normocephalic, pupils equal and reactive to light, extraocular muscles intact Neck-no lymphadenopathy or thyromegaly, trachea midline Chest-clear to auscultation percussion. No rales wheezing or rhonchi Cardiac-regular rate and rhythm, normal S1 and S2 Abdomen-epigastric tenderness. No rebound or guarding. No ascites. Extremities-no cyanosis, clubbing, or edema Neuro-cranial nerves II through XII intact, motor and sensory function within normal limits, strength symmetrical , no focal deficits Psych-normal affect, normal mood Results & Data Results & Data ([facility]) Vital Signs (Past 12 Hours) Vital Signs Temp Pulse Pulse Pulse Resp BP Pulse Ox 01/28/23 11:02 36.7 C 66 16 121/71 95 01/28/23 10:22 01/28/23 10:04 01/28/23 07:21 36.5 C 63 16 124/68 99 01/28/23 07:03 62 01/28/23 04:00 36.3 C L 81 20 120/65 97 01/27/23 23:51 36.8 C 76 18 139/70 97 Pulse Ox O2 Del Method O2 Del Method O2 Flow Rate 01/28/23 11:02 Nasal Cannula 2 01/28/23 10:22 Room Air 01/28/23 10:04 93 Room Air 01/28/23 07:21 Nasal Cannula 2 01/28/23 07:03 01/28/23 04:00 Room Air 01/27/23 23:51 Nasal Cannula 2 Laboratory Results 01/28/23 07:04 01/28/23 07:05 PG Care Time/CCT Total # of Minutes Spent Total Time Spent with Patient: Total time spent is greater than 50% in coordination of care (as documented) at patient's floor/unit and/or counseling patient: Coding Level of Care Code 33452 SUB INP/OBS CARE 3/50MIN Diagnoses Shortness of breath R06.02 Retrosternal chest pain R07.2 Epigastric abdominal pain R10.13 Congestive heart failure I50.9 Exposure to COVID-19 virus Z20.828 GERD (gastroesophageal reflux disease) K21.9 Atrial flutter I48.92 Severe obstructive sleep apnea G47.33 Hyponatremia E87.1 LBBB (left bundle branch block) I44.7 Physical deconditioning R53.81 Iron deficiency E61.1
[2023-01-28] MEDS: KETOROLAC 30 MG/ML VIAL IV SCH ×3 (11:42→23:20)
[2023-01-28] MEDS: SUCRALFATE 1 GM/10 ML UDC PO SCH ×3 (12:30→20:08)
--- NOTE | 2023-01-28 16:48 | XCELERA ---
[id number]
[2023-01-28] MEDS: ENOXAPARIN INJ 40 MG/0.4 ML SYR SQ SCH (20:06)
[2023-01-28] MEDS: PANTOprazole 40 MG TAB PO SCH (20:08)
[2023-01-29] MEDS: KETOROLAC 30 MG/ML VIAL IV SCH ×2 (05:25→11:16)
--- NOTE | 2023-01-29 05:50 | Consultation ---
Date of Consultation January 29, 2023 Assessment & Plan (1) Adenopathy: Splenomegaly and abdominal adenopathy in the immediate context of probable recent COVID-19 infection retrospectively similar to Mar, 2022 imaging. Lymph nodes are similar distribution of slightly larger in size currently compared to the previous study, spleen is marginally smaller than previous. She does note that she had an apparent severe infection in Mar, 2022 at the time of that previous imaging. Patient does have a mild anemia, peripheral smear does not immediately suggest a major lymphoproliferative process. There is a marginal increase in LGL's but not to the extent of being diagnostically relevant. Although technically below 1.5, ANC but is certainly adequate, there does not seem to be a dramatic overall lymphocytosis. Immunoglobulins are intact suggesting no dramatic immune deficiency. I have discussed with the patient that there could be a major reactive component to the splenomegaly/adenopathy but that we cannot rule out a long-term background low-grade lymphoproliferative process. If the latter is present, however, it does not seem to be immediately threatening. Suggested that we will arrange for a follow-up CT scan in 6 to 8 weeks as an outpatient and review in our offices thereafter. (2) Anemia: Hypoproductive anemia with failure to elevate absolute reticulocyte count and a percentage reticulocyte count that corrects down to low range when adjusted for anemia. Indices are normocytic, B12 and folic acid level seem adequate and TSH is in good range. Her ferritin is markedly elevated whereas serum iron levels are quite low. Not clear that either is definitively diagnostic, acute phase reactant could be elevating the ferritin but the serum iron levels may be depressed somewhat by inflammation as reflected by her elevated ESR. Anemia likely further reflects suppression of erythropoiesis by the inflammation and could be impacted by her recent COVID19 infection Anemia is not immediately threatening and at least by stool Hemoccult she does not have gross GI losses. We will plan to reassess in 6 to 8 weeks. 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 I will arrange for outpatient follow-up with repeat CBC and iron studies as well as repeat CT in approximately 6 to 8 weeks. History of Present Illness Reason for Consultation: SpelnomegaLY and adenopathy Attending Physician: Wilfredo Schreiber MD History of Present Illness Probable December COVID-19 infection admitted worsening breathing issues but now improving to the point of imminent discharge Admission imaging did show splenomegaly and abdominal adenopathy, very similar to a pattern for March of last year except for the nodes being slightly larger on this occasion. Hx includes phlegmasia cerulea dolens, DM, CHF, PVCs, GERD, LBBB, atrial flutter, DIAMANTE CHF Allergies Allergy/AdvReac Type Severity Reaction Status Date / Time morphine Allergy Severe Chest Verified 01/27/23 16:46 tightness and pressure. latex Allergy Intermediate RASH Verified 01/27/23 16:46 azithromycin AdvReac Intermediate stomach Verified 01/27/23 16:46 pain fentanyl AdvReac Intermediate Vomiting Verified 01/28/23 01:14 lisinopril AdvReac Intermediate Cough Verified 01/27/23 16:46 metoprolol AdvReac Intermediate FELT WIPED Verified 01/27/23 16:46 OUT Home Medications Medication Instructions Recorded Confirmed Type furosemide 40 mg tablet 40 mg PO DAILY PRN weight gain #30 06/25/21 01/27/23 Rx tabs Miscellaneous Pulmonary Supply #1 ea 06/26/21 04/29/22 Rx blood sugar diagnostic (OneTouch #100 ea 06/26/21 04/29/22 Rx Verio test strips) blood-glucose meter #1 ea 06/26/21 04/29/22 Rx blood-glucose meter (OneTouch #1 ea 06/26/21 04/29/22 Rx Verio Reflect Start kit) lancets 33 gauge (OneTouch Delica #100 ea 06/26/21 04/29/22 Rx Plus Lancet) losartan 25 mg tablet 25 mg PO DAILY 10/28/21 01/27/23 History CPAP Machine #1 ea 02/16/22 04/29/22 Rx CPAP Machine #1 ea 02/16/22 04/29/22 Rx carvedilol 6.25 mg tablet 6.25 mg PO BID #60 tabs 12/10/22 01/27/23 Rx Patient History Medical History (Updated 01/29/23 @ 05:54 by Brett Hall MD) Abdominal distention Anemia HX Anxiety Bacteremia GERD (gastroesophageal reflux disease) HX History of palpitations NO MEDS Kidney stones Nausea and vomiting after administration of anesthetic agent FATIGUE FOR DAYS AFTERWARDS Prediabetes NO MEDS DIET MANAGED Surgical History Hx of thumb surgery LEFT TENDON SURG Family History Family/Other Family history of diabetes mellitus Grandmother Family history of diabetes mellitus Father Family hx of colon cancer Social History (Updated 01/27/23 @ 21:47 by Yoli Smith RN) Smoking Status: Former smoker Tobacco Type: Cigarettes and E-cigarettes / Vaping Second Hand Exposure: No; Do You Dip or Chew Tobacco: No; Tobacco Cessation Education Requested by Patient: No Hx Alcohol Use: No Hx Substance Use: No Preferred Language: Georgian Communication Ability: Effective Visual Impairment: No Limitations Hearing Ability: Normal Diagnostic Cardiac Sonographer Required: No Beliefs That Will Affect Care: None marital status: Current Living Situation: Spouse Current Living Situation Comment: spouse How many Children do You have: 2 Other Information That Helps Us Care for You: No Feels Safe at Home: Yes Safety Concerns: Feels Safe At This Time Assistive Devices: Oxygen - at Night Physical Exam Physical Exam: Signs of peripheral vascular disease in her legs but otherwise exam reasonably stable currently. Results & Data ([facility]) Vital Signs (Past 12 Hours) Vital Signs Temp Pulse Pulse Resp BP Pulse Ox O2 Del Method 01/29/23 03:43 36.6 C 59 L 18 121/72 99 Nasal Cannula 01/29/23 00:00 36.5 C 62 18 127/72 98 Nasal Cannula 01/29/23 00:07 62 01/28/23 19:00 36.4 C L 63 19 121/65 96 Nasal Cannula 01/28/23 20:26 Room Air O2 Flow Rate 01/29/23 03:43 2 01/29/23 00:00 2 01/29/23 00:07 01/28/23 19:00 2 01/28/23 20:26 Laboratory Results Laboratory Results - last 24 hr 01/28/23 01/28/23 01/28/23 05:12 07:04 07:04 WBC 3.26 L RBC 2.90 L Hgb 9.1 L Hct 27.9 L MCV 96.2 MCH 31.4 MCHC 32.6 RDW Std Deviation 49.8 H RDW Coeff of Kaden 14.2 Plt Count 203 MPV 9.2 L Reticulocyte % (Auto) Reticulocyte # Peripher Smr Path Cons ESR 49 H Sodium Potassium Chloride Carbon Dioxide Anion Gap BUN Creatinine Est Cr Clr Drug Dosing Est GFR ( Amer) Est GFR (Non-Af Amer) BUN/Creatinine Ratio Glucose POC Glucose Estimat Average Glucose Hemoglobin A1c Calcium Iron TIBC Unsaturated IBC Transferrin % Sat Ferritin Total Bilirubin AST ALT Alkaline Phosphatase Lactate Dehydrogenase Troponin I High Sens C-Reactive Protein Total Protein Albumin Globulin Albumin/Globulin Ratio Vitamin B12 Folate TSH Cortisol AM Sample Urine Color Yellow Urine Appearance Clear Urine pH 6.0 Ur Specific [place] 1.016 Urine Protein Trace H Urine Glucose (UA) Negative Urine Ketones Negative Urine Blood Negative Urine Nitrite Negative Urine Bilirubin Negative Urine Urobilinogen Negative Ur Leukocyte Esterase Negative Urine WBC (Auto) 1-5 Urine RBC (Auto) 0-4 U Hyaline Cast (Auto) 0 U Epithel Cells (Auto) >30 H Urine Bacteria (Auto) Negative Stool Occult Bld Scrn IgG IgA IgM Striated Muscle Ab Ttr Striated Muscle Ab Acetylchol Rcpt Bind Ab 01/28/23 01/28/23 01/28/23 07:04 07:05 07:05 WBC RBC Hgb Hct MCV MCH MCHC RDW Std Deviation RDW Coeff of Kaden Plt Count MPV Reticulocyte % (Auto) 2.3 H Reticulocyte # 0.07 Peripher Smr Path Cons ESR Sodium Potassium Chloride Carbon Dioxide Anion Gap BUN Creatinine Est Cr Clr Drug Dosing Est GFR ( Amer) Est GFR (Non-Af Amer) BUN/Creatinine Ratio Glucose POC Glucose Estimat Average Glucose 154 Hemoglobin A1c 7.0 H Calcium Iron TIBC Unsaturated IBC Transferrin % Sat Ferritin Total Bilirubin AST ALT Alkaline Phosphatase Lactate Dehydrogenase Troponin I High Sens C-Reactive Protein Total Protein Albumin Globulin Albumin/Globulin Ratio Vitamin B12 Folate TSH Cortisol AM Sample Urine Color Urine Appearance Urine pH Ur Specific [place] Urine Protein Urine Glucose (UA) Urine Ketones Urine Blood Urine Nitrite Urine Bilirubin Urine Urobilinogen Ur Leukocyte Esterase Urine WBC (Auto) Urine RBC (Auto) U Hyaline Cast (Auto) U Epithel Cells (Auto) Urine Bacteria (Auto) Stool Occult Bld Scrn IgG IgA IgM Striated Muscle Ab Ttr Pending Striated Muscle Ab Pending Acetylchol Rcpt Bind Ab Pending 01/28/23 01/28/23 01/28/23 07:05 07:05 07:05 WBC RBC Hgb Hct MCV MCH MCHC RDW Std Deviation RDW Coeff of Kaden Plt Count MPV Reticulocyte % (Auto) Reticulocyte # Peripher Smr Path Cons ESR Sodium 128 L Potassium 4.6 Chloride 98 Carbon Dioxide 29 Anion Gap 1 L BUN 14 Creatinine 0.89 Est Cr Clr Drug Dosing 74.2 Est GFR ( Amer) 83.4 Est GFR (Non-Af Amer) 71.9 BUN/Creatinine Ratio 15.7 Glucose 111 H POC Glucose Estimat Average Glucose Hemoglobin A1c Calcium 8.4 L Iron TIBC Unsaturated IBC Transferrin % Sat Ferritin Total Bilirubin 0.5 AST 21 ALT 31 Alkaline Phosphatase 80 Lactate Dehydrogenase Troponin I High Sens Cancelled C-Reactive Protein 5.12 H Total Protein 7.4 Albumin 3.4 Globulin 4.0 Albumin/Globulin Ratio 0.9 Vitamin B12 254 Folate TSH 1.047 Cortisol AM Sample Urine Color Urine Appearance Urine pH Ur Specific [place] Urine Protein Urine Glucose (UA) Urine Ketones Urine Blood Urine Nitrite Urine Bilirubin Urine Urobilinogen Ur Leukocyte Esterase Urine WBC (Auto) Urine RBC (Auto) U Hyaline Cast (Auto) U Epithel Cells (Auto) Urine Bacteria (Auto) Stool Occult Bld Scrn IgG IgA IgM Striated Muscle Ab Ttr Striated Muscle Ab Acetylchol Rcpt Bind Ab 01/28/23 01/28/23 01/28/23 07:05 07:05 07:05 WBC RBC Hgb Hct MCV MCH MCHC RDW Std Deviation RDW Coeff of Kaden Plt Count MPV Reticulocyte % (Auto) Reticulocyte # Peripher Smr Path Cons ESR Sodium Potassium Chloride Carbon Dioxide Anion Gap BUN Creatinine Est Cr Clr Drug Dosing Est GFR ( Amer) Est GFR (Non-Af Amer) BUN/Creatinine Ratio Glucose POC Glucose Estimat Average Glucose Hemoglobin A1c Calcium Iron < 10 L TIBC TNP Unsaturated IBC 217 Transferrin % Sat TNP Ferritin 652.6 H Total Bilirubin AST ALT Alkaline Phosphatase Lactate Dehydrogenase 255 H Troponin I High Sens C-Reactive Protein Total Protein Albumin Globulin Albumin/Globulin Ratio Vitamin B12 Folate 17.81 TSH Cortisol AM Sample 12.80 Urine Color Urine Appearance Urine pH Ur Specific [place] Urine Protein Urine Glucose (UA) Urine Ketones Urine Blood Urine Nitrite Urine Bilirubin Urine Urobilinogen Ur Leukocyte Esterase Urine WBC (Auto) Urine RBC (Auto) U Hyaline Cast (Auto) U Epithel Cells (Auto) Urine Bacteria (Auto) Stool Occult Bld Scrn IgG 1525.5 IgA 408.4 H IgM 228.7 Striated Muscle Ab Ttr Striated Muscle Ab Acetylchol Rcpt Bind Ab 01/28/23 01/28/23 01/28/23 07:05 07:42 11:20 WBC RBC Hgb Hct MCV MCH MCHC RDW Std Deviation RDW Coeff of Kaden Plt Count MPV Reticulocyte % (Auto) Reticulocyte # Peripher Smr Path Cons ESR Sodium Potassium Chloride Carbon Dioxide Anion Gap BUN Creatinine Est Cr Clr Drug Dosing Est GFR ( Amer) Est GFR (Non-Af Amer) BUN/Creatinine Ratio Glucose POC Glucose 120 H 155 H Estimat Average Glucose Hemoglobin A1c Calcium Iron TIBC Unsaturated IBC Transferrin % Sat Ferritin Total Bilirubin AST ALT Alkaline Phosphatase Lactate Dehydrogenase Troponin I High Sens 4.9 C-Reactive Protein Total Protein Albumin Globulin Albumin/Globulin Ratio Vitamin B12 Folate TSH Cortisol AM Sample Urine Color Urine Appearance Urine pH Ur Specific [place] Urine Protein Urine Glucose (UA) Urine Ketones Urine Blood Urine Nitrite Urine Bilirubin Urine Urobilinogen Ur Leukocyte Esterase Urine WBC (Auto) Urine RBC (Auto) U Hyaline Cast (Auto) U Epithel Cells (Auto) Urine Bacteria (Auto) Stool Occult Bld Scrn IgG IgA IgM Striated Muscle Ab Ttr Striated Muscle Ab Acetylchol Rcpt Bind Ab 01/28/23 01/28/23 01/28/23 16:43 20:00 22:15 WBC RBC Hgb Hct MCV MCH MCHC RDW Std Deviation RDW Coeff of Kaden Plt Count MPV Reticulocyte % (Auto) Reticulocyte # Peripher Smr Path Cons ESR Sodium Potassium Chloride Carbon Dioxide Anion Gap BUN Creatinine Est Cr Clr Drug Dosing Est GFR ( Amer) Est GFR (Non-Af Amer) BUN/Creatinine Ratio Glucose POC Glucose 162 H 187 H Estimat Average Glucose Hemoglobin A1c Calcium Iron TIBC Unsaturated IBC Transferrin % Sat Ferritin Total Bilirubin AST ALT Alkaline Phosphatase Lactate Dehydrogenase Troponin I High Sens C-Reactive Protein Total Protein Albumin Globulin Albumin/Globulin Ratio Vitamin B12 Folate TSH Cortisol AM Sample Urine Color Urine Appearance Urine pH Ur Specific [place] Urine Protein Urine Glucose (UA) Urine Ketones Urine Blood Urine Nitrite Urine Bilirubin Urine Urobilinogen Ur Leukocyte Esterase Urine WBC (Auto) Urine RBC (Auto) U Hyaline Cast (Auto) U Epithel Cells (Auto) Urine Bacteria (Auto) Stool Occult Bld Scrn Negative IgG IgA IgM Striated Muscle Ab Ttr Striated Muscle Ab Acetylchol Rcpt Bind Ab Diagnostic Findings Chest X-Ray 01/27/23 13:19 XR chest 1V portable CLINICAL HISTORY: Chest pain, nonspecific. + covid TECHNIQUE: Single frontal radiograph of the chest was obtained. Comparison: Comparison is made to chest radiograph 10/27/2021 FINDINGS: No lines and tubes are seen. Cardiomegaly is noted. Bilateral lower lung predominant airspace opacities are seen. A left pleural effusion cannot be excluded. IMPRESSION: Bilateral lower lung predominant airspace opacities which may represent atelectasis, pneumonia, and/or aspiration. Left pleural effusion cannot be excluded. ACT 112: Negative or not required by law. Electronically signed by: George Ruiz M.D. 01/27/2023 1:40 PM Chest CTA 01/27/23 13:20 CT angio chest PE protocol CT DOSE: 1967.38 mGy.cm HISTORY: 57 years-old Female with Chest Pain, eval for PE, +covid. Acute chest pain TECHNIQUE: Multiple CTA images of the chest were obtained after the intravenous administration of 110 ml Optiray. Coronal and sagittal MIPS were obtained from the axial data set and were submitted for review. All measurements were obtained according to NASCET criteria. A dose lowering technique was utilized adhering to the principles of ALARA. COMPARISON: CT abdomen and pelvis of same day, chest CT 02/25/2015 FINDINGS: CTA: Moderate cardiomegaly. No pericardial effusion. No thoracic aortic aneurysm or dissection. Mild dilation of the main pulmonary artery measuring up to 3.2 cm. Respiratory motion artifact limits evaluation of the basilar segmental and subsegmental branches. No pulmonary emboli are identified. CT CHEST: Unremarkable thyroid. Mediastinal and hilar lymphadenopathy. Index prevascular lymph node measures 2.9 x 1.4 cm on image 211. Subcentimeter axillary chain ly mph nodes. Pathologically enlarged lymph nodes of the upper abdomen included periportal lymph nodes measuring up to 1.4 cm. Gastrohepatic, paraesophageal and celiac trunk lymph nodes are also present in addition to splenomegaly measuring up to 15.4 cm. Enlarged lymph nodes are also present on the study from 2014. No pneumothorax, pleural effusion, airspace consolidation or pulmonary edema. Mild subsegmental bibasilar predominant atelectasis. Central airways are patent. Unremarkable soft tissues. No acute fracture. Upper thoracic levoscoliosis. IMPRESSION: 1. No pulmonary identified. 2. Cardiomegaly with suggested pulmonary arterial hypertension. 3. Pathologically enlarged mediastinal, hilar and upper abdominal lymphadenopathy is again noted in conjunction with splenomegaly. Correlate clinically to exclude a lymphoproliferative disorder. ACT 112: Negative or not required by law. The above report was generated using voice recognition software. It may contain grammatical, syntax or spelling errors. Electronically signed by: Immanuel Crum M.D. 01/27/2023 4:14 PM Abdomen/Pelvis CT 01/27/23 14:16 CT abd pelvis IV con only CLINICAL HISTORY: upper abd pain, recent covid TECHNIQUE: Helical axial images of the abdomen and pelvis were obtained and displayed. Automated dose lowering techniques and/or adjustment according to patient size were utilized for this exam. This exam was performed with intravenous contrast. COMPARISON: Comparison is made to CT abdomen pelvis 04/20/2022 FINDINGS: Lower chest: For findings above the diaphragm, please see CT chest performed same day. Liver: Unremarkable. No focal lesions are seen. Gallbladder and biliary tree: Cholelithiasis is seen without evidence of cholecystitis. No intra- or extrahepatic biliary ductal dilation. Pancreas: Unremarkable, no focal lesions. Spleen: Splenomegaly is noted, the spleen measures 14.6 mm. Adrenals: Unremarkable. Kidneys and ureters: Unremarkable. Bladder: Unremarkable. Reproductive organs: Unremarkable. Bowel: Diverticulosis is seen without evidence of diverticulitis. The appendix is normal. Lymph nodes Retroperitoneal: Multiple retroperitoneal lymph nodes are seen measuring up to 30 mm in short axis. A aníbal hepatis nodes measure up to 15 mm in short axis. Pelvic: Unremarkable. Mesenteric: Subcentimeter lymph nodes are noted. Peritoneum: Normal. Vessels: Atherosclerotic calcifications are seen. Abdominal wall: Unremarkable. Bones: Degenerative changes in the visualized spine. IMPRESSION: 1. No acute abnormalities are seen. There are enlarged lymph nodes which may be reactive and related to recent Covid infection. 2. Cholelithiasis without cholecystitis. 3. Splenomegaly. ACT 112: Negative or not required by law. Electronically signed by: George Ruiz M.D. 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
[2023-01-29] MEDS: FAMOTIDINE 20 MG TAB PO SCH (07:39)
[2023-01-29] MEDS: SUCRALFATE 1 GM/10 ML UDC PO SCH (07:39)
[2023-01-29] MEDS: PANTOprazole 40 MG TAB PO SCH (07:40)
[2023-01-29] MEDS: carvediloL 6.25 MG TAB PO SCH (07:40)
[2023-01-29] MEDS: INSULIN ASPART PER UNIT SC SCH ×2 (08:03→12:08)
--- NOTE | 2023-01-29 09:20 | Electrocardiogram Report ---
Test Reason : Blood Pressure : / mmHG Vent. Rate : 064 BPM Atrial Rate : 064 BPM P-R Int : 198 ms QRS Dur : 164 ms QT Int : 466 ms P-R-T Axes : 047 -34 093 degrees QTc Int : 480 ms Normal sinus rhythm Left axis deviation Left bundle branch block Abnormal ECG When compared with ECG of 27-JAN-2023 13:23, QRS duration has increased Confirmed by Scott Arnold ([id number]) on 01/29/2023 9:20:07 AM Referred By: REFERRED SELF Confirmed By:Scott Arnold
[2023-01-29] MEDS ORDERED: IRON SUCROSE 200 MG in 0.9 % SODIUM CHLORIDE 100 ML IV ONE (09:30)
--- NOTE | 2023-01-29 10:58 | Discharge Summary ---
Date of Service January 29, 2023 Admission HPI Per Admitting Provider Richelle is a 57F with history of cholelithiasis, phlegmasia cerulea dolens (bilateral), DM, CHF, PVCs, GERD, LBBB, atrial flutter, and DIAMANTE who presented for evaluation of worsening chest pain and fatigue. Patient notes that she has been staying with her sister since early December while her house is renovated, she contracted COVID from her sister and has felt ill since. She notes that she has had progressive fatigue and decreased ambulation since having COVID. She states that she has been so fatigued she cannot even walk to the bathroom without significant dyspnea. At baseline, she uses 2L of O2 at night, she is Rx a CPAP for DIAMANTE but does not use it. Patient notes that over the last week she has been experiencing fevers, chills, and episodes of chest tightness. She has had minimal to no appetite and can only consume a few bites of food prior to feeling full and having epigastric discomfort. She notes that she has been moving her bowels and urinating regularly. She has been able to drink at least 40 ounces of water per day. She has been managing her symptoms with Tylenol at home and did not receive any COVID specific medications. She notes that her COVID symptoms primarily felt like a bad head cold, but once this resolved she experienced worsening fatigue and deconditioning. Patient is most concerned about her worsening difficulty breathing, but notes that it was the chest tightness/substernal pain that prompted her ER visit today. She has not experienced any emesis. She denies headaches but endorses lightheadedness. She denies any lower extremity edema (she has LE edema at baseline, but has not required Lasix since October). She notes that she follows with Cardiology (Dr. Palomo) outpatient for her A Flutter and CHF. She is not actively on anticoagulation for A Flutter d/t the cost of the medication. She is also not medically managed for her DM, last A1c was 9 in 2020. Patient notes that she experienced reflux when she was younger, but has not medically managed it in years. EMS: Nitro in the ambulance ED: Hydromorphone 0.25, Nitroglycerin 0.5 Principal Diagnosis Suspected acute gastritis, acute costochondritis, iron deficiency Discharge Exam General-alert and oriented x3, no fevers, no chills HEENT-head atraumatic and normocephalic, pupils equal and reactive to light, extraocular muscles intact Neck-no lymphadenopathy or thyromegaly, trachea midline Chest-clear to auscultation percussion. No rales wheezing or rhonchi Cardiac-regular rate and rhythm, normal S1 and S2 Abdomen-epigastric tenderness. No rebound or guarding. No ascites. Extremities-no cyanosis, clubbing, or edema Neuro-cranial nerves II through XII intact, motor and sensory function within normal limits, strength symmetrical , no focal deficits Psych-normal affect, normal mood Discharge Data Allergies Allergy/AdvReac Type Severity Reaction Status Date / Time morphine Allergy Severe Chest Verified 01/27/23 16:46 tightness and pressure. latex Allergy Intermediate RASH Verified 01/27/23 16:46 azithromycin AdvReac Intermediate stomach Verified 01/27/23 16:46 pain fentanyl AdvReac Intermediate Vomiting Verified 01/28/23 01:14 lisinopril AdvReac Intermediate Cough Verified 01/27/23 16:46 metoprolol AdvReac Intermediate FELT WIPED Verified 01/27/23 16:46 OUT Ordered Studies 01/27/23 13:20 CT angio chest PE protocol Stat 01/27/23 14:16 CT Abd and Pelvis [CT abd pelvis IV con only] Stat Hospital Course (1) Shortness of breath: Present on admission. Now resolved. No evidence of PE on chest CTA. Oxygen has been discontinued (2) Retrosternal chest pain: Appears to be due to costochondritis. Resolved with intravenous Toradol. No further treatment needed. No evidence of acute coronary syndrome (3) Epigastric abdominal pain: Suspected acute gastritis. Improved with Carafate and Protonix. We will continue at discharge. Diet has been advanced (4) Congestive heart failure: Chronic diastolic CHF per history. No acute exacerbation at this time. Will monitor intake and output. (5) Exposure to COVID-19 virus: No overt COVID pneumonia at this time (6) GERD (gastroesophageal reflux disease): Protonix and Carafate therapy ordered. Improved (7) Atrial flutter: By history. Currently in normal sinus rhythm. Telemetry (8) Severe obstructive sleep apnea: CPAP at at bedtime if needed (9) Hyponatremia: Present on admission. Mild. Asymptomatic. We will follow (10) LBBB (left bundle branch block): She appears to actually have left bundle branch block and right bundle branch block without first-degree AV block. Troponins are normal and not trending. She states multiple family members have required pacemaker insertion. This probably should be followed as an outpatient (11) Physical deconditioning: Producing obesity. Weight loss recommended (12) Iron deficiency: Parenteral iron replacement while hospitalized. Oral iron sulfate at discharge going forward. Fecal occult blood is negative. No prior history of peptic ulcer disease but this needs to be considered. She denies melena or hematochezia Plan Home today, January 29, on Carafate and Protonix. Costochondritis symptoms have resolved. Continue iron supplementation orally. Total Time Total Time Spent Total Time Spent (In Minutes): 40 minutes Discharge Plan Discharge Items Patient Disposition: Home - Self-Care Reason For Visit: SOB, CHEST PAIN, COVID + Discharge Diagnosis: Acute gastritis, costochondritis, iron deficiency Activity: Resume your previous activity Non-emergency contact: Primary Care Provider Call non-emergency contact if: you have any medication questions and your symptoms worsen Follow-up/Referrals: Shayy Ramos PA-C [Primary Care Provider] - Diet: Carb Consistent or DM2 Addtl Attending Provider Instructions: Take ferrous sulfate twice daily for iron. Take carefate and Protonix for 1 more week for the stomach. Pending Studies at Discharge: No Stand-Alone Forms: CoContest, Smoking Cessation Medications and DC Order Prescriptions: New pantoprazole 40 mg Tablet,Delayed Release (Dr/Ec) 40 mg PO DAILY Qty: 7 0RF sucralfate [Carafate] 1 gram tablet 1 g PO ACHS Qty: 28 0RF ferrous sulfate 325 mg (65 mg iron) tablet 325 mg PO BID Qty: 60 0RF Continued (DME) OneTouch Verio test strips Strip See Rx Instructions .Route Qty: 100 5RF Rx Instructions: Use to check sugar 3 times a day. Lifetime need. (DME) blood-glucose meter [OneTouch Verio Reflect Start] Kit See Rx Instructions .Route Qty: 1 0RF Rx Instructions: As directed (DME) lancets [OneTouch Delica Plus Lancet] 33 gauge misc See Rx Instructions .Route Qty: 100 5RF Rx Instructions: Use to test sugar three times daily carvedilol 6.25 mg tablet 6.25 mg PO BID Qty: 60 11RF Rx Instructions: must administer with a meal/food (DME) Miscellaneous Pulmonary Supply Misc See Rx Instructions .Route Qty: 1 0RF Rx Instructions: Pulse oximeter. Use to check oxygen 3 times daily or as directed. Lifetime need. (DME) blood-glucose meter Kit See Rx Instructions .Route Qty: 1 0RF Rx Instructions: Check sugars twice daily or as directed. (DME) CPAP Machine Misc See Rx Instructions .MEDSUPPLY Qty: 1 0RF Rx Instructions: CPAP 13 cm water pressure C flex setting #2 with oxygen 1 liter/min. and heated humidificatin, tubing, and supplies. [place]: 99+ years. (DME) CPAP Machine Misc See Rx Instructions .MEDSUPPLY Qty: 1 0RF Rx Instructions: CPAP 13 cm water pressure C flex setting #2 with Oxygen 1 liter/min and heated humidification, tubing, and supplies. [place]: 99+ years. furosemide 40 mg tablet 40 mg PO DAILY PRN (Reason: weight gain) Qty: 30 0RF Rx Instructions: Take for swelling of the legs or ankles OR weight gain of 2 - 3 lbs over baseline weight. losartan 25 mg tablet 25 mg PO DAILY Discharge Orders: Discharge Order (Routine); Ordered 01/29/23 Ordered By: Wilfredo Schreiber Admission Data Admit Date/Time: 01/27/23 19:11 Attending Provider: Wilfredo Schreiber Admit Provider: Leonidas Major Primary Care Provider: Shayy Ramos Coding Level of Care Code 33027 INP/OBS DISCH >30 MIN Diagnoses Shortness of breath R06.02 Retrosternal chest pain R07.2 Epigastric abdominal pain R10.13 Congestive heart failure I50.9 Exposure to COVID-19 virus Z20.828 GERD (gastroesophageal reflux disease) K21.9 Atrial flutter I48.92 Severe obstructive sleep apnea G47.33 Hyponatremia E87.1 LBBB (left bundle branch block) I44.7 Physical deconditioning R53.81 Iron deficiency E61.1
== END 2023-01-29 13:04 | disposition home or self-care (01) ==
LOC: ED 13:18 → 2N 13:18 → SUATTDRO 19:11 → 2N 20:51

== ENCOUNTER 2024-04-24 07:38 | Inpatient (IN) ==
--- NOTE | 2024-04-24 08:23 | Emergency Department Note ---
Impression & Plan Cholecystitis, Abdominal pain, Chest pain ED Provider Note NAME: NICOLE BATISTA AGE: 58 SEX: F : 1965 ARRIVES VIA: Walk-In INFORMANT: Patient ED PROVIDER(S): Randall Shirley DO CHIEF COMPLAINT: Chest wall pain HPI: Patient is a 58-year-old female who presents the ER with a past medical history of restrictive lung disease, sarcoidosis, cardiomyopathy, respiratory failure for pain under her left breast. She notes it is acutely tender to palpation. It is worse with twisting and bending. She denies any headache or change in vision. No other chest pain or shortness of breath. She later notes that she does have some belly pain in the epigastric region as well. No nausea, vomiting, or diarrhea. No dysuria, urgency, or frequency. No other exacerbating or remitting factors. ADDITIONAL HISTORY OBTAINED: Per HPI Chronic Medical/Social Conditions Affecting Care: Per HPI PAST MEDICAL HISTORY:See Below PAST SURGICAL HISTORY:See Below FAMILY HISTORY:See Below SOCIAL HISTORY:See Below HOME MEDICATIONS:See Below ALLERGIES:See Below VITALS:See Below PHYSICAL EXAMINATION: GENERAL: Sitting up in bed, alert, well appearing, well nourished, no distress, non-toxic, obese EYE EXAM: normal conjunctiva. PERRL and EOM's grossly intact. OROPHARYNX: no exudate, no erythema, lips, buccal mucosa, and tongue normal and mucous membranes are moist NECK: supple, no nuchal rigidity, no adenopathy, non-tender CHEST: Reproducible tenderness over the left chest wall under the left breast. Skin is intact. No erythema. LUNGS: Clear to auscultation. Normal chest wall mechanics HEART: no murmurs, S1 normal and S2 normal ABDOMEN: abdomen soft, tender palpation in the epigastric/right upper quad, normo-active bowel sounds, no masses, no rebound or guarding. UPPER EXTREMITIES: upper extremities are grossly normal. LOWER EXTREMITIES: No pitting edema. NEURO EXAM: Normal sensorium, cranial nerves II-XII grossly intact, normal speech, no gross weakness of arms, no gross weakness of legs. MEDICAL DECISION MAKING: Patient is a 58-year-old female who presents the ER for the above-stated complaint. IV was established blood work was obtained. Labs show mild leukopenia at 4.5 thousand. No significant anemia. BMP with mild hyponatremia at 132. LFTs bilirubin was unremarkable. Troponins negative x 2. UA was positive for bacteria whites and nitrates. She consequently was given 2 g of Rocephin initially. CT abdomen pelvis was obtained and showed cholecystitis with stone in the cystic duct. Patient was given IV antibiotics. Discussed with general surgery about Juan Carlos in combination with the hospitalist patient was admitted for further workup. As the patient was already ordered and given Rocephin for the UTI she was given dose of Flagyl with the cholecystitis. She was also given a dose of Dilaudid. Consults/Care Managements Discussions: Per [facility] Triage Nursing notes reviewed. Limited review of prior medical records performed Vital Signs: reviewed and remarkable for HTN Differential diagnosis: Cardiac ischemia, aortic dissection, pulmonary embolism, pneumothorax, pneumonia, pericarditis, myocarditis, esophageal rupture, GERD, cholecystitis, pancreatitis, musculoskeletal, as well as other pathologies. ER treatment provided: See below Diagnostics interpreted by me include EKG and cardiac monitoring as listed below: -Cardiac Monitoring: An order was placed for continuous cardiac monitoring. The monitor shows a rate of 62 with sinus rhythm. -ECG: EKG 1 Sinus rhythm rate of 56 Left axis Left bundle branch block QTc 455 EKG #2 Sinus rhythm rate of 54 Left axis Left bundle branch block QTc 466 -Laboratory studies:Interpreted by me as stated above in MDM and shown below. Imaging studies: Xrays: As interpreted by me: Portable AP upright 1 view of the chest shows opacities at the bases consistent with previous CTs show: CT abdomen pelvis as described above Procedures:none Critical Care: None Past Med/Surg History Problem List (Updated 04/24/24 @ 12:56 by Randall Shirley DO) Chest pain (Acute) Abdominal pain (Acute) Cholecystitis (Acute) Abdominal pain Type 2 diabetes mellitus Acute cholecystitis Restrictive lung disease Chronic sinusitis Sarcoidosis Chronic respiratory failure with hypoxia Cardiomyopathy nonischemic per cardio records, EF 50-55% Premature ventricular contractions (Acute) Allergic rhinitis Palpitations Atrial tachycardia Abnormal cardiac conduction Daytime somnolence Nocturnal hypoxemia Cholelithiasis Epigastric abdominal pain (Acute) Physical deconditioning Iron deficiency ARON (iron deficiency anemia) Type 2 diabetes mellitus with obesity no meds, diet controlled Esophageal dysphagia LAD (lymphadenopathy), mediastinal DIAMANTE (obstructive sleep apnea) no device currently, uses 3 lpm nc at night Anemia HX Medical History (Updated 04/24/24 @ 12:56 by Randall M Shirley, DO) COVID-19 Chronic systolic (congestive) heart failure On home oxygen therapy 3 lpm nc at night Splenomegaly Thoracic lymphadenopathy Abdominal lymphadenopathy recent bone marrow bx was benign 03/2023. Following with Dr. Hall History of cardioversion History of DVT (deep vein thrombosis) lower extremity (unable to recall side). unk etiology. 10 years ago. Slow to wake up after anesthesia Atrial flutter follows with Dr. Palomo - last visit 06/2023 LBBB (left bundle branch block) GERD (gastroesophageal reflux disease) Kidney stones hx Anxiety History of palpitations NO MEDS Nausea and vomiting after administration of anesthetic agent FATIGUE FOR DAYS AFTERWARDS Surgical History History of esophagogastroduodenoscopy (EGD) History of bronchoscopy History of cardiac catheterization History of bone marrow biopsy History of ovarian cystectomy History of colonoscopy Hx of thumb surgery Family History Family/Other Family history of diabetes mellitus Grandmother Family history of diabetes mellitus Father Family hx of colon cancer Social History Smoking Status: Former smoker Tobacco Type: Cigarettes Age Started Using Tobacco: 17; Age Quit Using Tobacco: 47; packs per day: 2; Cigarettes Per Day: vapes daily - advised; Second Hand Exposure: Yes ( smokes); Do You Dip or Chew Tobacco: No; Hx Alcohol Use: No Hx Substance Use: No Preferred Language: Serbian Communication Ability: Effective Visual Impairment: No Limitations Hearing Ability: Normal Animal Biologist Required: No Beliefs That Will Affect Care: None marital status: Current Living Situation: Spouse How many Children do You have: 2 Feels Safe at Home: Yes Assistive Devices: Denture - Upper, Denture - Lower and Oxygen - at Night Allergies Allergies Allergy/AdvReac Type Severity Reaction Status Date / Time morphine Allergy Severe Chest Verified 04/24/24 09:41 tightness and pressure. latex Allergy Intermediate Hives Verified 04/24/24 09:41 azithromycin AdvReac Intermediate stomach Verified 04/24/24 09:41 pain fentanyl AdvReac Intermediate Vomiting Verified 04/24/24 09:41 lisinopril AdvReac Intermediate Cough Verified 04/24/24 09:41 metoprolol AdvReac Intermediate FELT WIPED Verified 04/24/24 09:41 OUT metformin AdvReac Mild Gastrointestinal Uncoded 04/24/24 09:41 Upset Home Meds Home Medications Medication Instructions Recorded Confirmed losartan 25 mg tablet 25 mg PO QPM 10/28/21 04/24/24 methotrexate sodium 2.5 mg tablet 10 mg PO WK 04/24/24 04/24/24 Previous Rx's Medication Instructions Recorded furosemide 40 mg tablet 40 mg PO DAILY PRN weight gain #30 06/25/21 tabs Miscellaneous Pulmonary Supply #1 ea 06/26/21 blood sugar diagnostic (OneTouch #100 ea 06/26/21 Verio test strips) blood-glucose meter #1 ea 06/26/21 blood-glucose meter (OneTouch #1 ea 06/26/21 Verio Reflect Start kit) lancets 33 gauge (OneTouch Delica #100 ea 06/26/21 Plus Lancet) CPAP Machine #1 ea 02/16/22 CPAP Machine #1 ea 02/16/22 Incentive Spirometer #1 ea 07/18/23 azelastine 137 mcg (0.1 %) nasal 1 spray intranasal BID #30 mL 08/17/23 spray aerosol albuterol sulfate 90 mcg/actuation 2 puff inhalation Q6H PRN 11/02/23 aerosol inhaler (ProAir HFA) shortness of breath or wheezing #8.5 grams folic acid 1 mg tablet 1 mg PO DAILY #90 tabs 11/02/23 Portable Oxygen #1 ea 11/23/23 tiotropium 2.5 mcg-olodaterol 2.5 2 puff inhalation DAILY #4 grams 11/23/23 mcg/actuation mist for inhalation (Stiolto Respimat) carvedilol 6.25 mg tablet 6.25 mg PO BID #60 tabs 01/12/24 apixaban 5 mg tablet (Eliquis) 5 mg PO BID #60 tabs 02/07/24 Farxiga 5 mg tablet (dapagliflozin 5 mg PO DAILY 30 days #30 tabs 02/27/24 propanediol) pantoprazole 40 mg tablet,delayed 40 mg PO QPM #90 tabs 02/29/24 release Results & Data (ED) Vital Signs Vital Signs - 24 hr 04/24/24 07:45 04/24/24 08:18 04/24/24 08:18 Temperature 36.4 C L Temperature Source Oral Pulse Rate 64 60 Pulse Rate [Apical] 61 Pulse Rate from SpO2 Sensor Respiratory Rate 20 16 16 Respiratory Effort / Characteristics Non-Labored Spontaneous Respiratory Depth Normal Blood Pressure 171/76 H Blood Pressure [Right Arm] 165/78 H Blood Pressure Mean 107 Blood Pressure Mean [Right Arm] 107 Pulse Oximetry 97 94 94 Oxygen Delivery Method Room Air Room Air Room Air Oxygen Flow Rate Sepsis Recent Fever Within 48 Hours No Sepsis New/Unexplained Change in Mental Status N/A Sepsis Action Taken by Nursing No Action Required 04/24/24 08:25 04/24/24 08:39 04/24/24 09:33 Temperature Temperature Source Pulse Rate 59 L 60 63 Pulse Rate [Apical] Pulse Rate from SpO2 Sensor 61 Respiratory Rate 16 17 Respiratory Effort / Characteristics Respiratory Depth Blood Pressure Blood Pressure [Right Arm] Blood Pressure Mean Blood Pressure Mean [Right Arm] Pulse Oximetry 93 Oxygen Delivery Method Oxygen Flow Rate Sepsis Recent Fever Within 48 Hours Sepsis New/Unexplained Change in Mental Status Sepsis Action Taken by Nursing 04/24/24 09:42 04/24/24 09:57 04/24/24 10:00 Temperature Temperature Source Pulse Rate 60 63 58 L Pulse Rate [Apical] Pulse Rate from SpO2 Sensor Respiratory Rate 17 17 16 Respiratory Effort / Characteristics Respiratory Depth Blood Pressure Blood Pressure [Right Arm] Blood Pressure Mean Blood Pressure Mean [Right Arm] Pulse Oximetry Oxygen Delivery Method Oxygen Flow Rate Sepsis Recent Fever Within 48 Hours Sepsis New/Unexplained Change in Mental Status Sepsis Action Taken by Nursing 04/24/24 10:13 04/24/24 10:18 04/24/24 10:21 Temperature Temperature Source Pulse Rate 60 60 Pulse Rate [Apical] 64 Pulse Rate from SpO2 Sensor 60 59 L Respiratory Rate 16 17 17 Respiratory Effort / Characteristics Respiratory Depth Blood Pressure Blood Pressure [Right Arm] 150/79 H Blood Pressure Mean Blood Pressure Mean [Right Arm] 102 Pulse Oximetry 91 91 94 Oxygen Delivery Method Room Air Oxygen Flow Rate Sepsis Recent Fever Within 48 Hours Sepsis New/Unexplained Change in Mental Status Sepsis Action Taken by Nursing 04/24/24 10:30 04/24/24 10:42 04/24/24 10:57 Temperature Temperature Source Pulse Rate 57 L 57 L 57 L Pulse Rate [Apical] Pulse Rate from SpO2 Sensor 57 L 57 L 57 L Respiratory Rate 15 14 13 Respiratory Effort / Characteristics Respiratory Depth Blood Pressure Blood Pressure [Right Arm] Blood Pressure Mean Blood Pressure Mean [Right Arm] Pulse Oximetry 91 95 Oxygen Delivery Method Oxygen Flow Rate Sepsis Recent Fever Within 48 Hours Sepsis New/Unexplained Change in Mental Status Sepsis Action Taken by Nursing 04/24/24 11:06 04/24/24 11:12 04/24/24 11:39 Temperature Temperature Source Pulse Rate 56 L 58 L 58 L Pulse Rate [Apical] Pulse Rate from SpO2 Sensor 57 L 58 L 57 L Respiratory Rate 15 18 18 Respiratory Effort / Characteristics Respiratory Depth Blood Pressure 162/75 H Blood Pressure [Right Arm] Blood Pressure Mean 104 Blood Pressure Mean [Right Arm] Pulse Oximetry 88 L 95 100 Oxygen Delivery Method Nasal Cannula Oxygen Flow Rate 3 Sepsis Recent Fever Within 48 Hours Sepsis New/Unexplained Change in Mental Status Sepsis Action Taken by Nursing Laboratory Data 04/24/24 08:15 04/24/24 08:15 Lab Results 04/24/24 04/24/24 04/24/24 Range/Units 07:58 08:15 08:32 WBC 4.55 L (4.8-10.8) K/ul RBC 4.22 (4.20-5.40) M/uL Hgb 14.0 (12.0-16.0) g/dl Hct 41.6 (37.0-47.0) % MCV 98.6 (80.0-100.0) fL MCH 33.2 (25.0-34.0) pg MCHC 33.7 (32.0-36.0) g/dL RDW Std Deviation 49.6 H (36.4-46.3) fL RDW Coeff of Kaden 13.9 (11.5-14.5) % Plt Count 171 (130-400) K/uL MPV 9.6 (9.4-12.4) fL Immature Gran % (Auto) 0.2 % Neut % (Auto) 74.2 % Lymph % (Auto) 14.3 % [place] % (Auto) 7.3 % Eos % (Auto) 3.3 % Baso % (Auto) 0.7 % Neut # (Auto) 3.38 (1.40-6.50) K/uL Lymph # (Auto) 0.65 L (1.20-3.40) K/uL [place] # (Auto) 0.33 (0.11-0.59) K/uL Eos # (Auto) 0.15 (0.00-0.50) K/uL Baso # (Auto) 0.03 (0.00-0.20) K/uL Immature Gran # (Auto) 0.01 (0.01-0.20) K/uL Sodium 132 L (136-145) mmol/L Potassium 4.7 (3.5-5.1) mmol/L Chloride 101 (98-107) mmol/L Carbon Dioxide 25 (21-32) mmol/L Anion Gap 6 (3-11) BUN 26 H (6-23) mg/dl Creatinine 0.93 (0.6-1.2) mg/dl Est Cr Clr Drug Dosing 72.0 ml/min Est GFR ( Amer) 78.5 ml/min Est GFR (Non-Af Amer) 67.7 ml/min BUN/Creatinine Ratio 28.0 H (10-20) Glucose 167 H (70-99(Fasting)) mg/dl Calcium 10.0 (8.6-10.3) mg/dl Total Bilirubin 0.7 (0.2-1.0) mg/dl AST 22 (13-39) U/L ALT 20 (7-52) U/L Alkaline Phosphatase 74 (34-104) U/L Troponin I High Sens 12.3 (0-14) pg/ml Total Protein 8.0 (6.0-8.3) gm/dl Albumin 4.4 (3.4-5.0) gm/dl Globulin 3.6 (2.5-4.0) gm/dl Albumin/Globulin Ratio 1.2 (0.9-2) Lipase 17 (11-82) U/L Urine Color Yellow Urine Appearance Cloudy A (Clear) Urine pH 7.0 (4.5-7.5) Ur Specific [place] 1.029 (1.000-1.030) Urine Protein Negative (Negative) Urine Glucose (UA) 3+ H (Negative) Urine Ketones Trace H (Negative) Urine Blood Negative (Negative) Urine Nitrite Positive A (Negative) Urine Bilirubin Negative (Negative) Urine Urobilinogen Negative (Negative) Ur Leukocyte Esterase Negative (Negative) Urine WBC (Auto) 6-10 H (0-5) /hpf Urine RBC (Auto) 0-2 (0-2) /hpf U Hyaline Cast (Auto) 0-2 (0-2) /lpf U Epithel Cells (Auto) 0-2 (0-2) /hpf Urine Bacteria (Auto) 4+ H (None Seen) POC Ur Test NEG (NEG) 04/24/24 Range/Units 09:17 WBC (4.8-10.8) K/ul RBC (4.20-5.40) M/uL Hgb (12.0-16.0) g/dl Hct (37.0-47.0) % MCV (80.0-100.0) fL MCH (25.0-34.0) pg MCHC (32.0-36.0) g/dL RDW Std Deviation (36.4-46.3) fL RDW Coeff of Kaden (11.5-14.5) % Plt Count (130-400) K/uL MPV (9.4-12.4) fL Immature Gran % (Auto) % Neut % (Auto) % Lymph % (Auto) % [place] % (Auto) % Eos % (Auto) % Baso % (Auto) % Neut # (Auto) (1.40-6.50) K/uL Lymph # (Auto) (1.20-3.40) K/uL [place] # (Auto) (0.11-0.59) K/uL Eos # (Auto) (0.00-0.50) K/uL Baso # (Auto) (0.00-0.20) K/uL Immature Gran # (Auto) (0.01-0.20) K/uL Sodium (136-145) mmol/L Potassium (3.5-5.1) mmol/L Chloride (98-107) mmol/L Carbon Dioxide (21-32) mmol/L Anion Gap (3-11) BUN (6-23) mg/dl Creatinine (0.6-1.2) mg/dl Est Cr Clr Drug Dosing ml/min Est GFR ( Amer) ml/min Est GFR (Non-Af Amer) ml/min BUN/Creatinine Ratio (10-20) Glucose (70-99(Fasting)) mg/dl Calcium (8.6-10.3) mg/dl Total Bilirubin (0.2-1.0) mg/dl AST (13-39) U/L ALT (7-52) U/L Alkaline Phosphatase (34-104) U/L Troponin I High Sens 11.9 (0-14) pg/ml Total Protein (6.0-8.3) gm/dl Albumin (3.4-5.0) gm/dl Globulin (2.5-4.0) gm/dl Albumin/Globulin Ratio (0.9-2) Lipase (11-82) U/L Urine Color Urine Appearance (Clear) Urine pH (4.5-7.5) Ur Specific [place] (1.000-1.030) Urine Protein (Negative) Urine Glucose (UA) (Negative) Urine Ketones (Negative) Urine Blood (Negative) Urine Nitrite (Negative) Urine Bilirubin (Negative) Urine Urobilinogen (Negative) Ur Leukocyte Esterase (Negative) Urine WBC (Auto) (0-5) /hpf Urine RBC (Auto) (0-2) /hpf U Hyaline Cast (Auto) (0-2) /lpf U Epithel Cells (Auto) (0-2) /hpf Urine Bacteria (Auto) (None Seen) POC Ur Test (NEG) Administered Medications Discontinued Medications Hydromorphone HCl (Hydromorphone Inj 0.5 Mg/0.5 Ml Syr) 0.25 mg IV NOW STA Stop: 04/24/24 09:58 Last Admin: 04/24/24 10:07 Dose: 0.25 mg Documented By: ADAM Ceftriaxone Sodium (Rocephin) 2,000 mg in 50 mls @ 100 mls/hr IV NOW STA Stop: 04/24/24 09:32 Last Infusion: 04/24/24 10:10 Dose: Infused Documented By: Admin: 04/24/24 09:19 Dose: 100 mls/hr Documented By: ADAM Piperacillin Sod/Tazobactam Sod (Zosyn) 4.5 gm in 100 mls @ 200 mls/hr IV NOW ONE Stop: 04/24/24 10:15 Last Admin: 04/24/24 10:17 Dose: Not Given Documented By: ADAM Metronidazole (Flagyl) 500 mg in 100 mls @ 100 mls/hr IV NOW STA; Protocol Stop: 04/24/24 10:56 Last Infusion: 04/24/24 11:09 Dose: Infused Documented By: Admin: 04/24/24 10:05 Dose: 100 mls/hr Documented By: ADAM Ioversol (Optiray 320 100ml) 94 ml IV ONCE ONE Stop: 04/24/24 09:31 Last Admin: 04/24/24 09:30 Dose: 94 ml Documented By: SAE Ketorolac Tromethamine (Ketorolac Tromethamine 15 Mg/Ml Vial) 15 mg IV NOW ONE Stop: 04/24/24 08:21 Last Admin: 04/24/24 08:28 Dose: 15 mg Documented By: ADAM Ondansetron HCl (Ondansetron Inj 2 Mg/Ml 2 Ml Vial) 4 mg IV NOW STA Stop: 04/24/24 09:58 Last Admin: 04/24/24 10:05 Dose: 4 mg Documented By: ADAM Imaging Data Radiologist's Impression: Chest X-Ray 04/24/24 08:20 SINGLE VIEW CHEST CLINICAL HISTORY: Atypical chest pain FINDINGS: An AP, portable, upright chest radiograph is compared to study dated 11/07/2023 and correlated with chest CT dated 02/16/2024. The cardiomediastinal silhouette is top normal for projection. The lungs and pleural spaces are clear noting mild bibasilar atelectasis. No pneumothorax is seen. The skeletal structures are osteopenic. The bony thorax is grossly intact. Degenerative change and levocurvature is noted in the upper thoracic spine. IMPRESSION: No acute cardiopulmonary abnormality. ACT 112: Negative or not required by law. Electronically signed by: Ashish Bourne M.D. 04/24/2024 8:45 AM Abdomen/Pelvis CT 04/24/24 09:14 CT SCAN OF THE ABDOMEN AND PELVIS WITH IV CONTRAST CLINICAL HISTORY: Left upper quadrant abdominal pain. COMPARISON STUDY: Abdominal CT dated 03/16/2023. PET/CT dated 06/01/2023. TECHNIQUE: Following the IV administration of 94 cc of Optiray 320, CT scan of the abdomen and pelvis is performed from the lung bases to the proximal femora. Images are reviewed in the axial, sagittal, and coronal planes. IV contrast was administered without complication. A dose lowering technique was utilized adhering to the principles of ALARA. CT DOSE: 1204.51 mGy.cm FINDINGS: Lung bases: The heart is normal in size and without pericardial effusion. The lung bases are clear noting bibasilar scarring/atelectasis. Liver: The contrast-enhanced liver is normal in size, contour, and attenuation. There is no intrahepatic biliary ductal dilatation. The hepatic veins and portal veins are patent. Gallbladder: There are several calcified gallstones. The gallbladder is mildly distended, and the wall appears mildly thickened with faint surrounding infiltration. A 4 mm calcified gallstone is seen in the cystic duct on image #98. Spleen: Normal in size and attenuation. Pancreas: Unremarkable. Adrenal glands: Unremarkable. Kidneys: The contrast enhanced kidneys are normal in size and without hydronephrosis. The kidneys enhance symmetrically. Small renal sinus cysts are seen on the left. Abdominal vasculature: The abdominal aorta is normal in course and caliber noting mild to moderate atherosclerotic calcification. Bowel: There are scattered colonic diverticula without CT evidence of acute diverticulitis. No bowel obstruction is seen. The appendix is well-visualized and normal. Peritoneum: There is no intraperitoneal free air or abdominal ascites. There is laxity of the ventral abdominal wall and a tiny fat-containing umbilical hernia. Lymphadenopathy: There are mildly enlarged upper abdominal lymph nodes. A node at the diaphragmatic hiatus measures 2.6 x 1.1 cm. Gastrohepatic nodes measure up to 1.0 cm in short axis. There are also prominent subcentimeter retroperitoneal and iliac chain lymph nodes. Pelvic viscera: The bladder is decompressed and grossly unremarkable. The uterus and adnexa are normal as visualized. Skeletal structures: The skeletal structures are osteopenic. There is mild to moderate lumbosacral spondylosis. Sclerotic change is noted in the sacroiliac joints. No lytic or blastic lesions are seen. IMPRESSION: 1. Cholelithiasis with a small calcified gallstone in the cystic duct and evidence of mild acute cholecystitis. Surgical evaluation is advised. 2. Mildly enlarged upper abdominal and retroperitoneal lymph nodes are nonspecific and grossly similar to previous. These were FDG avid by PET on 06/01/2023. 3. Additional findings as above. ACT 112: Negative or not required by law. Electronically signed by: Ashish Bourne M.D. 04/24/2024 9:41 AM Discharge Plan Visit Data Chief Complaint: Abdominal Pain Stated Complaint: ABD PAIN ED Provider: Randall Shirley Discharge Problem: Cholecystitis, Abdominal pain, Chest pain Forms Stand Alone Forms: My [facility] Prescriptions Prescriptions: No Action (DME) OneTouch Verio test strips Strip See Rx Instructions .Route Qty: 100 5RF Rx Instructions: Use to check sugar 3 times a day. Lifetime need. (DME) blood-glucose meter [OneTouch Verio Reflect Start] Kit See Rx Instructions .Route Qty: 1 0RF Rx Instructions: As directed (DME) lancets [OneTouch Delica Plus Lancet] 33 gauge misc See Rx Instructions .Route Qty: 100 5RF Rx Instructions: Use to test sugar three times daily (DME) Portable Oxygen Misc See Rx Instructions .MEDSUPPLY Qty: 1 0RF Rx Instructions: Oxygen 3 L continuous via nasal cannula on exertion with portable concentrator. CUAUHTEMOC 99 Stiolto Respimat 2.5-2.5 mcg/actuation mist 2 puff inhalation DAILY Qty: 4 3RF carvedilol 6.25 mg tablet 6.25 mg PO BID Qty: 60 11RF Rx Instructions: must administer with a meal/food Eliquis 5 mg tablet 5 mg PO BID Qty: 60 2RF Farxiga 5 mg tablet 5 mg PO DAILY 30 Days Qty: 30 5RF pantoprazole 40 mg tablet,delayed release (DR/EC) 40 mg PO QPM Qty: 90 3RF albuterol sulfate [ProAir HFA] 90 mcg/actuation HFA aerosol inhaler 2 puff inhalation Q6H PRN (Reason: shortness of breath or wheezing) Qty: 8.5 5RF folic acid 1 mg tablet 1 mg PO DAILY Qty: 90 1RF azelastine 137 mcg (0.1 %) aerosol,spray 1 spray intranasal BID Qty: 30 2RF Rx Instructions: administer into each nostril (DME) Miscellaneous Pulmonary Supply Misc See Rx Instructions .Route Qty: 1 0RF Rx Instructions: Pulse oximeter. Use to check oxygen 3 times daily or as directed. Lifetime need. (DME) blood-glucose meter Kit See Rx Instructions .Route Qty: 1 0RF Rx Instructions: Check sugars twice daily or as directed. (DME) CPAP Machine Misc See Rx Instructions .MEDSUPPLY Qty: 1 0RF Rx Instructions: CPAP 13 cm water pressure C flex setting #2 with oxygen 1 liter/min. and heated humidificatin, tubing, and supplies. CUAUHTEMOC: 99+ years. (DME) CPAP Machine [facility] See Rx Instructions .MEDSUPPLY Qty: 1 0RF Rx Instructions: CPAP 13 cm water pressure C flex setting #2 with Oxygen 1 liter/min and heated humidification, tubing, and supplies. CUAUHTEMOC: 99+ years. (DME) Incentive Spirometer [facility] See Rx Instructions .MEDSUPPLY Qty: 1 0RF Rx Instructions: As directed furosemide 40 mg tablet 40 mg PO DAILY PRN (Reason: weight gain) Qty: 30 0RF Rx Instructions: Take for swelling of the legs or ankles OR weight gain of 2 - 3 lbs over baseline weight. losartan 25 mg tablet 25 mg PO QPM methotrexate sodium 2.5 mg tablet 10 mg PO WK Rx Instructions: TUESDAY 2.5 mg orally Take 4 tablets orally once a week; Referrals Referrals: Dottie Castro MD [Primary Care Provider] - Discharge Problem: Abdominal pain Qualifiers: Abdominal location: unspecified location Qualified Code(s): R10.9 - Unspecified abdominal pain Chest pain Qualifiers: Chest pain type: unspecified Qualified Code(s): R07.9 - Chest pain, unspecified
[2024-04-24] MEDS: KETOROLAC TROMETHAMINE 15 MG/ML VIAL IV ONE (08:28)
[2024-04-24 08:37] LABS: Basophils # (auto) 0.03 K/uL (0.00-0.20); Basophils % (auto) 0.7 %; Eosinophils # (auto) 0.15 K/uL (0.00-0.50); Eosinophils % (auto) 3.3 %; Hematocrit (blood only) 41.6 % (37.0-47.0); Immature Granulocytes # (auto) 0.01 K/uL (0.01-0.20); Immature Granulocytes % (auto) 0.2 %; Lymphocytes # (auto) 0.65 K/uL (1.20-3.40); Lymphocytes % (auto) 14.3 %; Mean Corpuscular Hemoglobin 33.2 pg (25.0-34.0); Mean Corpuscular Hgb Conc 33.7 g/dL (32.0-36.0); Mean Corpuscular Volume 98.6 fL (80.0-100.0); Mean Platelet Volume 9.6 fL (9.4-12.4); Monocytes # (auto) 0.33 K/uL (0.11-0.59); Monocytes % (auto) 7.3 %; Neutrophils # (auto) 3.38 K/uL (1.40-6.50); Neutrophils % (auto) 74.2 %; Platelet Count 171 K/uL (130-400); RDW Coefficient of Variation 13.9 % (11.5-14.5); RDW Standard Deviation 49.6 fL (36.4-46.3); Red Blood Count 4.22 M/uL (4.20-5.40); White Blood Count 4.55 K/ul (4.8-10.8)
[2024-04-24 08:40] LABS: Appearance Urine Cloudy (Clear); Bacteria Urine Automated 4+ (None Seen); Bilirubin Urine Negative (Negative); Blood Urine Negative (Negative); Cast Urine Automated 0-2 /lpf (0-2); Color Urine Yellow; Epithelial Cell Urine Auto 0-2 /hpf (0-2); Glucose Urine UA 3+ (Negative); Ketones Urine Trace (Negative); Leukocyte Esterase Urine Negative (Negative); Nitrite Urine Positive (Negative); Protein Urine Negative (Negative); RBC Urine Automated 0-2 /hpf (0-2); Specific Gravity Urine 1.029 (1.000-1.030); Urobilinogen Urine Negative (Negative)
--- NOTE | 2024-04-24 08:47 | XRay Report ---
SINGLE VIEW CHEST CLINICAL HISTORY: Atypical chest pain FINDINGS: An AP, portable, upright chest radiograph is compared to study dated 11/07/2023 and correla susan with chest CT dated 02/16/2024. The cardiomediastinal silhouette is top normal for projection. The lungs and pleural spaces are clear noting mild bibasilar atelectasis. No pneumothorax is seen. The s keletal structures are osteopenic. The bony thorax is grossly intact. Degenerative change and levocur vature is noted in the upper thoracic spine. IMPRESSION: No acute cardiopulmonary abnormality. ACT 112: Negative or not required by law. Electronically signed by: Ashish Bourne M.D. 04/24/2024 8:45 AM
[2024-04-24 08:52] LABS: Albumin Globulin Ratio 1.2 (0.9-2); Albumin Level 4.4 gm/dl (3.4-5.0); Bilirubin,Total 0.7 mg/dl (0.2-1.0); Est GFR (African American) 78.5 ml/min; Est GFR (Non-African American) 67.7 ml/min; Globulin 3.6 gm/dl (2.5-4.0); Potassium 4.7 mmol/L (3.5-5.1)
[2024-04-24 08:59] LABS: Troponin I High Sensitivity 12.3 pg/ml (0-14)
[2024-04-24] MEDS: cefTRIAXone SODIUM 2,000 MG/50 ML BAG IV STA (09:19)
[2024-04-24] MEDS: OPTIRAY 320 100ml IV ONE (09:30)
--- NOTE | 2024-04-24 09:43 | CT Scan Report ---
CT SCAN OF THE ABDOMEN AND PELVIS WITH IV CONTRAST CLINICAL HISTORY: Left upper quadrant abdominal pain. COMPARISON STUDY: Abdominal CT dated 03/16/2023. PET/CT dated 06/01/2023. TECHNIQUE: Following the IV administration of 94 cc of Optiray 320, CT scan of the abdomen and pelvi s is performed from the lung bases to the proximal femora. Images are reviewed in the axial, sagittal , and coronal planes. IV contrast was administered without complication. A dose lowering technique wa s utilized adhering to the principles of ALARA. CT DOSE: 1204.51 mGy.cm FINDINGS: Lung bases: The heart is normal in size and without pericardial effusion. The lung bases are clear no ting bibasilar scarring/atelectasis. Liver: The contrast-enhanced liver is normal in size, contour, and attenuation. There is no intrahepa tic biliary ductal dilatation. The hepatic veins and portal veins are patent. Gallbladder: There are several calcified gallstones. The gallbladder is mildly distended, and the wal l appears mildly thickened with faint surrounding infiltration. A 4 mm calcified gallstone is seen in the cystic duct on image #98. Spleen: Normal in size and attenuation. Pancreas: Unremarkable. Adrenal glands: Unremarkable. Kidneys: The contrast enhanced kidneys are normal in size and without hydronephrosis. The kidneys enh ance symmetrically. Small renal sinus cysts are seen on the left. Abdominal vasculature: The abdominal aorta is normal in course and caliber noting mild to moderate at herosclerotic calcification. Bowel: There are scattered colonic diverticula without CT evidence of acute diverticulitis. No bowel obstruction is seen. The appendix is well-visualized and normal. Peritoneum: There is no intraperitoneal free air or abdominal ascites. There is laxity of the ventral abdominal wall and a tiny fat-containing umbilical hernia. Lymphadenopathy: There are mildly enlarged upper abdominal lymph nodes. A node at the diaphragmatic h iatus measures 2.6 x 1.1 cm. Gastrohepatic nodes measure up to 1.0 cm in short axis. There are also p rominent subcentimeter retroperitoneal and iliac chain lymph nodes. Pelvic viscera: The bladder is decompressed and grossly unremarkable. The uterus and adnexa are cherelle l as visualized. Skeletal structures: The skeletal structures are osteopenic. There is mild to moderate lumbosacral sp ondylosis. Sclerotic change is noted in the sacroiliac joints. No lytic or blastic lesions are seen. IMPRESSION: 1. Cholelithiasis with a small calcified gallstone in the cystic duct and evidence of mild acute chol ecystitis. Surgical evaluation is advised. 2. Mildly enlarged upper abdominal and retroperitoneal lymph nodes are nonspecific and grossly simila r to previous. These were FDG avid by PET on 06/01/2023. 3. Additional findings as above. ACT 112: Negative or not required by law. Electronically signed by: Ashish Bourne M.D. 04/24/2024 9:41 AM
[2024-04-24] MEDS: metroNIDAZOLE 500 MG/100 ML BAG IV STA (10:05)
[2024-04-24] MEDS: ONDANSETRON INJ 2 MG/ML 2 ML VIAL IV STA (10:05)
[2024-04-24] MEDS: HYDROmorphone INJ 0.5 MG/0.5 ML SYR IV STA (10:07)
[2024-04-24] MEDS: PIPERACILLIN/TAZOBACTAM 4.5 GM/100 ML BAG IV ONE (10:17)
--- NOTE | 2024-04-24 11:22 | History & Physical Report ---
Date of Service April 24, 2024 Assessment & Plan (1) Acute cholecystitis: Plan: Acute onset of LUQ on the morning of 04/24 Patient attributes LUQ pain to history of splenomegaly in setting of sarcoidosis Patient denies RUQ; negative Leslie sign No leukocytosis (mild leukopenia on arrival); afebrile LFTs WNL A/P CT revealed cholelithiasis with a 4 mm calcified stone in the cystic duct, and evidence of mild acute cholecystitis Spleen reported to be normal in size and attenuation Gallbladder ultrasound reconfirmed high suspicion for acute cholecystitis Blood cultures ordered, pending Rocephin q24h + Flagyl q8h General surgery consulted Hold Eliquis for now Possible OR on 6/ A.m. CBC, CMP, mag (2) UTI (urinary tract infection): Plan: UA positive on arrival While patient denies burning with urination, she does note increased urinary urgency Antibiotics (as above) Follow UCx (3) Type 2 diabetes mellitus: Plan: Last A1c at 6.7% on 02/16/2024 Glucose 167 on admission Hold Yazmin SSI; with target BSG range 110-140mg/dL, CF 45, carb ratio 15 Clear liquid diet for now BSG ACHS Will add on Paris solution if patient becomes hypoglycemic Adjust regimen as needed (4) DIAMANTE (obstructive sleep apnea): Plan: 3L NC HS (5) History of DVT (deep vein thrombosis): Plan: Hold Eliquis for now (6) Sarcoidosis: Plan: Hold methotrexate for now [facility] Clear liquid diet VTE PPx: Hold Eliquis for now prior to potential surgery History of Present Illness Chief Complaint: Abdominal pain Primary Care Provider: Dottie Castro MD Richelle is a pleasant 58-year-old female with PMH of sarcoidosis, cardiomyopathy, ARON, T2DM, cholelithiasis, and DIAMANTE. She presented for acute onset of LUQ pain that radiates to her left flank, which woke her from sleep around 0300 on 04/24. She characterizes it as a constant, stabbing pain; rated 12/10 at its worst, 4/10 after receiving pain medicine in the ED. the pain is located under her left breast, and she reports that it hurts so bad that she could not breathe when she initially woke up. She felt better after sitting up in bed. The pain radiates across her chest to her sternum. It is not positional or worse when lying flat. While she has had past experiences of GERD and gastritis, she reports this pain feels different. She did not take any of her regular morning medications today; last took Eliquis on the evening of 04/23 around 8 PM. No recent change in diet. History of enlarged spleen secondary to her sarcoidosis; she reports this is caused her to have no appetite recently. Patient uses supplemental oxygen at night (3L NC) for her sleep apnea. She also uses supplemental oxygen as needed when she plans to walk extended distances. No prior history of abdominal surgeries prior. No prior issues with her gallbladder. She denies any recent injuries or trauma to the abdomen or pelvis. 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 She is mildly hypertensive at 162/75, bradycardic at 58 bpm, and SpO2 is 100% on 3L NC at time of admission. ED course: Toradol 15 mg IV Dilaudid 0.25 mg IV Ceftriaxone 2000 mg IV Flagyl 500 mg IV Ondansetron 4 mg IV ROS: Patient endorses sharp LUQ and epigastric pain, SOB at rest (secondary to pain), occassional night-sweats (which patient attributes to sarcoidosis), hot flashes, dry cough, and nausea. Patient denies fever, chills, dizziness, lightheadedness, SALVADOR, vomiting, diarrhea, burning with urination, dysuria, blood in urine/stool, change in urinary/bowel habits, or numbness/tingling in arms or legs. Allergies Allergy/AdvReac Type Severity Reaction Status Date / Time morphine Allergy Severe Chest Verified 04/24/24 09:41 tightness and pressure. latex Allergy Intermediate Hives Verified 04/24/24 09:41 azithromycin AdvReac Intermediate stomach Verified 04/24/24 09:41 pain fentanyl AdvReac Intermediate Vomiting Verified 04/24/24 09:41 lisinopril AdvReac Intermediate Cough Verified 04/24/24 09:41 metoprolol AdvReac Intermediate FELT WIPED Verified 04/24/24 09:41 OUT metformin AdvReac Mild Gastrointestinal Verified 04/24/24 15:41 Upset Home Medications Medication Instructions Recorded Confirmed Type furosemide 40 mg tablet 40 mg PO DAILY PRN weight gain #30 06/25/21 06/04/24 Rx tabs Miscellaneous Pulmonary Supply #1 ea 06/26/21 02/29/24 Rx blood sugar diagnostic [facility] 06/26/21 02/29/24 Rx Verio test strips) blood-glucose meter #1 ea 06/26/21 02/29/24 Rx blood-glucose meter (Oneuch #1 ea 06/26/21 02/29/24 Rx Verio Reflect Start kit) lancets 33 gauge (OneTouch Delica #100 ea 06/26/21 02/29/24 Rx Plus Lancet) losartan 25 mg tablet 25 mg PO QPM 10/28/21 04/24/24 History CPAP Machine #1 ea 02/16/22 02/29/24 Rx CPAP Machine #1 ea 02/16/22 02/29/24 Rx Incentive Spirometer #1 ea 07/18/23 02/29/24 Rx azelastine 137 mcg (0.1 %) nasal 1 spray intranasal BID #30 mL 08/17/23 04/24/24 Rx spray aerosol albuterol sulfate 90 mcg/actuation 2 puff inhalation Q6H PRN 11/02/23 04/24/24 Rx aerosol inhaler (ProAir HFA) shortness of breath or wheezing #8.5 grams folic acid 1 mg tablet 1 mg PO DAILY #90 tabs 11/02/23 04/24/24 Rx Portable Oxygen #1 ea 11/23/23 02/29/24 Rx tiotropium 2.5 mcg-olodaterol 2.5 2 puff inhalation DAILY #4 grams 11/23/23 04/24/24 Rx mcg/actuation mist for inhalation (Stiolto Respimat) carvedilol 6.25 mg tablet 6.25 mg PO BID #60 tabs 01/12/24 04/24/24 Rx apixaban 5 mg tablet (Eliquis) 5 mg PO BID #60 tabs 02/07/24 04/24/24 Rx Farxiga 5 mg tablet (dapagliflozin 5 mg PO DAILY 30 days #30 tabs 02/27/24 04/24/24 Rx propanediol) pantoprazole 40 mg tablet,delayed 40 mg PO QPM #90 tabs 02/29/24 04/24/24 Rx release methotrexate sodium 2.5 mg tablet 10 mg PO WK 04/24/24 04/24/24 History Past Med/Surg History Problem List (Updated 04/24/24 @ 15:31 by Lester Delacruz PA-C) Splenomegaly Chest pain (Acute) Abdominal pain (Acute) Cholecystitis (Acute) Abdominal pain Type 2 diabetes mellitus Acute cholecystitis Restrictive lung disease Chronic sinusitis Sarcoidosis Chronic respiratory failure with hypoxia Cardiomyopathy nonischemic per cardio records, EF 50-55% Premature ventricular contractions (Acute) Allergic rhinitis Palpitations Atrial tachycardia Abnormal cardiac conduction Daytime somnolence Nocturnal hypoxemia Cholelithiasis Epigastric abdominal pain (Acute) Physical deconditioning Iron deficiency ARON (iron deficiency anemia) Type 2 diabetes mellitus with obesity no meds, diet controlled Esophageal dysphagia LAD (lymphadenopathy), mediastinal DIAMANTE (obstructive sleep apnea) no device currently, uses 3 lpm nc at night Anemia HX Medical History (Updated 04/24/24 @ 15:31 by Lester Delacruz PA-C) COVID-19 Chronic systolic (congestive) heart failure On home oxygen therapy 3 lpm nc at night Thoracic lymphadenopathy Abdominal lymphadenopathy recent bone marrow bx was benign 03/2023. Following with Dr. Hall History of cardioversion History of DVT (deep vein thrombosis) lower extremity (unable to recall side). unk etiology. 10 years ago. Slow to wake up after anesthesia Atrial flutter follows with Dr. Palomo - last visit 06/2023 LBBB (left bundle branch block) GERD (gastroesophageal reflux disease) Kidney stones hx Anxiety History of palpitations NO MEDS Nausea and vomiting after administration of anesthetic agent FATIGUE FOR DAYS AFTERWARDS Surgical History History of esophagogastroduodenoscopy (EGD) History of bronchoscopy History of cardiac catheterization History of bone marrow biopsy History of ovarian cystectomy History of colonoscopy Hx of thumb surgery Family History Family/Other Family history of diabetes mellitus Grandmother Family history of diabetes mellitus Father Family hx of colon cancer Social History Smoking Status: Former smoker Tobacco Type: Cigarettes Age Started Using Tobacco: 17; Age Quit Using Tobacco: 47; packs per day: 2; Cigarettes Per Day: vapes daily - advised; Second Hand Exposure: Yes ( smokes); Do You Dip or Chew Tobacco: No; Hx Alcohol Use: No Hx Substance Use: No Preferred Language: Honduran Communication Ability: Effective Visual Impairment: No Limitations Hearing Ability: Normal Director Of Nuclear Medicine Required: No Beliefs That Will Affect Care: None marital status: Current Living Situation: Family How many Children do You have: 2 Feels Safe at Home: Yes Safety Concerns: Feels Safe At This Time Assistive Devices: Denture - Upper, Denture - Lower and Oxygen - at Night Review of Systems Review of Systems: See HPI above Physical Exam Physical Exam: General: no acute distress; pleasant affect; non-toxic appearing; well- nourished; cooperative; SpO2 100% on 3L NC HEENT: normocephalic, atraumatic; no scleral icterus; PERRLA; moist mucus membrane; vision and hearing grossly intact Neck: supple; no lymphadenopathy; trachea midline Skin: warm, dry without signs of tenting; no cyanosis; no rashes, bruising, lesions, or erythema noted CV: chest wall NTP; RRR; S1/S2 normal; no murmurs/rubs/gallops; pulses intact and symmetric at radial, DP, and PT Lungs: no acute respiratory distress; symmetrical chest wall expansion; clear breath sounds across all lung rivera w/o adventitious sounds; no wheezing ABD: Soft; negative Leslie sign; RUQ is NTP, however LUQ is TTP; BS present; no rebound/guarding; no distention; mild positive right CVA tenderness MSK: no tics or fasciculations; nonpitting edema in the LEs bilaterally Neuro: A&Ox3; normal mood and affect; fluent speech; no focal deficits; sensation grossly intact in the LEs b/l Results & Data Results & Data Vital Signs (Past 12 Hours) Vital Signs Temp Pulse Pulse Resp BP BP Pulse Ox 04/24/24 10:13 64 16 150/79 H 91 04/24/24 08:25 59 L 04/24/24 08:18 60 16 94 04/24/24 08:18 61 16 165/78 H 94 04/24/24 07:45 36.4 C L 64 20 171/76 H 97 O2 Del Method 04/24/24 10:13 Room Air 04/24/24 08:25 04/24/24 08:18 Room Air 06/04/24 08:18 Room Air 04/24/24 07:45 Room Air Laboratory Results Chest X-Ray 04/24/24 08:20 SINGLE VIEW CHEST CLINICAL HISTORY: Atypical chest pain FINDINGS: An AP, portable, upright chest radiograph is compared to study dated 11/07/2023 and correlated with chest CT dated 02/16/2024. The cardiomediastinal silhouette is top normal for projection. The lungs and pleural spaces are clear noting mild bibasilar atelectasis. No pneumothorax is seen. The skeletal structures are osteopenic. The bony thorax is grossly intact. Degenerative change and levocurvature is noted in the upper thoracic spine. IMPRESSION: No acute cardiopulmonary abnormality. ACT 112: Negative or not required by law. Electronically signed by: Ashish Bourne M.D. 04/24/2024 8:45 AM Abdomen/Pelvis CT 04/24/24 09:14 CT SCAN OF THE ABDOMEN AND PELVIS WITH IV CONTRAST CLINICAL HISTORY: Left upper quadrant abdominal pain. COMPARISON STUDY: Abdominal CT dated 03/16/2023. PET/CT dated 06/01/2023. TECHNIQUE: Following the IV administration of 94 cc of Optiray 320, CT scan of the abdomen and pelvis is performed from the lung bases to the proximal femora. Images are reviewed in the axial, sagittal, and coronal planes. IV contrast was administered without complication. A dose lowering technique was utilized adhering to the principles of ALARA. CT DOSE: 1204.51 mGy.cm FINDINGS: Lung bases: The heart is normal in size and without pericardial effusion. The lung bases are clear noting bibasilar scarring/atelectasis. Liver: The contrast-enhanced liver is normal in size, contour, and attenuation. There is no intrahepatic biliary ductal dilatation. The hepatic veins and portal veins are patent. Gallbladder: There are several calcified gallstones. The gallbladder is mildly distended, and the wall appears mildly thickened with faint surrounding infiltration. A 4 mm calcified gallstone is seen in the cystic duct on image #98. Spleen: Normal in size and attenuation. Pancreas: Unremarkable. Adrenal glands: Unremarkable. Kidneys: The contrast enhanced kidneys are normal in size and without hydronephrosis. The kidneys enhance symmetrically. Small renal sinus cysts are seen on the left. Abdominal vasculature: The abdominal aorta is normal in course and caliber noting mild to moderate atherosclerotic calcification. Bowel: There are scattered colonic diverticula without CT evidence of acute diverticulitis. No bowel obstruction is seen. The appendix is well-visualized and normal. Peritoneum: There is no intraperitoneal free air or abdominal ascites. There is laxity of the ventral abdominal wall and a tiny fat-containing umbilical hernia. Lymphadenopathy: There are mildly enlarged upper abdominal lymph nodes. A node at the diaphragmatic hiatus measures 2.6 x 1.1 cm. Gastrohepatic nodes measure up to 1.0 cm in short axis. There are also prominent subcentimeter re troperitoneal and iliac chain lymph nodes. Pelvic viscera: The bladder is decompressed and grossly unremarkable. The uterus and adnexa are normal as visualized. Skeletal structures: The skeletal structures are osteopenic. There is mild to moderate lumbosacral spondylosis. Sclerotic change is noted in the sacroiliac joints. No lytic or blastic lesions are seen. IMPRESSION: 1. Cholelithiasis with a small calcified gallstone in the cystic duct and evidence of mild acute cholecystitis. Surgical evaluation is advised. 2. Mildly enlarged upper abdominal and retroperitoneal lymph nodes are nonspecific and grossly similar to previous. These were FDG avid by PET on 06/01/2023. 3. Additional findings as above. ACT 112: Negative or not required by law. Electronically signed by: Ashish Bourne M.D. 04/24/2024 9:41 AM Diagnostic Findings Chest X-Ray 04/24/24 08:20 SINGLE VIEW CHEST CLINICAL HISTORY: Atypical chest pain FINDINGS: An AP, portable, upright chest radiograph is compared to study dated 11/07/2023 and correlated with chest CT dated 02/16/2024. The cardiomediastinal silhouette is top normal for projection. The lungs and pleural spaces are clear noting mild bibasilar atelectasis. No pneumothorax is seen. The skeletal structures are osteopenic. The bony thorax is grossly intact. Degenerative change and levocurvature is noted in the upper thoracic spine. IMPRESSION: No acute cardiopulmonary abnormality. ACT 112: Negative or not required by law. Electronically signed by: Ashish Bourne M.D. 04/24/2024 8:45 AM Abdomen/Pelvis CT 04/24/24 09:14 CT SCAN OF THE ABDOMEN AND PELVIS WITH IV CONTRAST CLINICAL HISTORY: Left upper quadrant abdominal pain. COMPARISON STUDY: Abdominal CT dated 03/16/2023. PET/CT dated 06/01/2023. TECHNIQUE: Following the IV administration of 94 cc of Optiray 320, CT scan of the abdomen and pelvis is performed from the lung bases to the proximal femora. Images are reviewed in the axial, sagittal, and coronal planes. IV contrast was administered without complication. A dose lowering technique was utilized adhering to the principles of ALARA. CT DOSE: 1204.51 mGy.cm FINDINGS: Lung bases: The heart is normal in size and without pericardial effusion. The lung bases are clear noting bibasilar scarring/atelectasis. Liver: The contrast-enhanced liver is normal in size, contour, and attenuation. There is no intrahepatic biliary ductal dilatation. The hepatic veins and portal veins are patent. Gallbladder: There are several calcified gallstones. The gallbladder is mildly distended, and the wall appears mildly thickened with faint surrounding infiltration. A 4 mm calcified gallstone is seen in the cystic duct on image #98. Spleen: Normal in size and attenuation. Pancreas: Unremarkable. Adrenal glands: Unremarkable. Kidneys: The contrast enhanced kidneys are normal in size and without hydronephrosis. The kidneys enhance symmetrically. Small renal sinus cysts are seen on the left. Abdominal vasculature: The abdominal aorta is normal in course and caliber noting mild to moderate atherosclerotic calcification. Bowel: There are scattered colonic diverticula without CT evidence of acute diverticulitis. No bowel obstruction is seen. The appendix is well-visualized and normal. Peritoneum: There is no intraperitoneal free air or abdominal ascites. There is laxity of the ventral abdominal wall and a tiny fat-containing umbilical hernia. Lymphadenopathy: There are mildly enlarged upper abdominal lymph nodes. A node at the diaphragmatic hiatus measures 2.6 x 1.1 cm. Gastrohepatic nodes measure up to 1.0 cm in short axis. There are also prominent subcentimeter retroperitoneal and iliac chain lymph nodes. Pelvic viscera: The bladder is decompressed and grossly unremarkable. The uterus and adnexa are normal as visualized. Skeletal structures: The skeletal structures are osteopenic. There is mild to moderate lumbosacral spondylosis. Sclerotic change is noted in the sacroiliac joints. No lytic or blastic lesions are seen. IMPRESSION: 1. Cholelithiasis with a small calcified gallstone in the cystic duct and evidence of mild acute cholecystitis. Surgical evaluation is advised. 2. Mildly enlarged upper abdominal and retroperitoneal lymph nodes are nonspecific and grossly similar to previous. These were FDG avid by PET on 06/01/2023. 3. Additional findings as above. ACT 112: Negative or not required by law. Electronically signed by: Ashish Bourne M.D. 04/24/2024 9:41 AM Supervising Physician Co-Signing Physician Notes I personally saw and examined the patient. I independently reviewed the labs, EKG, imaging, problem list, medication list, past medical history and family history. I verified all tong points and agree with Lester Delacruz PA-C with the following exceptions and/or additions: 58 year old female presents to the ER with left sided chest pain under her right breast. Started 3am this morning. No nausea, vomiting, change on bowels. O/E HS RRR, no murmurs, Chest CTAB, RUQ abdominal pain on inspiration, no pedal edema. A/P Acute cholecystitis - RUQ pain on deep palpation, hold Eliquis, ceftriaxone + metronidazole, consult surgery UTI - urinary urgency 2-3 days, ceftriaxone, follow up urine culture, hold Farxiga Left chest pain, right back pain - suspect this is MSK pain as reproducible on palpation secondary to underlying aceta cholecystis and UTI PG Care Time/CCT Total # of Minutes Spent Total Time Spent with Patient: Total time spent is greater than 50% in coordination of care (as documented) at patient's floor/unit and/or counseling patient: C[place] [address] INT INP/OBS CARE 3/75MIN Patient Type Established Medical Decision Making High Complexity Diagnoses Acute cholecystitis K81.0 UTI (urinary tract infection) N39.0 Type 2 diabetes mellitus E11.9 DIAMANTE (obstructive sleep apnea) G47.33 History of DVT (deep vein thrombosis) Z86.718 Sarcoidosis D86.9
--- NOTE | 2024-04-24 12:48 | Surgery Consultation ---
Date of Consultation April 24, 2024 Assessment & Plan (1) Abdominal pain: I am not convinced this is secondary to cholecystitis. Especially in the setting of cardiomyopathy perhaps she has just some surrounding gallbladder edema. I spoke with internal medicine. I recommend admitting her and start her on antibiotics. We will obtain an ultrasound to try and verify whether she truly has acute cholecystitis. We should hold her Eliquis. If she does not fact have acute cholecystitis we would plan laparoscopic cholecystectomy on . We discussed the options and risks. She agrees with the plan. (2) Type 2 diabetes mellitus: (3) Restrictive lung disease: (4) Sarcoidosis: (5) Cardiomyopathy: (6) Atrial tachycardia: (7) DIAMANTE (obstructive sleep apnea): History of Present Illness History of Present Illness Chika is a pleasant 58-year-old female who began having left upper quadrant pain and some mild nausea. When it did not resolve she had a presenting to the emergency room. Imaging suggests a gallstone in the neck of the gallbladder with some mild pericholecystic fluid consistent with early cholecystitis. This interestingly she is adamant about the pain being in the left upper quadrant under her breast and radiation around the left side of her chest to her back. She does have splenomegaly secondary to sarcoidosis. She does have a history of a left lower extremity DVT years ago but she remains on Eliquis secondary to atrial fibrillation. Allergies Allergy/AdvReac Type Severity Reaction Status Date / Time morphine Allergy Severe Chest Verified 04/24/24 09:41 tightness and pressure. latex Allergy Intermediate Hives Verified 04/24/24 09:41 azithromycin AdvReac Intermediate stomach Verified 04/24/24 09:41 pain fentanyl AdvReac Intermediate Vomiting Verified 04/24/24 09:41 lisinopril AdvReac Intermediate Cough Verified 04/24/24 09:41 metoprolol AdvReac Intermediate FELT WIPED Verified 04/24/24 09:41 OUT metformin AdvReac Mild Gastrointestinal Uncoded 04/24/24 09:41 Upset Home Medications Medication Instructions Recorded Confirmed Type furosemide 40 mg tablet 40 mg PO DAILY PRN weight gain #30 06/25/21 04/24/24 Rx tabs Miscellaneous Pulmonary Supply #1 ea 06/26/21 02/29/24 Rx blood sugar diagnostic (OneTouch #100 ea 06/26/21 02/29/24 Rx Verio test strips) blood-glucose meter #1 ea 06/26/21 02/29/24 Rx blood-glucose meter (OneTouch #1 ea 06/26/21 02/29/24 Rx Verio Reflect Start kit) lancets 33 gauge (OneTouch Delica #100 ea 06/26/21 02/29/24 Rx Plus Lancet) losartan 25 mg tablet 25 mg PO QPM 10/28/21 04/24/24 History CPAP Machine #1 ea 02/16/22 02/29/24 Rx CPAP Machine #1 ea 02/16/22 02/29/24 Rx Incentive Spirometer #1 ea 07/18/23 02/29/24 Rx azelastine 137 mcg (0.1 %) nasal 1 spray intranasal BID #30 mL 08/17/23 04/24/24 Rx spray aerosol albuterol sulfate 90 mcg/actuation 2 puff inhalation Q6H PRN 11/02/23 04/24/24 Rx aerosol inhaler (ProAir HFA) shortness of breath or wheezing #8.5 grams folic acid 1 mg tablet 1 mg PO DAILY #90 tabs 11/02/23 04/24/24 Rx Portable Oxygen #1 ea 11/23/23 02/29/24 Rx tiotropium 2.5 mcg-olodaterol 2.5 2 puff inhalation DAILY #4 grams 11/23/23 04/24/24 Rx mcg/actuation mist for inhalation (Stiolto Respimat) carvedilol 6.25 mg tablet 6.25 mg PO BID #60 tabs 01/12/24 04/24/24 Rx apixaban 5 mg tablet (Eliquis) 5 mg PO BID #60 tabs 02/07/24 04/24/24 Rx Farxiga 5 mg tablet (dapagliflozin 5 mg PO DAILY 30 days #30 tabs 02/27/24 04/24/24 Rx propanediol) pantoprazole 40 mg tablet,delayed 40 mg PO QPM #90 tabs 02/29/24 04/24/24 Rx release methotrexate sodium 2.5 mg tablet 10 mg PO WK 04/24/24 04/24/24 History Patient History Medical History (Updated 04/24/24 @ 12:42 by Venkatesh Rangel DO) COVID-19 Chronic systolic (congestive) heart failure On home oxygen therapy 3 lpm nc at night Splenomegaly Thoracic lymphadenopathy Abdominal lymphadenopathy recent bone marrow bx was benign 03/2023. Following with Dr. Hall History of cardioversion History of DVT (deep vein thrombosis) lower extremity (unable to recall side). unk etiology. 10 years ago. Slow to wake up after anesthesia Atrial flutter follows with Dr. Palomo - last visit 06/2023 LBBB (left bundle branch block) GERD (gastroesophageal reflux disease) Kidney stones hx Anxiety History of palpitations NO MEDS Nausea and vomiting after administration of anesthetic agent FATIGUE FOR DAYS AFTERWARDS Surgical History History of esophagogastroduodenoscopy (EGD) History of bronchoscopy History of cardiac catheterization History of bone marrow biopsy History of ovarian cystectomy History of colonoscopy Hx of thumb surgery Family History Family/Other Family history of diabetes mellitus Grandmother Family history of diabetes mellitus Father Family hx of colon cancer Social History Smoking Status: Former smoker Tobacco Type: Cigarettes Age Started Using Tobacco: 17; Age Quit Using Tobacco: 47; packs per day: 2; Cigarettes Per Day: vapes daily - advised; Second Hand Exposure: Yes ( smokes); Do You Dip or Chew Tobacco: No; Hx Alcohol Use: No Hx Substance Use: No Preferred Language: Frisian Communication Ability: Effective Visual Impairment: No Limitations Hearing Ability: Normal 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 Beliefs That Will Affect Care: None marital status: Current Living Situation: Spouse How many Children do You have: 2 Feels Safe at Home: Yes Assistive Devices: Denture - Upper, Denture - Lower and Oxygen - at Night Physical Exam Constitutional: WD/WN, vitals as above no acute distress and not ill appearing Eyes: PERRL, conjunctivae normal, anicteric sclerae EOM intact bilaterally ENMT: external ear and nose normal, oropharynx normal Ears: no hearing impairment Neck: trachea midline, no thyromegaly Respiratory: normal respiratory effort; no respiratory distress and does not use accessory muscles Cardiovascular: Rate/Rhythm: regular rate and regular rhythm Gastrointestinal (Abdomen): Soft. Her abdomen is actually nontender. There is no guarding or rebound. She has no right upper quadrant tenderness. Skin: no rashes, warm and dry Psychiatric: Orientation: alert, oriented x 3 and cooperative Results & Data Vital Signs (Past 12 Hours) Vital Signs Temp Pulse Pulse Resp BP BP Pulse Ox 04/24/24 11:39 58 L 18 162/75 H 100 04/24/24 11:12 58 L 18 95 04/24/24 11:06 56 L 15 88 L 04/24/24 10:57 57 L 13 04/24/24 10:42 57 L 14 95 04/24/24 10:30 57 L 15 91 04/24/24 10:21 60 17 94 04/24/24 10:18 60 17 91 04/24/24 10:13 64 16 150/79 H 91 04/24/24 10:00 58 L 16 04/24/24 09:57 63 17 04/24/24 09:42 60 17 04/24/24 09:33 63 17 04/24/24 08:39 60 16 93 04/24/24 08:25 59 L 04/24/24 08:18 60 16 94 04/24/24 08:18 61 16 165/78 H 94 04/24/24 07:45 36.4 C L 64 20 171/76 H 97 O2 Del Method O2 Flow Rate 04/24/24 11:39 04/24/24 11:12 04/24/24 11:06 Nasal Cannula 3 04/24/24 10:57 04/24/24 10:42 04/24/24 10:30 04/24/24 10:21 04/24/24 10:18 04/24/24 10:13 Room Air 04/24/24 10:00 04/24/24 09:57 04/24/24 09:42 04/24/24 09:33 04/24/24 08:39 04/24/24 08:25 04/24/24 08:18 Room Air 04/24/24 08:18 Room Air 04/24/24 07:45 Room Air PG Care Time/CCT Total # of Minutes Spent Total Time Spent with Patient: Total time spent is greater than 50% in coordination of care (as documented) at patient's floor/unit and/or counseling patient: Coding Level of Care Code 46320 IN/OBS CONSULT LVL 4,60M Diagnoses Abdominal pain R10.9 Type 2 diabetes mellitus E11.9 Restrictive lung disease J98.4 Sarcoidosis D86.9 Cardiomyopathy I42.9 Atrial tachycardia I47.1 DIAMANTE (obstructive sleep apnea) G47.33
[2024-04-24 13:57] LABS: Partial Thromboplastin Ratio 1.1; Partial Thromboplastin Time 30 Seconds (21-31)
--- NOTE | 2024-04-24 14:17 | Ultrasound Report ---
ULTRASOUND RIGHT UPPER QUADRANT ABDOMEN CLINICAL HISTORY: Acute cholecystitis. COMPARISON STUDY: Abdominal CT dated 04/24/2024 TECHNIQUE: Real-time, grayscale, and color flow sonography of the right upper quadrant of the abdomen was performed. Images are reviewed in the transverse and longitudinal planes. FINDINGS: Liver: The liver is normal in size and demonstrates heterogeneously increased echotexture indicating steatosis. There is no intrahepatic biliary ductal dilatation. The main portal vein is patent. Gallbladder: There are numerous shadowing calcified gallstones. The gallbladder wall is thickened demetrio suring about 5 mm. No pericholecystic fluid the seen. A sonographic Leslie's sign is reportedly absen t. The common bile duct measures up to 0.5 cm in diameter. Pancreas: Visualized portions of the pancreatic head and body are normal in appearance. Right kidney: Survey images of the right kidney demonstrate normal size and echotexture. There is no hydronephrosis. Ascites: None. IMPRESSION: 1. Cholelithiasis within a thick-walled gallbladder. Although a sonographic Leslie's sign is reported ly absent, finds are highly suspicious for acute cholecystitis when correlated with today's CT scan w hich showed a calcified stone in the cystic duct. 2. There is no intra or extrahepatic biliary ductal dilatation. 3. Hepatic steatosis. ACT 112: Negative or not required by law. Electronically signed by: Ashish Bourne M.D. 04/24/2024 2:15 PM
[2024-04-24] MEDS ORDERED: CARBOHYDRATES FOR HYPOGLYCEMIA PO PRN (15:26)
[2024-04-24] MEDS ORDERED: GLUCOSE 40% GEL 15 GM TUBE PO PRN (15:26)
[2024-04-24] MEDS ORDERED: GLUCOSE 10 TAB/TUBE PO PRN (15:26)
[2024-04-24] MEDS ORDERED: GLUCAGON FOR INJ 1 MG VIAL SQ PRN (15:26)
[2024-04-24] MEDS ORDERED: DEXTROSE 50% 50 ML SYRINGE IV PRN (15:26)
[2024-04-24] MEDS ORDERED: ALBUTEROL HFA 8 GM INHALER INH PRN (15:26)
[2024-04-24] MEDS: INSULIN ASPART PER UNIT CHARGE SC SCH (17:39)
[2024-04-24] MEDS: ACETAMINOPHEN 325 MG TAB PO PRN (21:20)
[2024-04-24] MEDS: metroNIDAZOLE 500 MG/100 ML BAG IV SCH (21:21)
[2024-04-24] MEDS: AZELASTINE HCL 0.1% NASAL 200 SPRAYS/27,400 MCG BTL SCH (21:22)
[2024-04-24] MEDS: carvediloL 6.25 MG TAB PO SCH (21:23)
[2024-04-24] MEDS: PANTOprazole 40 MG TAB PO SCH (21:24)
[2024-04-24] MEDS: LOSARTAN POTASSIUM 25 MG TAB PO SCH (21:24)
[2024-04-24] MEDS: ONDANSETRON INJ 2 MG/ML 2 ML VIAL IV PRN (23:07)
[2024-04-24] MEDS: KETOROLAC TROMETHAMINE 15 MG/ML VIAL IV PRN (23:09)
[2024-04-25] MEDS ORDERED: Nursing to Pharmacy Communication SCH (00:30)
[2024-04-25 06:43] LABS: Basophils # (auto) 0.03 K/uL (0.00-0.20); Basophils % (auto) 0.8 %; Eosinophils # (auto) 0.19 K/uL (0.00-0.50); Eosinophils % (auto) 5.2 %; Hematocrit (blood only) 37.9 % (37.0-47.0); Hemoglobin 12.7 g/dl (12.0-16.0); Immature Granulocytes # (auto) 0.01 K/uL (0.01-0.20); Immature Granulocytes % (auto) 0.3 %; Lymphocytes # (auto) 0.72 K/uL (1.20-3.40); Lymphocytes % (auto) 19.7 %; Mean Corpuscular Hemoglobin 33.2 pg (25.0-34.0); Mean Corpuscular Hgb Conc 33.5 g/dL (32.0-36.0); Mean Corpuscular Volume 99.2 fL (80.0-100.0); Mean Platelet Volume 9.6 fL (9.4-12.4); Monocytes # (auto) 0.41 K/uL (0.11-0.59); Monocytes % (auto) 11.2 %; Neutrophils # (auto) 2.29 K/uL (1.40-6.50); Neutrophils % (auto) 62.8 %; Platelet Count 159 K/uL (130-400); RDW Coefficient of Variation 14.1 % (11.5-14.5); RDW Standard Deviation 50.4 fL (36.4-46.3); Red Blood Count 3.82 M/uL (4.20-5.40); White Blood Count 3.65 K/ul (4.8-10.8)
[2024-04-25 07:08] LABS: Albumin Globulin Ratio 1.3 (0.9-2); BUN Creatinine Ratio 20.2 (10-20); Bilirubin,Total 0.6 mg/dl (0.2-1.0); Calcium 8.9 mg/dl (8.6-10.3); Creatinine Clr Calc Pharmacy 62.7 ml/min; Est GFR (African American) 68.6 ml/min; Est GFR (Non-African American) 59.2 ml/min; Globulin 3.1 gm/dl (2.5-4.0); Magnesium 2.1 mg/dl (1.7-2.4); Potassium 4.2 mmol/L (3.5-5.1); Total Protein 7.1 gm/dl (6.0-8.3)
[2024-04-25] MEDS: FOLIC ACID 1 MG TAB PO SCH (08:38)
[2024-04-25] MEDS: UMECLIDINIUM/VILANTEROL 62.5/25MCG 7 PUFFS/INHALER INH SCH (08:39)
[2024-04-25] MEDS: cefTRIAXone SODIUM 2,000 MG/50 ML BAG IV SCH (08:39)
--- NOTE | 2024-04-25 10:33 | Cardiology Consultation ---
Date of Consultation April 25, 2024 Assessment & Plan (1) Cholecystitis: (2) Sarcoidosis: (3) Chronic respiratory failure with hypoxia: (4) Cardiomyopathy: Plan Pmhx: 1. Left bundle-branch block. 2. History of mild presumed nonischemic cardiomyopathy May 2021 at the time of episode of atrial flutter with a rapid ventricular response. 3. Recovery of her LV function August 2021 with normal biventricular size and function and no significant valvular heart disease. 4. Status post cardioversion for atrial flutter 05/2021, currently on long-term anticoagulation. 5. Hypertension. 6. Ongoing workup for hepatomegaly and splenomegaly 7. Cardiac and pulmonary sarcoid - cardiac MRI 2022 showing top normal LV volume with low normal systolic function, EF 54%, normal RV volume and systolic function, biatrial dilation, mild mitral and tricuspid regurgitation, DHE imag ing showing a small area of endocardial enhancement that correlates with the hypokinetic myocardium. Ms. Verde has not been seen by our clinic since September and the heart failure clinic in [place] since November. She missed her follow up PET scan ordered by the HF clinic. Currently she appears to be at her baseline. She can achieve 4 METS without supplemental oxygen. She is high risk for cardiac and pulmonary complications perioperatively, in the 5-10% range. Transfer to tertiary care for surgery could be considered, but defer to surgery's judgement. She is maintaining sinus rhythm on the monitor. Her Eliquis has been held for surgery. This should be resumed as soon as ok with surgery from a bleeding risk standpoint. She appears euvolemic. Is&Os should be monitored. History of Present Illness Attending Physician: Martha Vanegas MD History of Present Illness Ms. Segura presented to the hospital yesterday with acute onset of left upper quadrant pain which she attributed to her history of splenomegaly. CT revealed cholelithiasis with a 4 mm calcified stone in the cystic duct and evidence of mild acute cholecystitis. The spleen was reported to be normal in size and attenuation. Gallbladder ultrasound also reported high suspicion for acute c holecystitis. Her Eliquis was hold in preparation for general surgery consult. She also appears to have UTI. This morning her belly pain is better controlled. She denies chest pain or sob. No edema. She has not noticed any weight gain at home. She notes that she goes up and down her stairs at home and has not needed oxygen during the day unless she is going to be going to multiple stores. She has been SR on the monitor. Allergies Allergy/AdvReac Type Severity Reaction Status Date / Time morphine Allergy Severe Chest Verified 04/24/24 09:41 tightness and pressure. latex Allergy Intermediate Hives Verified 04/24/24 09:41 azithromycin AdvReac Intermediate stomach Verified 04/24/24 09:41 pain fentanyl AdvReac Intermediate Vomiting Verified 04/24/24 09:41 lisinopril AdvReac Intermediate Cough Verified 04/24/24 09:41 metoprolol AdvReac Intermediate FELT WIPED Verified 04/24/24 09:41 OUT metformin AdvReac Mild Gastrointestinal Verified 04/24/24 15:41 Upset Home Medications Medication Instructions Recorded Confirmed Type furosemide 40 mg tablet 40 mg PO DAILY PRN weight gain #30 06/25/21 04/24/24 Rx tabs Miscellaneous Pulmonary Supply #1 ea 06/26/21 02/29/24 Rx blood sugar diagnostic (CyActiveTouch #100 ea 06/26/21 02/29/24 Rx Verio test strips) blood-glucose meter #1 ea 06/26/21 02/29/24 Rx blood-glucose meter (OneTouch #1 ea 06/26/21 02/29/24 Rx Verio Reflect Start kit) lancets 33 gauge (OneTouch Delica #100 ea 06/26/21 02/29/24 Rx Plus Lancet) losartan 25 mg tablet 25 mg PO QPM 10/28/21 04/24/24 History CPAP Machine #1 ea 02/16/22 02/29/24 Rx CPAP Machine #1 ea 02/16/22 02/29/24 Rx Incentive Spirometer #1 ea 07/18/23 02/29/24 Rx azelastine 137 mcg (0.1 %) nasal 1 spray intranasal BID #30 mL 08/17/23 04/24/24 Rx spray aerosol albuterol sulfate 90 mcg/actuation 2 puff inhalation Q6H PRN 11/02/23 04/24/24 Rx aerosol inhaler (ProAir HFA) shortness of breath or wheezing #8.5 grams folic acid 1 mg tablet 1 mg PO DAILY #90 tabs 11/02/23 04/24/24 Rx Portable Oxygen #1 ea 11/23/23 02/29/24 Rx tiotropium 2.5 mcg-olodaterol 2.5 2 puff inhalation DAILY #4 grams 11/23/23 04/24/24 Rx mcg/actuation mist for inhalation (Stiolto Respimat) carvedilol 6.25 mg tablet 6.25 mg PO BID #60 tabs 01/12/24 04/24/24 Rx apixaban 5 mg tablet (Eliquis) 5 mg PO BID #60 tabs 02/07/24 04/24/24 Rx Farxiga 5 mg tablet (dapagliflozin 5 mg PO DAILY 30 days #30 tabs 02/27/24 04/24/24 Rx propanediol) pantoprazole 40 mg tablet,delayed 40 mg PO QPM #90 tabs 02/29/24 04/24/24 Rx release methotrexate sodium 2.5 mg tablet 10 mg PO WK 04/24/24 04/24/24 History Patient History Medical History COVID-19 Chronic systolic (congestive) heart failure On home oxygen therapy 3 lpm nc at night Thoracic lymphadenopathy Abdominal lymphadenopathy recent bone marrow bx was benign 03/2023. Following with Dr. Hall History of cardioversion History of DVT (deep vein thrombosis) lower extremity (unable to recall side). unk etiology. 10 years ago. Slow to wake up after anesthesia Atrial flutter follows with Dr. Palomo - last visit 06/2023 LBBB (left bundle branch block) GERD (gastroesophageal reflux disease) Kidney stones hx Anxiety History of palpitations NO MEDS Nausea and vomiting after administration of anesthetic agent FATIGUE FOR DAYS AFTERWARDS Surgical History History of esophagogastroduodenoscopy (EGD) History of bronchoscopy History of cardiac catheterization 10 years ago - [facility] - no stents History of bone marrow biopsy History of ovarian cystectomy History of colonoscopy Hx of thumb surgery LEFT TENDON SURG Family History Family/Other Family history of diabetes mellitus Grandmother Family history of diabetes mellitus Father Family hx of colon cancer Social History Smoking Status: Former smoker Tobacco Type: Cigarettes Age Started Using Tobacco: 17; Age Quit Using Tobacco: 47; packs per day: 2; Cigarettes Per Day: vapes daily - advised; Second Hand Exposure: Yes ( smokes); Do You Dip or Chew Tobacco: No; Hx Alcohol Use: No Hx Substance Use: No Preferred Language: Mexican Communication Ability: Effective Visual Impairment: No Limitations Hearing Ability: Normal 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 Beliefs That Will Affect Care: None marital status: Current Living Situation: Family How many Children do You have: 2 Feels Safe at Home: Yes Safety Concerns: Feels Safe At This Time Assistive Devices: Denture - Upper, Denture - Lower and Oxygen - at Night Review of Systems Review of Systems: All systems reviewed & are unremarkable except as noted in HPI & below Physical Exam Constitutional: WD/WN, vitals as above Respiratory: normal respiratory effort, lungs clear to auscultation Cardiovascular: RRR, no murmur, no edema Skin: no rashes, warm and dry Neurologic: moves all extremities and awake Psychiatric: A+Ox3, euthymic affect Results & Data Vital Signs (Past 12 Hours) Vital Signs Temp Pulse Pulse Resp BP Pulse Ox O2 Del Method 04/25/24 07:45 36.4 C L 53 L 18 117/71 99 Nasal Cannula 04/25/24 07:38 Room Air 04/25/24 07:27 52 L 04/25/24 07:26 53 L 04/25/24 04:00 36.7 C 60 18 114/71 98 Nasal Cannula 04/24/24 23:00 36.5 C 83 18 129/71 99 Nasal Cannula O2 Flow Rate 04/25/24 07:45 3 04/25/24 07:38 04/25/24 07:27 04/25/24 07:26 04/25/24 04:00 3 04/24/24 23:00 3
--- NOTE | 2024-04-25 13:26 | Surgery Progress Note ---
Date of Service April 25, 2024 Assessment & Plan (1) Cholecystitis: Plan: d/w Dr. Titus/ Luba Lacy from cardiology. pt reasonably high risk secondary to cardiac/pulm issues. will obtain Echo at anesthesia request. tertiary center apparently would offer no further benefit other than supportive care. will d/w anesthesia after echo results. plan lap karen tomorrow if ok with anesthesia. (2) Type 2 diabetes mellitus: (3) Restrictive lung disease: (4) Sarcoidosis: (5) Cardiomyopathy: Admission and Anticipated Discharge Date Admission Date: April 24, 2024 Subjective pt seen. her pain now has localized to RUQ. US + acute cholecystitis Physical Exam Constitutional: WD/WN, vitals as above no acute distress and not ill appearing Eyes: PERRL, conjunctivae normal, anicteric sclerae EOM intact bilaterally ENMT: external ear and nose normal, oropharynx normal Ears: no hearing impairment Neck: trachea midline, no thyromegaly Respiratory: normal respiratory effort; no respiratory distress and does not use accessory muscles Cardiovascular: Rate/Rhythm: regular rate and regular rhythm Gastrointestinal (Abdomen): soft. +RUQ ttp. no guarding. Skin: no rashes, warm and dry Psychiatric: Orientation: alert, oriented x 3 and cooperative Results & Data Vital Signs (Past 12 Hours) Vital Signs Temp Pulse Pulse Resp BP BP Pulse Ox 04/25/24 11:29 36.4 C L 53 L 18 104/63 90 04/25/24 07:45 36.4 C L 53 L 18 117/71 99 04/25/24 07:38 04/25/24 07:27 52 L 04/25/24 07:26 53 L 04/25/24 04:00 36.7 C 60 18 114/71 98 O2 Del Method O2 Flow Rate 04/25/24 11:29 Room Air 04/25/24 07:45 Nasal Cannula 3 04/25/24 07:38 Room Air 04/25/24 07:27 04/25/24 07:26 04/25/24 04:00 Nasal Cannula 3 PG Care Time/CCT Total # of Minutes Spent Total Time Spent with Patient: Total time spent is greater than 50% in coordination of care (as documented) at patient's floor/unit and/or counseling patient: Coding Level of Care Code 42856 SUB INP/OBS CARE 3/50MIN Diagnoses Cholecystitis K81.9 Type 2 diabetes mellitus E11.9 Restrictive lung disease J98.4 Sarcoidosis D86.9 Cardiomyopathy I42.9
--- NOTE | 2024-04-25 16:34 | Hospitalist Progress Note ---
Date of Service April 25, 2024 Assessment & Plan (1) Acute cholecystitis: Plan: Acute onset of LUQ on the morning of 04/24 awoke from sleep. patient attributes LUQ pain to history of splenomegaly in setting of sarcoidosis No leukocytosis (mild leukopenia on arrival); afebrile - however immunosuppressed on methotrexate LFTs WNL A/P CT revealed cholelithiasis with a 4 mm calcified stone in the cystic duct, and evidence of mild acute cholecystitis Spleen reported to be normal in size and attenuation Gallbladder ultrasound reconfirmed high suspicion for acute cholecystitis Blood cultures: NG 24 hours Rocephin q24h + Flagyl q8h General surgery consulted Hold Eliquis for now Plan for OR on 04/26 in anesthesia is agreeable - -> echo pending Cardiology consulted for preoperative management -at her baselined, can achieve 4 METs - High risk for cardio and pulmonary complications --> defer to surgery judgement if tertiary care is needed Switch to dilaudid for pain control (tolerated in the ED without issue) lisinopril held in anticipation for surgery A.m. CBC, CMP (2) UTI (urinary tract infection): Plan: UA positive on arrival Antibiotics as above (CTX and flagyl) Follow UCx: GNB (3) Type 2 diabetes mellitus: Plan: Last A1c at 6.7% on 02/16/2024 Glucose 167 on admission Hold [place] SSI; with target BSG range 110-140mg/dL, CF 45, carb ratio 15 BSG ACHS (4) DIAMANTE (obstructive sleep apnea): Plan: 3L NC HS (5) History of DVT (deep vein thrombosis): Plan: Eliquis on hold (6) Sarcoidosis: Plan: With known cardiac sarcoid as well as pulmonary, and with hepatosplenomegaly related to sarcoid Hold methotrexate while with acute infection ECHO as above (7) Atrial flutter: Plan: h/o PAF, currently in sinus rhythm holding Eliquis for surgery continue Coreg Plan Disposition: continued inpatient stay, anticipate OR tomorrow VTE PPx: Hold Eliquis for now prior to potential surgery Admission and Anticipated Discharge Date Admission Date: April 24, 2024 Supervising Physician Co-Signing Physician Notes PA Supervision Note: I did not personally see or examine the patient today, but I verified all tong points of AMAURI Pandya's assessment and plan with the following exceptions/additions: None Subjective Patient resting in bed when I visited this afternooon. reprorts fatigue. Abdominal pain controlled with recent toradol but has localized to RUQ. poor apetite. No acute complaints Review of Systems Review of Systems: All systems reviewed & are unremarkable except as noted in Subjective Physical Exam Physical Exam: General: NAD, VS as above Resp: normal respiratory effort, lungs clear to auscultation CV: RRR, no murmur, Abd: normal bowel sounds, soft + tenderness Extremities: Moves all extremities, no edema Neuro: A&O x3, Skin: intact, no lesions noted Results & Data Results & Data Vital Signs (Past 12 Hours) Vital Signs Temp Pulse Pulse Resp BP BP Pulse Ox 04/25/24 15:40 36.5 C 52 L 18 120/62 94 04/25/24 15:39 58 L 04/25/24 15:26 04/25/24 11:29 36.4 C L 53 L 18 104/63 90 04/25/24 07:45 36.4 C L 53 L 18 117/71 99 04/25/24 07:38 04/25/24 07:27 52 L 04/25/24 07:26 53 L Pulse Ox O2 Del Method O2 Del Method O2 Flow Rate 04/25/24 15:40 Room Air 04/25/24 15:39 04/25/24 15:26 94 Room Air 04/25/24 11:29 Room Air 04/25/24 07:45 Nasal Cannula 3 04/25/24 07:38 Room Air 04/25/24 07:27 04/25/24 07:26 Laboratory Results CBC chemistry reviewed PG Care Time/CCT Total # of Minutes Spent Total Time Spent with Patient: Total time spent is greater than 50% in coordination of care (as documented) at patient's floor/unit and/or counseling patient: Coding Level of Care Code 78527 SUB INP/OBS CARE 2/35MIN Diagnoses Acute cholecystitis K81.0 UTI (urinary tract infection) N39.0 Type 2 diabetes mellitus E11.9 DIAMANTE (obstructive sleep apnea) G47.33 History of DVT (deep vein thrombosis) Z86.718 Sarcoidosis D86.9 Atrial flutter I48.92
[2024-04-25] MEDS: HYDROmorphone INJ 0.5 MG/0.5 ML SYR IV PRN (20:15)
--- NOTE | 2024-04-25 21:41 | XCELERA ---
[id number] [id number]
[2024-04-26 07:05] LABS: Basophils # (auto) 0.03 K/uL (0.00-0.20); Basophils % (auto) 1.1 %; Eosinophils # (auto) 0.19 K/uL (0.00-0.50); Eosinophils % (auto) 7.2 %; Hematocrit (blood only) 34.4 % (37.0-47.0); Hemoglobin 11.3 g/dl (12.0-16.0); Immature Granulocytes # (auto) 0.01 K/uL (0.01-0.20); Immature Granulocytes % (auto) 0.4 %; Lymphocytes # (auto) 0.57 K/uL (1.20-3.40); Lymphocytes % (auto) 21.6 %; Mean Corpuscular Hemoglobin 32.8 pg (25.0-34.0); Mean Corpuscular Hgb Conc 32.8 g/dL (32.0-36.0); Mean Platelet Volume 9.7 fL (9.4-12.4); Monocytes # (auto) 0.34 K/uL (0.11-0.59); Monocytes % (auto) 12.9 %; Neutrophils % (auto) 56.8 %; Platelet Count 152 K/uL (130-400); RDW Standard Deviation 51.1 fL (36.4-46.3); Red Blood Count 3.44 M/uL (4.20-5.40); White Blood Count 2.64 K/ul (4.8-10.8)
--- NOTE | 2024-04-26 07:13 | History & Physical Bridge Note ---
Date of Service April 26, 2024 History & Physical Bridge Note I have examined the patient, reviewed the History & Physical and in the interval since the performance of the History & Physical I have noted the following changes of clinical significance: no changes noted
[2024-04-26 07:31] LABS: Albumin Globulin Ratio 1.3 (0.9-2); Albumin Level 3.9 gm/dl (3.4-5.0); BUN Creatinine Ratio 15.2 (10-20); Bilirubin,Total 0.5 mg/dl (0.2-1.0); Calcium 8.7 mg/dl (8.6-10.3); Est GFR (African American) 72.8 ml/min; Est GFR (Non-African American) 62.8 ml/min; Globulin 2.9 gm/dl (2.5-4.0); Potassium 4.2 mmol/L (3.5-5.1); Total Protein 6.8 gm/dl (6.0-8.3)
[2024-04-26] MEDS ORDERED: HYDROmorphone INJ 2 MG/ML SYR/VIAL ONE (11:47)
[2024-04-26] MEDS ORDERED: ONDANSETRON INJ 2 MG/ML 2 ML VIAL ONE (11:48)
[2024-04-26] MEDS ORDERED: ROCURONIUM BROMIDE 10 MG/ML 5 ML VIAL IV ONE ×2 (11:48→13:16)
[2024-04-26] MEDS ORDERED: DEXAMETHASONE SOD INJ 4 MG/ML VIAL ONE (11:48)
[2024-04-26] MEDS ORDERED: LIDOCAINE 2% 2 ML VIAL/AMP(20MG/ML) INFIL ONE (11:48)
[2024-04-26] MEDS ORDERED: PROPOFOL IV EMULSION 10 MG/ML 20 ML VIAL IV ONE (11:48)
--- NOTE | 2024-04-26 11:58 | Anesthesiology Consultation ---
Date of Service April 26, 2024 Assessment & Plan Chart Review Chart Review: Acceptable Risk for Surgery and Patient NOT seen in Pre Admission Testing Consults Requested none ASA ASA3 Proposed Anesthesia Anesthesia Type: General History Surgery Operation Date: 04/26/24 12:00 Proposed Procedures p Laparoscopic Cholecystectomy - Venkatesh Rangel, Height/Weight Height: 5 ft 2 in Weight: 93.6 kg Allergies Allergy/AdvReac Type Severity Reaction Status Date / Time morphine Allergy Severe Chest Verified 04/24/24 09:41 tightness and pressure. latex Allergy Intermediate Hives Verified 04/24/24 09:41 azithromycin AdvReac Intermediate stomach Verified 04/24/24 09:41 pain fentanyl AdvReac Intermediate Vomiting Verified 04/24/24 09:41 lisinopril AdvReac Intermediate Cough Verified 04/24/24 09:41 metoprolol AdvReac Intermediate FELT WIPED Verified 04/24/24 09:41 OUT metformin AdvReac Mild Gastrointestinal Verified 04/24/24 15:41 Upset Medications Home Medications Medication Instructions Recorded Confirmed Last Taken furosemide 40 mg tablet 40 mg PO DAILY PRN weight gain #30 06/25/21 04/24/24 2 Weeks Ago tabs ~04/10/24 Miscellaneous Pulmonary Supply #1 ea 06/26/21 02/29/24 Unknown blood sugar diagnostic (OneTouch #100 ea 06/26/21 02/29/24 Unknown Verio test strips) blood-glucose meter #1 ea 06/26/21 02/29/24 Unknown blood-glucose meter (OneTouch #1 ea 06/26/21 02/29/24 Unknown Verio Reflect Start kit) lancets 33 gauge (OneTouch Delica #100 ea 06/26/21 02/29/24 Unknown Plus Lancet) losartan 25 mg tablet 25 mg PO QPM 10/28/21 04/24/24 04/23/24 CPAP Machine #1 ea 02/16/22 02/29/24 Unknown CPAP Machine #1 ea 02/16/22 02/29/24 Unknown Incentive Spirometer #1 ea 07/18/23 02/29/24 Unknown azelastine 137 mcg (0.1 %) nasal 1 spray intranasal BID #30 mL 08/17/23 04/24/24 Unknown spray aerosol albuterol sulfate 90 mcg/actuation 2 puff inhalation Q6H PRN 11/02/23 04/24/24 Unknown aerosol inhaler (ProAir HFA) shortness of breath or wheezing #8.5 grams folic acid 1 mg tablet 1 mg PO DAILY #90 tabs 11/02/23 04/24/24 04/23/24 Portable Oxygen #1 ea 11/23/23 02/29/24 Unknown tiotropium 2.5 mcg-olodaterol 2.5 2 puff inhalation DAILY #4 grams 11/23/23 04/24/24 04/23/24 mcg/actuation mist for inhalation (Stiolto Respimat) carvedilol 6.25 mg tablet 6.25 mg PO BID #60 tabs 01/12/24 04/24/24 04/23/24 apixaban 5 mg tablet (Eliquis) 5 mg PO BID #60 tabs 02/07/24 04/24/24 04/23/24 Farxiga 5 mg tablet (dapagliflozin 5 mg PO DAILY 30 days #30 tabs 02/27/24 04/24/24 04/23/24 propanediol) pantoprazole 40 mg tablet,delayed 40 mg PO QPM #90 tabs 02/29/24 04/24/24 04/23/24 release methotrexate sodium 2.5 mg tablet 10 mg PO WK 04/24/24 04/24/24 04/17/24 Active Medications Generic Name Dose Route Start Last Admin Trade Name Freq PRN Reason Stop Dose Admin Acetaminophen 650 mg 04/24/24 15:26 04/26/24 10:13 Acetaminophen 325 Mg Tab PO 05/24/24 15:25 650 mg Q4H PRN Administration Pain or Fever Azelastine HCl 1 sprays 04/24/24 21:00 04/26/24 08:01 Azelastine Hcl 0.1% Nasal 200 Sprays/27,400 Mcg Btl NA 05/24/24 20:59 1 sprays BID KAILEE Administration Carvedilol 6.25 mg 04/24/24 17:00 04/26/24 08:01 Carvedilol 6.25 Mg Tab PO 05/24/24 16:59 Not Given BIDM KAILEE Folic Acid 1 mg 04/25/24 09:00 04/26/24 08:01 Folic Acid 1 Mg Tab PO 05/25/24 08:59 1 mg DAILY KAILEE Administration Hydromorphone HCl 0.25 mg 04/25/24 16:30 04/26/24 05:03 Hydromorphone Inj 0.5 Mg/0.5 Ml Syr IV 05/09/24 16:29 0.25 mg Q6H PRN Administration Pain Ceftriaxone Sodium 2,000 mg in 50 mls @ 100 mls/hr 04/25/24 09:00 04/26/24 08:36 Rocephin IV 04/29/24 08:59 Infused Q24H KAILEE Infusion Metronidazole 500 mg in 100 mls @ 100 mls/hr 04/24/24 18:00 04/26/24 06:09 Flagyl IV 04/28/24 17:59 Infused Q8H KAILEE Infusion Protocol Insulin Aspart 0 units 04/24/24 16:30 04/26/24 08:38 Insulin Aspart Per Unit Charge SC 05/24/24 16:29 Not Given ACHS KAILEE Losartan Potassium 25 mg 04/24/24 21:00 04/24/24 21:24 Losartan Potassium 25 Mg Tab PO 05/24/24 20:59 25 mg QPM KAILEE Administration Ondansetron HCl 4 mg 04/24/24 15:26 04/25/24 10:32 Ondansetron Inj 2 Mg/Ml 2 Ml Vial IV 05/24/24 15:25 4 mg Q6H PRN Administration Nausea Pantoprazole Sodium 40 mg 04/24/24 21:00 04/25/24 20:19 Pantoprazole 40 Mg Tab PO 05/24/24 20:59 40 mg QPM KAILEE Administration Umeclidinium/Vilanterol 1 puffs 04/25/24 09:00 04/26/24 08:01 Umeclidinium/Vilanterol 62.5/25mcg 7 Puffs/Inhaler INH 05/25/24 08:59 1 puffs DAILY KAILEE Administration NPO Date Last Intake of Fluids: 04/25/24 Time Last Intake of Fluids: 20:00 Last Intake of Fluids Comment: sip water for med Date Last Intake of Solids: 04/23/24 Time Last Intake of Solids: 20:00 Past Medical History Medical History COVID-19 Chronic systolic (congestive) heart failure On home oxygen therapy 3 lpm nc at night Thoracic lymphadenopathy Abdominal lymphadenopathy recent bone marrow bx was benign 03/2023. Following with Dr. Hall History of cardioversion History of DVT (deep vein thrombosis) lower extremity (unable to recall side). unk etiology. 10 years ago. Slow to wake up after anesthesia Atrial flutter follows with Dr. Palomo - last visit 06/2023 LBBB (left bundle branch block) GERD (gastroesophageal reflux disease) Kidney stones hx Anxiety History of palpitations NO MEDS Nausea and vomiting after administration of anesthetic agent FATIGUE FOR DAYS AFTERWARDS Past Family History Family History Family/Other Family history of diabetes mellitus Grandmother Family history of diabetes mellitus Father Family hx of colon cancer Past Surgical History Surgical History History of esophagogastroduodenoscopy (EGD) History of bronchoscopy History of cardiac catheterization 10 years ago - [facility] - no stents History of bone marrow biopsy History of ovarian cystectomy History of colonoscopy Hx of thumb surgery LEFT TENDON SURG Social History Smoking Status: Former smoker tobacco type: e-cigarettes Smoking cigarettes per day: vapes daily - advised Do You Dip or Chew Tobacco: No Hx Alcohol Use: No Hx Substance Use: No substance use type: does not use Physical Exam Vital Signs Last Vital Signs Temp 36.8 C 04/26/24 10:45 Pulse 20 L 04/26/24 10:45 Resp 20 04/26/24 10:45 BP 144/72 H 04/26/24 10:45 Pulse Ox 94 04/26/24 10:45 O2 Del Method Room Air 04/26/24 10:45 O2 Flow Rate 3 04/26/24 07:17 Constitutional WD/WN, vitals as above no acute distress and not ill appearing Eyes PERRL, conjunctivae normal, anicteric sclerae EOM intact bilaterally ENMT external ear and nose normal, oropharynx normal Ears: no hearing impairment Neck trachea midline, no thyromegaly Respiratory normal respiratory effort, lungs clear to auscultation normal respiratory effort; no respiratory distress and does not use accessory muscles Cardiovascular RRR, no murmur, no edema Rate/Rhythm: regular rate and regular rhythm Skin no rashes, warm and dry Neurologic moves all extremities and awake Psychiatric A+Ox3, euthymic affect Orientation: alert, oriented x 3 and cooperative Testing Laboratory Results 04/26/24 06:43 04/26/24 06:43 PT 11.0 Seconds (9.0-12.0) 04/24/24 12:49 INR 1.0 (0.9-1.1) 04/24/24 12:49 APTT 30 Seconds (21-31) 04/24/24 12:49 Urine Color Yellow 04/24/24 07:58 Urine Appearance Cloudy (Clear) A 04/24/24 07:58 Urine pH 7.0 (4.5-7.5) 04/24/24 07:58 Ur Specific [place] 1.029 (1.000-1.030) 04/24/24 07:58 Urine Protein Negative (Negative) 04/24/24 07:58 Urine Glucose (UA) 3+ (Negative) H 04/24/24 07:58 Urine Ketones Trace (Negative) H 04/24/24 07:58 Urine Nitrite Positive (Negative) A 04/24/24 07:58 Ur Leukocyte Esterase Negative (Negative) 04/24/24 07:58 Urine WBC (Auto) 6-10 /hpf (0-5) H 04/24/24 07:58 Urine RBC (Auto) 0-2 /hpf (0-2) 04/24/24 07:58 U Hyaline Cast (Auto) 0-2 /lpf (0-2) 04/24/24 07:58 U Epithel Cells (Auto) 0-2 /hpf (0-2) 04/24/24 07:58 Urine Bacteria (Auto) 4+ (None Seen) H 04/24/24 07:58 04/24/24 07:58 Urine Culture - Final Urine,Clean Catch Escherichia coli 04/24/24 13:02 Aerobic Blood Culture - Preliminary Blood No growth in Aerobic bottle after 24 hours. Anaerobic Blood Culture - Preliminary No growth in Anaerobic bottle after 24 hours. 04/24/24 12:49 Aerobic Blood Culture - Preliminary Blood No growth in Aerobic bottle after 24 hours. Anaerobic Blood Culture - Preliminary No growth in Anaerobic bottle after 24 hours. 04/26/24 04/26/24 10:49 08:08 POC Glucose 104 H 108 H 04/24/24 08:32 POC Ur Test NEG
[2024-04-26] MEDS ORDERED: ATROPINE SULFATE 0.1 MG/ML 10ML SYR IV PRN (12:01)
[2024-04-26] MEDS ORDERED: DROPERIDOL 5 MG/2 ML VIAL IV PRN (12:01)
[2024-04-26] MEDS ORDERED: HYDROmorphone INJ 1 MG/ML SYRINGE IV PRN (12:01)
[2024-04-26] MEDS ORDERED: ePHEDrine sulfate 50 MG/ML AMP IV PRN (12:01)
--- NOTE | 2024-04-26 13:02 | Hospitalist Progress Note ---
Date of Service April 26, 2024 Assessment & Plan (1) Acute cholecystitis: Plan: Acute onset of LUQ on the morning of 04/24 awoke from sleep. patient attributes LUQ pain to history of splenomegaly in setting of sarcoidosis No leukocytosis (mild leukopenia on arrival); afebrile - however immunosuppressed on methotrexate LFTs WNL A/P CT revealed cholelithiasis with a 4 mm calcified stone in the cystic duct, and evidence of mild acute cholecystitis. spleen normal size. Gallbladder ultrasound reconfirmed high suspicion for acute cholecystitis Blood cultures: NG 24 hours Rocephin q24h + Flagyl q8h General surgery consulted Hold Eliquis Plan for OR on 04/26 Cardiology consulted for preoperative management with history of sarcoidosis -at her baselined, can achieve 4 METs - High risk for cardio and pulmonary complications --> defer to surgery judgement if tertiary care is needed - echo unchanged from 01/2023. Borderline pulmonary hypertension Switch to dilaudid for pain control (tolerated in the ED without issue) lisinopril held in anticipation for surgery A.m. CBC, CMP (2) UTI (urinary tract infection): Plan: UA positive on arrival Antibiotics as above (CTX and flagyl) Follow UCx: E. coli, sensitive to ceftriaxone (3) Type 2 diabetes mellitus: Plan: Last A1c at 6.7% on 02/16/2024 Glucose 167 on admission Hold Farxiga SSI; with target BSG range 110-140mg/dL, CF 45, carb ratio 15 BSG ACHS (4) DIAMANTE (obstructive sleep apnea): Plan: 3L NC HS (5) History of DVT (deep vein thrombosis): Plan: Eliquis on hold (6) Sarcoidosis: Plan: With known cardiac sarcoid as well as pulmonary, and with hepatosplenomegaly related to sarcoid Hold methotrexate while with acute infection ECHO as above (7) Atrial flutter: Plan: h/o PAF, currently in sinus rhythm holding Eliquis for surgery continue Coreg Plan Disposition: continued inpatient stay, OR today VTE PPx: Hold Eliquis for surgery family updated at bedside Admission and Anticipated Discharge Date Admission Date: April 24, 2024 Subjective patient seen sitting up in the chair prior to surgery. Family members at bedside. Abdominal pain is about a 2 or 3 with the IV pain medication Is willing to eat food, but understands she cannot Telemetry sinus rhythm with a first-degree block, 60s to 80s Review of Systems Review of Systems: All systems reviewed & are unremarkable except as noted in Subjective Physical Exam Physical Exam: General: NAD, VS as above Resp: normal respiratory effort, lungs clear to auscultation CV: RRR, no murmur, Abd: normal bowel sounds, soft + tenderness Extremities: Moves all extremities, no edema Neuro: A&O x3, Skin: intact, no lesions noted Results & Data Results & Data Vital Signs (Past 12 Hours) Vital Signs Temp Pulse Pulse Pulse Resp BP BP 04/26/24 10:45 36.8 C 20 L 82 20 144/72 H 04/26/24 08:09 36.5 C 53 L 18 121/64 04/26/24 07:25 60 04/26/24 07:17 04/26/24 03:45 36.6 C 66 16 133/80 Pulse Ox O2 Del Method O2 Flow Rate 04/26/24 10:45 94 Room Air 04/26/24 08:09 93 Room Air 04/26/24 07:25 04/26/24 07:17 Nasal Cannula 3 04/26/24 03:45 96 Room Air Laboratory Results CBC and chemistry reviewed Diagnostic Findings urine culture and blood cultures reviewed PG Care Time/CCT Total # of Minutes Spent Total Time Spent with Patient: Total time spent is greater than 50% in coordination of care (as documented) at patient's floor/unit and/or counseling patient: Coding Level of Care Code 41204 SUB INP/OBS CARE 3/50MIN Diagnoses Acute cholecystitis K81.0 UTI (urinary tract infection) N39.0 Type 2 diabetes mellitus E11.9 DIAMANTE (obstructive sleep apnea) G47.33 History of DVT (deep vein thrombosis) Z86.718 Sarcoidosis D86.9 Atrial flutter I48.92
[2024-04-26] MEDS ORDERED: SUGAMMADEX SODIUM 200 MG/2 ML VIAL IV ONE (13:22)
[2024-04-26] MEDS ORDERED: KETOROLAC 30 MG/ML VIAL ONE (13:23)
[2024-04-26] MEDS: BUPIVACAINE/EPINEPHRINE 0.5% MPF 1:200,000 30 ML VIAL ONE (13:28)
--- NOTE | 2024-04-26 13:36 | Operative Report ---
PG Post Operative Report Pre & Post Diagnosis Operation Date: 04/26/24 12:00 Pre-Op Diagnosis: Cholecystitis Post-Op Diagnosis: Cholecystitis I identified the patient and participated in the time-out.: Yes Procedure Operation Date: 04/26/24 12:00 Actual Procedures p Laparoscopic Cholecystectomy(Not Applicable) - Venkatesh Rangel DO Surgeon Venkatesh Rangel DO [employer] um[employer] Patrick Estimated Blood Loss 5 Findings Consistent with Post-Op Diagnosis Specimens gallbladder Description of Procedure After informed consent was obtained the patient was taken to the operating room and placed in the supine position. After successful intubation the abdomen was sterilely prepped and draped in usual fashion. A periumbilical incision was made with an 11 blade scalpel and carried down through the soft tissue using electrocautery. The anterior rectus fascia was opened using electrocautery and 2 #0 Vicryl stay sutures were placed. The peritoneum was elevated with hemostats and incised under direct vision using Metzenbaum scissors. A finger sweep was performed and a 12 mm Beck trocar was placed. The abdomen was insufflated to 18 mmHg. The laparoscope was inserted and the abdomen was examined in 360. The gallbladder was mildly inflamed, otherwise no gross abnormalities were identified. A subxiphoid 5 mm port and 2 right upper quadrant 5 mm ports were placed under direct vision. The patient was placed in a reverse Trendelenburg position and slightly airplaned to the left. The gallbladder was grasped and elevated superiorly and laterally. A [place] dissector was used to take down adhesions around the neck of the gallbladder. The cystic duct was identified and skeletonized. It was a little dilated and th erefore I exchanged the 5 mm subxiphoid port for a 12 mm port and used a large clip credit portfolio advisor. It was clipped twice proximally and once distally and transected using a laparoscopic scissor. In similar fashion the cystic artery was identified and skeletonized clipped and divided. The gallbladder was removed from the gallbladder fossa with electrocautery. It was placed into an Endo Catch bag. Thorough irrigation was performed. At the end of the procedure there was adequate hemostasis and no evidence of any bile leaks. A final look around the abdomen showed no other abnormalities. The gallbladder and trochars were all removed and the abdomen was desufflated. The fascia of the camera port was closed using 0 Vicryl in a [id number] fashion. All the wounds were irrigated and closed using 4-0 Monocryl. Marcaine was injected around them for postoperative analgesia and skin glue used as a dressing. The patient was awaken extubated and transferred to recovery in stable condition. My physician's phys assistant was present throughout the entire case... helped with prepping the patient. With exposure for trocar placement, as well as retracted the gallbladder throughout the case and also assisted with wound closure and dressing placement. I attest to the content of the Intraoperative Record and any orders documented therein. Any exceptions are noted below.
[2024-04-26] MEDS: ONDANSETRON INJ 2 MG/ML 2 ML VIAL IV STA (14:32)
--- NOTE | 2024-04-26 14:42 | Anesthesiology Progress Note ---
Date of Service April 26, 2024 Anesthesia Post Procedure Vital Signs Vital Signs: Temp Pulse Pulse Pulse Resp BP BP 04/26/24 14:30 67 20 166/66 H 04/26/24 14:20 62 20 150/59 H 04/26/24 14:10 66 15 155/60 H 04/26/24 14:00 60 12 159/60 H 04/26/24 13:50 54 L 13 168/70 H 04/26/24 13:41 96.8 F L 56 L 16 157/65 H 04/26/24 10:45 98.2 F 20 L 82 20 144/72 H 04/26/24 08:09 97.7 F 53 L 18 121/64 04/26/24 07:25 60 04/26/24 07:17 04/26/24 03:45 97.9 F 66 16 133/80 04/25/24 23:28 97.9 F 58 L 18 132/84 04/25/24 22:38 57 L 04/25/24 22:28 58 L 04/25/24 20:20 04/25/24 19:00 98.1 F 61 18 134/69 04/25/24 15:40 97.7 F 52 L 18 120/62 04/25/24 15:39 58 L 04/25/24 15:26 Pulse Ox Pulse Ox O2 Del Method O2 Del Method O2 Flow Rate 04/26/24 14:30 96 Nasal Cannula 2 04/26/24 14:20 97 Nasal Cannula 2 04/26/24 14:10 97 Nasal Cannula 2 04/26/24 14:00 94 Nasal Cannula 2 04/26/24 13:50 98 Nasal Cannula 2 04/26/24 13:41 98 Nasal Cannula 2 04/26/24 10:45 94 Room Air 04/26/24 08:09 93 Room Air 04/26/24 07:25 04/26/24 07:17 Nasal Cannula 3 04/26/24 03:45 96 Room Air 04/25/24 23:28 93 Room Air 04/25/24 22:38 04/25/24 22:28 04/25/24 20:20 Room Air 04/25/24 19:00 94 Room Air 04/25/24 15:40 94 Room Air 04/25/24 15:39 04/25/24 15:26 94 Room Air Pain Intensity Left Upper Abdomen: Pain Intensity: 4 Transfer of Care Handoff Completed per policy Notes Mental Status: alert / awake / arousable and participated in evaluation Patient Amnestic to Procedure: Yes Nausea / Vomiting: adequately controlled Pain: adequately controlled Airway Patency, RR, SpO2: stable & adequate BP & HR: stable & adequate Hydration State: stable & adequate Anesthetic Complications: no major complications apparent and Pt Satisfied with anesthetic care
[2024-04-26] MEDS: LACTATED RINGER'S 1,000 ML IV SCH (15:59)
[2024-04-26] MEDS: ACETAMINOPHEN 325 MG TAB PO PRN (17:15)
[2024-04-26] MEDS: oxyCODONE HCL IR 5 MG TAB (IMMEDIATE RELEASE) PO PRN (19:22)
[2024-04-27] MEDS: oxyCODONE HCL IR 5 MG TAB (IMMEDIATE RELEASE) PO PRN (02:01)
--- NOTE | 2024-04-27 06:10 | Electrocardiogram Report ---
Test Reason : Blood Pressure : / mmHG Vent. Rate : 061 BPM Atrial Rate : 061 BPM P-R Int : 178 ms QRS Dur : 154 ms QT Int : 468 ms P-R-T Axes : 000 -50 099 degrees QTc Int : 471 ms Sinus rhythm with frequent Premature ventricular complexes Left axis deviation Left bundle branch block Abnormal ECG When compared with ECG of 07-NOV-2023 18:46, Premature ventricular complexes are now Present Confirmed by Raffi Whitehead ([id number]) on 04/27/2024 6:10:37 AM Referred By: Confirmed By:Raffi Whitehead
--- NOTE | 2024-04-27 06:18 | Electrocardiogram Report ---
Test Reason : Blood Pressure : / mmHG Vent. Rate : 056 BPM Atrial Rate : 056 BPM P-R Int : 204 ms QRS Dur : 146 ms QT Int : 472 ms P-R-T Axes : 071 -52 102 degrees QTc Int : 455 ms Sinus bradycardia Left axis deviation Left bundle branch block Abnormal ECG When compared with ECG of 24-APR-2024 08:29, Premature ventricular complexes are no longer Present Confirmed by Raffi Whitehead ([id number]) on 04/27/2024 6:18:00 AM Referred By: REFERRED SELF Confirmed By:Raffi Whitehead
--- NOTE | 2024-04-27 06:28 | Electrocardiogram Report ---
Test Reason : Blood Pressure : / mmHG Vent. Rate : 054 BPM Atrial Rate : 054 BPM P-R Int : 208 ms QRS Dur : 142 ms QT Int : 492 ms P-R-T Axes : 102 -55 100 degrees QTc Int : 466 ms Sinus bradycardia Left axis deviation Left bundle branch block Abnormal ECG When compared with ECG of 24-APR-2024 10:40, No significant change was found Confirmed by Raffi Whitehead ([id number]) on 04/27/2024 6:28:00 AM Referred By: REFERRED SELF Confirmed By:Raffi Whitehead
[2024-04-27 06:38] LABS: Basophils # (auto) 0.02 K/uL (0.00-0.20); Basophils % (auto) 0.3 %; Eosinophils # (auto) 0.01 K/uL (0.00-0.50); Eosinophils % (auto) 0.2 %; Hematocrit (blood only) 35.6 % (37.0-47.0); Immature Granulocytes # (auto) 0.02 K/uL (0.01-0.20); Immature Granulocytes % (auto) 0.3 %; Lymphocytes # (auto) 0.43 K/uL (1.20-3.40); Lymphocytes % (auto) 7.1 %; Mean Corpuscular Hemoglobin 33.3 pg (25.0-34.0); Mean Corpuscular Hgb Conc 33.7 g/dL (32.0-36.0); Mean Corpuscular Volume 98.9 fL (80.0-100.0); Mean Platelet Volume 9.7 fL (9.4-12.4); Monocytes # (auto) 0.39 K/uL (0.11-0.59); Monocytes % (auto) 6.5 %; Neutrophils # (auto) 5.15 K/uL (1.40-6.50); Neutrophils % (auto) 85.6 %; Platelet Count 155 K/uL (130-400); RDW Coefficient of Variation 13.7 % (11.5-14.5); RDW Standard Deviation 49.6 fL (36.4-46.3); White Blood Count 6.02 K/ul (4.8-10.8)
--- NOTE | 2024-04-27 06:40 | Surgery Progress Note ---
Date of Service April 27, 2024 Assessment & Plan (1) Hx laparoscopic cholecystectomy: Plan: Doing well. Will advance diet this morning. It is okay from my perspective for her to go home. Instructions given. Admission and Anticipated Discharge Date Admission Date: April 24, 2024 Subjective Patient seen. Having expected postoperative discomfort at her incisions but overall feeling well. No nausea or vomiting and tolerating clears. She is requesting to go home today. Physical Exam Physical Exam: Alert no acute distress Abdomen is soft with expected tenderness. Results & Data Vital Signs (Past 12 Hours) Vital Signs Temp Pulse Pulse Resp BP Pulse Ox O2 Del Method 04/27/24 04:08 36.5 C 58 L 18 133/62 94 Room Air 04/26/24 23:23 36.4 C L 59 L 16 125/63 98 Nasal Cannula 04/26/24 22:35 51 L 04/26/24 20:06 36.4 C L 61 20 136/65 92 Room Air 04/26/24 19:30 Room Air O2 Flow Rate 04/27/24 04:08 04/26/24 23:23 3 04/26/24 22:35 04/26/24 20:06 04/26/24 19:30 PG Care Time/CCT Total # of Minutes Spent Total Time Spent with Patient: Total time spent is greater than 50% in coordination of care (as documented) at patient's floor/unit and/or counseling patient: Coding Level of Care Code 78121 Post Operative Follow-Up Diagnoses Hx laparoscopic cholecystectomy Z90.49
[2024-04-27 06:54] LABS: Albumin Globulin Ratio 1.3 (0.9-2); BUN Creatinine Ratio 21.1 (10-20); Bilirubin,Total 0.5 mg/dl (0.2-1.0); Calcium 8.9 mg/dl (8.6-10.3); Creatinine Clr Calc Pharmacy 72.1 ml/min; Est GFR (African American) 81.7 ml/min; Est GFR (Non-African American) 70.5 ml/min; Potassium 4.7 mmol/L (3.5-5.1)
[2024-04-27] MEDS: APIXABAN 5 MG TABLET PO SCH (08:51)
--- NOTE | 2024-04-27 13:50 | Hospitalist Progress Note ---
Date of Service April 27, 2024 Assessment & Plan (1) Acute cholecystitis: Plan: Acute onset of LUQ on the morning of 04/24 awoke from sleep. patient attributes LUQ pain to history of splenomegaly in setting of sarcoidosis No leukocytosis (mild leukopenia on arrival); afebrile - however immunosuppressed on methotrexate A/P CT revealed cholelithiasis with a 4 mm calcified stone in the cystic duct, and evidence of mild acute cholecystitis. spleen normal size. Gallbladder ultrasound reconfirmed high suspicion for acute cholecystitis Blood cultures: NG 48 hours d/c flagy, continue CTX for urinary coverage General surgery consulted - S/P Lap Cholecysectomy with Dr. Rangel on 04/26 - okay to resume eliquis 04/27 Cardiology consulted for preoperative management with history of sarcoidosis - At her baseline, can achieve 4 METs. High risk for cardio and pulmonary complications. - echo unchanged from 01/2023. Borderline pulmonary hypertension Pain control - Tylenol and oxycodone Okay to resume lisinopril this evening A.m. CMP (2) UTI (urinary tract infection): Plan: UA positive on arrival Antibiotics as above (CTX ) Follow UCx: E. coli, sensitive to ceftriaxone - can discharge on Augmentin to finish course (3) Type 2 diabetes mellitus: Plan: Last A1c at 6.7% on 02/16/2024 Hold Farxiga SSI; with target BSG range 110-140mg/dL, CF 45, carb ratio 15 BSG ACHS (4) DIAMANTE (obstructive sleep apnea): Plan: 3L NC HS (5) History of DVT (deep vein thrombosis): Plan: Eliquis resumed 04/27 (6) Sarcoidosis: Plan: With known cardiac sarcoid as well as pulmonary, and with hepatosplenomegaly related to sarcoid Hold methotrexate while with acute infection ECHO as above (7) Atrial flutter: Plan: h/o PAF, currently in sinus rhythm Eliquis resumed 04/27 continue Coreg - however has been held frequently per parameters, pt rmains in SR Plan Disposition: continued inpatient stay, for further pain control VTE PPx: Resumed home Eliquis Admission and Anticipated Discharge Date Admission Date: April 24, 2024 Subjective Patient seen this morning just after breakfast, she was having some pain. Hoping to go for a walk to help get her bowels moving. Revisited after lunch, pain is improving but still limiting her activity. did do some walking in place, which she feel like helped, but still with considerable pain. Does not feel like she is ready to go home today. Tele - SB with 1st degree block, 55-60 Review of Systems Review of Systems: All systems reviewed & are unremarkable except as noted in Subjective Physical Exam Physical Exam: General: NAD, VS as above Resp: normal respiratory effort, lungs clear to auscultation CV: RRR, no murmur, Abd: normal bowel sounds, soft + tenderness Extremities: Moves all extremities, no edema Neuro: A&O x3, Skin: intact, no lesions noted Results & Data Results & Data Vital Signs (Past 12 Hours) Vital Signs Temp Pulse Pulse Resp BP Pulse Ox O2 Del Method 04/27/24 11:16 36.6 C 62 18 120/56 L 94 Room Air 04/27/24 08:42 36.6 C 58 L 18 147/72 H 93 Room Air 04/27/24 08:02 53 L 04/27/24 07:17 Room Air 04/27/24 04:08 36.5 C 58 L 18 133/62 94 Room Air Laboratory Results CBC and chemistry reviewed PG Care Time/CCT Total # of Minutes Spent Total Time Spent with Patient: Total time spent is greater than 50% in coordination of care (as documented) at patient's floor/unit and/or counseling patient: Coding Level of Care Code 33154 SUB INP/OBS CARE 3/50MIN Diagnoses Acute cholecystitis K81.0 UTI (urinary tract infection) N39.0 Type 2 diabetes mellitus E11.9 DIAMANTE (obstructive sleep apnea) G47.33 History of DVT (deep vein thrombosis) Z86.718 Sarcoidosis D86.9 Atrial flutter I48.92
[2024-04-27] MEDS: carvediloL 3.125 MG TAB PO SCH (17:37)
[2024-04-28 07:14] LABS: Albumin Globulin Ratio 1.3 (0.9-2); Albumin Level 3.8 gm/dl (3.4-5.0); BUN Creatinine Ratio 16.7 (10-20); Bilirubin,Total 0.4 mg/dl (0.2-1.0); Calcium 8.7 mg/dl (8.6-10.3); Creatinine Clr Calc Pharmacy 66.7 ml/min; Est GFR (African American) 75.6 ml/min; Est GFR (Non-African American) 65.2 ml/min; Globulin 2.9 gm/dl (2.5-4.0); Potassium 4.2 mmol/L (3.5-5.1); Total Protein 6.7 gm/dl (6.0-8.3)
--- NOTE | 2024-04-28 14:35 | Hospitalist Progress Note ---
Date of Service April 28, 2024 Assessment & Plan (1) Acute cholecystitis: Plan: Acute onset of LUQ on the morning of 04/24 awoke from sleep. patient attributes LUQ pain to history of splenomegaly in setting of sarcoidosis No leukocytosis (mild leukopenia on arrival); afebrile - however immunosuppressed on methotrexate A/P CT revealed cholelithiasis with a 4 mm calcified stone in the cystic duct, and evidence of mild acute cholecystitis. spleen normal size. Gallbladder ultrasound reconfirmed high suspicion for acute cholecystitis Blood cultures: NG 48 hours d/c flagy, continue CTX for urinary coverage General surgery consulted - S/P Lap Cholecysectomy with Dr. Rangel on 04/26 - okay to resume eliquis 04/27 Cardiology consulted for preoperative management with history of sarcoidosis - At her baseline, can achieve 4 METs. High risk for cardio and pulmonary complications. - echo unchanged from 01/2023. Borderline pulmonary hypertension Pain control - Tylenol and oxycodone With continued pain but did have bowel movement 04/28 PT consulted to make sure can do stairs prior to d.c A.m. CMP (2) UTI (urinary tract infection): Plan: UA positive on arrival Antibiotics as above (CTX ) Follow UCx: E. coli, sensitive to ceftriaxone - can discharge on Augmentin to finish course (3) Type 2 diabetes mellitus: Plan: Last A1c at 6.7% on 02/16/2024 Hold Farxiga SSI; with target BSG range 110-140mg/dL, CF 45, carb ratio 15 BSG ACHS (4) DIAMANTE (obstructive sleep apnea): Plan: 3L NC HS (5) History of DVT (deep vein thrombosis): Plan: Eliquis resumed 04/27 (6) Sarcoidosis: Plan: With known cardiac sarcoid as well as pulmonary, and with hepatosplenomegaly related to sarcoid Hold methotrexate while with acute infection ECHO as above (7) Atrial flutter: Plan: h/o PAF, currently in sinus rhythm Eliquis resumed 04/27 continue Coreg - however has been held frequently per parameters, pt rmains in SR Plan Disposition: continued inpatient stay, for further pain control VTE PPx: Resumed home Eliquis Admission and Anticipated Discharge Date Admission Date: April 24, 2024 Subjective Patient seen earlier this morning after breakfast - was having some significant pain. Revisited at the bedside, patient had just received her lunch tray and RN had just looked at her umbilical incison and concern for infection - surgery to visit soon Revisited again this afternoon, family present at beside. patient is feeling better after having a BM, but still not back to her normal. Informs me general surgery concerned for hematoma not infection (noting she remains on abx for her UTi) but want her to stay for better pain control. Family worried as she has 12 steps to get to her bathroom. Review of Systems Review of Systems: All systems reviewed & are unremarkable except as noted in Subjective Physical Exam Physical Exam: General: NAD, VS as above HEENT - right ear no auricular tenderness, no erythema or bulging of TM Resp: normal respiratory effort, diminished in bases, on 2L NC which she normally only wears at ight CV: RRR, no murmur, Abd: normal bowel sounds, soft + tenderness Extremities: Moves all extremities, 1+ LE edema Neuro: A&O x3, Results & Data Results & Data Vital Signs (Past 12 Hours) Vital Signs Temp Pulse Pulse Resp BP Pulse Ox O2 Del Method 04/28/24 11:00 36.7 C 62 18 113/61 93 Nasal Cannula 04/28/24 08:00 Room Air 04/28/24 07:40 36.6 C 61 18 125/68 92 Room Air 04/28/24 07:00 59 L O2 Flow Rate 04/28/24 11:00 3 04/28/24 08:00 04/28/24 07:40 04/28/24 07:00 Laboratory Results CMP reviewed PG Care Time/CCT Total # of Minutes Spent Total Time Spent with Patient: Total time spent is greater than 50% in coordination of care (as documented) at patient's floor/unit and/or counseling patient: Coding Level of Care Code 27075 SUB INP/OBS CARE 2/35MIN Diagnoses Acute cholecystitis K81.0 UTI (urinary tract infection) N39.0 Type 2 diabetes mellitus E11.9 DIAMANTE (obstructive sleep apnea) G47.33 History of DVT (deep vein thrombosis) Z86.718 Sarcoidosis D86.9 Atrial flutter I48.92
[2024-04-28] MEDS: FUROSEMIDE INJ 20 MG/2 ML VIAL IV ONE (14:37)
--- NOTE | 2024-04-28 15:52 | Surgery Progress Note ---
Date of Service April 28, 2024 Assessment & Plan (1) Hx laparoscopic cholecystectomy: Plan: Slowly improving. Explained that the umbilical incision shows signs of hematoma, not unexpected given eliquis. No sign of infection. Encourage activity. Tolerating diet Home when pain well controlled. ? tomorrow Admission and Anticipated Discharge Date Admission Date: April 24, 2024 Subjective There was some concern about an abdominal infection as she noticed some bruising and slight yellowish drainage from the umbilical site. Of note, she is on Eliquis. She also has noted some bloating and some crampy pain which was relieved by having a bowel movement. She is tolerating a diet without any nausea or vomiting. She is ambulating but her mobility is still decreased from baseline. Family is at bedside. Physical Exam Constitutional: WD/WN, vitals as above Respiratory: normal respiratory effort, lungs clear to auscultation Gastrointestinal (Abdomen): Inspection/Auscultation: abdomen normal to inspection, + abdomen distended (mild) and normal bowel sounds Percussion/Palpation: abdomen soft; abdomen nontender and no guarding umbilical incision with bruising and hematoma (3-4 cm), no sign of infection Neurologic: awake; no focal motor deficits Results & Data Vital Signs (Past 12 Hours) Vital Signs Temp Pulse Pulse Resp BP Pulse Ox O2 Del Method 04/28/24 15:34 36.4 C L 59 L 18 146/70 H 98 Room Air 04/28/24 14:28 63 04/28/24 11:00 36.7 C 62 18 113/61 93 Nasal Cannula 04/28/24 08:00 Room Air 04/28/24 07:40 36.6 C 61 18 125/68 92 Room Air 04/28/24 07:00 59 L O2 Flow Rate 04/28/24 15:34 04/28/24 14:28 04/28/24 11:00 3 04/28/24 08:00 04/28/24 07:40 04/28/24 07:00 Laboratory Results 04/28/24 04/28/24 04/28/24 Range/Units 11:29 08:29 06:14 Sodium 134 L (136-145) mmol/L Potassium 4.2 (3.5-5.1) mmol/L Chloride 102 (98-107) mmol/L Carbon Dioxide 28 (21-32) mmol/L Anion Gap 4 (3-11) BUN 16 (6-23) mg/dl Creatinine 0.96 (0.6-1.2) mg/dl Est Cr Clr Drug Dosing 66.7 ml/min Est GFR ( Amer) 75.6 ml/min Est GFR (Non-Af Amer) 65.2 ml/min BUN/Creatinine Ratio 16.7 (10-20) Glucose 138 H (70-99(Fasting)) mg/dl POC Glucose 122 H 145 H (70-99) mg/dl Calcium 8.7 (8.6-10.3) mg/dl Total Bilirubin 0.4 (0.2-1.0) mg/dl AST 40 H (13-39) U/L ALT 49 (7-52) U/L Alkaline Phosphatase 52 (34-104) U/L Total Protein 6.7 (6.0-8.3) gm/dl Albumin 3.8 (3.4-5.0) gm/dl Globulin 2.9 (2.5-4.0) gm/dl Albumin/Globulin Ratio 1.3 (0.9-2) //14 05/06/13 Range/Units 20:23 17:12 Sodium (136-145) mmol/L Potassium (3.5-5.1) mmol/L Chloride (98-107) mmol/L Carbon Dioxide (21-32) mmol/L Anion Gap (3-11) BUN (6-23) mg/dl Creatinine (0.6-1.2) mg/dl Est Cr Clr Drug Dosing ml/min Est GFR ( Amer) ml/min Est GFR (Non-Af Amer) ml/min BUN/Creatinine Ratio (10-20) Glucose (70-99(Fasting)) mg/dl POC Glucose 132 H 117 H (70-99) mg/dl Calcium (8.6-10.3) mg/dl Total Bilirubin (0.2-1.0) mg/dl AST (13-39) U/L ALT (7-52) U/L Alkaline Phosphatase (34-104) U/L Total Protein (6.0-8.3) gm/dl Albumin (3.4-5.0) gm/dl Globulin (2.5-4.0) gm/dl Albumin/Globulin Ratio (0.9-2)
[2024-04-29] MEDS: POLYETHYLENE (MIRALAX) 17 GM PACK PO SCH (00:59)
[2024-04-29 06:59] LABS: Albumin Globulin Ratio 1.4 (0.9-2); Albumin Level 3.6 gm/dl (3.4-5.0); BUN Creatinine Ratio 15.7 (10-20); Bilirubin,Total 0.8 mg/dl (0.2-1.0); Calcium 8.6 mg/dl (8.6-10.3); Creatinine Clr Calc Pharmacy 71.2 ml/min; Est GFR (African American) 82.8 ml/min; Est GFR (Non-African American) 71.4 ml/min; Globulin 2.6 gm/dl (2.5-4.0); Potassium 3.8 mmol/L (3.5-5.1); Total Protein 6.2 gm/dl (6.0-8.3)
[2024-04-29] MEDS: SIMETHICONE 40 MG/0.6 ML 30ML PO PRN (09:24)
--- NOTE | 2024-04-29 11:03 | Surgery Progress Note ---
Date of Service April 29, 2024 Assessment & Plan (1) Hx laparoscopic cholecystectomy: Plan: POD#3. Overall doing better. Stable for discharge from surgical standpoint. Needs f/u with Dr. Rangel in 2 weeks. OK to shower. Low fat foods for 4-6 weeks. No strenuous activity for 2 weeks. Admission and Anticipated Discharge Date Admission Date: April 24, 2024 Subjective Feeling better today but tired as she did not get any sleep last night. Feels ready to go home - notes she has oxygen at home, thinks she is OK to do stairs. Passing gas/ tolerating diabetic diet. Physical Exam Gastrointestinal (Abdomen): Inspection/Auscultation: abdomen normal to inspection, normal bowel sounds and + abdominal surgical incision (hematoma stable at umbilicus, no sign of infection) Percussion/Palpation: + abdomen tender (at incision sites) and abdomen soft Results & Data Vital Signs (Past 12 Hours) Vital Signs Temp Pulse Pulse Resp BP Pulse Ox O2 Del Method 04/29/24 08:00 Room Air 04/29/24 07:47 36.7 C 73 18 121/70 97 Nasal Cannula 04/29/24 05:00 54 L 04/29/24 03:46 36.7 C 61 16 121/62 96 Nasal Cannula O2 Flow Rate 04/29/24 08:00 04/29/24 07:47 3 04/29/24 05:00 04/29/24 03:46 3 Laboratory Results Abnormal lab results 04/28/24 04/28/24 04/28/24 Range/Units 11:29 17:19 20:09 Sodium (136-145) mmol/L Anion Gap (3-11) Glucose (70-99(Fasting)) mg/dl POC Glucose 122 H 127 H 146 H (70-99) mg/dl Cortisol AM Sample (6.2-22.6) mcg/dl 04/29/24 04/29/24 Range/Units 06:12 08:11 Sodium 134 L (136-145) mmol/L Anion Gap 2 L (3-11) Glucose 124 H (70-99(Fasting)) mg/dl POC Glucose 124 H (70-99) mg/dl Cortisol AM Sample 3.59 L (6.2-22.6) mcg/dl
[2024-04-29] MEDS: HYDROCORTISONE SOD 50 MG in SYRINGE 0 ML IV STA (11:31)
--- NOTE | 2024-04-29 16:20 | Discharge Summary ---
Discharge Summary Date of Service April 29, 2024 Principal Dx & Hospital Course #1 = Principal Diagnosis (1) Acute cholecystitis: Acute onset of LUQ on the morning of 04/24 awoke from sleep. patient attributes LUQ pain to history of splenomegaly in setting of sarcoidosis A/P CT revealed cholelithiasis with a 4 mm calcified stone in the cystic duct, and evidence of mild acute cholecystitis. spleen normal size. Gallbladder ultrasound reconfirmed high suspicion for acute cholecystitis Blood cultures: negative General surgery consulted - S/P Lap Cholecysectomy with Dr. Rangel on 04/26 - okay to resume eliquis 04/27 Cardiology consulted for preoperative management with history of sarcoidosis - At her baseline, can achieve 4 METs. High risk for cardio and pulmonary complications. - echo unchanged from 01/2023. Borderline pulmonary hypertension Pain control - Tylenol and oxycodone Checked a.m. cortisol, low. Received IV hydrocortisone and felt much better. discharged with steroid taper patient moving bowels, ambulating in [place]. Worked with PT and was able to do stairs without issue. Patient is able to sleep in the bedroom near her bathroom without having to do stairs. Discharged home today with . (2) UTI (urinary tract infection): UA positive on arrival Antibiotics as above (CTX ) Follow UCx: E. coli, completed course of ceftriaxone while inpatient. No residual symptoms. (3) Type 2 diabetes mellitus: Last A1c at 6.7% on 02/16/2024 Resume home [facility] (4) DIAMANTE (obstructive sleep apnea): 3L NC HS (5) History of DVT (deep vein thrombosis): Eliquis resumed 04/27 (6) Sarcoidosis: With known cardiac sarcoid as well as pulmonary, and with hepatosplenomegaly related to sarcoid Hold methotrexate while with acute infection and while on steroid taper. discussed with patient reaching out to Dr. Hanks to discuss when to resume. ECHO as above (7) Atrial flutter: h/o PAF, currently in sinus rhythm Eliquis resumed 04/27 continue Coreg - Dose was decreased as medication was frequently being held for parameters however pressures have been higher and HR has been higher that she can continue her normal dose at discharge Plan Disposition: discharged home today. Will need general surgery and PCP follow- up. Workload message sent to nurse navigator to make sure this is arranged as this is a weekend discharge. Notes For Next Care Provider Patient presented with abdominal pain found to be Acute cholecystitis. gallbladder removed in the OR with Dr. Moseley on 04 26. Slow recovery course likely related to her sarcoidosis, found to be adrenally sufficient improved with IV steroids. Discharged with p.o. steroid taper. Also treated for UTI Medication Changes From Visit oxycodone as needed pain Hydrocortisone p.o. taper Hold methotrexate while on hydrocortisone and acute infectionpatient encouraged to send a message to Dr. Hanks regarding when to resume. Admission HPI Per Admitting Provider Richelle is a pleasant 58-year-old female with PMH of sarcoidosis, cardiomyopathy, ARON, T2DM, cholelithiasis, and DIAMANTE. She presented for acute onset of LUQ pain that radiates to her left flank, which woke her from sleep around 0300 on 04/24. She characterizes it as a constant, stabbing pain; rated 12/10 at its worst, 4/10 after receiving pain medicine in the ED. the pain is located under her left breast, and she reports that it hurts so bad that she could not breathe when she initially woke up. She felt better after sitting up in bed. The pain radiates across her chest to her sternum. It is not positional or worse when lying flat. While she has had past experiences of GERD and gastritis, she reports this pain feels different. She did not take any of her regular morning medications today; last took Eliquis on the evening of 04/23 around 8 PM. No recent change in diet. History of enlarged spleen secondary to her sarcoidosis; she reports this is caused her to have no appetite recently. Patient uses supplemental oxygen at night (3L NC) for her sleep apnea. She also uses supplemental oxygen as needed when she plans to walk extended distances. No prior history of abdominal surgeries prior. No prior issues with her gallbladder. She denies any recent injuries or trauma to the abdomen or pelvis. 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 She is mildly hypertensive at 162/75, bradycardic at 58 bpm, and SpO2 is 100% on 3L NC at time of admission. ED course: Toradol 15 mg IV Dilaudid 0.25 mg IV Ceftriaxone 2000 mg IV Flagyl 500 mg IV Ondansetron 4 mg IV ROS: Patient endorses sharp LUQ and epigastric pain, SOB at rest (secondary to pain), occassional night-sweats (which patient attributes to sarcoidosis), hot flashes, dry cough, and nausea. Patient denies fever, chills, dizziness, lightheadedness, SALVADOR, vomiting, diarrhea, burning with urination, dysuria, blood in urine/stool, change in urinary/bowel habits, or numbness/tingling in arms or legs. Discharge Exam General: NAD, VS as above Resp: normal respiratory effort, Remains stable on room air CV: RRR, no murmur, Extremities: Moves all extremities, lower extremity edema improved Neuro: A&O x3, Updated Medication List Medication Instructions Recorded Confirmed Type furosemide 40 mg tablet 40 mg PO DAILY PRN weight gain #30 06/25/21 04/24/24 Rx tabs Miscellaneous Pulmonary Supply #1 ea 06/26/21 02/29/24 Rx blood sugar diagnostic (OneTouch #100 ea 06/26/21 02/29/24 Rx Verio test strips) blood-glucose meter #1 ea 06/26/21 02/29/24 Rx blood-glucose meter (OneTouch #1 ea 06/26/21 02/29/24 Rx Verio Reflect Start kit) lancets 33 gauge (OneTouch Delica #100 ea 06/26/21 02/29/24 Rx Plus Lancet) losartan 25 mg tablet 25 mg PO QPM 10/28/21 04/24/24 History CPAP Machine #1 ea 02/16/22 02/29/24 Rx CPAP Machine #1 ea 02/16/22 02/29/24 Rx Incentive Spirometer #1 ea 07/18/23 02/29/24 Rx azelastine 137 mcg (0.1 %) nasal 1 spray intranasal BID #30 mL 08/17/23 04/24/24 Rx spray aerosol albuterol sulfate 90 mcg/actuation 2 puff inhalation Q6H PRN 11/02/23 04/24/24 Rx aerosol inhaler (ProAir HFA) shortness of breath or wheezing #8.5 grams folic acid 1 mg tablet 1 mg PO DAILY #90 tabs 11/02/23 04/24/24 Rx Portable Oxygen #1 ea 11/23/23 02/29/24 Rx tiotropium 2.5 mcg-olodaterol 2.5 2 puff inhalation DAILY #4 grams 11/23/23 04/24/24 Rx mcg/actuation mist for inhalation (Stiolto Respimat) carvedilol 6.25 mg tablet 6.25 mg PO BID #60 tabs 01/12/24 04/24/24 Rx apixaban 5 mg tablet (Eliquis) 5 mg PO BID #60 tabs 02/07/24 04/24/24 Rx Farxiga 5 mg tablet (dapagliflozin 5 mg PO DAILY 30 days #30 tabs 02/27/24 04/24/24 Rx propanediol) pantoprazole 40 mg tablet,delayed 40 mg PO QPM #90 tabs 02/29/24 04/24/24 Rx release methotrexate sodium 2.5 mg tablet 10 mg PO WK 04/24/24 04/24/24 History hydrocortisone 20 mg tablet See Rx Instructions .Route 04/29/24 Rx .COMPLEX #14 tabs oxycodone 5 mg tablet 5 mg PO Q4H PRN pain #14 tabs 04/29/24 Rx polyethylene glycol 3350 17 gram 17 g PO DAILY #14 ea 04/29/24 Rx oral powder packet (Miralax) Hospital Stay Data Consultations 04/24/24 11:10 ED Decision to Admit Stat 04/24/24 12:17 Consult General Surgery Routine 04/25/24 09:19 Consult Cardiology Routine Procedures Performed Operation Date: 04/26/24 12:00 Actual Procedures p Laparoscopic Cholecystectomy(Not Applicable) - Venkatesh Rangel DO Diagnostic Imagining Performed Chest X-Ray 04/24/24 08:20 SINGLE VIEW CHEST CLINICAL HISTORY: Atypical chest pain FINDINGS: An AP, portable, upright chest radiograph is compared to study dated 11/07/2023 and correlated with chest CT dated 02/16/2024. The cardiomediastinal silhouette is top normal for projection. The lungs and pleural spaces are clear noting mild bibasilar atelectasis. No pneumothorax is seen. The skeletal structures are osteopenic. The bony thorax is grossly intact. Degenerative change and levocurvature is noted in the upper thoracic spine. IMPRESSION: No acute cardiopulmonary abnormality. ACT 112: Negative or not required by law. Electronically signed by: Ashish Bourne M.D. 04/24/2024 8:45 AM Abdomen/Pelvis CT 04/24/24 09:14 CT SCAN OF THE ABDOMEN AND PELVIS WITH IV CONTRAST CLINICAL HISTORY: Left upper quadrant abdominal pain. COMPARISON STUDY: Abdominal CT dated 03/16/2023. PET/CT dated 06/01/2023. TECHNIQUE: Following the IV administration of 94 cc of Optiray 320, CT scan of the abdomen and pelvis is performed from the lung bases to the proximal femora. Images are reviewed in the axial, sagittal, and coronal planes. IV contrast was administered without complication. A dose lowering technique was utilized adhering to the principles of ALARA. CT DOSE: 1204.51 mGy.cm FINDINGS: Lung bases: The heart is normal in size and without pericardial effusion. The lung bases are clear noting bibasilar scarring/atelectasis. Liver: The contrast-enhanced liver is normal in size, contour, and attenuation. There is no intrahepatic biliary ductal dilatation. The hepatic veins and portal veins are patent. Gallbladder: There are several calcified gallstones. The gallbladder is mildly distended, and the wall appears mildly thickened with faint surrounding infiltration. A 4 mm calcified gallstone is seen in the cystic duct on image #98. Spleen: Normal in size and attenuation. Pancreas: Unremarkable. Adrenal glands: Unremarkable. Kidneys: The contrast enhanced kidneys are normal in size and without hydronephrosis. The kidneys enhance symmetrically. Small renal sinus cysts are seen on the left. Abdominal vasculature: The abdominal aorta is normal in course and caliber noting mild to moderate atherosclerotic calcification. Bowel: There are scattered colonic diverticula without CT evidence of acute diverticulitis. No bowel obstruction is seen. The appendix is well-visualized and normal. Peritoneum: There is no intraperitoneal free air or abdominal ascites. There is laxity of the ventral abdominal wall and a tiny fat-containing umbilical hernia. Lymphadenopathy: There are mildly enlarged upper abdominal lymph nodes. A node at the diaphragmatic hiatus measures 2.6 x 1.1 cm. Gastrohepatic nodes measure up to 1.0 cm in short axis. There are also prominent subcentimeter retroperitoneal and iliac chain lymph nodes. Pelvic viscera: The bladder is decompressed and grossly unremarkable. The uterus and adnexa are normal as visualized. Skeletal structures: The skeletal structures are osteopenic. There is mild to moderate lumbosacral spondylosis. Sclerotic change is noted in the sacroiliac joints. No lytic or blastic lesions are seen. IMPRESSION: 1. Cholelithiasis with a small calcified gallstone in the cystic duct and evidence of mild acute cholecystitis. Surgical evaluation is advised. 2. Mildly enlarged upper abdominal and retroperitoneal lymph nodes are nonspecific and grossly similar to previous. These were FDG avid by PET on 06/01/2023. 3. Additional findings as above. ACT 112: Negative or not required by law. Electronically signed by: Ashish Bourne M.D. 04/24/2024 9:41 AM Gallbladder Ultrasound 04/24/24 12:51 ULTRASOUND RIGHT UPPER QUADRANT ABDOMEN CLINICAL HISTORY: Acute cholecystitis. COMPARISON STUDY: Abdominal CT dated 04/24/2024 TECHNIQUE: Real-time, grayscale, and color flow sonography of the right upper quadrant of the abdomen was performed. Images are reviewed in the transverse and longitudinal planes. FINDINGS: Liver: The liver is normal in size and demonstrates heterogeneously increased echotexture indicating steatosis. There is no intrahepatic biliary ductal dilatation. The main portal vein is patent. Gallbladder: There are numerous shadowing calcified gallstones. The gallbladder wall is thickened measuring about 5 mm. No pericholecystic fluid the seen. A sonographic Leslie's sign is reportedly absent. The common bile duct measures up to 0.5 cm in diameter. Pancreas: Visualized portions of the pancreatic head and body are normal in appearance. Right kidney: Survey images of the right kidney demonstrate normal size and echotexture. There is no hydronephrosis. Ascites: None. IMPRESSION: 1. Cholelithiasis within a thick-walled gallbladder. Although a sonographic Leslie's sign is reportedly absent, finds are highly suspicious for acute cholecystitis when correlated with today's CT scan which showed a calcified stone in the cystic duct. 2. There is no intra or extrahepatic biliary ductal dilatation. 3. Hepatic steatosis. ACT 112: Negative or not required by law. Electronically signed by: Ashish Bourne M.D. 04/24/2024 2:15 PM Pending Results Patient Have Any Pending Studies at Discharge: Yes Discharge Instructions Given to Patient (Per Discharging Provider) Mrs. Verde, You were hospitalized after having acute abdominal pain, found to be from your gallbladder. This was removed by Dr. Rangel on 04/26. Instructions from the surgery team are below. You had a slower recovery, likely due to the underlying sarcodiosis. You were also found to be adrenally insufficent and have be started on a low dose steroid taper. - Hydrocortisone 20mg * 1 tablet tonight 04/29 then * 1 tablet three times a day for 2 days * 1 tablet twice a day for 2 days * 1 tablet every morning x 3 days and then STOP Do not take the methotrexate while you are taking the steroids. You should discuss with Dr. Hanks when to resume this. I have sent in oxycodone for pain - continue to take miralax while you are taking this to prevent constipation. You can continue to use over the counter Gasx if needed for continued gas pains. You were also treated for a UTI while you were here and completed that course of abx. Please stay on the same floor as the bathroom for the next few days while you are still recovering, I do not want you to over do it and end up back in the hospital. Continue to use your incentive spirometer. Follow up with your PCP in the next 7-10 days. ------ Medications: Your medication list has been reviewed and reconciled upon discharge to ensure accuracy and continuity of care. An updated list of all your medications is included with your hospital discharge paperwork. Please review this list closely, and make note of any changes. Take your medications as instructed; do not skip a dose of your medicines. Make sure all of your doctors know every medicine you are taking (including [id number] medicines, vitamins, and supplements). Call your primary care provider before taking any new medicines (including over- the-counter medicines, vitamins, and supplements), because some of these may interact with your current medications, or may make your symptoms worse. Tell your primary care provider if you cannot afford your medications. Activity: You can do normal everyday activities as your body allows. Take rest breaks if you feel tired. Do not overexert. Stop activity if you have pain, shortness of breath or feel dizzy. Follow-up appointments: Make an appointment with your primary care physician within one week of discharge. A copy of this summary will be sent to them. Every time you see your primary care physician, or any other doctor, bring your medication list, and a list of questions. CONTACT YOUR PRIMARY CARE PROVIDER if you experience any of the following: Shortness of breath or difficulty breathing Fevers or chills Feeling tired with normal activity or experiencing dizziness or fainting Difficulty following your treatment plan, or difficulty taking medications CALL 911 OR GO TO THE EMERGENCY DEPARTMENT if you experience any of the following: Severe abdominal pain or nausea/vomiting Severe chest pain, or chest pain that radiates (moves) to your jaw or arm Sudden, severe shortness of breath or difficulty breathing Thank you for allowing us to participate in your care. Katerine Pandya PA-C Total Time Total Time Spent Total Time Spent (In Minutes): Time spend day of discharge 45 minutes including direct patient care, medication reconciliation, documentation, review of labs and images, and coordination of care. Coding Level of Care Code 11915 INP/OBS DISCH >30 MIN Diagnoses Acute cholecystitis K81.0 UTI (urinary tract infection) N39.0 Type 2 diabetes mellitus E11.9 DIAMANTE (obstructive sleep apnea) G47.33 History of DVT (deep vein thrombosis) Z86.718 Sarcoidosis D86.9 Atrial flutter I48.92
== END 2024-04-29 16:02 | disposition home or self-care (01) | DRG 418 ==
LOC: ED 07:38 → EDINP 12:30 → SUATTDRO 12:30 → 2N 14:18